=== PATIENT | male | born 1955 | race Caucasian/White ===

== ENCOUNTER 2016-11-25 17:10 | Emergency (ER) | payer SELFPAY ==
[2016-11-25 17:16] VITALS: RESP 16; TEMP 98.1
--- NOTE | 2016-11-25 19:09 | EDPHY ---
H & P Stated Complaint: constipation/thinks was initially caused by taking immodium - Personal History Current Tetanus/Diphtheria Vaccine: No - Medical/Surgical History Hx Asthma: No Hx Chronic Respiratory Disease: No Hx Diabetes: No Hx Cardiac Disease: No Hx Renal Disease: No Hx Cirrhosis: No Hx Alcoholism: No Hx HIV/AIDS: No Hx Splenectomy or Spleen Trauma: No Other PMH: denies - Social History Smoking Status: Former smoker HPI/ROS: Chief complaint: Constipation History of present illness: This is a 61-year-old male who presents to the emergency department for evaluation and treatment of constipation. Patient reports he has been constipated for the last few weeks. He states it started after he developed diarrhea and took more than the prescribed amount of Imodium. He states since then he has had hard stools. He passes small amounts on occasion. He denies other associated signs or symptoms including no fevers or chills, no nausea or vomiting, no diarrhea, he is still passing gas, no abdominal pain. He is urinating well. (Dhruv Krishnamurthy) - Physical Exam Exam: General Appearance: Alert, nontoxic. Eyes: Pupils equal and round no injection. Respiratory: Chest is nontender, lungs are clear to auscultation. Cardiac: regular rate and rhythm. Gastrointestinal: Bowel sounds are normal. Abdomen is soft, nondistended, nontender. No peritoneal signs. Digital rectal exam does not reveal impaction. Musculoskeletal: Extremities have full range of motion and are nontender. Skin: No rashes or lesions. Neurologic: Alert and oriented x4. Ambulating without difficulty. (Dhruv Krishnamurthy) Constitutional: Initial Vital Signs Temperature (C) 36.7 C 11/25/16 17:13 Heart Rate 90 11/25/16 17:13 Respiratory Rate 16 11/25/16 17:13 Blood Pressure 128/90 H 11/25/16 17:13 O2 Sat (%) 92 11/25/16 17:13 O2 Delivery Mode Room Air Allergies/Adverse Reactions: No Known Allergies Allergy (Unverified 11/25/16 17:13) Home Medications: Medication Instructions Recorded Milk of Magnesia 11/25/16 Peg 3350/Na Sulf,Bicarb,Cl/KCl 4,000 ml PO ONCE #1 btl 11/25/16 [Golytely (RX)] Medical Decision Making ED Course/Re-evaluation: Patient seen under the supervision of my secondary supervising physician Dr. Breanna Deleon. Patient presents to the emergency department for evaluation of constipation. Patient has a benign abdominal exam. No evidence of impaction. X-ray confirms constipation. No evidence of bowel obstruction. Patient will be discharged home. I have discussed the use of GoLYTELY with him and then starting stool softeners. He is asked to follow up with his primary care doctor for recheck. Return precautions are given. Patient voiced understanding and agreement with plan. (Dhruv Krishnamurthy) The patient was evaluated and managed by the physician corporate law assistant. I have reviewed this chart and I agree with the findings and plan of care as documented , as indicated by my signature. I am the secondary supervising physician. ( Breanna Deleon) Differential Diagnosis: Included but not limited to constipation, fecal impaction, bowel obstruction ( Dhruv Krishnamurthy) Departure - Departure Disposition: Home, Routine, Self-Care Clinical Impression: Constipation Condition: Good Instructions: Constipation (ED) Additional Instructions: Follow-up with the primary care doctor for recheck If symptoms worsen or new symptoms develop return to the emergency room for recheck Referrals: NONE *PRIMARY CARE P,. [Primary Care Provider] - As per Instructions Prescriptions: Peg 3350/Na Sulf,Bicarb,Cl/KCl [Golytely (RX)] 4,000 ml PO ONCE #1 btl
[2016-11-25 19:33] VITALS: BP 154/98; PULSE 96; O2SAT 95
== END 2016-11-25 19:33 | disposition home or self-care (01) ==
DX: K59.00 Constipation, unspecified (principal); Z87.891 Personal history of nicotine dependence

== ENCOUNTER 2017-01-13 08:53 | Inpatient (IN) | payer MEDICAID ==
--- NOTE | 2017-01-13 09:15 | EDPHY ---
H & P Stated Complaint: not eating or drinking much due to fear of constipation Time Seen by Provider: 01/13/17 09:00 HPI/ROS: CHIEF COMPLAINT: "I feel weak and I am constipated" HISTORY OF PRESENT ILLNESS: 61-year-old male who lives at [facility] arrives via ambulance. It is not completely clear why he is in the emergency department sent to the emergency department. He states that he has a history of constipation was evaluated in the emergency department in November for constipation, given prescription for GoLYTELY which he states he did not consume. He states that he typically drinks a cup of sugar water per day and has otherwise not been eating because he is afraid that he might exacerbate his constipation. He denies nausea or vomiting. He is passing gas as normal. There was initial nursing notation EMS notation or diarrhea however in speaking the patient he states that he has not experienced diarrhea, states that his only incident he will yesterday was when he was passing gas he had a small amount of stool that came out also in the process. He is not incontinent however. he states that he has been feeling weakness over the past several months but denies complaints of pain. States that he will sometimes feel lightheaded when he stands up too quickly. He denies: Abdominal pain, chest pain, dyspnea, slurred speech, headache, gait instability, fever, chills, flu- like symptoms PRIMARY CARE PROVIDER: no primary care provider REVIEW OF SYSTEMS: A ten point review of systems was performed and is negative with the exception of the items mentioned in the HPI PAST MEDICAL & SURGICAL HISTORY: No prior history of known atrial fibrillation SOCIAL HISTORY: Patient states he lives at [facility] so that he may take care of his mother who also lives at [facility] PHYSICAL EXAM (Prior to examination, patient consented to physical exam, hands were washed and my usual and customary physical exam procedures followed) 1) GENERAL: Well-developed, well-nourished, alert and oriented. Appears to be in no acute distress. 2) HEAD: Normocephalic, atraumatic 3) HEENT: Pupils equal, round, reactive to light bilaterally. Sclera anicteric. Nasopharynx, oropharynx, clear, no lesions. moist mucous membranes 4) NECK: Full range of motion, no meningeal signs. 5) LUNGS: Clear auscultation bilaterally, no wheezes, no rhonchi, no retractions. 6) HEART: no murmur, no heave, no gallop. 7) ABDOMEN: No guarding, no rebound, no focal tenderness, negative McBurney's, negative Mariscal's, negative Rovsing's, negative peritoneal sign, 8) MUSCULOSKELETAL: Moving all extremities, no focal areas of tenderness, no obvious trauma. No peripheral edema or discoloration. 9) BACK: No CVA tenderness, no midline vertebral tenderness, no fluctuance, no step-off, no obvious trauma, no visual or palpable abnormality. 10) SKIN: No rash, no petechiae. 11) Psychiatric: Patient is oriented X 3, there is no agitation. DIFFERENTIAL DIAGNOSIS: in no particular include but limited to constipation, diarrhea, atrial fibrillation - Medical/Surgical History Hx Asthma: No Hx Chronic Respiratory Disease: No Hx Diabetes: No Hx Cardiac Disease: No Hx Renal Disease: No Hx Cirrhosis: No Hx Alcoholism: No Hx HIV/AIDS: No Hx Splenectomy or Spleen Trauma: No Other PMH: denies - Social History Smoking Status: Former smoker Constitutional: Initial Vital Signs Temperature (C) 36.7 C 01/13/17 09:04 Heart Rate 89 01/13/17 09:04 Respiratory Rate 15 01/13/17 09:04 Blood Pressure 142/97 H 01/13/17 09:04 O2 Sat (%) 95 01/13/17 09:04 O2 Delivery Mode Room Air Allergies/Adverse Reactions: No Known Allergies Allergy (Verified 01/13/17 09:04) Home Medications: Medication Instructions Recorded NK [No Known Home Meds] 01/13/17 Medical Decision Making - Diagnostics Imaging Results: Imaging Impressions Chest X-Ray 01/13/17 09:09 Impression: Masslike opacity overlying the cardiac silhouette on the lateral radiograph.. Recommend either CT with contrast or comparison with prior outside studies, if available.. Results called to Mike Santos PA-C. Abdomen X-Ray 01/13/17 09:10 Impression: Negative KUB. ED Course/Re-evaluation: 9:47 a.m.: I discussed the case with secondary to superimposition Dr. Juan Goldman in the ER. The patient complains of subjective weakness for the past several months. He has no primary care provider although he states that he has been [facility] ago but does not go there anymore. He was noted to have rate controlled atrial fibrillation of unknown duration. Dr. Goldman and I recommended admission for further evaluation of his atrial fibrillation and to possibly start patient on anticoagulant therapy. Phone consultation with hospitalist Ursula at this time, admit to Dr. Feng PCU 10:05 a.m.: Received a phone call from radiologist Dr. Johan Sanchez regarding patient's chest x-ray. There is a concerning mass seen on his chest x-ray for which CT was recommended. CT chest is ordered and will be followed up by the hospitalist service. - Data Points Laboratory Results: Laboratory Results 01/13/17 09:00 01/13/17 09:00 01/13/17 01/13/17 01/13/17 09:00 09:00 09:00 WBC RBC Hgb Hct MCV MCH MCHC RDW Plt Count MPV Neut % (Auto) Lymph % (Auto) [place] % (Auto) Eos % (Auto) Baso % (Auto) Nucleat RBC Rel Count Absolute Neuts (auto) Absolute Lymphs (auto) Absolute Monos (auto) Absolute Eos (auto) Absolute Basos (auto) Absolute Nucleated RBC Immature Gran % Immature Gran # PT 14.4 SEC SEC (12.0-15.0) INR 1.13 (0.83-1.16) APTT 35.4 SEC SEC (23.0-38.0) Sodium 141 mEq/L mEq/L (134-144) Potassium 3.2 mEq/L L mEq/L (3.5-5.2) Chloride 104 mEq/L mEq/L (97-110) Carbon Dioxide 26 mEq/l mEq/l (22-31) Anion Gap 11 mEq/L mEq/L (8-16) BUN 13 mg/dL mg/dL (7-23) Creatinine 0.7 mg/dL mg/dL (0.7-1.3) Estimated GFR > 60 Glucose 88 mg/dL mg/dL (70-100) Calcium 8.9 mg/dL mg/dL (8.5-10.4) Total Bilirubin 1.4 mg/dL mg/dL (0.1-1.4) Conjugated Bilirubin 0.4 mg/dL mg/dL (0.0-0.5) Unconjugated Bilirubin 1.0 mg/dL mg/dL (0.0-1.1) AST 19 IU/L IU/L (17-59) ALT 20 IU/L L IU/L (21-72) Alkaline Phosphatase 42 IU/L IU/L (38-126) Troponin I < 0.012 ng/mL ng/mL (0-0.034) Total Protein 6.4 g/dL g/dL (6.3-8.2) Albumin 3.9 g/dL g/dL (3.5-5.0) Lipase 72.0 IU/L IU/L (23-300) 01/13/17 09:00 WBC 3.77 10^3/uL L 10^3/uL (3.80-9.50) RBC 4.74 10^6/uL 10^6/uL (4.40-6.38) Hgb 14.4 g/dL g/dL (13.7-17.5) Hct 41.7 % % (40.0-51.0) MCV 88.0 fL fL (81.5-99.8) MCH 30.4 pg pg (27.9-34.1) MCHC 34.5 g/dL g/dL (32.4-36.7) RDW 13.9 % % (11.5-15.2) Plt Count 237 10^3/uL 10^3/uL (150-400) MPV 11.5 fL fL (8.7-11.7) Neut % (Auto) 47.7 % % (39.3-74.2) Lymph % (Auto) 39.8 % % (15.0-45.0) [place] % (Auto) 9.3 % % (4.5-13.0) Eos % (Auto) 2.1 % % (0.6-7.6) Baso % (Auto) 1.1 % % (0.3-1.7) Nucleat RBC Rel Count 0.0 % % (0.0-0.2) Absolute Neuts (auto) 1.80 10^3/uL 10^3/uL (1.70-6.50) Absolute Lymphs (auto) 1.50 10^3/uL 10^3/uL (1.00-3.00) Absolute Monos (auto) 0.35 10^3/uL 10^3/uL (0.30-0.80) Absolute Eos (auto) 0.08 10^3/uL 10^3/uL (0.03-0.40) Absolute Basos (auto) 0.04 10^3/uL 10^3/uL (0.02-0.10) Absolute Nucleated RBC 0.00 10^3/uL 10^3/uL (0-0.01) Immature Gran % 0.0 % % (0.0-1.1) Immature Gran # 0.00 10^3/uL 10^3/uL (0.00-0.10) PT INR APTT Sodium Potassium Chloride Carbon Dioxide Anion Gap BUN Creatinine Estimated GFR Glucose Calcium Total Bilirubin Conjugated Bilirubin Unconjugated Bilirubin AST ALT Alkaline Phosphatase Troponin I Total Protein Albumin Lipase Departure - Departure Disposition: [facility] Acute Clinical Impression: Weakness Atrial fibrillation Qualifiers: Atrial fibrillation type: chronic Qualified Code(s): I48.2 - Chronic atrial fibrillation Condition: Fair
[2017-01-13 09:16] LABS: ADD DIFF? NO; ADD MORPH? NO; ADD SCAN? NO; ATYPICAL LYMPHOCYTE FLAG 20 (0-99); FRAGMENT RBC FLAG 0 (0-99); HEMATOCRIT 41.7 % (40.0-51.0); HEMOGLOBIN 14.4 g/dL (13.7-17.5); LEFT SHIFT FLG 0 (0-99); LIPEMIA HEMOLYSIS FLAG 90 (0-99); MEAN CELL HEMOGLOBIN 30.4 pg (27.9-34.1); MEAN CELL HEMOGLOBIN CONCENTR. 34.5 g/dL (32.4-36.7); MEAN PLATELET VOLUME 11.5 fL (8.7-11.7); PLATELET CLUMPS FLAG 0 (0-99); PLATELET COUNT 237 10^3/uL (150-400); RED BLOOD CELL COUNT 4.74 10^6/uL (4.40-6.38); RED CELL DISTRIBUTION WIDTH 13.9 % (11.5-15.2)
--- NOTE | 2017-01-13 09:19 | CPEKG ---
Heart Rate: 89 RR Interval: 674 QRSD Interval: 90 QT Interval: 408 QTC Interval: 497 QRS Lamont: 68 T Wave Lamont: 21 EKG Severity - ABNORMAL ECG - EKG Impression: ATRIAL FIBRILLATION EKG Impression: LOW VOLTAGE IN FRONTAL LEADS EKG Impression: BORDERLINE PROLONGED QT INTERVAL Electronically Signed By: Brian Sands 15-Jan-2017 08:53:18
[2017-01-13 09:25] LABS: ANION GAP 11 mEq/L (8-16); CALCIUM 8.9 mg/dL (8.5-10.4); CARBON DIOXIDE 26 mEq/l (22-31); CHLORIDE 104 mEq/L (97-110); CREATININE 0.7 mg/dL (0.7-1.3); GLOMERULAR FILTRATION RATE > 60; GLUCOSE 88 mg/dL (70-100); POTASSIUM 3.2 mEq/L (3.5-5.2); SODIUM 141 mEq/L (134-144)
[2017-01-13 09:36] LABS: INR 1.13 (0.83-1.16); PROTIME(PATIENT) 14.4 SEC (12.0-15.0)
[2017-01-13 09:37] LABS: APTT 35.4 SEC (23.0-38.0); TROPONIN I < 0.012 ng/mL (0-0.034)
[2017-01-13 09:45] LABS: ALBUMIN 3.9 g/dL (3.5-5.0); BILIRUBIN,TOTAL 1.4 mg/dL (0.1-1.4); BILIRUBIN-CONJUGATED 0.4 mg/dL (0.0-0.5); TOTAL PROTEIN 6.4 g/dL (6.3-8.2)
[2017-01-13] MEDS ORDERED: IOPAMIDOL (ISOVUE 370) 100 ML BTL IV ONE (10:13)
[2017-01-13] MEDS ORDERED: ONDANSETRON 4 MG/2 ML VIAL IVP PRN (11:57)
[2017-01-13] MEDS ORDERED: ACETAMINOPHEN 325 MG TAB PO PRN (11:57)
[2017-01-13] MEDS ORDERED: ONDANSETRON DISINTEGRATING 4 MG TAB PO PRN (11:57)
[2017-01-13] MEDS ORDERED: NS 1,000 ML IV SCH (12:00)
[2017-01-13] MEDS ORDERED: POTASSIUM CL 20 MEQ TAB PO ONE (12:01)
[2017-01-13] MEDS ORDERED: APIXABAN 5 MG TAB PO SCH (12:03)
[2017-01-13] MEDS ORDERED: POLYETHYLENE GLYCOL 3350 17 GM PKT PO PRN (12:17)
[2017-01-13] MEDS ORDERED: LACTULOSE 20 GM/30 ML UDCUP PO PRN (12:17)
[2017-01-13] MEDS ORDERED: MAGNESIUM HYDROXIDE 30 ML UDCUP PO PRN (12:17)
[2017-01-13] MEDS ORDERED: BISACODYL 10 MG SUPP PR PRN (12:17)
--- NOTE | 2017-01-13 13:03 | GHP ---
[f rep st] HISTORY AND PHYSICAL DATE OF ADMISSION: 01/13/2017 CHIEF COMPLAINT: Weakness and poor oral intake due to fear of constipation. HISTORY OF PRESENT ILLNESS: The patient is a 61-year-old male with no significant medical history, who presents to the emergency department complaining of constipation and dehydration. He was seen i n the emergency department 2 months ago, at which time a KUB revealed moderate constipation pattern. He was given a prescription for GoLYTELY. However, he had difficulty tolerating this as he felt i t was making him more dehydrated. When I asked when his last bowel movement was, he says he does no t have bowel movements and finally agreed that he had a bowel movement 3 months ago. He later state s that he has had some loose stool as recent as yesterday. He is overall afraid to eat or drink bec ause he fears this will exacerbate his constipation. He denies any nausea or vomiting. He does end orse changes in his bowel patterns as he used to have normal formed stool, but these have changed to looser versus constipation patterns over the past few months. He also reports occasional blood-tin ged stool. He has had no fevers or chills. He denies abdominal pain. He does endorse weight loss, but is unable to quantify this. In the emergency department, he was found to be in rate controlled atrial fibrillation, which is a n ew diagnosis for him. He has no chest pain, shortness of breath, palpitations, or dizziness. Chest x-ray revealed a masslike opacity over the cardiac silhouette. CT angiogram was performed, which r evealed this mass is likely a pericardial cyst. The patient is unaware of this. Given his new-onse t atrial fibrillation and weakness, the patient is admitted to the hospital for further evaluation. PAST MEDICAL HISTORY: Intermittent constipation. MEDICATIONS: Patient takes no medications. ALLERGIES: No known drug allergies. FAMILY HISTORY: Positive for coronary artery disease on his father's side. 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 He denies tobacco use. He reports intermittent alcohol use. He denies drug use. REVIEW OF SYSTEMS: A 10-point review of systems was performed and is negative except as per HPI. OBJECTIVE: VITAL SIGNS: Temperature is 36.7, blood pressure 114/81, heart rate 78, respiratory rat e 17. He is 96% on room air. GENERAL: The patient is awake, alert, oriented, in no acute distress . HEENT: Head is atraumatic, normocephalic. Pupils equal, round, and reactive to light. Extraocu lar muscles intact. Oropharynx clear. Mucous members are moist. NECK: Supple. There is no JVD. HEART: Regular rate and rhythm without murmur. LUNGS: Clear to auscultation bilaterally. ABDOME N: Soft, nondistended, nontender, with normoactive bowel sounds. EXTREMITIES: Without cyanosis, c lubbing, or edema. NEUROLOGIC: Grossly nonfocal. PSYCH: The patient has a strange affect. LABORATORY DATA: CBC remarkable for white blood cell count of 3.77, is otherwise normal with normal hemoglobin and hematocrit. INR is 1.13. Complete metabolic panel is remarkable for potassium of 3 .2. LFTs are normal. Troponin is negative. Lipase is normal. Chest x-ray was personally reviewed and interpreted, reveals a masslike opacity overlying the cardia c silhouette. The lung turpin are otherwise clear. CT pulmonary angiogram is negative for pulmonary embolism. A benign 4 cm pericardial cyst along the right heart border corresponds to the chest x-ray findings. There is mild airways disease and mini mal posterior atelectasis. Abdominal x-ray shows a normal bowel gas pattern. No significant constipation is noted. EKG shows atrial fibrillation with a rate of 89. No ST-segment or T-wave changes to suggest acute i schemia. ASSESSMENT AND PLAN: The patient is a 61-year-old male with no significant past medical history, wh o presents to the emergency department from his assisted living facility complaining of weakness and constipation. 1. Atrial fibrillation. This is new onset. He is rate controlled, not on any AV lauren blockers. I did discuss possible anticoagulation with the patient though he has a CHADS-VASc score of zero, th us will initiate aspirin therapy. Will also check an echocardiogram and a TSH. 2. Pericardial cyst. This was confirmed on CT angiography. It is unclear if this may be precipita ting atrial fibrillation. As above, will proceed with echocardiogram. I have also paged the cardio thoracic surgeon for their input. This likely can be followed as an outpatient. 3. Changes in bowel patterns. The patient seems to be struggling with the fear of constipation, th ough there is no radiologic evidence of this. Given his changes in bowel patterns, will check Hemoc cult stool. I recommended he have an outpatient colonoscopy. There is no evidence of active GI ble eding at this time. 4. Hypokalemia. Will replace and recheck in the morning. 5. Weakness. He is hemodynamically stable. He does not appear significantly volume depleted. How ever, given his strong feeling that he is dehydrated and reports of poor oral intake, will gently hy drate him with normal saline overnight. PT, OT evaluations are requested. 6. Deep vein thrombosis prophylaxis. Will place SCDs for now. If the patient has a prolonged hosp italization, will order Lovenox. 7. Code status. Patient is full code. 8. Disposition. Patient is admitted to observation status. [facility] may be a candidate for discharge home in the morning with plans for outpatient referral for colonoscopy and primary care followup. /[id number]/MODL
[2017-01-13 13:29] LABS: HEMOGLOBIN A1C 5.4 % (4.0-6.0)
[2017-01-13] MEDS: ASPIRIN 325 MG TAB PO SCH (14:06)
[2017-01-13] MEDS ORDERED: TEARS/DEXTRAN 70/HYPROMELLOSE 15 ML OPHT.BTL EACHEYE PRN (19:44)
[2017-01-13] MEDS: SENNOSIDES/DOCUSATE SODIUM TAB PO SCH (22:07)
[2017-01-14 06:23] LABS: ANION GAP 10 mEq/L (8-16); CALCIUM 8.6 mg/dL (8.5-10.4); CARBON DIOXIDE 23 mEq/l (22-31); CHLORIDE 107 mEq/L (97-110); CREATININE 0.6 mg/dL (0.7-1.3); GLOMERULAR FILTRATION RATE > 60; GLUCOSE 69 mg/dL (70-100); POTASSIUM 3.3 mEq/L (3.5-5.2); SODIUM 140 mEq/L (134-144)
[2017-01-14] MEDS: ASPIRIN 325 MG TAB PO SCH (08:15)
[2017-01-14] MEDS ORDERED: PROTOCOL POTASSIUM 1 DOSE MISC PRN (08:46)
[2017-01-14] MEDS ORDERED: POTASSIUM CL 10 MEQ TAB PO ONE ×2 (08:54→20:20)
--- NOTE | 2017-01-14 09:20 | ECHO ---
[id number] + + [address] : : [place] [address] : : [phone] + Adult Echocardiographic Report + ---+ :Name: POOL SEVILLA JStudy Date: 01/13/2017 02:33 PM : : Hospital Admission Number: [id number] : :: 1955 Gender: Male Height: 72 in : :Age: 61 yrs Race: WH Weight: 150 l b : :Reason For Study: Eval LV Fx : : BSA: 1.9 mete rs2: :History: New onset of A-fib : + ---+ MMode/2D Measurements \T\ Calculations IVSd: 0.79 cm LVIDd: 5.2 cm FS: 34.2 % Ao root diam: 3.4 cm LVPWd: 0.85 cm LVIDs: 3.4 cm EDV(Teich): 131.3 ml ACS: 2.4 cm ESV(Teich): 48.9 ml EF(Teich): 62.7 % Normal Measurement Values: + + :LVIDd (3.5-5.7cm) IVSd (0.6-1.1cm) LVPWd (0.6-1.1cm) Aortic Root (2.0-3.7cm)Left Atrium (1.5-4.0cm): :LV Vol(d) (76-115ml) LV Vol(s) (29-48ml) Ejec Fraction (50-65%)PV Roc (0.6- 1.2m/s) TV Roc (0.4-1.0m/s) : :MV E Roc (0.8-1.0m/s)MV A Roc (0.3-1.0m/s)LVOT Roc (0.7-1.2m/s) Asc Ao Roc ( 0.9-1.8m/s) : + + Doppler Measurements \T\ Calculations MV E max roc: Ao V2 max: LV V1 max: PA V2 max: 73.5 cm/sec 70.6 cm/sec 53.7 cm/sec 69.2 cm/sec MV A max roc: Ao max PG: LV V1 max PG: PA max P.0 cm/sec 2.0 mmHg 1.2 mmHg 1.9 mmHg MV E/A: 1.3 Left Ventricle The left ventricle is normal in size. There is normal left ventricular wall thickness. The left ventricular ejection fraction is normal. Ejection Fraction = 63%. The left ventricular ejection fraction is calculated at 62.7 %. The rhythm is atrial fibrillation. Right Ventricle The right ventricle is normal in size and function. Atria The left atrial size is normal. Right atrial size is normal. Mitral Valve The mitral valve is normal in structure and function. There is no mitral regurgitation noted. Tricuspid Valve Normal tricuspid valve. There is trace tricuspid regurgitation. Right ventricular systolic pressure is normal. Aortic Valve The aortic valve opens well. The aortic valve is trileaflet. There is no aortic stenosis. Mild aortic regurgitation. Pulmonic Valve The pulmonic valve is not well visualized. There is no pulmonic valvular regurgitation. Great Vessels The aortic root is normal size. Pericardium/Pleural Trivial to small anterior pericardial effusion. There are no echocardiographic indications of cardiac tamponade. Conclusion A complete two-dimensional transthoracic echocardiogram was performed (2D, M-mode, Doppler and color flow Doppler). (1) Left ventricular systolic ejection fraction was normal (60-65%) - normal wall motion (2) No left ventricular hypertrophy (3) Diastolic dysfunction was present - patient was in atrial fibrillation over course of this study (4) Normal right ventricular size and function (5) Normal atrial dimensinos (6) Grossly normal mitral valve (7) Trileaflet aortic valve without sclerosis or stenosis. Mild insufficiency wasn oted (8) Physiologic tricuspid regurgitation - RVSP was grossly normal (9) Poor visualization of the pulmonic valve (10) Trivial pericardial effusion - no tamponade physiology (11) No comparison echocardiograms Final Reading Physician: Shalom Bejarano signed on 01/14/2017 09:20 AM Ordering Physician: Oralia Feng Performed By: Jet Soto, JAMALCS
--- NOTE | 2017-01-14 09:32 | HOSPPROG ---
Hospitalist Progress Note Assessment/Plan: ?Anorexia - BMI 19, hypokalemic. Seems to have fear of eating, little insight. Replace K. Behavioral health resource RN consult appreciated. Will start low dose zyprexa to see if this helps reduce his fear of eating. Depression - pt resistant to anti-depressants. A fib - rate controlled, Chads-vasc 0, on ASA. Outpt f/u with [facility] Pericardial cyst - Discussed with Dr. Troy, plan for outpt f/u with dr. Feliz Full code Dispo - change to inpt for ongoing assessment and management of suspected eating disorder and treatment of associated electrolyte disorders. Pt likely to dispo to [facility] for above issues. Case discussed with care team. Subjective: Pt feels okay. Per RN, he is afraid to eat and he thinks it will cause constipation. He is depressed. Lives at [facility], but per care team hx , though he is supposed to be the caregiver of his elderly mother, she is actually caring for him. Objective: Vital Signs Temp Pulse Resp BP Pulse Ox 36.7 C 80 12 119/89 H 97 01/14/17 07:44 01/14/17 07:44 01/14/17 07:44 01/14/17 07:44 01/14/17 07:44 Laboratory Results 01/14/17 05:15 01/13/17 01/14/17 01/15/17 05:59 05:59 05:59 Intake Total 500 Balance 500 PT 14.4 SEC (12.0-15.0) 01/13/17 09:00 INR 1.13 (0.83-1.16) 01/13/17 09:00 - Physical Exam Constitutional: no apparent distress Eyes: PERRL Ears, Nose, Mouth, Throat: moist mucous membranes Cardiovascular: irregularly irregular Respiratory: no respiratory distress Gastrointestinal: normoactive bowel sounds, soft, non-tender abdomen Skin: warm Musculoskeletal: full muscle strength Neurologic: AAOx3 Psychiatric: depressed, poor insight ICD10 Worksheet Patient Problems: Problems Problem Status Onset Atrial fibrillation Acute Weakness Acute
[2017-01-14] MEDS: SENNOSIDES/DOCUSATE SODIUM TAB PO SCH ×2 (10:50→20:31)
[2017-01-14] MEDS ORDERED: POTASSIUM CL 10 MEQ TAB ONE (11:09)
[2017-01-14 19:29] LABS: POTASSIUM 3.7 mEq/L (3.5-5.2)
[2017-01-14] MEDS: OLANZapine 2.5 MG TAB PO SCH (20:31)
[2017-01-14 21:44] LABS: PHENCYCLIDINE URINE BCH < 6 ng/ml (NEGATIVE); PHENCYCLIDINE URINE BCH NEGATIVE (NEGATIVE); TETRAHYDROCANNABINOL URINE < 5 ng/mL (NEGATIVE); TETRAHYDROCANNABINOL URINE NEGATIVE (NEGATIVE)
[2017-01-15 05:01] LABS: ANION GAP 12 mEq/L (8-16); CALCIUM 9.1 mg/dL (8.5-10.4); CARBON DIOXIDE 21 mEq/l (22-31); CHLORIDE 106 mEq/L (97-110); CREATININE 0.7 mg/dL (0.7-1.3); GLOMERULAR FILTRATION RATE > 60; GLUCOSE 71 mg/dL (70-100); POTASSIUM 3.8 mEq/L (3.5-5.2); SODIUM 139 mEq/L (134-144)
[2017-01-15] MEDS: ASPIRIN 325 MG TAB PO SCH (09:58)
[2017-01-15] MEDS: SENNOSIDES/DOCUSATE SODIUM TAB PO SCH ×2 (09:58→20:14)
[2017-01-15] MEDS ORDERED: POTASSIUM CL 10 MEQ TAB PO ONE (11:33)
--- NOTE | 2017-01-15 13:32 | HOSPPROG ---
Hospitalist Progress Note Assessment/Plan: ?Anorexia - BMI 19, hypokalemic. Seems to have fear of eating, little insight. Behavioral health resource RN consult appreciated. Started low dose zyprexa to see if this helps reduce his fear of eating. Depression - pt resistant to anti-depressants, but wants help. [facility] today and placed him on a M1 hold due to being gravely disabled as he is not eating and is a harm to himself. Planning for dispo to [facility]. A fib - has had some RVR overnight, start oral dilt. Chads-vasc 0, on ASA. Outpt f/u with [facility]. Pericardial cyst - Discussed with Dr. Troy, plan for outpt f/u with dr. Feliz Full code Dispo - cont inpt. Pt likely to dispo to [facility] for above issues, CM involved. Case discussed with care team. Subjective: Pt is doing okay, agreeable to [facility] transfer during our talk. Still worried about his bowel. Afraid of constipation, afraid of diarrhea, not eating. He is very depressed, anxious. Objective: Vital Signs Temp Pulse Resp BP Pulse Ox 37.1 C 98 15 120/94 H 95 01/15/17 12:13 01/15/17 12:13 01/15/17 12:13 01/15/17 12:13 01/15/17 12:13 Laboratory Results 01/15/17 03:30 01/14/17 01/15/17 01/16/17 05:59 05:59 05:59 Intake Total 800 Output Total 180 Balance 620 PT 14.4 SEC (12.0-15.0) 01/13/17 09:00 INR 1.13 (0.83-1.16) 01/13/17 09:00 - Physical Exam Constitutional: no apparent distress Eyes: PERRL Ears, Nose, Mouth, Throat: moist mucous membranes Cardiovascular: regular rate and rhythym Respiratory: no respiratory distress Gastrointestinal: normoactive bowel sounds, soft, non-tender abdomen Skin: warm Musculoskeletal: full muscle strength Neurologic: AAOx3 Psychiatric: depressed ICD10 Worksheet Patient Problems: Problems Problem Status Onset Atrial fibrillation Acute Weakness Acute
[2017-01-15] MEDS: DILTIAZEM 30 MG TAB PO SCH ×2 (14:07→18:37)
[2017-01-15] MEDS ORDERED: DILTIAZEM 30 MG TAB PO ONE (19:06)
[2017-01-15] MEDS: OLANZapine 2.5 MG TAB PO SCH (20:09)
[2017-01-16] MEDS: DILTIAZEM 30 MG TAB PO SCH ×2 (00:12→05:40)
[2017-01-16 06:16] LABS: MAGNESIUM 1.9 mg/dL (1.6-2.3); POTASSIUM 3.5 mEq/L (3.5-5.2)
[2017-01-16] MEDS ORDERED: POTASSIUM CL 10 MEQ TAB PO ONE (07:28)
--- NOTE | 2017-01-16 08:51 | PDIAF ---
- Diagnosis Diagnosis: Depression with psychotic features, ?Anorexia, A fib Code Status: Full Code - Medication Management Discharge Medications: Medications to Continue on Transfer Aspirin EC [Aspirin EC 81 mg (*)] 81 mg PO DAILY #30 tab 01/15/17 [Last Taken Unknown] OLANZapine [ZyPREXA 2.5 mg (*)] 2.5 mg PO HS tab 01/15/17 [Last Taken Unknown] Tears/Dextran 70/Hypromellose [Natural Balance Tears (*)] 1 drop EACHEYE Q2HRS PRN #0 opht.btl 01/15/17 [Last Taken Unknown] Diltiazem Cd [Cardizem ER Q24hr] 180 mg PO DAILY #30 cap 01/16/17 [Last Taken Unknown] Discharge Medications: Refer to the Discharge Home Medication list for PRN reason. - Orders Diet Texture: Regular Texture Diet, Thin Liquids - Follow Up Care Current Providers and Referrals: Rakan Escalona MD [Medical Doctor] - (Please make an appointment with a associate director of sales to make a plan and possibly schedule a colonoscopy given the change in your bowel habits.) Vin Feliz DO [Doctor of Osteopathy] - follow up in 1 week (Please make an appointment with Dr. Feliz to discuss surgical options re: benign pericardial cyst.) Jacob Kat MD [Medical Doctor] - follow up in 10 days (Please make an appointment to follow up on your atrial fibrillation with a provider at [facility].)
[2017-01-16] MEDS: ASPIRIN 325 MG TAB PO SCH (09:17)
[2017-01-16] MEDS: SENNOSIDES/DOCUSATE SODIUM TAB PO SCH (09:18)
[2017-01-16 09:28] VITALS: RESP 18
[2017-01-16 11:41] VITALS: BP 112/90; PULSE 86; TEMP 98.1; O2SAT 96
[2017-01-16] MEDS ORDERED: DILTIAZEM CD 180 MG CAP PO SCH (12:00)
--- NOTE | 2017-01-16 20:14 | GDS ---
[f rep st] DISCHARGE SUMMARY DISCHARGE DIAGNOSES: 1. 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 2. Suspected anorexia, possibly secondary to above. 3. New onset atrial fibrillation. 4. Pericardial cyst. CONSULTANTS: None. IMAGING STUDIES/PROCEDURES: 1. Abdomen x-ray January 13 showed normal bowel gas pattern, an overall negative study. 2. Chest x-ray showed a masslike opacity over the cardiac silhouette. 3. CT angiogram of the chest was negative for pulmonary embolism, showed a benign 4 cm pericardial cyst along the right heart border, corresponding with the chest radiograph findings. 4. Echocardiogram showed a normal left ventricular ejection fraction of 60% to 65% with normal wall motion. Diastolic dysfunction was present. No significant valve disease was seen. There was a tr ivial pericardial effusion without tamponade physiology. HISTORY OF DETAILS: Please see the history and physical dated January 13, 2017. In brief, the patient is a 61-year-old male with no significant past medical history, who presents to the emergency depart ment with weakness and poor oral intake due to a fear of constipation. He was having new onset atri al fibrillation, as well as mild hypokalemia, and was admitted to the hospital for further managemen t. HOSPITAL COURSE: The patient was admitted to the telemetry unit. He was initially rate controlled and had a CHADS-VASc score of zero and thus was treated with daily aspirin for stroke prevention. Lucho sánchez did develop some rapid ventricular rates and was started on oral diltiazem. This was up titrated. He was discharged on long-acting diltiazem. There was no evidence of valve disease on his echo. His TSH was normal. I discussed the pericardial cyst with the on-call neurosurgeon, claudio Ca recommended outpatient followup. He was referred to Dr. Feliz for ongoing surveillance. His more pressing issue was his depression with paranoid and psychotic features causing him to have a fear of eating. He states he has not been eating for several months and has lost over 20 pounds. His BMI is 18.5. He presented with mild hypokalemia, and this was replaced and remained normal at discharge. Behavioral Health tuber machine operator consult was obtained, and further history was revealed that the patient has not been taking care of himself. He apparently lives at [facility] with his m other and is supposed to be her caregiver, though as it turns out, she is doing most of the caregivi ng for him. He seems to have some fearful and psychotic-type thoughts about Kleenex being stuck in the back of his throat, making it difficult to swallow. This, in addition to his fear of both diarr hea and constipation, contributed to his unwillingness to eat. He had a normal swallow evaluation b y Speech Therapy. There is no obvious foreign body in his posterior oropharynx on exam. He was sta rted on low-dose Zyprexa to help alleviate these fears. [facility] evaluated the patien t and felt he was of grave harm to himself, placing him on an M1 hold. He is ultimately accepted to [facility] facility for ongoing management of these issues. DISPOSITION: Patient is discharged to [facility]. FOLLOWUP: 1. Dr. Jacob Kat, cardiology, for ongoing followup of his atrial fibrillation. 2. Dr. Vin Feliz, cardiothoracic surgery, for followup of his pericardial cyst. 3. Dr. Rakan Escaloan, gastroenterology, for colonoscopy given his changes in bowel habits. 4. The patient was also encouraged to obtain a primary care physician and establish care. DISCHARGE MEDICATIONS: Aspirin 81 mg p.o. daily #30, no refills, diltiazem CD 180 mg p.o. daily #30 , no refills, Zyprexa 2.5 mg p.o. at bedtime. /[id number]/MODL
== END 2017-01-16 11:50 | DRG 309 ==
LOC: EDUNIT# → F2W 12:07 → OBSVTOIN 01-14 09:34 → EEVIPCON 01-14 09:34 → F2N 01-15 21:15
PROVIDERS: ADMIT Hospitalist; ATTEND Hospitalist
DX: I48.91 Unspecified atrial fibrillation (principal); E87.6 Hypokalemia; F41.8 Other specified anxiety disorders; F22 Delusional disorders; R63.0 Anorexia; I31.8 Other specified diseases of pericardium; Z68.1 Body mass index [BMI] 19.9 or less, adult; Z87.891 Personal history of nicotine dependence
CPT/HCPCS: 80307; 92610-GN; 97161-GP; 97165-GO; G0378; G0480; Q9967

== ENCOUNTER 2017-08-17 15:58 | Emergency (ER) | payer MEDICAID ==
--- NOTE | 2017-08-17 19:02 | EDPHY ---
H & P Time Seen by Provider: 08/17/17 19:02 HPI/ROS: Chief complaint. Dehydration HPI. 62-year-old male presents emergency department with complaint of eye the time dehydrated. He has had swallowing for 1 year. He has had decreased oral intake. Decreased urination. No vomiting but some diarrhea. He has never had an skull for evaluation home was 1 year ago difficulty swallowing. No chest pain or abdominal pain. He feels that the food tends to get stuck. However he is handling his secretions ROS Constitutional. no fever/chills, no weakness Eyes. no problems with vision ENT. Difficulty swallowing Cardiovascular. no chest pain Respiratory. no shortness of breath, no cough Abdominal. no abdominal pain, no nausea/vomiting, no diarrhea . no problems urinating MS. no calf pain/swelling, no neck/back pain, no joint pain Skin. no rash Lymph. no swollen glands Neuro. no headache, no dizziness, no difficulty walking or with speech Past Medical/Surgical History: Atrial fibrillation in the past Social History: Single, homeless, nonsmoker Smoking Status: Former smoker Physical Exam: General Appearance: Alert well-developed male mild distress vital signs are stable Eyes: Pupils equal and round no pallor or injection. ENT, Mouth: Mucous membranes are moist. Respiratory: There are no retractions, lungs are clear to auscultation. Cardiovascular: Regular rate and rhythm. Gastrointestinal: Abdomen is soft and nontender, no masses, bowel sounds normal. Neurological: Awake and alert, sensory and motor exams grossly normal. Skin: Warm and dry, no rashes. Musculoskeletal: Neck is supple nontender. Extremities symmetrical, full range of motion. Psychiatric: Patient is oriented X 3, there is no agitation. Constitutional: Initial Vital Signs Temperature (C) 36.4 C 08/17/17 16:07 Heart Rate 92 08/17/17 16:07 Respiratory Rate 18 08/17/17 16:07 Blood Pressure 114/67 08/17/17 16:07 O2 Sat (%) 97 08/17/17 16:07 O2 Delivery Mode Room Air Allergies/Adverse Reactions: No Known Allergies Allergy (Verified 08/17/17 16:07) Home Medications: Medication Instructions Recorded NK [No Known Home Meds] 08/17/17 Medical Decision Making Procedures: IV normal saline with initial target of 2L ED Course/Re-evaluation: Evaluation 8:00 p.m.. Patient is stable. Finishing his 2nd L of fluid and still no urge to urinate. 3rd L will be given Differential Diagnosis: Patient has had 1 year history of dysphagia and difficulty swallowing. No evidence for acute problems such as epiglottitis today. Recommended follow-up with Gastroenterology for the endoscopy. Possible esophageal cancer - Data Points Laboratory Results: Laboratory Results 08/17/17 19:07 08/17/17 19:07 08/17/17 08/17/17 19:07 19:07 WBC 10.28 10^3/uL H 10^3/uL (3.80-9.50) RBC 5.15 10^6/uL 10^6/uL (4.40-6.38) Hgb 15.3 g/dL g/dL (13.7-17.5) Hct 44.2 % % (40.0-51.0) MCV 85.8 fL fL (81.5-99.8) MCH 29.7 pg pg (27.9-34.1) MCHC 34.6 g/dL g/dL (32.4-36.7) RDW 12.8 % % (11.5-15.2) Plt Count 313 10^3/uL 10^3/uL (150-400) MPV 10.0 fL fL (8.7-11.7) Neut % (Auto) 75.2 % H % (39.3-74.2) Lymph % (Auto) 17.5 % % (15.0-45.0) [place] % (Auto) 6.6 % % (4.5-13.0) Eos % (Auto) 0.1 % L % (0.6-7.6) Baso % (Auto) 0.3 % % (0.3-1.7) Nucleat RBC Rel Count 0.0 % % (0.0-0.2) Absolute Neuts (auto) 7.73 10^3/uL H 10^3/uL (1.70-6.50) Absolute Lymphs (auto) 1.80 10^3/uL 10^3/uL (1.00-3.00) Absolute Monos (auto) 0.68 10^3/uL 10^3/uL (0.30-0.80) Absolute Eos (auto) 0.01 10^3/uL L 10^3/uL (0.03-0.40) Absolute Basos (auto) 0.03 10^3/uL 10^3/uL (0.02-0.10) Absolute Nucleated RBC 0.00 10^3/uL 10^3/uL (0-0.01) Immature Gran % 0.3 % % (0.0-1.1) Immature Gran # 0.03 10^3/uL 10^3/uL (0.00-0.10) Sodium 134 mEq/L mEq/L (134-144) Potassium 3.9 mEq/L mEq/L (3.5-5.2) Chloride 94 mEq/L L mEq/L (97-110) Carbon Dioxide 24 mEq/l mEq/l (22-31) Anion Gap 16 mEq/L mEq/L (8-16) BUN 11 mg/dL mg/dL (7-23) Creatinine 0.8 mg/dL mg/dL (0.7-1.3) Estimated GFR > 60 Glucose 93 mg/dL mg/dL (70-100) Calcium 9.6 mg/dL mg/dL (8.5-10.4) Lipase 68 IU/L IU/L (23-300) Medications Given: Discontinued Medications Sodium Chloride (Ns) 1,000 mls @ 0 mls/hr IV EDNOW ONE; Wide Open PRN Reason: Protocol Stop: 08/17/17 19:12 Last Admin: 08/17/17 19:20 Dose: 1,000 mls Sodium Chloride (Ns) 1,000 mls @ 0 mls/hr IV EDNOW ONE; Wide Open PRN Reason: Protocol Stop: 08/17/17 19:12 Last Admin: 08/17/17 19:23 Dose: 1,000 mls Sodium Chloride (Ns) 1,000 mls @ 0 mls/hr IV ONCE ONE; Wide Open PRN Reason: Protocol Stop: 08/17/17 20:26 Last Admin: 08/17/17 20:45 Dose: 1,000 mls Departure - Departure Disposition: Home, Routine, Self-Care Clinical Impression: Dysphagia Qualifiers: Dysphagia type: unspecified Qualified Code(s): R13.10 - Dysphagia, unspecified Condition: Good Instructions: Dysphagia (ED) Additional Instructions: Stay hydrated by drinking fluids. Diet as tolerated. Call Gastroenterology to have follow-up and further evaluation of your difficulty swallowing. Referrals: NONE *PRIMARY CARE P,. [Primary Care Provider] - As per Instructions Kavon Mendes MD [Medical Doctor] - As per Instructions [facility] [Outside] - As per Instructions
[2017-08-17 19:08] VITALS: RESP 16
[2017-08-17] MEDS ORDERED: NS 1,000 ML IV ONE ×3 (19:11→20:25)
[2017-08-17 19:26] LABS: PLATELET COUNT 313 10^3/uL (150-400)
[2017-08-17 22:24] VITALS: BP 130/79; PULSE 90; TEMP 97.9; O2SAT 95
== END 2017-08-17 22:58 | disposition home or self-care (01) ==
DX: R13.10 Dysphagia, unspecified (principal); E86.9 Volume depletion, unspecified; Z87.891 Personal history of nicotine dependence

== ENCOUNTER 2017-08-18 08:24 | Emergency (ER) | payer MEDICAID ==
[2017-08-18 08:31] VITALS: BP 104/89; PULSE 92; RESP 16; TEMP 97.5; O2SAT 97
--- NOTE | 2017-08-18 08:36 | EDPHY ---
H & P Stated Complaint: pt feels dehydrated /seen yesterday for the same Time Seen by Provider: 08/18/17 08:35 HPI/ROS: CHIEF COMPLAINT: "I am dehydrated" HISTORY OF PRESENT ILLNESS: The patient is a homeless male who presents to the ED with a 10 month history of dysphagia and subjective dehydration. The patient had been hospitalized earlier in January with atrial fibrillation and constipation. He was not started on medication at that point time. The patient has yet to establish primary care. The patient was seen in the emergency department yesterday with similar complaints. Laboratory studies demonstrated no acute abnormalities and his vital signs were stable. The patient tells me he is able to drink liquids still however developed a sensation of a dry mouth. The patient has been urinating normally today. The patient was referred to Gastroenterology and had a recommendation to [facility] to [facility] primary care. The patient denies any acute additional complaints today. REVIEW OF SYSTEMS: A comprehensive 10 point review of systems is otherwise negative aside from elements mentioned in the history of present illness. Source: Patient Exam Limitations: No limitations - Personal History Current Tetanus/Diphtheria Vaccine: No - Medical/Surgical History Hx Asthma: No Hx Chronic Respiratory Disease: No Hx Diabetes: No Hx Cardiac Disease: No Hx Renal Disease: No Hx Cirrhosis: No Hx Alcoholism: No Hx HIV/AIDS: No Hx Splenectomy or Spleen Trauma: No Other PMH: afib by past med record - Social History Smoking Status: Former smoker - Physical Exam Exam: General Appearance: Alert, no distress Eyes: Pupils equal and round no pallor or injection ENT, Mouth: Mucous membranes moist Respiratory: There are no retractions, lungs are clear to auscultation Cardiovascular: Regular rate and rhythm Gastrointestinal: Abdomen is soft and nontender, no masses, bowel sounds normal Neurological: A&O, normal motor function, normal sensory exam, normal cranial nerves Skin: Warm and dry, no rashes Musculoskeletal: Neck is supple nontender Extremities: symmetrical, full range of motion Constitutional: Initial Vital Signs Temperature (C) 36.4 C 08/18/17 08:27 Heart Rate 92 08/18/17 08:27 Respiratory Rate 16 08/18/17 08:27 Blood Pressure 104/89 H 08/18/17 08:27 O2 Sat (%) 97 08/18/17 08:27 O2 Delivery Mode Room Air Allergies/Adverse Reactions: No Known Allergies Allergy (Verified 08/18/17 08:27) Home Medications: Medication Instructions Recorded NK [No Known Home Meds] 08/17/17 Medical Decision Making ED Course/Re-evaluation: The patient's vital signs are stable. He is well-appearing and well-hydrated. The patient is able to drink water without any difficulty. I reviewed his laboratory testing from yesterday. The patient does need to establish primary care with [facility] and will ultimately need to be seen by Gastroenterology. Case management has evaluated the patient and has made arrangements for the patient to undergo intake at [facility] today. He can be evaluated for placement into the homeless snf. I did ashia Mendes who is on- call for Gastroenterology. He would be happy to see the patient in follow-up for consideration of endoscopy provided the patient can establish primary care. The patient will be discharged from the emergency department to [facility] for further evaluation and initiation of outpatient services. Departure - Departure Disposition: Home, Routine, Self-Care Clinical Impression: Dysphagia Condition: Good Instructions: Dysphagia (ED) Additional Instructions: 1. Please go directly to [facility] to establish primary care, review homeless snf services and discuss a referral to Gastroenterology. Referrals: [facility],. [Clinic] - As per Instructions
== END 2017-08-18 10:25 | disposition home or self-care (01) ==
DX: R13.10 Dysphagia, unspecified (principal); Z87.891 Personal history of nicotine dependence

== ENCOUNTER 2017-08-24 19:44 | Emergency (ER) | payer MEDICAID ==
[2017-08-24 19:56] VITALS: BP 132/93; PULSE 124; RESP 17; TEMP 98.2; O2SAT 96
--- NOTE | 2017-08-24 21:59 | EDPHY ---
H & P Stated Complaint: Bilat Foot Pain - Dehydration Time Seen by Provider: 08/24/17 21:22 HPI/ROS: CHIEF COMPLAINT: Dehydration, feet hurt HISTORY OF PRESENT ILLNESS: Patient is a 62-year-old homeless man who was brought by EMS from the long-term because he was complaining that his feet hurt. He also complains that he is dehydrated. He denies fevers or injury. He thinks that his feet hurt because there dehydrated. REVIEW OF SYSTEMS: Constitutional: denies: chills, fever, recent illness, recent injury EENTM: denies: blurred vision, double vision, nose congestion Respiratory: denies: cough, shortness of breath Cardiac: denies: chest pain, irregular heart rate, lightheadedness, palpitations Gastrointestinal/Abdominal: denies: abdominal pain, diarrhea, nausea, vomiting, blood streaked stools Genitourinary: denies: dysuria, frequency, hematuria, pain Musculoskeletal: denies: joint pain, muscle pain Skin: See HPI Neurological: denies: headache, numbness, paresthesia, tingling, dizziness, weakness Hematologic/Lymphatic: denies: blood clots, easy bleeding, easy bruising Immunologic/allergic: denies: HIV/AIDS, transplant EXAM: GENERAL: Well-appearing, well-nourished and in no acute distress. HEAD: Atraumatic, normocephalic. EYES: Pupils equal round and reactive to light, extraocular movements intact, sclera anicteric, conjunctiva are normal. ENT: TMs normal, nares patent, oropharynx clear without exudates. Moist mucous membranes. NECK: Normal range of motion, supple without lymphadenopathy or JVD. LUNGS: Breath sounds clear to auscultation bilaterally and equal. No wheezes rales or rhonchi. HEART: Regular rate and rhythm without murmurs, rubs or gallops. ABDOMEN: Soft, nontender, normoactive bowel sounds. No guarding, no rebound. No masses appreciated. BACK: No CVA tenderness, no spinal tenderness, step-offs or deformities EXTREMITIES: See below NEUROLOGICAL: Cranial nerves II through XII grossly intact. Normal speech, normal gait. 5/5 strength, normal movement in all extremities, normal sensation PSYCH: Normal mood, normal affect. SKIN: Very slight trench foot with scaly dry feet and minimal edema. Source: Patient Exam Limitations: No limitations - Personal History Current Tetanus/Diphtheria Vaccine: Unsure Current Tetanus Diphtheria and Acellular Pertussis (TDAP): Unsure - Medical/Surgical History Hx Asthma: No Hx Chronic Respiratory Disease: No Hx Diabetes: No Hx Cardiac Disease: No Hx Renal Disease: No Hx Cirrhosis: No Hx Alcoholism: No Hx HIV/AIDS: No Hx Splenectomy or Spleen Trauma: No Other PMH: afib by past med record - Family History Significant Family History: No pertinent family hx - Social History Smoking Status: Former smoker Alcohol Use: Heavy Constitutional: Initial Vital Signs Temperature (C) 36.8 C 08/24/17 19:53 Heart Rate 124 H 08/24/17 19:53 Respiratory Rate 17 08/24/17 19:53 Blood Pressure 132/93 H 08/24/17 19:53 O2 Sat (%) 96 08/24/17 19:53 O2 Delivery Mode Room Air Allergies/Adverse Reactions: No Known Allergies Allergy (Verified 08/25/17 08:14) Home Medications: Medication Instructions Recorded NK [No Known Home Meds] 08/17/17 Medical Decision Making ED Course/Re-evaluation: The patient is not dehydrated clinically. I observed him drinking a bottle of water without difficulty. He has very slight trench foot. We discussed foot hygiene and will give him extra pairs of socks. The we will attempt to get a taxi for him to go back to the [facility]. Differential Diagnosis: Partial list of the Differential diagnosis considered include but were not limited to; trench foot, dehydration and although unlikely based on the history and physical exam, I also considered cellulitis, liver disease, renal disease, CHF. I discussed these differential diagnoses and the plan with the patient as well as the usual and expected course. The patient understands that the diagnosis is provisional and that in medicine we are not always correct and that further workup is often warranted. Usual and customary warnings were given. All of the patient's questions were answered. The patient was instructed to return to the emergency department should the symptoms at all worsen or return, otherwise to followup with the physician as we discussed. Departure - Departure Disposition: Home, Routine, Self-Care Clinical Impression: Trench feet Qualifiers: Encounter type: initial encounter Laterality: right Qualified Code(s): T69.021A - Immersion foot, right foot, initial encounter Condition: Fair Instructions: Swollen Joint (ED) Additional Instructions: Changes socks frequently and try to keep if he dry. Referrals: NONE *PRIMARY CARE P,. [Primary Care Provider] - As per Instructions [facility],. [Clinic] - As per Instructions
== END 2017-08-24 22:27 | disposition home or self-care (01) ==
LOC: EDUNIT#
DX: T69.021A Immersion foot, right foot, initial encounter (principal); Z87.891 Personal history of nicotine dependence; X31.XXXA Exposure to excessive natural cold, initial encounter

== ENCOUNTER 2017-08-25 07:58 | Inpatient (IN) | payer MEDICAID ==
--- NOTE | 2017-08-25 08:11 | EDPHY ---
H & P HPI/ROS: CHIEF COMPLAINT: Possible hypothermia HISTORY OF PRESENT ILLNESS: This patient is a 62 year old male arriving via EMS for evaluation of possible hypothermia. He has been without a place to stay for the last 1-2 weeks after leaving [facility] for unstated reasons. He was unable to get to the nursing home last night and spent the night outside in 4 degree weather. [facility] staff called EMS this morning. Currently, the patient feels dehydrated and thirsty, and states he generally feels unwell. He has not been eating and states this is due to dysphagia. He can sometimes swallow small quantities of liquid. He denies chest pain, shortness of breath, vomiting, or other associated symptoms. REVIEW OF SYSTEMS: A ten point review of systems was performed and is negative with the exception of the items mentioned in the HPI. Past medical history: 1. Atrial fibrillation 2. Pericardial cyst 3. Depression and anxiety with psychotic features, paranoia Past surgical history: Noncontributory Family history: Noncontributory. Social history: Nonsmoker. No alcohol use. Recently homeless. General Appearance: Alert. Vital signs reviewed. BP 131/98, RR 24 at triage. Head: Scabbed healing abrasion to left forehead. Eyes: Pupils equal and round, no conjunctival injection, no discharge. Anicteric. ENT, Mouth: Mucous membranes are moist, no oropharyngeal erythema or edema. Neck: No lymphadenopathy, supple. Respiratory: Lungs are clear to auscultation; no wheezes, rales, or rhonchi. Cardiovascular: Regular rate and rhythm; no murmur, rub, or gallop. Gastrointestinal: Abdomen is thin, soft and nontender, no masses or organomegaly, bowel sounds normal. Skin: Slightly cool and dry, no rashes on exposed skin, normal color. Back: Nontender to palpation over the thoracolumbar spine. No CVAT. Extremities: No lower extremity edema, no calf tenderness or swelling. No frostbite. Neurological: Alert and oriented. Moving all four extremities easily and equally. Psychiatric: Flat affect. No agitation. - Medical/Surgical History Hx Asthma: No Hx Chronic Respiratory Disease: No Hx Diabetes: No Hx Cardiac Disease: No Hx Renal Disease: No Hx Cirrhosis: No Hx Alcoholism: No Hx HIV/AIDS: No Hx Splenectomy or Spleen Trauma: No Other PMH: afib by past med record - Social History Smoking Status: Former smoker Constitutional: Initial Vital Signs Heart Rate 96 08/25/17 07:58 Respiratory Rate 24 H 08/25/17 07:58 Blood Pressure 131/98 H 08/25/17 07:58 O2 Sat (%) 96 08/25/17 07:58 O2 Delivery Mode Room Air Allergies/Adverse Reactions: No Known Allergies Allergy (Verified 08/25/17 08:14) Home Medications: Medication Instructions Recorded NK [No Known Home Meds] 08/17/17 Medical Decision Making ED Course/Re-evaluation: 62 year old male presents with dysphagia and failure to thrive. Temperature 36.5. Plan to give warm blankets, external warming. He has requested a Pepsi, which we will provide. 09:18 Reassessed patient. He is feeling warmer. BP 100/71. Temperature 36.9. Plan for food, fluids. No frostbite seen. Patient states he is unable to tolerate food due to his difficulty swallowing. 10:25 Consulted with case management. This patient has been evaluated several times in the past week for similar complaints including dehydration. In January, he was admitted for similar complaints including dehydration and dysphagia and eventually discharged to an inpatient psychiatric facility, [facility], for further evaluation. He was apparently discharged from [facility] after fojr days. After this, he was living with his mother at [facility], but was kicked out of that facility after a disagreement with her. Since that time, he has been homeless. I am concerned that he is not able to care for himself, as evidenced by the fact that he is not eating and stayed outside in frigid temperatures (he had information about all the nursing home possibilities but did not utilize the available resources). I suspect underlying psychiatric illness as the primary issue. I do not know if he has a physical problem that keeps him from swallowing (GERD, tumor, achalasia?). 12:[address] Tobar, hospitalist. 12:35 Dr. Tobar accepts admission for failure to thrive. 14:29 Patient is in atrial fibrillation, rate around 130. Plan to administer 10mg IV Diltiazem. He was prescribed diltiazem in the past, but seems to know nothing about this. He is not experiencing chest pain or shortness of breath. - Data Points Laboratory Results: Laboratory Results 08/25/17 09:42 08/25/17 09:42 Medications Given: Enoxaparin Sodium (Lovenox) 40 mg SC DAILY NONA Stop: 02/22/18 08:59 Last Admin: 08/26/17 13:33 Dose: 40 mg Metoprolol Tartrate (Lopressor) 12.5 mg PO BID NONA Stop: 02/22/18 20:59 Last Admin: 08/26/17 21:00 Dose: Not Given Discontinued Medications Diltiazem HCl (Cardizem 25 Mg/5 Ml Vial) 10 mg IVP ONCE ONE Stop: 08/25/17 14:31 Last Admin: 08/25/17 14:37 Dose: 10 mg Sodium Chloride (Ns) 1,000 mls @ 0 mls/hr IV EDNOW ONE; Wide Open PRN Reason: Protocol Stop: 08/25/17 09:20 Last Admin: 08/25/17 09:43 Dose: 1,000 mls Sodium Chloride (Ns) 1,000 mls @ 0 mls/hr IV ONCE ONE PRN Reason: Wide Open Stop: 08/25/17 12:15 Last Admin: 08/25/17 12:27 Dose: 1,000 mls Departure - Departure Disposition: [facility] Inpatient Acute Clinical Impression: Failure to thrive in adult Condition: Good Report Scribed for: Breanna Deleon Report Scribed by: Mer Andrea Date of Report: 08/25/17 Time of Report: 08:21 Physician Review and Approval Statement: 08/25/17 08:11 Portions of this note were transcribed by the medical secretary receptionist. I, Dr. Breanna Deleon, personally performed the history, physical exam, and medical decision- making; and confirmed the accuracy of the information in the transcribed note.
[2017-08-25] MEDS ORDERED: NS 1,000 ML IV ONE ×2 (09:19→12:14)
[2017-08-25 10:08] LABS: PLATELET COUNT 316 10^3/uL (150-400)
[2017-08-25] MEDS ORDERED: ONDANSETRON 4 MG/2 ML VIAL IVP PRN (13:45)
[2017-08-25] MEDS ORDERED: PROMETHAZINE HCL 25 MG/ML INJ IVP PRN (13:45)
[2017-08-25] MEDS ORDERED: IBUPROFEN 600 MG TAB PO PRN (13:45)
[2017-08-25] MEDS ORDERED: NS 1,000 ML IV SCH (13:45)
[2017-08-25] MEDS ORDERED: ACETAMINOPHEN 325 MG TAB PO PRN (13:45)
--- NOTE | 2017-08-25 13:56 | CPEKG ---
Heart Rate: 133 RR Interval: 451 QRSD Interval: 72 QT Interval: 328 QTC Interval: 488 QRS Jane [place]: 42 T Wave Jane Lew: 198 EKG Severity - ABNORMAL ECG - EKG Impression: ATRIAL FIBRILLATION, V-RATE 104-161 EKG Impression: LOW VOLTAGE IN FRONTAL LEADS EKG Impression: BORDERLINE R WAVE PROGRESSION, ANTERIOR LEADS EKG Impression: NONSPECIFIC REPOL ABNORMALITY, DIFFUSE LEADS EKG Impression: BORDERLINE PROLONGED QT INTERVAL Electronically Signed By: Breanna Deleon 25-Aug-2017 16:25:58
[2017-08-25] MEDS ORDERED: IOPAMIDOL (ISOVUE-300) 100 ML BTL ONE (14:22)
[2017-08-25] MEDS ORDERED: DILTIAZEM 25 MG/5 ML VIAL IVP ONE ×2 (14:30)
--- NOTE | 2017-08-25 14:41 | GHP ---
[f rep st] HISTORY AND PHYSICAL DATE OF ADMISSION: 08/25/2017 CHIEF COMPLAINT: Unable to swallow. HISTORY: The patient is a 62-year-old male, who presents complaining of difficulty eating because fo od gets stuck in his throat. This has been going on for weeks, if not years. He has had 4 ER visits in the last month with similar complaints, and is now being admitted to the hospital. He complains of a 60-pound unintentional weight loss. His voice is getting more hoarse. He also has had 8 months of diarrhea with some epigastric abdominal pain. He has been falling. He denies any fever. He has had cough and shortness of breath. He has been homeless only for about 1-2 weeks as he was previous ly living with his mother at [facility], but there was a conflict between the 2 of them, and he was kicked out of her home. He has failed to establish primary care since his last hospitalization last January, when he was complaining of these same issues. At that point, there was concern that his [place] wing complaints were psychiatric, and he was discharged to an inpatient psych facility on an M1 hold. PAST MEDICAL HISTORY: 1. Atrial fibrillation. 2. Pericardial cyst. 3. Depression and anxiety with paranoia and psychotic features. MEDICATIONS: Please see computer record for a full detailed list. ALLERGIES: No known drug allergies. SOCIAL HISTORY: No smoking. No alcohol. Recently homeless after having a conflict with his mom and being kicked out of her home at [facility]. REVIEW OF SYSTEMS: Complete review of systems obtained. Review of systems negative regarding consti tutional, HEENT, GI, pulmonary, cardiovascular, , hematology, skin, muscular, endocrine, psych, exc ept for positives and negatives as under HPI. FAMILY HISTORY: Reviewed and noncontributory to presenting complaint. PHYSICAL EXAMINATION: GENERAL: Well-developed, well-nourished male, in no acute distress. VITAL SI GNS: Temperature 36.9, pulse 105, blood pressure 123/94, saturating 96% on room air. EYES: Normal conjunctivae. Pupils equal and reactive to light. ENT: Normal ears and nose. Hearing intact. Nor mal lips and teeth. Oropharynx moist. NECK: Trachea midline. No thyromegaly. CHEST: Normal resp iratory effort. LUNGS: Clear to auscultation bilaterally. CARDIOVASCULAR: Regular rhythm. No mur mur. No lower extremity edema. ABDOMEN: Soft, nontender. No hepatosplenomegaly. SKIN: Warm, dry , intact, without rash. MUSCULOSKELETAL: No cyanosis or clubbing. Strength 5/5, upper and lower ex tremities. NEURO: Cranial nerves intact. Normal sensation to light touch. PSYCHIATRIC: Alert and oriented x3. Normal affect. Normal judgment. Normal insight. Normal memory. LABORATORY DATA: White count 11.49, hematocrit 36.8, platelets 316. Sodium 137, potassium 3.6, chlo ride 100, bicarb 25, BUN 14, creatinine 0.7, glucose 86. Medical records have been reviewed. He was hospitalized here in January with similar complaints and dis charged to a psych facility on an M1 hold. They did a CT angiogram of the chest that was negative fo r PE, and he had a speech therapy bedside swallow, but no further imaging. ASSESSMENT/PLAN: 1. 60-pound unintentional weight loss, and patient describes an inability to eat due to food getting stuck in his throat, causing regurgitation. I will check a CT scan, soft tissue, of his neck to rul e out any type of obstructive mass. Given his unintentional weight loss with abdominal pain and diar [place] for many months, we will also check a CT scan of the abdomen and pelvis. This may be ongoing is sues with untreated psychiatric disease, given his previous hospitalization with similar complaints. We will check a TSH and some iron studies. 2. Atrial fibrillation. He has not gotten any followup care since this was diagnosed during his [facility] hospitalization. He is not on any anticoagulation or rate control drugs. We will watch him on tel emetry and check an EKG. 3. Pericardial cyst. He was supposed to follow up with Dr. Feliz, but has not done so. 4. Depression and anxiety with paranoia and psychotic features. His psychiatric diagnosis is unclea r as inpatient psychiatric stay was not within our system. We will continue to keep this in the back ground of possibilities and reconsider this as the underlying etiology once above medical evaluation is complete. CODE STATUS: Full. ADMISSION STATUS: We will admit to observation. Reevaluate tomorrow regarding ongoing need for hosp italization. DEEP VENOUS THROMBOSIS PROPHYLAXIS: High-risk. We will place him on subcu Lovenox. /[id number]/MODL
--- NOTE | 2017-08-25 16:06 | ASMTCMCOM ---
CM Note CM Note Notes: 08/25/2017 Case Management Note Pt presented to the ED via EMS after being found sleeping outside the long term. Patient was here in the ED several times this last week for dehydration. ED CM had set up an appt with [facility] on 08/18/16 for pt to meet with CM, Homeless Outreach RN. Patient had been provided information on Coordinated Entry, [facility] and warming long term. Patient was unsuccessful with following up with these resources. Pt admitted for FTT, possibly being gravely disabled. Patient is not eating or drinking due to difficulty swallowing, however pt appears to also have mental health history (see CM notes from January 2017 admission) and he may not be eating or drinking due to a recent fall-out with his elderly mother, Qi (who he has lived with in [facility]. living at [facility] for the last couple years; however pt is not allowed back ). Spoke with Grant Sheehan, learning coordinator at ([phone]) and she said pt lived with his mother up until a couple of weeks ago and is not allowed to contact her. Contact Grant for further info. Grant stated pt also has an open case with [facility] Attorney Lj Resendiz; left voicemail with his family assistant Princess Locke ([phone]) to notify them of pt's admission. Per Grant patient does not have any other family or friends in the local area but he does have a cousin back [facility] and two nephews, Harry and Olrin Sorensen but no contact information for them; Grant can ask Qi if needed. 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 CM to follow. Date Signed: 08/25/2017 04:05 PM Electronically Signed By:Tonya Hope RN
--- NOTE | 2017-08-25 16:31 | ASMTCMCOM ---
CM Note CM Note Notes: Patient may still have a therapist, Jeri, through [facility] ( ); called and left a voicemail with 2W CM contact information. A Release of Information may be needed to obtain information. Date Signed: 08/25/2017 04:30 PM Electronically Signed By:Tonya Hope RN
--- NOTE | 2017-08-25 18:38 | ASMTCMCOM ---
CM Note CM Note Notes: 08/25/2017 Case Management Note Case Management contacted by Security and [employer] to escort pt back to room. Pt in agreement. Pt has been placed on a medical detainer. Pt reported drinking only water for dinner and refused food. Pt agreeable to soda. Pt agreeable to telemetry and IV start but refusing any unneccesary tests for the night. "I just want to rest". Case Management to assess for ULTC 100 placement for prison care vs. placement in [facility]. Case Management to follow. Date Signed: 08/25/2017 06:37 PM Electronically Signed By:Xochitl Oakley RN
[2017-08-25] MEDS ORDERED: DILTIAZEM 125 MG in D5W 125 ML IV SCH (19:45)
--- NOTE | 2017-08-25 23:35 | HOSPPROG ---
Hospitalist Progress Note Assessment/Plan: Received a call from [facility] that pt had left AMA and was later found wandering the halls by security and was escorted back to his room. Chart reviewed. Per Case Management, the plan was for him to be placed on a medical detainer as he is unable to make safe decisions for himself. Indeed, even after his plan to leave AMA, he was found wandering the halls of the hospital. Pt has a h/o psychosis. He is considered gravely disabled and is placed on a medical detainer as planned. He is cooperative about returning to his room, but has refused medical interventions. Objective: Vital Signs Temp Pulse Resp BP Pulse Ox 36.7 C 117 H 16 141/84 H 96 08/25/17 19:40 08/25/17 19:40 08/25/17 19:40 08/25/17 19:40 08/25/17 19:40 08/24/17 08/25/17 08/26/17 05:59 05:59 05:59 Intake Total 1999 Balance 2000 ICD10 Worksheet Patient Problems: Problems Problem Status Onset Failure to thrive in adult Acute Atrial fibrillation Acute Weakness Acute
[2017-08-26] MEDS: ENOXAPARIN 40 MG/0.4 ML SYR SC SCH ×2 (12:01→13:33)
--- NOTE | 2017-08-26 15:30 | ASMTCMCOM ---
CM Note CM Note Notes: CM discussed pt case in morning rounds w/ Dr. Cota and Nella RN. Dr. Cota will keep the medical detainer. CM met w/ pt for dispo planning. Pt reports that he is not interested in staying for 30 days at a SNF at this time. Pts casework manager, Dhruv (P#: [phone]) from [facility] came by to meet w/ pt. Dhruv reports that he will be able to pick pt up once he is medically ready to d/c to help w/ coordinated entry to the correction. Dhruv reports that he will work directly w/ pt to help obtain housing. CM spoke with director of Case Management regarding case. CM to follow. Date Signed: 08/26/2017 03:29 PM Electronically Signed By:PRAKASH Madrigal
--- NOTE | 2017-08-26 16:26 | HOSPPROG ---
Hospitalist Progress Note Assessment/Plan: #Dysphagia -to solids. fluids ok -?Achalasia vs GERD vs other -GI to consult -consider trial of PPI pending endoscopy #Afib -Will start Metoprolol, 12.5mg BID as BP was low earlier. Can increase if needed soon -Would not AC given multiple falls #Unintentional weight loss -Abd Ct and Neck CT w/o any visible mass reported -will have endoscopy tomorrow -Check nutritional status #Depression with hx of psychosis -Previously on Lexapro #Generalized Weakness -PT/OT #Decision capacity: -Attempted to leave AMA yesterday, medical detainer placed. He appears to be decisional today. He does have some difficulty with providing history, but no obvious cognitive issues on my exam. He agrees to continue care. He agrees with endoscopy. His nurse was present. #Lovenox for DVT proph Subjective: no cp or sob. unintentional weight loss. very cooperative. afebrile. Objective: Vital Signs Temp Pulse Resp BP Pulse Ox 36.8 C 93 16 123/58 H 92 08/26/17 12:00 08/26/17 12:00 08/26/17 12:00 08/26/17 12:00 08/26/17 12:00 08/25/17 08/26/17 08/27/17 05:59 05:59 05:59 Intake Total 2540 Output Total 400 Balance 2140 - Physical Exam Constitutional: no apparent distress Eyes: PERRL, EOMI Ears, Nose, Mouth, Throat: moist mucous membranes, hearing normal Cardiovascular: regular rate and rhythym, no murmur, rub, or gallop, No edema Respiratory: no respiratory distress, no rales or rhonchi Gastrointestinal: normoactive bowel sounds, soft, non-tender abdomen, no palpable masses Genitourinary: no bladder fullness Skin: warm Neurologic: AAOx3 Psychiatric: interacting appropriately, not anxious, not encephalopathic ICD10 Worksheet Patient Problems: Problems Problem Status Onset Failure to thrive in adult Acute Atrial fibrillation Acute Weakness Acute
--- NOTE | 2017-08-26 17:01 | PDMN ---
Medical Necessity Medical necessity: Change to IP, as of 08/26/17, per MD; pt on medical detainer & meets IP criteria; hx depression, anxiety, psychotic features & homelessness; per progress note & order 08/26/17
[2017-08-26] MEDS: METOPROLOL TARTRATE 25 MG TAB PO SCH (21:00)
[2017-08-27] MEDS ORDERED: PROTOCOL CALCIUM 1 DOSE IV PRN (08:09)
[2017-08-27] MEDS ORDERED: PROTOCOL K PHOSPHATE 1 DOSE IV PRN (08:09)
[2017-08-27] MEDS ORDERED: PROTOCOL MAGNESIUM 1 DOSE IV PRN (08:09)
[2017-08-27] MEDS ORDERED: PROTOCOL POTASSIUM 1 DOSE MISC PRN (08:09)
[2017-08-27] MEDS ORDERED: POTASSIUM Cl (KCl) 100 ML IV SCH (08:30)
[2017-08-27] MEDS: POTASSIUM Cl (KCl) 10 MEQ in NS 100 ML IV SCH ×4 (08:55→14:39)
[2017-08-27] MEDS: METOPROLOL TARTRATE 25 MG TAB PO SCH (09:00)
[2017-08-27] MEDS: ENOXAPARIN 40 MG/0.4 ML SYR SC SCH (09:00)
[2017-08-27] MEDS ORDERED: MAGNESIUM SULF 2 GM/WATER 50 ML IV ONE (09:20)
[2017-08-27] MEDS: METOPROLOL TARTRATE 5 MG/5 ML INJ IVP SCH ×2 (12:31→18:04)
--- NOTE | 2017-08-27 13:21 | GCON ---
[f rep st] CONSULTATION CONSULTATION NOTE DATE OF CONSULTATION: 08/27/2017 CHIEF COMPLAINT: Dysphagia. HPI: I am asked to see this patient in consultation by Dr. Cota for a chief complaint of dysphag ia. The patient is a somewhat poor historian, recently homeless. He states that the past 8 months h gonzalo has had progressive dysphagia to both solids and liquids. Feels that sticks in his throat. Brady price does have to regurgitate of swallowed food. States in this period of time he has lost 60 pounds. He denies odynophagia, but does state having some heartburn symptoms intermittently again over the past 8 months. He has never had an upper endoscopy. He denies NSAID use. There has been no diarrhe a or constipation. No blood in his stools or melena. States he had a colonoscopy 10 years ago that was normal. ALLERGIES: No reported drug allergies. MEDICATIONS PRIOR TO ADMISSION: None. PAST MEDICAL HISTORY: The patient with atrial fibrillation, pericardial cyst, depression and anxiety with paranoia and psychologic features. SOCIAL HISTORY: The patient denies smoking or alcohol use. Recently homeless. FAMILY HISTORY: He denies family history of colon cancer or polyps. REVIEW OF 10 SYSTEMS: I have performed a complete review of systems which is negative except for the pertinent positives and negatives noted above in HPI. PHYSICAL EXAM: VITAL SIGNS: Afebrile at 36.9, BP 107/43, pulse 90. CONSTITUTIONAL: He is alert and oriented. HEENT: Eyes without scleral icterus. Oropharynx: No oral lesions. CARDIOVASCULAR: Re gular rhythm. CHEST: Clear to auscultation. ABDOMEN: Positive bowel sounds. Some tenderness, but no rebound. NEUROLOGIC: Nonfocal. SKIN: Normal. LABORATORY DATA: Remarkable for a potassium of 2.6. White count is 11. Hematocrit is 36.8 with nor mal platelets. IMAGING: Patient had a CT scan of the neck done 08/25/2017. Shows no evidence of mass or lymphadeno clayton involving the neck, but there is significant degenerative disk disease with cervical spinal lolly nosis and osteophytes. CT scan of the abdomen done 08/25/2017, shows mild thickening in the distal e sophagus. There was also some thickening to loops of small bowel with mild dilation, possible enteri tis, mild constipation. ASSESSMENT: Patient with dysphagia, clinically significant. He claims to have 60 pounds weight loss . He is having dysphagia to both solids and liquids with abnormal finding on CT scan suggesting thic kening. Differential diagnosis would include esophagitis, esophageal mass, potentially motility diso rder. The patient also has osteophytes in his cervical spine. This could be contributing to a sensa tion of dysphagia. I would recommend upper endoscopy. The patient may be overall higher risk becaus e of his atrial fibrillation and potential cervical spine disease, but given the severity of his symp toms, I think the benefit would outweigh the risks. I think that this could be done safely with care ful sedation and careful intubation. Of note, patient does not have rheumatoid arthritis and does no t look to have any changes to suggest instability of his neck. Unfortunately, patient has very low p otassium today. He would not be safe to do endoscopy today; however, may consider tomorrow as we are able to correct his electrolytes. Will keep him n.p.o. tonight for possible upper endoscopy in the morning. /[id number]/MODL
--- NOTE | 2017-08-27 13:59 | HOSPPROG ---
Hospitalist Progress Note Assessment/Plan: #Dysphagia -to solids. fluids ok -?Achalasia vs GERD vs other -GI to do endoscopy. This was postponed today due to hypokalemia. Now rescheduled for tomorrow -will start trial of Protonix #Afib -changing PO to IV Metoprolol -Would not start AC given multiple falls and compliance -After procedures can start low dose aspirin #Hypokalemia, hypomagnesemia, replacing #Unintentional weight loss -Abd Ct and Neck CT w/o any visible mass reported -will have endoscopy tomorrow -Check nutritional status -Nutrition consult #Vitamin D deficiency, start replacement #Depression with hx of psychosis -Previously on Lexapro #Generalized Weakness -PT/OT #Decision capacity: -Attempted to leave AMA 08/25, medical detainer placed. He appears to be decisional today. He does have some difficulty with providing history, but no obvious cognitive issues on my exam. He agrees to continue care. He agrees with endoscopy. His nurse was present. -for now keeping the medical detainer #Lovenox for DVT proph Subjective: no endoscopy today due to hypokalemia. no cp or SOB. still in afib Objective: Vital Signs Temp Pulse Resp BP Pulse Ox 36.9 C 90 12 107/43 L 93 08/27/17 12:00 08/27/17 12:31 08/27/17 12:00 08/27/17 12:31 08/27/17 12:00 Laboratory Results 08/27/17 07:23 08/26/17 08/27/17 08/28/17 05:59 05:59 05:59 Intake Total 650 Balance 650 - Physical Exam Constitutional: no apparent distress, appears nourished Eyes: PERRL, EOMI Ears, Nose, Mouth, Throat: moist mucous membranes Cardiovascular: irregularly irregular, No edema Respiratory: no respiratory distress Gastrointestinal: normoactive bowel sounds Genitourinary: no bladder fullness Skin: warm Musculoskeletal: generalized weakness Neurologic: AAOx3 Psychiatric: interacting appropriately, not anxious, not encephalopathic Lymph, Heme, Immunologic: No petechiae ICD10 Worksheet Patient Problems: Problems Problem Status Onset Failure to thrive in adult Acute Atrial fibrillation Acute Trench feet Acute Weakness Acute
[2017-08-27] MEDS: PANTOPRAZOLE SODIUM 40 MG VIAL IVP SCH ×2 (14:57→21:48)
[2017-08-27] MEDS: CHOLECALCIFEROL VIT D3 2,000 UNITS TAB/CAP PO SCH (14:57)
--- NOTE | 2017-08-27 16:40 | ASMTCMCOM ---
CM Note CM Note Notes: Pts case discussed in morning rounds w/ Dr. Cota and ROJELIO Spann. CM met w/ pt for dispo planning. Pt is unable to name a person as MDPOA. Pt will have an endoscopy at some point. CM to follow. Plan: TBD Date Signed: 08/27/2017 04:26 PM Electronically Signed By:PRAKASH Madrigal
[2017-08-27] MEDS ORDERED: POTASSIUM Cl (KCl) 10 MEQ in NS 100 ML IV SCH (22:00)
[2017-08-27] MEDS ORDERED: POTASSIUM CL 20 MEQ TAB PO ONE (23:30)
[2017-08-28] MEDS: METOPROLOL TARTRATE 5 MG/5 ML INJ IVP SCH ×4 (06:29→17:33)
[2017-08-28 08:49] LABS: PLATELET COUNT 226 10^3/uL (150-400)
[2017-08-28] MEDS: ENOXAPARIN 40 MG/0.4 ML SYR SC SCH (08:50)
[2017-08-28] MEDS: PANTOPRAZOLE SODIUM 40 MG VIAL IVP SCH ×2 (08:51→21:29)
[2017-08-28] MEDS: CHOLECALCIFEROL VIT D3 2,000 UNITS TAB/CAP PO SCH (08:51)
[2017-08-28] MEDS ORDERED: POTASSIUM CL 10 MEQ TAB PO ONE ×2 (10:43→22:12)
[2017-08-28] MEDS ORDERED: MAGNESIUM SULF 1 GM/DEXTROSE 100 ML IV ONE ×2 (10:45→14:45)
[2017-08-28] MEDS ORDERED: CALCIUM GLUCONATE 50 ML IV ONE (10:46)
--- NOTE | 2017-08-28 12:12 | HOSPPROG ---
Hospitalist Progress Note Assessment/Plan: #Dysphagia -etiology unclear -GI to do endoscopy today -on a trial of Protonix, although he has been refusing it #Afib -changing PO to IV Metoprolol but he has refused this as well -Would not start AC given multiple falls and compliance -After procedures can start low dose aspirin if he is ok with it #Hypokalemia, hypomagnesemia, replacing #Unintentional weight loss -Abd Ct and Neck CT w/o any visible mass reported -will have endoscopy today -Check nutritional status -Nutrition consult #Vitamin D deficiency, started replacement #Depression with hx of psychosis -Previously on Lexapro -behavioral health consult #Generalized Weakness -PT/OT #Decision capacity: -Attempted to leave AMA 08/25, medical detainer placed. He appears to be decisional on 07/26 and 07/27. He is more confused today and refusing multiple medications and blood draws. Will keep medical detainer. Behavioral health to see. #Lovenox for DVT proph Disp: keep inpatient. can transition to PO meds upon completion of endoscopy Subjective: K is better today. Mg is better. will proceed with endoscopy. Objective: Vital Signs Temp Pulse Resp BP Pulse Ox 36.9 C 89 14 107/78 91 L 08/28/17 11:10 08/28/17 11:10 08/28/17 11:10 08/28/17 11:10 08/28/17 11:10 Laboratory Results 08/28/17 08:40 08/28/17 08:40 08/27/17 08/28/17 08/29/17 05:59 05:59 05:59 Intake Total 650 1816 Output Total 400 Balance 650 1416 - Physical Exam Constitutional: no apparent distress, appears nourished Eyes: PERRL, EOMI Ears, Nose, Mouth, Throat: moist mucous membranes Cardiovascular: regular rate and rhythym Respiratory: no respiratory distress Gastrointestinal: normoactive bowel sounds Genitourinary: no bladder fullness Skin: warm Musculoskeletal: generalized weakness Psychiatric: not anxious, encephalopathic, No interacting appropriately Lymph, Heme, Immunologic: No petechiae ICD10 Worksheet Patient Problems: Problems Problem Status Onset Failure to thrive in adult Acute Atrial fibrillation Acute Trench feet Acute Weakness Acute
[2017-08-28] MEDS ORDERED: LR 1,000 ML IV ONE (12:27)
[2017-08-28] MEDS ORDERED: PROPOFOL/EMULSION 500 MG/50 ML BOTTLE IV ONE (12:27)
--- NOTE | 2017-08-28 12:35 | PDANEPAE ---
ANE History of Present Illness 62 yo M w dysphagia here for EGD ANE Past Medical History - Cardiovascular History Hx Hypertension: No Hx Arrhythmias: Yes Hx Chest Pain: No Cardiovascular History Comment: A-Fib - Pulmonary History Hx COPD: No Hx Asthma/Reactive Airway Disease: No Hx Oxygen in Use at Home: No Hx Sleep Apnea: No Sleep Apnea Screening Result - Last Documented: Positive - Endocrine History Hx Diabetes: No - Chronic Pain History Chronic Pain: No ANE Review of Systems Review of Systems: - Exercise capacity Exercise capacity: >=4 METS ANE Patient History - Allergies Allergies/Adverse Reactions: No Known Allergies Allergy (Verified 08/25/17 08:14) - Home Medications Home Medications: NK [No Known Home Meds] 08/17/17 [Last Taken Unknown] - NPO status NPO Since - Liquids (Date): 08/27/17 NPO Since - Liquids (Time): 00:01 NPO Since - Solids (Date): 08/28/17 NPO Since - Solids (Time): 00:01 - Anes Hx Anes Hx: no prior problems - Smoking Hx Smoking Status: Former smoker - Alcohol Use Alcohol Use: None - Family Anes Hx Family Anes Hx: none ANE Labs/Vital Signs - Labs Result Diagrams: 08/28/17 08:40 08/28/17 08:40 - Vital Signs Blood Pressure: 107/78 Heart Rate: 89 Respiratory Rate: 14 O2 Sat (%): 91 Height: 182.88 cm Weight: 61.8 kg ANE Physical Exam - Airway Neck exam: FROM Mallampati Score: Class 2 Mouth exam: normal dental/mouth exam, small mouth opening - Pulmonary Pulmonary: no respiratory distress, clear to auscultation - Cardiovascular Cardiovascular: regular rate and rhythym, no murmur, rub, or gallop - ASA Status ASA Status: II ANE Anesthesia Plan Anesthesia Plan: GA with mask Total IV Anesthesia: Yes
[2017-08-28] MEDS ORDERED: NALOXONE HCL 0.4 MG/ML INJ IVP PRN (12:36)
--- NOTE | 2017-08-28 12:52 | GIREPORT ---
[facility] Surgical Services - Endoscopy Department Patient Name: Dhruv Dela Cruz Procedure Date: 08/28/2017 12:18 PM Patient Type: Inpatient Attending MD/ ER Physician: Kristy Rasheed MD Procedure: Upper GI endoscopy Indications: Dysphagia Providers: Kristy Rasheed MD Medicines: Monitored Anesthesia Care Complications: No immediate complications. Description of Procedure: After obtaining informed consent, the endoscope was passed under direct vision. Throughout the procedure, the patient's blood pressure, pulse, and oxygen saturations were monitored continuously. The Endoscope was intro duced through the mouth, and advanced to the second part of duodenum. The [facility] er GI endoscopy was accomplished without difficulty. The patient tolerated th e procedure well. Findings: Mucosal changes including ringed esophagus were found in the entire esophagus. Biopsies were taken with a cold forceps for histology. Estim ated blood loss was minimal. A medium-sized hiatal hernia was present. One mild benign-appearing, intrinsic stenosis was found at the gastroesophageal junction. And was traversed. This was not dilated toda y due to food in stomach. Food (residue) was found in the gastric body. The examined duodenum was normal. Estimated Blood Loss: Estimated blood loss was minimal. Post Op Diagnosis: - Esophageal mucosal changes consistent with eosinophilic esophagitis. Biopsied. - Medium-sized hiatal hernia. - Benign-appearing esophageal stenosis. - Food (residue) in the stomach. - If biopsies are positive for E0E recommend swallowed Flovent BID for 8 weeks and allergy consult. Consider repeat EGD with dilatio of dominant stricture if not better. - Normal examined duodenum. Recommendation: - Await pathology results. - Advance diet as tolerated. - Return patient to [facility] for [facility] care. - Thank you for allowing me to participate in the care of your patient. Attending Participation: I personally performed the entire procedure. Kristy Rasheed MD Kristy Rasheed MD 08/28/2017 12:52:28 PM This report has been signed electronicallyKristy Rasheed MD Number of Addenda: 0 Note Initiated On: 08/28/2017 12:18 PM [email or web address]
--- NOTE | 2017-08-28 14:56 | ASMTCMCOM ---
CM Note CM Note Notes: Case reviewed in morning rounds w/ Dr. Cota and Alicia RN. CM discussed case w/ Chelsie, print production manager. Sarah Cortes has been consulted to meet w/ pt. Pt will have endoscopy at some point. CM to follow. Plan: TBD Date Signed: 08/28/2017 02:55 PM Electronically Signed By:PRAKASH Madrigal
[2017-08-28] MEDS: POTASSIUM CL 10 MEQ TAB PO ONE ×2 (15:37→15:40)
--- NOTE | 2017-08-28 16:33 | POSTANESTH ---
Post Anesthetic Evaluation Cardiovascular Status: Normal, Stable, Similar to Pre-Op Cond Respiratory Status: Normal, Stable, Similar to Pre-op Cond. Level of Consciousness/Mental Status: Can Participate in Eval, Alert and Oriented Pain Control: Adequate, Prn Tx Ordered Nausea/Vomiting Control: Adequate, Prn Tx Ordered Complications Possibly Related to Anesthesia: None Noted
[2017-08-29] MEDS: METOPROLOL TARTRATE 5 MG/5 ML INJ IVP SCH ×2 (00:10→06:27)
[2017-08-29] MEDS: CHOLECALCIFEROL VIT D3 2,000 UNITS TAB/CAP PO SCH (10:13)
[2017-08-29] MEDS: ENOXAPARIN 40 MG/0.4 ML SYR SC SCH (10:14)
[2017-08-29] MEDS: PANTOPRAZOLE SODIUM 40 MG VIAL IVP SCH (10:15)
[2017-08-29] MEDS: ASPIRIN 81 MG CHEWABLE TAB PO SCH (11:59)
[2017-08-29] MEDS: METOPROLOL TARTRATE 25 MG TAB PO SCH ×2 (11:59→20:52)
[2017-08-29] MEDS ORDERED: PANTOPRAZOLE SODIUM 40 MG TAB PO ONE ×2 (12:24→15:15)
--- NOTE | 2017-08-29 12:26 | SOAPPROG ---
SOAP Progress Note Assessment/Plan: Assessment:Plan: 1) dysphagia - likely has Eosinophilic Esophagitis (EoE) and had a mod stenosis in distal esoph that couldn't be dilated secondary to food in stomach. I will start both PPI and fluticasone swallowed not inhaled. Follow-up bx 2) weight lsos - prob from decreased PO intake, CT scan w/o any obvious mass/ cancer 3) psych - as per hospitalists 4) cardiac - as per hospitalists 5) Vit D -- needs 50,000 IU TIW for one to few months to replete his extremely low vit D 08/29/17 12:30 Subjective: cc- dysphagia pt eating ice cream, concerned about swallowing pills no n/v no abdo pain Objective: Vital Signs Temp Pulse Resp BP Pulse Ox 37.2 C 107 H 18 143/93 H 90 L 08/29/17 12:00 08/29/17 11:59 08/29/17 12:00 08/29/17 11:59 08/29/17 12:00 Laboratory Results 08/28/17 08:40 08/28/17 18:18 08/28/17 08/29/17 08/30/17 05:59 05:59 05:59 Intake Total 1816 1200 Output Total 400 300 Balance 1416 900 Alert S1S2 CTA +BS, soft nt Laboratory Tests 08/25/17 08/27/17 08/28/17 09:42 07:23 08:40 Hgb 12.5 L 11.1 L Hct 36.8 L 33.1 L 25-OH Vitamin D Total < 12.8 L ICD10 Worksheet Patient Problems: Problems Problem Status Onset Failure to thrive in adult Acute Atrial fibrillation Acute Trench feet Acute Weakness Acute
[2017-08-29] MEDS ORDERED: CHOLECALCIFEROL VIT D3 2,000 UNITS TAB/CAP PO SCH (12:45)
--- NOTE | 2017-08-29 13:13 | HOSPPROG ---
Hospitalist Progress Note Assessment/Plan: #Dysphagia -s/p endoscopy with atul eosinophil Esophagitis, Esophageal stricture, not dilated #Likely Eosinophil Esophagitis -GI following -Flovent -PPI #Afib -PO metoprolol -Would not start AC given multiple falls and compliance -start Aspirin #Hypokalemia, hypomagnesemia -He is refusing blood draws #Unintentional weight loss -Abd Ct and Neck CT w/o any visible mass reported -endoscopy per above #Vitamin D deficiency -replacing. #Depression with hx of psychosis -Previously on Lexapro -behavioral health consult #PCMN: nutrition following #Generalized Weakness -PT/OT #Decision capacity: -Attempted to leave AMA 08/25, medical detainer placed. He appears to be decisional on 07/26 and 07/27. He is more confused today and refusing multiple medications and blood draws. Will keep medical detainer. Behavioral health to see. #Lovenox for DVT proph Disp: keep inpatient. Plan: Keep inpatient Psych to see cognitive eval Consider Ethics on Thursday He is not safe for discharge. Cannot take care of himself Subjective: refusing IV meds. Refusing blood draws. Eating some. No CP or SOB. Objective: Vital Signs Temp Pulse Resp BP Pulse Ox 37.2 C 107 H 18 143/93 H 90 L 08/29/17 12:00 08/29/17 11:59 08/29/17 12:00 08/29/17 11:59 08/29/17 12:00 Laboratory Results 08/28/17 08:40 08/28/17 18:18 08/28/17 08/29/17 08/30/17 05:59 05:59 05:59 Intake Total 1816 1200 Output Total 400 300 Balance 1416 900 - Physical Exam Constitutional: no apparent distress Eyes: PERRL, EOMI Ears, Nose, Mouth, Throat: moist mucous membranes Cardiovascular: regular rate and rhythym, No edema Respiratory: no respiratory distress, no rales or rhonchi Gastrointestinal: normoactive bowel sounds, soft, non-tender abdomen Skin: warm Musculoskeletal: No generalized weakness Neurologic: AAOx3 Psychiatric: interacting appropriately, not anxious, not encephalopathic Lymph, Heme, Immunologic: no cervical LAD ICD10 Worksheet Patient Problems: Problems Problem Status Onset Failure to thrive in adult Acute Atrial fibrillation Acute Trench feet Acute Weakness Acute
[2017-08-29] MEDS: FLUTICASONE HFA 110 MCG MDI IH SCH ×2 (14:02→20:52)
[2017-08-30] MEDS ORDERED: CHOLECALCIFEROL VIT D3 50,000 UNIT CAP PO SCH (09:00)
[2017-08-30] MEDS: METOPROLOL TARTRATE 25 MG TAB PO SCH ×2 (09:15→20:18)
[2017-08-30] MEDS: ASPIRIN 81 MG CHEWABLE TAB PO SCH (09:16)
[2017-08-30] MEDS: FLUTICASONE HFA 110 MCG MDI IH SCH ×2 (09:18→19:57)
[2017-08-30] MEDS: ENOXAPARIN 40 MG/0.4 ML SYR SC SCH (09:21)
[2017-08-30] MEDS: PANTOPRAZOLE SODIUM 40 MG TAB PO SCH (11:28)
--- NOTE | 2017-08-30 13:03 | HOSPPROG ---
Hospitalist Progress Note Assessment/Plan: #Dysphagia -s/p endoscopy with likely eosinophil Esophagitis, Esophageal stricture, not dilated #Likely Eosinophil Esophagitis -GI following -Flovent -PPI (refusing) #Afib -PO metoprolol -Would not start AC given multiple falls and compliance -started Aspirin #Hypokalemia, hypomagnesemia -He is refusing blood draws -will hopefully have blood draw today #Unintentional weight loss -Abd Ct and Neck CT w/o any visible mass reported -endoscopy per above -likely due to poor nutritional intake #Vitamin D deficiency -refusing replacement #Depression with hx of psychosis -Previously on Lexapro -behavioral health consult pending, will be done on Thursday. He would likely benefit from inpatient psych evaluation. #PCMN: nutrition following #Generalized Weakness -PT/OT #Decision capacity: -It is unclear if he has decision making ability. -would consult Ethics on Thursday #Ivonnox for DVT proph Disp: keep inpatient. Plan: Keep inpatient Behavioral health to see cognitive eval Consider Ethics on Thursday. Consider inpatient psych eval. He is not safe for discharge. Cannot take care of himself Subjective: refusing most meds, although he took some this morning. no cp or sob. no palpitatons. no leg swelling Objective: Vital Signs Temp Pulse Resp BP Pulse Ox 36.9 C 81 16 107/71 91 L 08/30/17 12:00 08/30/17 12:00 08/30/17 12:00 08/30/17 12:00 08/30/17 12:00 Laboratory Results 08/28/17 08:40 08/30/17 11:28 08/29/17 08/30/17 08/31/17 05:59 05:59 05:59 Intake Total 1200 900 Output Total 300 450 Balance 900 450 - Physical Exam Constitutional: no apparent distress Eyes: PERRL Ears, Nose, Mouth, Throat: moist mucous membranes, hearing normal Cardiovascular: irregularly irregular, No edema Respiratory: no respiratory distress, no rales or rhonchi, clear to auscultation Gastrointestinal: normoactive bowel sounds, soft, non-tender abdomen Skin: warm Musculoskeletal: generalized weakness Psychiatric: poor insight, poor judgement, poor memory, No interacting appropriately Lymph, Heme, Immunologic: No petechiae ICD10 Worksheet Patient Problems: Problems Problem Status Onset Failure to thrive in adult Acute Atrial fibrillation Acute Trench feet Acute Weakness Acute
[2017-08-30] MEDS ORDERED: POTASSIUM CL 10 MEQ TAB PO ONE (13:12)
--- NOTE | 2017-08-30 14:45 | SOAPPROG ---
LAY Progress Note Assessment/Plan: Assessment:Plan: 1) dysphagia - likely has Eosinophilic Esophagitis (EoE) and had a mod stenosis in distal esoph that couldn't be dilated secondary to food in stomach. I will start both PPI and fluticasone swallowed not inhaled. Follow-up bx 2) weight lsos - prob from decreased PO intake, CT scan w/o any obvious mass/ cancer 3) psych - as per hospitalists 4) cardiac - as per hospitalists 5) Vit D -- needs 50,000 IU TIW for one to few months to replete his extremely low vit D 08/29/17 12:30 08/30/17 14:41 as above psych issues will make treatment more difficult 1) dysphagia - prob EOE and stenosis - fluticasone swallowed not inhaled and PPI would also be helpful 2) weight loss - I suspect from decreased PO intake 3) psych - see ing behavioral health tomorrow 4) Vit D - extremely low, will encourage to take appropriate supplementation 50, 000 IU TIW for few months Dr. Penn to see inpts starting Thursday Dell Dias M.D. [phone] Subjective: CC- dysphagia pt still with dysphagia, says he took fluticasone and will take PPI Objective: Vital Signs Temp Pulse Resp BP Pulse Ox 36.9 C 81 16 107/71 91 L 08/30/17 12:00 08/30/17 12:00 08/30/17 12:00 08/30/17 12:00 08/30/17 12:00 Laboratory Results 08/28/17 08:40 08/30/17 11:28 08/29/17 08/30/17 08/31/17 05:59 05:59 05:59 Intake Total 1200 900 Output Total 300 450 Balance 900 450 A+O CTA S1s2, RRR +BS, soft epi tenderness no r/g ICD10 Worksheet Patient Problems: Problems Problem Status Onset Failure to thrive in adult Acute Atrial fibrillation Acute Trench feet Acute Weakness Acute
--- NOTE | 2017-08-30 16:06 | ASMTCMCOM ---
CM Note CM Note Notes: 08/30/2017 Case Management Note Discussed pt plan of care in rounds. Case Management expressed concerns re: pt ability to care for himself. and other team members in agreement, pt remains on medical detainer. Per RN pt is refusing meds and lab draws. Plan for Cog Eval by TECHNICAL SERVICES MANAGER, Behavioral Health eval by Sarah Cortes and possible Ethics eval on Thursday to if pt is capable of independent ADL's specifically ability to obtain food and assisted. Pt may require guardian or POA. Left VM for Sarah Cortes. Case Management d/c poc: Possibly inpatient psych pending outcomes of evals. Case Management to follow. Date Signed: 08/30/2017 04:05 PM Electronically Signed By:Xochitl Oalkey RN
[2017-08-30] MEDS: CHOLECALCIFEROL VIT D3 50,000 UNIT CAP PO SCH (17:19)
[2017-08-31] MEDS: FLUTICASONE HFA 110 MCG MDI IH SCH ×2 (08:20→20:20)
[2017-08-31] MEDS: METOPROLOL TARTRATE 25 MG TAB PO SCH ×2 (10:06→19:51)
[2017-08-31] MEDS: PANTOPRAZOLE SODIUM 40 MG TAB PO SCH (10:06)
[2017-08-31] MEDS: ASPIRIN 81 MG CHEWABLE TAB PO SCH (10:06)
[2017-08-31] MEDS: ENOXAPARIN 40 MG/0.4 ML SYR SC SCH (10:09)
--- NOTE | 2017-08-31 12:15 | SOAPPROG ---
LAY Progress Note Assessment/Plan: Assessment: 1. Dysphagia - esophageal stricture - on empiric therapy for EoE (flovent 2 puffs swallowed BID + PPI) - no improvement yet (can take several weeks to improve, assuming diagnosis is correct) - esophageal bx results pending - tolerated liquids better than solids Plan: 1. Dysphagia - continue Flovent 2 puffs BID/swallowed x 12 weeks - continue PPI QD - advance diet, favor soft/liquid foods - await esophageal bx - if bx reveals EoE will continue above plan with GI f/u (dilation of EoE strictures is higher perforation risk, in some reports) - if bx reveals no EoE, would consider repeat EGD with dilation of stenosis now - will follow 08/31/17 12:12 Subjective: CC: f/u dysphagia S: still with solid>liquid food dysphagia no fever no cough no aspiration no abdominal pain Objective: Vital Signs Temp Pulse Resp BP Pulse Ox 37.0 C 87 14 122/77 H 89 L 08/31/17 08:34 08/31/17 08:34 08/31/17 08:34 08/31/17 08:34 08/31/17 08:34 Laboratory Results 08/28/17 08:40 08/31/17 08:03 08/30/17 08/31/17 09/01/17 05:59 05:59 05:59 Intake Total 900 275 Output Total 450 1500 Balance 450 -1225 Physical Exam - Physical Exam General Appearance: WD/WN, alert, no apparent distress EENT: PERRL/EOMI Neck: full range of motion Respiratory: lungs clear, normal breath sounds Cardiac/Chest: normal peripheral pulses Abdomen: normal bowel sounds, non-tender, soft, No organomegaly Skin: normal color Extremities: normal range of motion Neuro/Psych: normal mood/affect, abnormal internal consultant II-XII ICD10 Worksheet Patient Problems: Problems Problem Status Onset Failure to thrive in adult Acute Atrial fibrillation Acute Trench feet Acute Weakness Acute
--- NOTE | 2017-08-31 16:41 | ASMTCMCOM ---
CM Note CM Note Notes: Chart reviewed. Discussed patient in rounds. Sarah Sebastian to see. Patient is FTT eating only ice cream. Per hospitalist he speaks appropriately but has no insight to solving his own problems. Per Sarah she feels he is appropriate for evaluation to admit to behavioral health. She shares with me that psychiatry is requesting CT, speech eval and ethics consult. Spoke with Dr. Davies who will proceed to order these to r/o physiological basis for patients behaviors. If patient is to discharge outside facility will neeed warm clothing and pair of shoes. CM to follow. Date Signed: 08/31/2017 04:41 PM Electronically Signed By:Mel Singleton RN
--- NOTE | 2017-08-31 18:29 | HOSPPROG ---
Hospitalist Progress Note Assessment/Plan: Assessment: 62 yo M p/w chronic dysphagia and acute worsening 2/2 eosinophilic esophagitis Plan: # Dysphagia. 2/2 eosinophilic esophagitis and esophageal stricture - no dilation 2/2 food in stomach, risk of perf - cont rec PPI and flovent - appreciate ongoing GI consult - PO intake remains sub-optimal, but patient is choosing to restrict diet to ice cream only b/c prior to admission, all other foods were unable to pass or were assoc w/ diarrheal symptoms # Afib. Paroxysmal, possibly provoked by electrolyte abnl - cont PO metoprolol - not start AC given multiple falls and compliance - started Aspirin # Hypokalemia, hypomagnesemia. Acute, 2/2 poor PO intake - repleted, cont monitor # Unintentional weight loss. Likely 2/2 poor PO intake -Abd Ct and Neck CT w/o any visible mass reported # Vitamin D deficiency. Cont 50k weekly - repeat level in 8 weeks # Depression. Chronic, hx of psychosis, patient has apathy, illogical thought process regarding nuanced decision making, cooperation w/ dietary/med recommendations, and gives the impression that he is not psychiatrically stable enough to manage his own care at the present time - d/w Sarah Cortes, she has d/w psych and recommended HCT (r/o mass), DISHWASHING MACHINE OPERATOR cog eval , Ethics consult (determine capacity, proxy), check TSH - I strongly believe he will benefit from inpatient [facility] and will continue to advocate daily - counseled the patient that he likely requires inpt [facility], and patient concurs # Severe protein calorie malnutrition. Evidenced by Pre-Alb 9.8, prox muscle wasting, weight loss, poor PO intake, likely 2/2 above - cont dietary consult - counseled patient that Ensure/Smoothie/Mighty Shake advisable, patient wants to avoid b/c he believes they give him diarrhea Diet. As much as tolerates PPx. High risk, lovenox 40 rec, SCDs Code. Full Dispo. ADD 09/01 to inpt [facility] if above accomplished. Subjective: patient reports he has diarrhea if he eats anything other than ice cream, likes ice cream, no abd / throat pain Objective: Vital Signs Temp Pulse Resp BP Pulse Ox 37.4 C 96 20 112/77 89 L 08/31/17 13:10 08/31/17 13:10 08/31/17 13:10 08/31/17 13:10 08/31/17 13:10 Laboratory Results 08/28/17 08:40 08/31/17 08:03 08/30/17 08/31/17 09/01/17 05:59 05:59 05:59 Intake Total 900 275 Output Total 450 1500 300 Balance 450 -1223 -300 - Time Spent With Patient Time Spent with Patient: greater than 35 minutes Time Spent with Patient: Greater than 35 minutes spent on this patients care, greater than 50% of time spent counseling, educating, and coordinating care regarding the above mentioned plan. - Physical Exam Constitutional: no apparent distress, not in pain, chronically ill appearing, unkempt (stool on gown, sheets), cachectic, No uncomfortable Cardiovascular: regular rate and rhythym, no murmur, rub, or gallop Respiratory: no respiratory distress, no rales or rhonchi, clear to auscultation Gastrointestinal: normoactive bowel sounds, soft, non-tender abdomen, no palpable masses Neurologic: AAOx3 Psychiatric: not anxious, flat affect, other (apathetic, helpless), No agitated ICD10 Worksheet Patient Problems: Problems Problem Status Onset Failure to thrive in adult Acute Atrial fibrillation Acute Trench feet Acute Weakness Acute
--- NOTE | 2017-09-01 08:16 | SOAPPROG ---
SOAP Progress Note Assessment/Plan: Assessment: 1. Dysphagia - esophageal stricture - on empiric therapy for EoE (flovent 2 puffs swallowed BID + PPI) - difficult to measure swallowing symptoms precisely, given underlying psych factors - pt continues to avoid solid foods Plan: 1. Dysphagia - continue Flovent 2 puffs BID/swallowed x 12 weeks - continue PPI QD - advance diet, ok to attempt solid foods - if no clear improvements today, would plan repeat EGD with dilation of esophageal stricture - in setting of pysch illness, may be difficult to let the medical therapy run its course (can take several weeks for medical therapy of EoE to work, and medical therapy is not 100% effective. May need to take on risk of esophageal dilation in order to hasten return to normal swallowing) - esophageal path still pending - will follow 09/01/17 08:16 Subjective: CC: f/u dysphagia S: still complains of difficulty swallowing no cough or throat clearing with meals no fever no nausea no vomiting no SOB no abdominal pain Objective: Vital Signs Temp Pulse Resp BP Pulse Ox 37.3 C 98 20 121/87 H 90 L 09/01/17 07:36 09/01/17 07:36 09/01/17 07:36 09/01/17 07:36 09/01/17 07:36 Laboratory Results 08/28/17 08:40 08/31/17 08:03 08/31/17 09/01/17 09/02/17 05:59 05:59 05:59 Intake Total 275 680 Output Total 1500 300 Balance -1225 380 Physical Exam - Physical Exam General Appearance: WD/WN, alert, no apparent distress EENT: PERRL/EOMI Neck: full range of motion Respiratory: lungs clear, normal breath sounds, No respiratory distress Cardiac/Chest: normal peripheral pulses, regular rate, rhythm, No edema Abdomen: normal bowel sounds, non-tender, soft, No organomegaly Skin: normal color, warm/dry, No cyanosis Extremities: normal range of motion, non-tender, normal inspection Neuro/Psych: no motor/sensory deficits, alert, normal mood/affect, oriented x 3 ICD10 Worksheet Patient Problems: Problems Problem Status Onset Failure to thrive in adult Acute Atrial fibrillation Acute Trench feet Acute Weakness Acute
[2017-09-01] MEDS: FLUTICASONE HFA 110 MCG MDI IH SCH ×2 (09:18→20:57)
[2017-09-01] MEDS: METOPROLOL TARTRATE 25 MG TAB PO SCH ×2 (12:37→21:02)
[2017-09-01] MEDS: ASPIRIN 81 MG CHEWABLE TAB PO SCH (12:37)
[2017-09-01] MEDS: ENOXAPARIN 40 MG/0.4 ML SYR SC SCH (12:37)
[2017-09-01] MEDS: PANTOPRAZOLE SODIUM 40 MG TAB PO SCH (12:38)
[2017-09-01] MEDS ORDERED: LOPERAMIDE HCL 2 MG CAP PO PRN (15:57)
[2017-09-01] MEDS: CHOLECALCIFEROL VIT D3 50,000 UNIT CAP PO SCH (17:20)
--- NOTE | 2017-09-01 19:09 | HOSPPROG ---
Hospitalist Progress Note Assessment/Plan: Assessment: 62 yo M p/w chronic dysphagia and acute worsening 2/2 eosinophilic esophagitis Plan: # Dysphagia. 2/2 eosinophilic esophagitis and esophageal stricture - d/w Dr. Penn, we both agree that it will be difficult to ascertain whether the patient is adequately responding to medical mgmt as the patient frequently declines meds and also misrepresents his symptoms/dietary tolerance due to his underlying mental health pathology - therefore, plan to EGD/dilate tomorrow AM after adequate time on clears->NPO - cont rec PPI and flovent # Afib. Paroxysmal, possibly provoked by electrolyte abnl - cont PO metoprolol - not start AC given multiple falls and compliance - started Aspirin # Hypokalemia, hypomagnesemia. Acute, 2/2 poor PO intake - repleted, cont monitor # Unintentional weight loss. Likely 2/2 poor PO intake -Abd Ct and Neck CT w/o any visible mass reported # Vitamin D deficiency. Cont 50k weekly - repeat level in 8 weeks # Diarrhea. Unclear whether this is diarrhea or patient just stooling on himself in his bed - patient choosing to stool in his bed, and, on extensive questioning, he provides illogical reasons for doing so - counseled patient w/ RN present that staff can help by cleaning him after stooling in bed in a very effective manner, but patient remains hesitant to allow them to provide care - patient does agree to imodium PRN, which may lessen the stool in bed burden - this fixation by the patient on remaining in his stool despite hygiene and skin-breakdown concerns shared by patient is an example of his uncontrolled mental health pathology # Depression. Chronic, hx of psychosis, patient has apathy, illogical thought process regarding nuanced decision making, uncooperative w/ dietary/med recommendations, and gives the impression that he is not psychiatrically stable enough to manage his own care at the present time - HCT normal for age - TSH wnl - d/w Dr. Rodriguez, appreciate consult, we agree to trial of zyprexa 2.5 HS and consider for inpt psych transfer tomorrow s/p EGD/dilation # Severe protein calorie malnutrition. Evidenced by Pre-Alb 9.8, prox muscle wasting, weight loss, poor PO intake, likely 2/2 above - cont dietary consult - counseled patient that Ensure/Smoothie/Mighty Shake advisable, patient wants to avoid b/c he believes they give him diarrhea Diet. Clears, then NPO PPx. High risk, lovenox 40 rec, SCDs Code. Full Dispo. ADD 09/02 to inpt [facility] if above accomplished. Subjective: patient sitting in stool, refuses cleaning Objective: Vital Signs Temp Pulse Resp BP Pulse Ox 37.3 C 92 16 124/83 H 91 L 09/01/17 16:16 09/01/17 16:16 09/01/17 16:16 09/01/17 16:16 09/01/17 16:16 Laboratory Results 08/28/17 08:40 08/31/17 08:03 08/31/17 09/01/17 09/02/17 05:59 05:59 05:59 Intake Total 275 680 690 Output Total 1500 300 Balance -1225 380 690 - Time Spent With Patient Time Spent with Patient: greater than 35 minutes Time Spent with Patient: Greater than 35 minutes spent on this patients care, greater than 50% of time spent counseling, educating, and coordinating care regarding the above mentioned plan. - Physical Exam Constitutional: no apparent distress, not in pain, No uncomfortable Cardiovascular: irregularly irregular, No tachycardia, No edema Respiratory: no respiratory distress, no rales or rhonchi, clear to auscultation Gastrointestinal: No normoactive bowel sounds (hyperactive bowel sounds), No tenderness, No guarding, No distension Neurologic: AAOx3 Psychiatric: not anxious, flat affect, poor judgement, No agitated ICD10 Worksheet Patient Problems: Problems Problem Status Onset Atrial fibrillation Acute Weakness Acute Trench feet Acute Failure to thrive in adult Acute
[2017-09-01] MEDS ORDERED: OLANZapine DISINTEGR 5 MG TAB PO SCH (21:00)
[2017-09-02] MEDS ORDERED: LR 1,000 ML IV ONE (06:12)
[2017-09-02] MEDS ORDERED: PROPOFOL 200 MG/20 ML VIAL ONE ×2 (07:29)
--- NOTE | 2017-09-02 07:35 | PDANEPAE ---
ANE History of Present Illness here for egd ANE Past Medical History - Cardiovascular History Hx Hypertension: No Hx Arrhythmias: Yes Hx Chest Pain: No Cardiovascular History Comment: A-Fib - Pulmonary History Hx COPD: No Hx Asthma/Reactive Airway Disease: No Hx Oxygen in Use at Home: No Hx Sleep Apnea: No Sleep Apnea Screening Result - Last Documented: Positive - Endocrine History Hx Diabetes: No - Chronic Pain History Chronic Pain: No ANE Review of Systems Review of Systems: - Exercise capacity Exercise capacity: <4 METS ANE Patient History - Allergies Allergies/Adverse Reactions: No Known Allergies Allergy (Verified 08/25/17 08:14) - Home Medications Home medications: home medication list seen and reviewed Home Medications: NK [No Known Home Meds] 08/17/17 [Last Taken Unknown] - NPO status NPO Status: no food or drink >8 hours NPO Since - Liquids (Date): 09/02/17 NPO Since - Liquids (Time): 00:01 NPO Since - Solids (Date): 09/02/17 NPO Since - Solids (Time): 00:01 - Anes Hx Anes Hx: no prior problems - Smoking Hx Smoking Status: Former smoker - Alcohol Use Alcohol Use: None ANE Labs/Vital Signs - Labs Result Diagrams: 08/28/17 08:40 08/31/17 08:03 - Vital Signs Vital Signs: reviewed preoperatively; see RN documention for details Blood Pressure: 113/80 Heart Rate: 84 Respiratory Rate: 1,216 O2 Sat (%): 88 Height: 182.88 cm Weight: 61.8 kg ANE Physical Exam - Airway Neck exam: FROM Mallampati Score: Class 3 - Cardiovascular Cardiovascular: irregularly irregular - ASA Status ASA Status: III
[2017-09-02] MEDS ORDERED: ALBUTEROL 3 ML DEYVIAL IH PRN (07:48)
[2017-09-02] MEDS ORDERED: fentaNYL 100 MCG/2 ML INJ IVP PRN (07:48)
[2017-09-02] MEDS ORDERED: NALOXONE HCL 0.4 MG/ML INJ IVP PRN (07:48)
--- NOTE | 2017-09-02 07:54 | GIREPORT ---
[facility] Surgical Services - Endoscopy Department Patient Name: Dhruv Dela Cruz Procedure Date: 09/02/2017 7:34 AM Patient Type: Inpatient Attending MD/ ER Physician: Park Penn MD Procedure: Upper GI endoscopy Indications: Dysphagia Providers: Park Penn MD Medicines: Sedation Administered by an Anesthesia Professional Complications: No immediate complications. Description of Procedure: After obtaining informed consent, the endoscope was passed under direct vision. Throughout the procedure, the patient's blood pressure, pulse, and oxygen saturations were monitored continuously. The Endoscope was intro duced through the mouth, and advanced to the third part of duodenum. The uppe r GI endoscopy was accomplished without difficulty. The patient tolerated th e procedure well. Findings: One mild benign-appearing, intrinsic stenosis was found in the lower th ird of the esophagus. And was traversed. A guidewire was placed and the sco pe was withdrawn. Dilation was performed with a Savary dilator with no resistance at 54 Fr. The entire examined stomach was normal. The examined duodenum was normal. Estimated Blood Loss: Estimated blood loss: none. Post Op Diagnosis: - Benign-appearing esophageal stenosis. Dilated. - Normal stomach. - Normal examined duodenum. - No specimens collected. Recommendation: - Return patient to hospital [facility] for ongoing care. - Advance diet as tolerated. - Continue present medications. - If continues to have dysphagia despite dilation, empiric EoE therapy, and PPI can consider additional work-up with barium swallow and esophageal manometry. Although overlapping pysch illness makes assessment of swall owing function difficult. Attending Participation: I personally performed the entire procedure. Park Penn MD Park Penn MD 09/02/2017 7:53:33 AM This report has been signed electronicallyDaus Fili MD Number of Addenda: 0 Note Initiated On: 09/02/2017 7:34 AM [email or web address]
--- NOTE | 2017-09-02 08:03 | POSTANESTH ---
Post Anesthetic Evaluation Cardiovascular Status: Normal, Stable Respiratory Status: Normal, Stable Level of Consciousness/Mental Status: Can Participate in Eval, Mildly Sleepy, Arousable Pain Control: Adequate, Prn Tx Ordered Nausea/Vomiting Control: Adequate, Prn Tx Ordered Complications Possibly Related to Anesthesia: None Noted
[2017-09-02] MEDS: FLUTICASONE HFA 110 MCG MDI IH SCH (08:51)
[2017-09-02] MEDS: ENOXAPARIN 40 MG/0.4 ML SYR SC SCH (09:07)
[2017-09-02] MEDS: ASPIRIN 81 MG CHEWABLE TAB PO SCH (09:07)
[2017-09-02] MEDS: PANTOPRAZOLE SODIUM 40 MG TAB PO SCH ×2 (09:08→09:40)
[2017-09-02] MEDS: METOPROLOL TARTRATE 25 MG TAB PO SCH ×2 (09:08→22:24)
[2017-09-02] MEDS ORDERED: LOPERAMIDE HCL 2 MG CAP PO ONE (11:20)
[2017-09-02] MEDS ORDERED: OLANZapine DISINTEGR 5 MG TAB PO ONE (11:21)
[2017-09-02] MEDS ORDERED: OLANZapine 2.5 MG TAB PO ONE (11:45)
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
--- NOTE | 2017-09-02 13:39 | SOAPPROG ---
SOAP Progress Note Assessment/Plan: Assessment: psychiatry f/u note: Pt seen and evaluated this am and discussed case with Dr. Davies hospitalist, also RN and outsole caser. Pt had esophageal dilation this AM and was informed he should have no problems physically with swallowing. He has eosinophilic esophagitis and apparently this was the cause for needing dilation. Had refused zyprexa last night per RN although on interview he reported taking it. Was eating only ice creams this AM, and chewed an oral medication instead of swallowing, and per primary team pt still with defecating in bed b/c didn't want to make a mess, and didn't want help being cleaned b/c didn't want more of a mess. Unclear logic around this. On interview, was minimally conversant. Still with flat affect, restricted. Gestured at one point to his throat and said "I can't talk" for visitor services associate to lip read b/c no sound, despite having made some appropriate brief responses earlier. Seems to become more anxious with increasing somatic concerns stephen about throat/voice when asked questions around mood/feelings. Did not appear responding to internal stimuli although had periods of delayed response to questions and a couple of times remained mute, pointing to throat. i/j seem impaired. Dx: MDD recurr, severe, with psychotic f r/o personality d/o with avoidant and dependent f. Rec: -Continue zyprexa, since didn't take last pm, offer 2.5mg po today. pt agreed to trial. incr to 5mg qhs. -Will t/w TLC that pt is recommended for inpt psych once med cleared, anticipated today. -Clinically, based on history, legal issues and homelessness, r/o malingering is on the diagnostic differential, but pt has odd enough presentation with history of depression and illogical thoughts, with inability to care for self and progressive decline in functioning, and presently he meets criteria for being gravely disabled due to his major depressive d/o with psychotic features, and would warrant an inpatient psychiatric admission for further evaluation and stabilization. Was informed about meeting criteria for M-1. Pt seemed apathetic/ indifferent regarding psych hospitalization. Objective: Vital Signs Temp Pulse Resp BP Pulse Ox 36.7 C 98 15 105/75 91 L 09/02/17 11:24 09/02/17 11:24 09/02/17 11:24 09/02/17 11:24 09/02/17 11:24 Laboratory Results 08/28/17 08:40 08/31/17 08:03 09/01/17 09/02/17 09/03/17 05:59 05:59 05:59 Intake Total 680 690 Output Total 300 1000 Balance 380 690 -1000 - Time Spent With Patient Time Spent With Patient: 35min - Pending Discharge Pending Discharge Within 24 Hours: Yes Pending Discharge Within 48 Hours: No Pending Discharge Date: 09/03/17 Pending Discharge Time: 11:00 ICD10 Worksheet Patient Problems: Problems Problem Status Onset Failure to thrive in adult Acute Atrial fibrillation Acute Trench feet Acute Weakness Acute
--- NOTE | 2017-09-02 14:23 | PDIAF ---
- Diagnosis Diagnosis: Eosinophilic Esophagitis, Depression w/ psychotic features, Afib Code Status: Full Code - Medication Management Discharge Medications: Medications to Continue on Transfer Aspirin [Aspirin 81mg (*)] 81 mg PO DAILY tab.chew 09/02/17 [Last Taken Unknown ] Cholecalciferol Vit D3 [Vitamin D3 (*)] 50,000 unit PO SU19 capsule 09/02/17 [ Last Taken Unknown] Fluticasone Hfa 110 Mcg [Flovent 110 MCG Hfa MDI (*)] 2 puffs PO BID mdi [Last Taken Unknown] Loperamide HCl [Imodium 2 mg (*)] 2 mg PO Q4H PRN cap 09/02/17 [Last Taken Unknown] Metoprolol Tartrate [Lopressor 25 mg (*)] 25 mg PO BID tab 09/02/17 [Last Taken Unknown] OLANZapine [ZyPREXA 2.5 mg (*)] 2.5 mg PO HS tab 09/02/17 [Last Taken Unknown] Pantoprazole Sodium [Protonix 40mg (*)] 40 mg PO DAILY tab 09/02/17 [Last Taken Unknown] Diploma Pharmacy Technician Antibiotics: NA Discharge Medications: Refer to the Discharge Home Medication list for PRN reason. PICC Care - Routine: N/A - Orders Services needed: Registered Nurse, Certified Statement Request Clerk Isolation Type: None Oxygen: NA Diet Texture: Regular Texture Diet, Thin Liquids, Meds Whole w/Liquids Weigh Patient: weekly - Follow Up Care Current Providers and Referrals: NONE *PRIMARY CARE P,. [Primary Care Provider] - As per Instructions Park Penn MD [Medical Doctor] - 3 days of d/c SNF/Rehab
--- NOTE | 2017-09-02 16:01 | PDIAF ---
- Diagnosis Diagnosis: Reflux esophagitis w/ stricture, Depression w/ psychotic features, Afib Code Status: Full Code - Medication Management Discharge Medications: Medications to Continue on Transfer Aspirin [Aspirin 81mg (*)] 81 mg PO DAILY tab.chew 09/02/17 [Last Taken Unknown ] Cholecalciferol Vit D3 [Vitamin D3 (*)] 50,000 unit PO SU19 capsule 09/02/17 [ Last Taken Unknown] Loperamide HCl [Imodium 2 mg (*)] 2 mg PO Q4H PRN cap 09/02/17 [Last Taken Unknown] Metoprolol Tartrate [Lopressor 25 mg (*)] 25 mg PO BID tab 09/02/17 [Last Taken Unknown] OLANZapine [ZyPREXA 2.5 mg (*)] 2.5 mg PO HS tab 09/02/17 [Last Taken Unknown] Pantoprazole Sodium [Protonix 40mg (*)] 40 mg PO DAILY tab 09/02/17 [Last Taken Unknown] Facilities Operations Technician Antibiotics: NA Discharge Medications: Refer to the Discharge Home Medication list for PRN reason. PICC Care - Routine: N/A - Orders Services needed: Registered Nurse, Certified Braker Passenger Train Isolation Type: None Oxygen: NA Diet Texture: Regular Texture Diet, Thin Liquids, Meds Whole w/Liquids Weigh Patient: weekly - Follow Up Care Current Providers and Referrals: Park Penn MD [Medical Doctor] - 3 days of d/c SNF/Rehab NONE *PRIMARY CARE P,. [Primary Care Provider] - As per Instructions
--- NOTE | 2017-09-02 16:12 | PDDCSUM ---
Discharge Summary Discharge Summary: DISCHARGE SUMMARY FOLLOW-UP ITEMS: Schedule follow-up with GI of the [facility] Repeat vitamin-D level in approximately 8-10 weeks DATE OF ADMISSION: 08/25/2017 DATE OF DISCHARGE: 09/02/2017 DISCHARGE DIAGNOSES: 1. Dysphagia with esophageal stricture, secondary to gastroesophageal reflux disease 2. Paroxysmal atrial fibrillation 3. Acute hypokalemia, hypomagnesemia, hypocalcemia 4. Unintentional weight loss 5. Vitamin-D deficiency 6. Acute diarrhea 7. Severe protein calorie malnutrition 8. Depression with acute psychotic features CONSULTATIONS: Psychiatry, Gastroenterology PROCEDURES / IMAGING: Upper endoscopy x2, dilation on 09/02/2017 CHIEF COMPLAINT: Dysphagia, diarrhea SUBJECTIVE: Patient is feeling well at time discharge, he reports ongoing loose stool PHYSICAL EXAM ON DISCHARGE: Systolic blood pressure 110-130, heart rate 80, afebrile overnight, satting on room air, bowel sounds are hyperactive, abdomen is soft nontender nondistended, alert awake oriented x3, patient with illogical thinking, cooperative and follows commands LABS ON DISCHARGE: White blood count 4500, hemoglobin 11.1, potassium 3.8, phosphorus 3.1, magnesium 1.9, ionized calcium 1.03, TSH 2.67, creatinine 0.6, serum sodium 141 HOSPITAL COURSE BY PROBLEM: 1. Dysphagia with esophageal stricture. Patient presented with dysphagia secondary to esophageal stricture in the setting of suspected gastroesophageal reflux disease, resulting in unintentional weight loss and limited oral intake. He was initially hypoxia size that the patient was suffering from eosinophilic esophagitis, but the biopsy from his 1st upper endoscopy demonstrated no eosinophiles, and the patient's Flovent was discontinued. He was initiated on proton pump inhibitor therapy, but the patient's psychotic features limited his oral medication adherence. Consequently, a dilation was pursued, this was performed on 09/02/2017. The patient should now be able to tolerate solid intake, but the patient limits his oral intake voluntarily to ice cream only. This is secondary to his depression with psychotic features. We highly encouraged the patient to advance his diet and is safe to do so. We also recommend that he adhere to his proton pump inhibitor therapy and that he follow up with GI of the [facility] after his mental health hospitalization. 2. Paroxysmal atrial fibrillation. This was possibly provoked by the patient' s electrolyte abnormalities, he has been rate controlled on metoprolol, and has been started on aspirin for CVA prevention. At the current time, we are not recommending systemic anticoagulation given the patient's unpredictable adherence to medications. 3. Acute hypokalemia, hypomagnesemia, hypocalcemia. Secondary to poor oral intake, patient was placed on electrolyte protocols, replete as necessary. Depending on the patient's oral intake of solids and liquids during his inpatient Behavioral Health stay, it may be reasonable to recheck his serum chemistry and electrolytes. That being said, if the patient is eating ice cream regularly, it is unlikely that he will have significant electrolyte depletion. 4. Vitamin-D deficiency. Patient is a candidate for high-dose vitamin-D therapy, 22647 U per week, should be utilized for 6-8 weeks, with repeat vitamin -D level thereafter. 5. Acute diarrhea. The patient was experiencing some loose stools, but full evaluation of his diarrhea was limited by the patient's participation in his own care. The patient chose to sit in his own stool during the vast majority of this hospitalization, and it was unclear whether this was true diarrhea stool , or simply soft stool mixed with urine in his bed. The patient's bowel sounds were consistently hyperactive, but this is not uncommon in the setting of consuming a diet entirely consisting of lactose. It should be noted that the patient's psychotic features contributing to his unusual behavior regarding his bowel movements is a consistent theme for the patient and has been present during previous depression episodes. It is our hope that as the patient's underlying mental health issues stabilized, his unusual self-care surrounding his bowel movements will stabilized as well. 6. Severe protein calorie malnutrition. Evidenced by proximal muscle wasting, weight loss, poor oral intake, pre-albumin level 9.8, secondary to the issues outlined above. We highly recommended high caloric containing liquids and solids, but the patient was resistant. We recommend continuing to offer Ensure while the patient is a inpatient psych, and as his psychiatric condition stabilizes, perhaps he will adhere. 7. Depression with psychotic features. Evidenced by illogical thought process regarding new onset decision making, uncooperative behavior with dietary and medication recommendations, rendering this providers impression that the patient is not psychiatrically stable enough to manage his own self-care at the present time and he is gravely disabled. Dr. Estephania Rodriguez and I discussed patient's care and we both agree that the patient is appropriate for inpatient Behavioral Health stabilization. The patient is being placed on M1 hold and being transferred to inpatient Behavioral psych. DISCHARGE MEDICATIONS: Please see official discharge medication reconciliation sheet in chart , pantoprazole 40 mg daily, aspirin 81 mg daily, metoprolol tartrate 25 mg twice daily, Zyprexa 2.5 mg at bedtime, as needed Imodium, vitamin-D 07219 U weekly. DISCHARGE INSTRUCTIONS: Please follow up with GI of the [facility] after discharge from inpatient Behavioral Health. TIME SPENT: Greater than 35 minutes were spent on direct patient care, as well as discharge planning and preparation, > 50% time spent counseling the patient regarding the above and coordinating his care.
--- NOTE | 2017-09-02 21:35 | HOSPPROG ---
Hospitalist Progress Note Assessment/Plan: Recieved a call from Psych. They are worried that the pt has been slightly hypoxic. They have requested further evaluation including labs will also order cxr hold discharge Objective: Vital Signs Temp Pulse Resp BP Pulse Ox 36.6 C 98 20 99/68 L 90 L 09/02/17 20:58 09/02/17 20:58 09/02/17 20:58 09/02/17 20:58 09/02/17 20:58 Laboratory Results 08/28/17 08:40 08/31/17 08:03 09/01/17 09/02/17 09/03/17 05:59 05:59 05:59 Intake Total 008 716 4657 Output Total 300 1000 Balance 380 690 0 ICD10 Worksheet Patient Problems: Problems Problem Status Onset Failure to thrive in adult Acute Atrial fibrillation Acute Trench feet Acute Weakness Acute
[2017-09-02] MEDS: OLANZapine 2.5 MG TAB PO SCH (22:25)
[2017-09-03 06:17] LABS: PLATELET COUNT 242 10^3/uL (150-400)
[2017-09-03] MEDS: ENOXAPARIN 40 MG/0.4 ML SYR SC SCH (09:24)
[2017-09-03] MEDS: ASPIRIN 81 MG CHEWABLE TAB PO SCH (09:25)
[2017-09-03] MEDS: METOPROLOL TARTRATE 25 MG TAB PO SCH ×2 (09:25→21:01)
[2017-09-03] MEDS: PANTOPRAZOLE SODIUM 40 MG TAB PO SCH (09:25)
[2017-09-03] MEDS ORDERED: IOPAMIDOL (ISOVUE 370) 100 ML BTL IV ONE (10:44)
[2017-09-03] MEDS: RIVAROXABAN 15 MG TAB PO SCH ×2 (12:46→21:01)
--- NOTE | 2017-09-03 14:10 | HOSPPROG ---
Hospitalist Progress Note Assessment/Plan: Assessment: 62 yo M p/w chronic dysphagia and acute worsening 2/2 esophagitis, c /b acute pulmonary emboli and pleural effusions Plan: # Pulmonary embolism. Acute, new problem, further w/u indicated. CTA w/ small volume bilat emboli, most likely 2/2 immobility over at least the past 8 days, patient declining VTE ppx consistently - initiate on Xarelto 15mg bid now, DOAC will be best option for patient given his challenges w/ Rx adherence - get DVT to evaluate whether there is substantial LE clot burden - d/w Dr. Morales, appreciate Pulm consultation - monitor VS and, if hypoxic, place on supplemental o2 # Pleural effusions. Acute, likely 2/2 combination of immobility, IVF received earlier in hospitalization - will check Echo to eval EF - start low dose IV lasix bid and uptitrate as needed - monitor I/O # Atelectasis. Acute, present on CXR (personally interperted) 2/2 immobility and mostly bed-bound state, started on IS, educated patient # Dysphagia. Initially felt to be 2/2 eosinophilic esophagitis, but biopsy demonstrated no eos, so likely stricture related to GERD esophagitis - s/p successful dilation 09/02 - OK to eat solids, but patient psychologically prefers ice cream - he is now agreeable to swallow most pills - cont rec PPI w/ outpt GI f/u Dr. Penn # Afib. Paroxysmal, possibly provoked by electrolyte abnl - cont PO metoprolol - now on AC for PEs - stop ASA # Pericardial cyst. POA CXR, present on CT - will check TTE # Hypokalemia, hypomagnesemia. Acute, 2/2 poor PO intake - repleted, cont monitor # Unintentional weight loss. Likely 2/2 poor PO intake -Abd Ct and Neck CT w/o any visible mass reported # Vitamin D deficiency. Cont 50k weekly - repeat level in 8 weeks # Diarrhea. Unclear whether this is diarrhea or patient just stooling on himself in his bed - possibly 2/2 extreme amount of lactose being consumed daily (> dozen ice cream cups/day) - this fixation by the patient on remaining in his stool despite hygiene and skin-breakdown concerns shared by patient is an example of his uncontrolled mental health pathology - continue to encourage patient to allow staff to provide proper hygiene # Depression w/ psychotic features. Acute worsening of chronic condition w/ hx of psychosis, patient has apathy, illogical thought process regarding nuanced decision making, uncooperative w/ dietary/med recommendations, and gives the impression that he is not psychiatrically stable enough to manage his own care at the present time - HCT normal for age - TSH wnl - d/w Dr. Rodriguez, we have agreed to keep patient on M1 in ICU while receiving PE tx, then reconsider him for inpt psych unit in next 24-48hrs once deemed medically stable # Severe protein calorie malnutrition. Evidenced by Pre-Alb 9.8, prox muscle wasting, weight loss, poor PO intake, likely 2/2 above - cont dietary consult - counseled patient that Ensure/Smoothie/Mighty Shake advisable, patient wants to avoid b/c he believes they give him diarrhea Diet. Regular PPx. High risk, xarelto Code. Full Dispo. ADD 09/04 vs. 09/05 to inpt [facility] if above accomplished. Subjective: patient reports no SOB this AM; endorses that he was feeling SOB last night; denies chest pain; reports ongoing diarrhea; mega abd pain Objective: Vital Signs Temp Pulse Resp BP Pulse Ox 36.9 C 91 14 114/74 96 09/03/17 07:58 09/03/17 07:58 09/03/17 07:58 09/03/17 07:58 09/03/17 07:58 Laboratory Results 09/03/17 05:45 09/03/17 05:45 09/02/17 09/03/17 09/04/17 05:59 05:59 05:59 Intake Total 690 1250 Output Total 1400 Balance 690 -150 - Physical Exam Constitutional: no apparent distress, not in pain, chronically ill appearing, No uncomfortable Cardiovascular: irregularly irregular, No systolic murmur, No tachycardia, No edema Respiratory: reduced air movement (R base), inspiratory crackles (left base), No expiratory wheeze, No bronchial breath sounds Gastrointestinal: No normoactive bowel sounds (hyperactive bowel sounds), No tenderness, No guarding, No distension Neurologic: AAOx3 Psychiatric: not anxious, flat affect, other (illogical thought process), No agitated ICD10 Worksheet Patient Problems: Problems Problem Status Onset Atrial fibrillation Acute Weakness Acute Trench feet Acute Failure to thrive in adult Acute
[2017-09-03] MEDS: FUROSEMIDE 20 MG/2 ML VIAL IVP SCH (15:17)
--- NOTE | 2017-09-03 16:41 | ECHO ---
[email or web address] [address] [address] Main: [phone] Fax: Transthoracic Echocardiogram Name: POOL SEVILLA MR#: [id number] Study Date: 09/03/2017 Study Time: 02:54 PM Date of : 1955 Age: 62 year(s) Height: 182.9 cm (72 in.) Weight: 61.69 kg (136 lb.) BSA: 1.81 m2 Gender: Male Examination: Echo Indication: Eval EF, Atrial Fibrillation Image Quality: Contrast: Requested by: Jacob Davies BP: / Heart Rate: Rhythm: Atrial fibrillation Indication: Eval EF, Atrial Fibrillation Procedure Staff Attendant Coin Operated Laundry: Jet Soto Reading Physician: Carmen Venegas Requesting Provider: Conclusions: Normal size left ventricle. No LV hypertrophy. Normal global systolic LV function. EF is 60 %. No regional wall motion abnormality. The rhythm is atrial fibrillation.. Mildly dilated right ventricle. Normal RV function. Mild aortic valve regurgitation is present. Mild tricuspid regurgitation is present. compared with 01/13/2017 overall similar findings. Measurements: Chambers Valvular Assessment AV/MV Valvular Assessment TV/PV Normal Normal Normal Name Value Range Name Value Range Name Value Range Ao Melanie (MM): 4.0 cm (2.2 cm-3.7 AV Vmax: 0.81 m/s (1 m/s-1.7 TR Vmax: 2.39 mm/s ( - ) cm) m/s) TR PGmax: 23 mmHg ( - ) IVSd (2D): 0.9 cm (0.6 cm-1.1 AV maxP mmHg ( - ) syst. PAP: 28 mmHg ( - ) cm) LVOT Vmax: 0.72 m/s (0.7 m/s-1.1 PV Vmax: 0.69 m/s (0.6 m/s-0.9 LVDd (2D): 4.1 cm (4.2 cm-5.9 m/s) m/s) cm) MV E Vmax: 0.73 m/s ( - ) PV PGmax: 2 mmHg ( - ) LVDs (2D): 2.8 cm (2.1 cm-4 MV A Vmax: 0.38 m/s ( - ) cm) MV E/A: 1.92 ( - ) LVPWd (2D): 1.0 cm (0.6 cm-1 cm) LVEF (2D): 60 (>=54 %) RVDd(2D): 4.8 cm (1.9 cm-3.8 cmmm) Patient: POOL SEVILLA Study Date: 09/03/2017 Page 1 of 2 02:54 PM Continued Measurements: Chambers Valvular Assessment AV/MV Valvular Assessment TV/PV Name Value Name Value Name Value LADs Lon.8 cm MV E' Septal: 0.12 m/s CVP (est.): 5 mmHg LA Area: 18.2 cm2 MV E/E' Septal: 6.20 MV E/E' Lateral: 7.30 Findings: Left Ventricle: Normal size left ventricle. No LV hypertrophy. Normal global systolic LV function. EF is 60 %. No regional wall motion abnormality. The rhythm is atrial fibrillation.. Right Ventricle: Mildly dilated right ventricle. Normal RV function. Left Atrium: The left atrium is normal in size. Right Atrium: The right atrium is normal in size. Mitral Valve: The mitral valve is normal in appearance and function. There is no mitral valve regurgitation. Aortic Valve: The aortic valve is tri-leaflet. The aortic valve is normal in appearance and function. Mild aortic valve regurgitation is present. Tricuspid Valve: The tricuspid valve is normal in appearance and function. The tricuspid valve appears normal. The pulmonary artery pressure is normal. Mild tricuspid regurgitation is present. Pulmonic Valve: The pulmonic valve is normal in appearance and function. Aorta: The aorta is normal. Pericardium: Small pericardial effusion. No echocardiographic evidence of hemodynamic compromise. (No Signature Object) Patient: POOL SEVILLA Study Date: 09/03/2017 Page 2 of 2 02:54 PM [id number]
[2017-09-03] MEDS: CHOLECALCIFEROL VIT D3 50,000 UNIT CAP PO SCH (17:43)
[2017-09-03] MEDS: OLANZapine 2.5 MG TAB PO SCH (21:00)
--- NOTE | 2017-09-03 21:06 | GCON ---
[f rep st] CONSULTATION DATE OF CONSULTATION: 09/03/2017 HISTORY OF PRESENT ILLNESS: This patient is a 62-year-old male who was initially admitted to the [facility] on 08/25/2017 with complaints of failure to thrive and dehydration, as well as atrial fibrillat ion with a rapid response of about 130. He has had multiple difficulties in the past with psychiatri c concerns, thought to be initially major depressive disorder with psychotic episodes and possibly no w with personality problems. He has been evaluated by multiple psychiatric providers previously and, in January of this past year, was placed on an M1 hold and treated at [facility]. The patient himself denies these encounters in the past and has had a difficult time recalling details. He is homeless, previously lived with his mother who apparently kicked him out of the apartment that they were angélica valerio. In any case, he also has been into the emergency department several times in the last several week s, complaining of dehydration and dysphagia, and eventually during his hospitalization had an EGD dequan t showed a distal stricture. This was dilated. There were some concerns about eosinophilic esophagi tis, but biopsies were negative for eosinophils. He was again seen by Psychiatry and given Zyprexa w ith recommendation for inpatient treatment; that was apparently held on 09/02 when an M1 hold was thad jemal and there were reportedly concerns about hypoxemia. Of note, his oxygen saturation has been 88% to 92% on room air throughout his hospital stay, and it is uncertain to me where the diagnosis of hyp oxemia came from since, using Medicare criteria, this is normal range oxygen saturation. In any case , part of his workup included a chest x-ray today that showed a possible enlarging pericardial cyst. Of note, this cyst was seen in January [address] angiogram at that time and thought to b e benign, and no further workup was required. He was supposed to follow up with Dr. Feliz concerning this, but that did not occur. An additional part of his workup included a D-dimer, which apparently was positive. He subsequently went for a CT angiogram, whose report suggested 2 small tiny subsegme ntal emboli in the left lower lobe. The cyst was not seen by the radiologist, but appears to be pres ent when compared to the film from January 2017. In addition, on the , the inpatient psychiatric pl an apparently was denied, and he was told to be discharged to a fpc and follow up as an outpatien t. According to the patient, outside of recent immobilization, he has very few risk factors. His immobi lization has been primarily since he has been in the hospital over the last 9 days, in which he has r efused pharmacologic VTE prophylaxis more often than not and was not using SCDs. He has no family hi story of venous thromboembolic disease. No recent travel. No surgeries. No previous VTE. He is cl early not obese. He is not a current smoker and has no known active malignancy. His pretest probabi lity for pulmonary embolism, even in this setting, is quite low. Using 3 different predictive models for pulmonary embolism in the setting of medical hospitalization, his risk is low in all 3 counts. REVIEW OF SYSTEMS: Otherwise negative. PAST MEDICAL HISTORY: 1. Atrial fibrillation. This was first noted in January and again on this admission. He was treated w ith diltiazem initially and changed over to metoprolol. 2. Pericardial cyst. This was seen, as I said, on a CT scan in January 2017. I believe I see it on e current film, though Radiology says it is not present. 3. Depression with psychotic features and paranoia. 4. Dysphagia. He has had multiple ER admissions for dehydration and constipation, and he reported a fear of eating and drinking on multiple occasions, including 3 times in the last month prior to this admission. PAST SURGICAL HISTORY: None. SOCIAL HISTORY: He is a remote smoker, but nothing current. Drinks occasional alcohol, but no IV dr ug use. FAMILY HISTORY: Lacks venous thromboembolic disease or malignancy and is otherwise noncontributory. CURRENT MEDICATIONS: Calciferol, Lasix, Imodium, Lopressor, Zyprexa, Zofran, Protonix, Phenergan. PHYSICAL EXAMINATION: VITAL SIGNS: He has been afebrile throughout his hospital admission. At the time of my evaluation, his blood pressure is 114/74, heart rate 91 in sinus rhythm, respirations 14, oxygen saturation 96% on room air. GENERAL: He was awake and alert, in no apparent distress, orient ed x3, able to speak in full sentences without using accessory muscles for breathing. HEENT: Pupils are equally round and reactive to light, nonicteric and noninjected. Mucous membranes are moist wit hout erythema or exudate. NECK: Supple without adenopathy or jugular vein distention. Breath sound s were clear to auscultation bilaterally without wheezes, rubs, or rales. HEART: Regular rate and r hythm without obvious murmurs, rubs, or gallops. ABDOMEN: Soft, nontender, nondistended without hep atosplenomegaly. EXTREMITIES: No clubbing, cyanosis, or edema. There was no calf tenderness on eit her side. NEUROLOGIC: Nonfocal, including cranial nerves and motor activity. SKIN: Warm and dry w ithout evidence of rash. OBJECTIVE DATA: CT scan as reported above. White count today was 3.34, hematocrit 37, platelets of 242. D-dimer was 1.5. Basic metabolic panel was unremarkable. C diff was tested recently, which wa s negative; this was presumably based on multiple complaints of diarrhea, though this is poorly subst antiated. ASSESSMENT AND PLAN: 1. Tiny pulmonary emboli based on the radiologist's report. These are difficult to find on the film in the absence of marking. It is possible that these are real. He has had atrial fibrillation off and on, which could be a contributing factor, as well as his immobilization. Because of the presence of these reported by Radiology, I do not think there is much choice but to treat him with anticoagul ation. Given his social situation and psychiatric problems, I think Xarelto is a fine choice. I wou ld treat him for 3 months, assuming that the immobilization is a factor contributing most to the pres ence of these tiny pulmonary emboli, and then remove that from there. There is lower extremity ultra sound pending at this time that might be helpful in determining the duration of therapy. 2. Pleural effusion with atelectasis. I think this is benign, and this is related to his immobiliza tion during his hospitalization. Lasix has apparently been ordered. I would emphasize incentive spi rometry, as well as out of bed and walking around as much as possible, and my expectation is that thi s will mobilize. 3. Pericardial cyst. I think this is still present, despite the lack of it on the radiology report. These are generally benign and do not usually require intervention. It is unclear to me if this love s, in fact, increased in size. Occasionally because of mechanical factors, they are resected, and he should follow up with Dr. Feliz, as originally recommended back in January of this year. /[id number]/MODL
[2017-09-04 04:55] LABS: PLATELET COUNT 253 10^3/uL (150-400)
[2017-09-04] MEDS: FUROSEMIDE 20 MG/2 ML VIAL IVP SCH ×2 (09:31→16:09)
[2017-09-04] MEDS: METOPROLOL TARTRATE 25 MG TAB PO SCH (09:31)
[2017-09-04] MEDS: RIVAROXABAN 15 MG TAB PO SCH (09:31)
[2017-09-04] MEDS: PANTOPRAZOLE SODIUM 40 MG TAB PO SCH (09:31)
--- NOTE | 2017-09-04 13:27 | PDINTPN ---
Manager Of Revenue Progress Note Assessment/Plan: Assessment/plan: 62 M with unclear psych history admitted 08/26/17 with complaints of dysphagia. He eventually underwent EGD which revealed distal stricture and was dilated. During his stay, he has reportedly repeatedly declined care for stool incontinence with unclear reasoning and was felt to exercise poor judgment. A psych consult recommended inpatient behavioral health, but was concerned about low, BUT NORMAL, oxygen saturations at the time of transfer. A work up included a CXR, D-dimer, and CTA. The CT showed two questionable tiny PEs and pleural effusion, but thought a previously noted pericardial cyst had resolved. * Hypoxemia- this patients saturations were always >88% which doers not meet criteria for oxygen supplementation. I suspect the vast majorith of his issues are related to atelectasis and his small pleural effusion. The possible PEs noted on his CT have no impact on his oxygen level. * PE- Reluctantly agree with anticoagulation for no more than 3 months. Echo and US negative * Pleural effusion related to atelectasis- no workup required * Pericardial cyst- I see it on the CT and feel it is not significantly changed. No intervention required * Medically stable for behavioral health 09/04/17 13:27 Subjective: Feels well. Denies chest pain, SOB, fevers, chills, palpitations Objective: Vital Signs Temp Pulse Resp BP Pulse Ox 36.7 C 80 14 99/69 L 96 09/04/17 04:00 09/04/17 04:00 09/04/17 04:00 09/04/17 04:00 09/04/17 04:00 Laboratory Results 09/04/17 04:40 09/04/17 04:40 09/03/17 09/04/17 09/05/17 05:59 05:59 05:59 Intake Total 1250 950 Output Total 1400 500 Balance -150 450 Physical Exam - Physical Exam General Appearance: WD/WN, alert, no apparent distress EENT: PERRL/EOMI Neck: supple Respiratory: lungs clear, normal breath sounds, No respiratory distress, No accessory muscle use Cardiac/Chest: regular rate, rhythm, No edema Abdomen: non-tender, soft, No distended Skin: normal color, warm/dry, No cyanosis Lymphatic: no adenopathy Extremities: No pedal edema Neuro/Psych: alert, normal mood/affect, oriented x 3 ICD10 Worksheet Patient Problems: Problems Problem Status Onset Failure to thrive in adult Acute Atrial fibrillation Acute Trench feet Acute Weakness Acute
--- NOTE | 2017-09-04 15:58 | ASMTCMCOM ---
CM Note CM Note Notes: Patient is medically clear, however, Dr. Rodriguez has recommended inpatient psych care while Dr. Nogueira is saying patient is not appropriate for their unit and should be d/c'ed to the [facility]. Discussed with Dr. Ferrari who is trying to get in touch with Dr. Nogueira. D/C to the [facility] is not a safe d/c for patient at this time. CM will follow. Date Signed: 09/04/2017 03:58 PM Electronically Signed By:Neena Ordaz LCSW
[2017-09-04 16:14] VITALS: BP 131/56; PULSE 82; RESP 15; TEMP 98.8; O2SAT 96
--- NOTE | 2017-09-04 17:31 | GDS ---
[f rep st] DISCHARGE SUMMARY ALL DIAGNOSES: 1. Pulmonary embolism. 2. Bilateral pleural effusions. 3. Atelectasis. 4. Dysphagia, as well as esophageal stricture. 5. Atrial fibrillation. 6. Pericardial cyst. 7. Hypokalemia and hypomagnesemia. 8. Unintentional weight loss. 9. Vitamin D deficiency. 10. Diarrhea. 11. Depression with psychotic features. 12. Severe protein calorie malnutrition. ALL PROCEDURES: 1. Upper endoscopy by Dr. Penn on 09/02/2017 showing stricture which was dilated. 2. Upper endoscopy on 08/28/[address] Rasheed showing stricture which was biopsied, shown to be negative for eosinophils. HOSPITAL COURSE BY PROBLEM: 1. Dysphagia: Underwent above EGD. He tells me that he is still having mild problems eating, thoug h he has been tolerating p.o. well while he is here. If this continues to be an issue, could conside r empiric treatment for eosinophilic esophagitis, although eosinophils were negative on his biopsy. He should follow up with Dr. Penn of GI as an outpatient. 2. Pulmonary embolus: Seen on CT angiogram which was ordered for borderline hypoxia. These are rel atively small. He started on Xarelto 15 mg p.o. b.i.d. This should be changed to 20 mg p.o. daily a fter 21 days of treatment. On the day of discharge, his oxygen saturations have all been above 94% o n room air. He is hemodynamically stable. 3. Bilateral pleural effusions: Received some gentle diuresis with IV Lasix. He has normal ejectio n fraction. I think he is stable for discharge. 4. Atrial fibrillation: This is paroxysmal. He continues on metoprolol. He is currently on antico agulation for a PE. 5. Pericardial cyst: I do not think that this is clinically significant at this point. 6. Depression with psychotic features: Seen by Psychiatry. He will be discharged to inpatient [facility] hiatry for further management. BILLING: I spent more than 30 minutes on the day of discharge coordinating care. /[id number]/MODL
== END 2017-09-04 18:13 | DRG 391 ==
LOC: EDUNIT# → INTOOBSV 12:34 → F2W 15:16 → UNDODISIN 17:13 → OBSVTOIN 08-26 16:31 → F2N 09-02 22:38
PROVIDERS: ADMIT Internal Medicine; ATTEND Student in an Organized Health Care Education/Training Program
PROC: 0DB28ZX Excision of Middle Esophagus, Via Natural or Artificial Opening Endoscopic, Diagnostic (ICD-10-PCS; 2017-08-28)
PROC: 0D738ZZ Dilation of Lower Esophagus, Via Natural or Artificial Opening Endoscopic (ICD-10-PCS; principal; 2017-09-02 08:00)
DX: K21.0 Gastro-esophageal reflux disease with esophagitis (principal); K22.2 Esophageal obstruction; R13.10 Dysphagia, unspecified; E43 Unspecified severe protein-calorie malnutrition; R62.7 Adult failure to thrive; I26.99 Other pulmonary embolism without acute cor pulmonale; F32.3 Major depressive disorder, single episode, severe with psychotic features; R63.4 Abnormal weight loss; I31.8 Other specified diseases of pericardium; J90 Pleural effusion, not elsewhere classified; J98.11 Atelectasis; I48.0 Paroxysmal atrial fibrillation; E87.6 Hypokalemia; E83.42 Hypomagnesemia; E55.9 Vitamin D deficiency, unspecified; E83.51 Hypocalcemia; R19.7 Diarrhea, unspecified; Z59.0 Homelessness
CPT/HCPCS: 82607-90; 84134-90; 92523-GN; 92610-GN; 97116-GP; 97161-GP; 97165-GO; G0378; J0610; J1650; J1940; J2704; J3475; Q9967

== ENCOUNTER 2017-09-04 18:35 | Inpatient (IN) | payer MEDICAID ==
[2017-09-04 19:23] VITALS: RESP 14
[2017-09-04] MEDS ORDERED: MAG HYDROX/AL HYDROX/SIMETH 30 ML UDCUP PO PRN (22:11)
[2017-09-04] MEDS ORDERED: MAGNESIUM HYDROXIDE 30 ML UDCUP PO PRN (22:11)
[2017-09-04] MEDS ORDERED: ACETAMINOPHEN 325 MG TAB PO PRN (22:12)
[2017-09-04] MEDS ORDERED: LORazepam 0.5 MG TAB PO PRN (22:13)
[2017-09-05] MEDS ORDERED: LOPERAMIDE HCL 2 MG CAP PO PRN (08:15)
[2017-09-05] MEDS ORDERED: METOPROLOL TARTRATE 25 MG TAB PO SCH (09:00)
[2017-09-05] MEDS: METOPROLOL TARTRATE 25 MG TAB PO SCH ×2 (09:03→20:32)
[2017-09-05] MEDS: RIVAROXABAN 15 MG TAB PO SCH ×2 (09:03→17:13)
[2017-09-05] MEDS: PANTOPRAZOLE SODIUM 40 MG TAB PO SCH (09:03)
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
[2017-09-05] MEDS: OLANZapine 2.5 MG TAB PO SCH (20:27)
[2017-09-05] MEDS: MIRTAZAPINE 15 MG TAB PO SCH (20:27)
[2017-09-06] MEDS: PANTOPRAZOLE SODIUM 40 MG TAB PO SCH ×3 (08:42→08:44)
[2017-09-06] MEDS: RIVAROXABAN 15 MG TAB PO SCH ×2 (08:44→17:35)
[2017-09-06] MEDS: METOPROLOL TARTRATE 25 MG TAB PO SCH ×2 (09:49→19:53)
--- NOTE | 2017-09-06 12:58 | SOAPPROG ---
SOAP Progress Note Assessment/Plan: Assessment: 62 yo man recently admitted to [facility] floor for failure to thrive. He presented with protein calorie malnutrition, severe electrolyte imbalances, paroxysmal atrial fibrillation d/t lytes, esophageal stricture (s/p dilation on 09/02/17), GERD, chronic diarrhea (likely d/t high lactose diet). Patient has h/ o MDD w/ psychotic fx. D/c'd from [facility] in 01/24. Plan: 09/06/17 12:48 1. Patient continues to engage in uncooperative, bizarre behavior at times. This AM he told Symone BLACK, and RN, "I can't talk" as a result of tightness in his esophagus. He becomes selectively mute at times when he doesn't want to answer questions. He also insists that he can't eat solid food b/c of his throat issues. However, when MD met with him, he was speaking fluently without any coughing or c/o tightness. Staff also report he ate yogurt and drank milk and water this AM. Based on this MD's observation for past 2 days, do not believe the patient is having somatic delusions. His choice about when to talk is entirely volitional. 2. Patient is logical and coherent at least during brief conversation with MD today. MD asked where patient was living after he had to leave [facility] d/ [facility]. He says he lived "on street" and "in the hospital." MD asked if he was interested in living in fdc. He said, "yeah, it would be better than being on the street." When MD asked if he'd tried to get into fdc, patient said, "I don't qualify", but when MD pressed on this point, patient admitted "there was just too much paperwork to fill out, I didn't want to do it." Patient understands the risks associated with living on street. He is also able to identify the benefits of staying in fdc, "it will be warm and I'll get food." This appears logical and rational to MD. It does not appear that patient is gravely disabled or unable to take appropriate steps to find food, fdc. 3. Patient took Remeron and Zydis last night. He denies any SE's from meds. Recommend staying on this regimen since it was helpful to him at [facility]. 4. Recommend referral to [facility] upon d/c to assist with homeless fdc and referral to [facility]. Patient was previously a client at [facility] until 03/26, recommend referral to [facility] if eligible. 5. Patient is supposed to f/u with [facility]. 6. Recommend patient stay on Metoprolol. Dr. Tobar from medicine did not think patient should stay on long-term anticoagulation therapy despite recent PE, do to risk of noncompliance. Subjective: Met with patient, reviewed chart and d/w staff. Patient was lying in bed. See plan for more detailed description of MD's interaction with patient. Patient presented cooperative, compliant, pleasant and polite. He did not refuse to talk to MD or complain of tightness in throat or inability to speak. He ate 10% of breakfast per staff, mostly yogurt, milk and water. Objective: Vital Signs Temp Pulse Resp BP Pulse Ox 36.6 C 91 14 99/69 L 99 09/06/17 06:00 09/06/17 06:00 09/06/17 06:00 09/06/17 09:49 09/06/17 06:00 MSE: Affect: Euthymic Mood: "Good" TP: Linear, goal-directed TC: Denies any SI/HI, no paranoia or psychotic sxs Insight/Judgment: Poor - Time Spent With Patient Time Spent With Patient: 25" - Pending Discharge Pending Discharge Within 24 Hours: No Pending Discharge Within 48 Hours: No ICD10 Worksheet Patient Problems: Problems Problem Status Onset Major depressive disorder, recurrent, severe with psychotic features Acute Atrial fibrillation Acute Failure to thrive in adult Acute Trenc feet Acute Weakness Acute - ICD10 Problem Qualifiers (1) Major depressive disorder, recurrent, severe with psychotic features
[2017-09-06] MEDS: OLANZapine 2.5 MG TAB PO SCH (19:52)
[2017-09-06] MEDS: MIRTAZAPINE 15 MG TAB PO SCH (19:52)
[2017-09-07] MEDS: METOPROLOL TARTRATE 25 MG TAB PO SCH ×2 (08:20→21:40)
[2017-09-07] MEDS: RIVAROXABAN 15 MG TAB PO SCH ×2 (08:20→17:45)
[2017-09-07] MEDS: PANTOPRAZOLE SODIUM 40 MG TAB PO SCH (08:23)
--- NOTE | 2017-09-07 11:43 | SOAPPROG ---
SOAP Progress Note Assessment/Plan: Assessment: Plan: 09/07/17 11:46 Mood: Appears depressed. Remains in prostrate stance, but willing to work with us on d/c plan. No acute behavioral issues. Will [facility], continue d/c planning. Subjective: Pt seen, discussed with staff and Dr. Sexton, chart reviewed including notes from ICU and previous consults. He is a 62 y/o CM with hx of mood problems, likely character issues and severe psychosocial stressors. He was admitted/readmitted to due to general physical deterioration. While there he demonstrated disorganized behaviors and bizarre behaviors. Dr. Rodriguez consulted and believed him to manic and psychotic and recommended transfer to . Here, he has appeared calm with no evidence of psychosis. He has been isolating in his room, reusing to participate in therapeutic programming. He tells me today that he feels "depressed and tired." He has been compliant with Zyprexa and Remeron. He was refusing to consider d/c to local senior care, but told Dr. Sexton and now me that "it's better than the street." Agrees to work with CC on d/c plan. I discussed this with the CC this morning in team meeting. Pt's behaviors are stable. Toileting appropriately. Eating poorly. Objective: Vital Signs Temp Pulse Resp BP Pulse Ox 36.9 C 84 14 113/73 97 09/07/17 06:00 09/07/17 08:20 09/07/17 06:00 09/07/17 08:20 09/07/17 06:00 - Time Spent With Patient Time Spent With Patient: 25" ICD10 Worksheet Patient Problems: Problems Problem Status Onset Major depressive disorder, recurrent, severe with psychotic features Acute Atrial fibrillation Acute Failure to thrive in adult Acute Trench feet Acute Weakness Acute
[2017-09-07] MEDS: OLANZapine 2.5 MG TAB PO SCH (21:40)
[2017-09-07] MEDS: MIRTAZAPINE 15 MG TAB PO SCH (21:40)
[2017-09-08 06:33] VITALS: PULSE 83; O2SAT 94
[2017-09-08] MEDS: RIVAROXABAN 15 MG TAB PO SCH ×2 (09:13→20:13)
[2017-09-08] MEDS: PANTOPRAZOLE SODIUM 40 MG TAB PO SCH (09:13)
[2017-09-08] MEDS: METOPROLOL TARTRATE 25 MG TAB PO SCH ×2 (09:13→20:12)
--- NOTE | 2017-09-08 13:07 | SOAPPROG ---
SOAP Progress Note Assessment/Plan: Assessment: Plan: 09/07/17 11:46 Mood: Appears depressed. Remains in prostrate stance, but willing to work with us on d/c plan. No acute behavioral issues. Will CCM, continue d/c planning. 09/08/17 13:06 Mood: Continues to appear depressed. Will titrate Remeron to 30mg, monitor. Continue d/c planning. Subjective: Pt seen, discussed with staff. Reports feeling "bad." C/o inability to swallow , though is able to drink shakes/Ensure. Spending all of his time in bed, isolating. Refuses to participate in groups. Continues to describe his mood as "depressed." Compliant with meds. No behavioral issues or aggression. Objective: Vital Signs Temp Pulse Resp BP Pulse Ox 36.4 C 83 14 114/74 94 09/08/17 06:00 09/08/17 06:00 09/08/17 06:00 09/08/17 06:00 09/08/17 06:00 MSE: Calm, coop. Affect is blunted, stable, approp. Mood is "bad." TP linear. TC reveals no psychosis. Denies SI. - Time Spent With Patient Time Spent With Patient: 25" ICD10 Worksheet Patient Problems: Problems Problem Status Onset Major depressive disorder, recurrent, severe with psychotic features Acute Atrial fibrillation Acute Failure to thrive in adult Acute Trench feet Acute Weakness Acute
[2017-09-08] MEDS ORDERED: MIRTAZAPINE 15 MG TAB PO SCH (14:04)
[2017-09-08] MEDS: OLANZapine 2.5 MG TAB PO SCH (20:12)
[2017-09-09 06:29] VITALS: BP 108/74; TEMP 98.2
[2017-09-09] MEDS: METOPROLOL TARTRATE 25 MG TAB PO SCH (08:42)
[2017-09-09] MEDS: PANTOPRAZOLE SODIUM 40 MG TAB PO SCH (08:42)
[2017-09-09] MEDS: RIVAROXABAN 15 MG TAB PO SCH (08:43)
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
== END 2017-09-09 14:15 | disposition home or self-care (01) | DRG 885 ==
LOC: BBEH 18:35
PROVIDERS: ADMIT Psychiatry & Neurology Psychiatry; ATTEND Psychiatry & Neurology Psychiatry
DX: F31.64 Bipolar disorder, current episode mixed, severe, with psychotic features (principal); E46 Unspecified protein-calorie malnutrition; R64 Cachexia; J90 Pleural effusion, not elsewhere classified; E55.9 Vitamin D deficiency, unspecified; K21.9 Gastro-esophageal reflux disease without esophagitis; K52.9 Noninfective gastroenteritis and colitis, unspecified; R13.10 Dysphagia, unspecified; I48.0 Paroxysmal atrial fibrillation; Z59.0 Homelessness; Z91.19 Patient's noncompliance with other medical treatment and regimen

== ENCOUNTER 2017-09-20 10:15 | Emergency (ER) | payer MEDICAID ==
[~2017-09-20 10:15] MED LIST: PANTOPRAZOLE SODIUM 40 MG TAB PO SCH
[2017-09-20] MEDS ORDERED: METOCLOPRAMIDE 10 MG/2 ML VIAL IVP ONE (12:14)
[2017-09-20] MEDS ORDERED: NS 1,000 ML IV ONE (12:14)
[2017-09-20] MEDS ORDERED: PANTOPRAZOLE SODIUM 40 MG VIAL IVP ONE (12:15)
--- NOTE | 2017-09-20 12:17 | EDPHY ---
H & P Stated Complaint: reports trouble eating and drinking, EMS reports no where to go Source: Patient Exam Limitations: No limitations - Personal History Current Tetanus/Diphtheria Vaccine: No Current Tetanus Diphtheria and Acellular Pertussis (TDAP): No - Medical/Surgical History Hx Asthma: No Hx Chronic Respiratory Disease: No Hx Diabetes: No Hx Cardiac Disease: Yes Hx Renal Disease: No Hx Cirrhosis: No Hx Alcoholism: No Hx HIV/AIDS: No Hx Splenectomy or Spleen Trauma: No Other PMH: afib by past med record. HTN - Social History Smoking Status: Former smoker Time Seen by Provider: 09/20/17 12:16 HPI/ROS: HPI: This is a 62-year-old male who presents Chief Complaint: reports trouble eating and drinking, EMS reports no where to go Location: GI Quality: Difficulty eating and drinking Duration: Month Signs and Symptoms: no fever, no nausea, no vomiting, no hematemesis, no blood in stool, no abdominal bloating, no diarrhea, no back pain, no urinary symptoms , no testicular/groin pain, no indigestion, no chest pain, no shortness of breath, no aphasia Timing: Chronic Severity: Mild Context: Patient presents with complaints of difficulty swallowing food and liquids. While in triage, he notifies the nurse that he is just here to get a warm place to stay and to get some juice. He reports that he has all the medications that he needs. Chart review shows patient has a history dysphagia and esophageal stricture status post upper endoscopy on 08/28/[address] Rasheed who took a biopsy and was negative for eosinophils. Upper endoscopy with Dr. Penn on 09/02/2017 showed stricture which was dilated. He was discharged on a proton pump inhibitor with follow-up with Dr. Penn but patient never followed through. Shows that patient is resistant to dietary modifications. 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 Patient prefers to stay on the street and not in a intermediate. Denies fever/nausea/vomiting/abdominal pain/ diarrhea. Modifying Factors: None Comment: ROS: see HPI Constitutional: No fever, no chills, no weight loss Eyes: No blurred vision Respiratory: No shortness of breath, no cough Cardiovascular: No chest pain, no palpitations Gastrointestinal: No nausea, no vomiting, no diarrhea, no hematemesis, no blood in stool Genitourinary: No dysuria, no blood in urine Extremities: No myalgias, no edema Neurologic: No weakness, no numbness Skin: No rashes, no petechiae Hematologic: No bruising, no bleeding MEDICAL/SURGICAL/SOCIAL HISTORY: Medical history: Pulmonary embolism on Xarelto, history bilateral pleural effusions, dysphagia, esophageal stricture, atrial fibrillation, pericardial cyst, hypokalemia, hypo magnesium, vitamin-D deficiency, severe protein calorie malnutrition, GERD, dependent personality disorder Surgical history: Endoscopy 09/02/2017 esophageal stricture dilation, endoscopy 08/28/[address] Rasheed showing stricture which was biopsy negative for eosinophils Social history: Homeless CONSTITUTIONAL: Chronically ill-appearing, calm and cooperative, adult white male, awake and alert, no obvious distress HEENT: Atraumatic and normocephalic, PERRL, EOMI. Tympanic membranes clear. Oropharynx clear, no exudate and moist pink mucosa. Airway patent. No lymphadenopathy. No meningismus. Cardiovascular: Normal S1/S2, regular rate, regular rhythm, without murmur rub or gallop. PULMONARY/CHEST: Symmetrical and nontender. Clear to auscultation bilaterally. Good air movement. No accessory muscle usage. ABDOMEN: Soft, nondistended, nontender, no rebound, no guarding, no peritoneal signs, no masses or organomegaly. No CVAT. EXTREMITIES: 2/2 pulses, strength 5/5, no deformities, no clubbing, no cyanosis or edema. NEUROLOGICAL: no focal neuro deficits. GCS 15. SKIN: Warm and dry, no erythema. no rash. Good capillary refill. ([place]) Constitutional: Initial Vital Signs Temperature (C) 36.8 C 09/20/17 10:18 Heart Rate 88 09/20/17 10:18 Respiratory Rate 20 09/20/17 10:18 O2 Sat (%) 98 09/20/17 10:18 O2 Delivery Mode Room Air Allergies/Adverse Reactions: No Known Allergies Allergy (Verified 09/20/17 10:16) Home Medications: Medication Instructions Recorded Pantoprazole Sodium [Protonix 40mg 40 mg PO DAILY #20 tab 09/20/17 (*)] Medical Decision Making - Diagnostics Imaging Results: Imaging Impressions Abdomen X-Ray 09/20/17 12:15 Impression: 1. No free air 2. Constipation 3. Gastric distention. ED Course/Re-evaluation: I did not see this patient while he was in the emergency department. However his care was discussed with PA while the patient was in the department. I agree with treatment plan management (Ari Godinez) Labs, IV fluids, IV and oral medications ordered Patient is drinking juice upon me entering the examining room. No difficulty swallowing liquids. Abdominal x-ray shows constipation; no signs of obstruction Labs reviewed and shows no gross abnormality Case management consult. Spent considerable amount of time with patient who has declined bus pass to [facility] in order to obtain a bed tomorrow for respite. Patient has his medications with him but he refuses to take them consistently. Patient given Nexium from hospital pharmacy. He has not followed up with Dr. Penn per recommendation. Patient is alert and oriented x4 but has poor insight and judgment. Does not meet admission criteria at this time. Does not meet M1 Hold or Detainer criteria. Drinking juice at bedside and eating Thony crackers without any difficulty entire time while in the emergency room. In fact patient is asking for seconds. Patient relates to the nurse that he would rather stay in the emergency room then go anywhere else. Patient wants to be discharged. This patient was seen under the supervision of my secondary supervising physician. I evaluated care for this patient independently. (Paris Finnegan) Differential Diagnosis: Abdominal pain including but not limited to appendicitis, cholecystitis, gastritis and urinary tract infection. (Paris Finnegan) - Data Points Laboratory Results: Laboratory Results 09/20/17 13:00 09/20/17 13:00 09/20/17 09/20/17 13:00 13:00 WBC 11.58 10^3/uL H 10^3/uL (3.80-9.50) RBC 4.33 10^6/uL L 10^6/uL (4.40-6.38) Hgb 13.0 g/dL L g/dL (13.7-17.5) Hct 38.8 % L % (40.0-51.0) MCV 89.6 fL fL (81.5-99.8) MCH 30.0 pg pg (27.9-34.1) MCHC 33.5 g/dL g/dL (32.4-36.7) RDW 15.0 % % (11.5-15.2) Plt Count 444 10^3/uL H 10^3/uL (150-400) MPV 8.9 fL fL (8.7-11.7) Neut % (Auto) 78.9 % H % (39.3-74.2) Lymph % (Auto) 12.9 % L % (15.0-45.0) Dawes % (Auto) 7.3 % % (4.5-13.0) Eos % (Auto) 0.0 % L % (0.6-7.6) Baso % (Auto) 0.3 % % (0.3-1.7) Nucleat RBC Rel Count 0.0 % % (0.0-0.2) Absolute Neuts (auto) 9.14 10^3/uL H 10^3/uL (1.70-6.50) Absolute Lymphs (auto) 1.49 10^3/uL 10^3/uL (1.00-3.00) Absolute Monos (auto) 0.85 10^3/uL H 10^3/uL (0.30-0.80) Absolute Eos (auto) 0.00 10^3/uL L 10^3/uL (0.03-0.40) Absolute Basos (auto) 0.03 10^3/uL 10^3/uL (0.02-0.10) Absolute Nucleated RBC 0.00 10^3/uL 10^3/uL (0-0.01) Immature Gran % 0.6 % % (0.0-1.1) Immature Gran # 0.07 10^3/uL 10^3/uL (0.00-0.10) Sodium 139 mEq/L mEq/L (135-145) Potassium 3.7 mEq/L mEq/L (3.5-5.2) Chloride 104 mEq/L mEq/L (97-110) Carbon Dioxide 22 mEq/l mEq/l (22-31) Anion Gap 13 mEq/L mEq/L (8-16) BUN 16 mg/dL mg/dL (7-23) Creatinine 0.7 mg/dL mg/dL (0.7-1.3) Estimated GFR > 60 Glucose 133 mg/dL H mg/dL (70-100) Calcium 9.1 mg/dL mg/dL (8.5-10.4) Total Bilirubin 0.6 mg/dL mg/dL (0.1-1.4) Conjugated Bilirubin 0.3 mg/dL mg/dL (0.0-0.5) Unconjugated Bilirubin 0.3 mg/dL mg/dL (0.0-1.1) AST 29 IU/L IU/L (17-59) ALT 22 IU/L IU/L (21-72) Alkaline Phosphatase 73 IU/L IU/L (38-126) Total Protein 6.3 g/dL g/dL (6.3-8.2) Albumin 3.5 g/dL g/dL (3.5-5.0) Lipase 90 IU/L IU/L (23-300) Medications Given: Discontinued Medications Diphenhydramine HCl (Benadryl Injection) 12.5 mg IVP EDNOW ONE Stop: 09/20/17 12:16 Last Admin: 09/20/17 13:01 Dose: 12.5 mg Sodium Chloride (Ns) 1,000 mls @ 0 mls/hr IV EDNOW ONE; Wide Open PRN Reason: Protocol Stop: 09/20/17 12:15 Last Admin: 09/20/17 13:01 Dose: 1,000 mls Metoclopramide HCl (Reglan Injection) 10 mg IVP EDNOW ONE Stop: 09/20/17 12:15 Last Admin: 09/20/17 13:01 Dose: 10 mg Pantoprazole Sodium (Protonix) 40 mg IVP EDNOW ONE Stop: 09/20/17 12:16 Last Admin: 09/20/17 13:02 Dose: 40 mg Departure - Departure Disposition: Home, Routine, Self-Care Clinical Impression: Noncompliance, Homeless, GERD (gastroesophageal reflux disease) Dysphagia Qualifiers: Dysphagia type: unspecified Qualified Code(s): R13.10 - Dysphagia, unspecified Constipation Qualifiers: Constipation type: unspecified constipation type Qualified Code(s): K59.00 - Constipation, unspecified Condition: Good Instructions: Dysphagia (ED) Additional Instructions: Consume a minimum of 8-10 glasses of water or electrolyte fluid replacement drinks that include Gatorade, Powerade, Pedialyte. Eat 6-8 small frequent meals daily that consist of a soft/bland diet. If unable to eat a meal, drink Ensure, Boost or meal replacement drinks. Take Protonix daily. Take MiraLax daily as needed for constipation. Follow-up with Gastroenterology, Dr. Penn as directed. Return to the Emergency Room if symptoms do not resolve in the next 48-72 hours , you spike a fever > 102 F, or experience intractable abdominal pain/nausea/ vomiting. Referrals: Park Penn MD [Medical Doctor] - 2-3 days, call for appt. [facility],. [Clinic] - As per Instructions [facility],. [Clinic] - 2-3 days, call for appt. Prescriptions: Pantoprazole Sodium [Protonix 40mg (*)] 40 mg PO DAILY #20 tab
[2017-09-20 13:35] LABS: PLATELET COUNT 444 10^3/uL (150-400)
[2017-09-20 14:07] VITALS: RESP 18; TEMP 98.1
[2017-09-20 15:18] VITALS: BP 111/69; PULSE 103; O2SAT 96
--- NOTE | 2017-09-20 19:46 | ASMTCMCOM ---
CM Note CM Note Notes: Pt presented to the ED for the 6th time in the past month for symptoms surrounding his "difficulty swallowing, eating, drinking," and states "I have nowhere to go, I need somewhere to relax." Please review past CM Progress Notes, Provider Reports, including from patient's 09/04-09/09/17 3 Behavioral Health Unit admission (note that visit is CONFIDENTIAL). Also please review Behavioral Health RN Sarah Cortes's note 08/31/17. 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 Patient was admitted to [facility] 08/26/17 - 09/04/17 for FTT and was eventually placed on an M1 for being gravely disabled, and then admitted to Behavioral Health Unit and was ultimately discharged to the [facility]. Patient states he has been sleeping on the streets by the "clinic near [employer] shop" (near [place] and [place]). Patient states he hasn't followed up with [facility], [facility] or [facility] services as he was strongly encouraged to when discharged from [facility] behavioral health unit 09/09/17. When asked why patient hasn't followed up or at least been staying at the [employer] locations (he has been provided information a couple of times in the past), patient states "I have no way of getting there or anywhere, I have no resources." We discussed that yes, indeed he has been provided resources, direct transportation to and from appts, additional transportation assistance, etc. and that he has not been able to follow through with following up. When asked why this might be, patient states "nothing is going to work so I just go back to whats familiar." When asked what he meant by familiar patient said "here" referring to the hospital. We discussed that he doesn't meet criteria for admission and that he can't live at the hospital. This CM spoke with Mamie at [facility] / [facility] ([phone]) and she said no respite beds were available for tonight but that one would open tomorrow. She said pt could come to the crisis center and at least start the process of utilizing their services and then return tomorrow. Patient was offered a cab to [facility] walk-in crisis center, a reserved bed at the [facility], a bus pass in order to get from [facility] to the [facility] tonight, and another bus pass for the morning so he could follow-up with [facility] and/or [facility]. Pt declined this option and was not able to provide a reason why. This CM also offered an alternative of providing a cab to [facility] to [facility] for Coordinated Entry (they were open until 3:30/4pm today) and explained that they would be able to provide transportation to the [facility]. Pt declined this option and was not able to provide a reason why. Patient specifically asked to be discharged from the ED and "figure it out from there." I strongly encouraged him to seek [facility] tonight at [facility] and offered him a bus pass. Patient declined, stating "no, save it for someone who really needs it." This CM tried to reassure patient that I think he is someone who needs and deserves it and that I'm very concerned about him sleeping out in the cold tonight. Patient continued to declined, asked for more juice and asked to be discharged. This CM to follow up tomorrow morning with [facility] [employer] Dhruv ([phone]), [place] ([facility]), [facility] Homeless Outreach RN, and [employer] Homeless Outreach Team officers. Date Signed: 09/20/2017 07:46 PM Electronically Signed By:Tonya Hope RN
--- NOTE | 2017-09-20 19:48 | ASDISCHSUM ---
Discharge Information Plan Status:Homeless/Long-Term Medically Cleared to Leave: Discharge Date:09/20/2017 03:47 PM CM D/C Disposition:Streets (Homeless) ADT D/C Disposition:Home, Routine, Self-Care Projected Discharge Date:09/20/2017 03:47 PM Transportation at D/C:None or Unknown Discharge Delay Reason: Follow-Up Date:09/20/2017 03:47 PM Discharge Slot: Final Diagnosis: Placement Information Patient Contact Information Contact Name:RAULFalguni Relationship: Address: Home Phone: Work Phone: City: Alternate Phone: State/Zip Code: Email: Financial Information Financial Class:Medicaid Primary Plan Desc:MEDICAID HEALTH FIRST BURNER TECHNICIAN Primary Plan Number:[id number] Secondary Plan Desc: Secondary Plan Number: Assessment Information [facility] CM Progress Note CM Note CM Note Notes: Pt presented to the ED for the 6th time in the past month for symptoms surrounding his "difficulty swallowing, eating, drinking," and states "I have nowhere to go, I need somewhere to relax." Please review past CM Progress Notes, Provider Reports, including from patient's 09/04-09/09/17 Behavioral Health Unit admission (note that visit is CONFIDENTIAL). Also please review Behavioral Health RN Sarah Cortes's note 08/31/17. 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 Patient was admitted to [facility] 08/26/17 - 09/04/17 for FTT and was eventually placed on an M1 for being gravely disabled, and then admitted to Behavioral Health Unit and was ultimately discharged to the [facility]. Patient states he has been sleeping on the streets by the "clinic near [place]" (near [place] and [place]). Patient states he hasn't followed up with [facility], [facility] or [facility] Path to Home services as he was strongly encouraged to when discharged from [facility] behavioral health unit 09/09/17. When asked why patient hasn't followed up or at least been staying at the [facility] locations (he has been provided information a couple of times in the past), patient states "I have no way of getting there or anywhere, I have no resources." We discussed that yes, indeed he has been provided resources, direct transportation to and from app, additional transportation assistance, etc. and that he has not been able to follow through with following up. When asked why this might be, patient states "nothing is going to work so I just go back to whats familiar." When asked what he meant by familiar patient said "here" referring to the hospital. We discussed that he doesn't meet criteria for admission and that he can't live at the hospital. This CM spoke with Mamie at [facility] Walk-In Crisis Center / [facility] ([phone]) and she said no respite beds were available for tonight but that one would open tomorrow. She said pt could come to the crisis center and at least start the process of utilizing their services and then return tomorrow. Patient was offered a cab to [facility] walk-in crisis [place], a reserved bed at the [facility], a bus pass in order to get from [facility] to the [facility], and another bus pass for the morning so he could follow-up with P and/or CE. Pt declined this option and was not able to provide a reason why. This CM also offered an alternative of providing a cab to [facility] for Coordinated Entry (they were open until 3:30/4pm today) and explained that they would be able to provide transportation to the [facility]. Pt declined this option and was not able to provide a reason why. Patient specifically asked to be discharged from the ED and "figure it out from there." I strongly encouraged him to seek [facility] tonight at [facility] and offered him a bus pass. Patient declined, stating "no, save it for someone who really needs it." This CM tried to reassure patient that I think he is someone who needs and deserves it and that I'm very concerned about him sleeping out in the cold tonight. Patient continued to declined, asked for more juice and asked to be discharged. This CM to follow up tomorrow morning with [facility] Warehouse Foreman Dhruv ([phone]), P ([facility]), [facility] Homeless Outreach RN, and [employer] Homeless Outreach Team officers. Date Signed: 09/20/2017 07:46 PM Electronically Signed By:Tonya Hope RN LACE LACE Acuity / Level of Answers: No Care: Did the patient have an inpatient admission? Comorbidities - select Answers: Other Notes: Failure to Thrive all that apply # of Emergency department Answers: 5-8 visits in the last 6 months Social determinants Answers: Homelessness (street, mcc) Mental health diagnosis (anxiety, depression, pers onality disorders, etc.) Lack of community resources and/or lack of social support (no pcp, lives alone, transportation, jordon d) Score: 15 Date Signed: 09/20/2017 07:47 PM Electronically Signed By:Tonya Hope RN Intervention Information
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
== END 2017-09-20 15:47 | disposition home or self-care (01) ==
LOC: EDUNIT#
DX: R13.10 Dysphagia, unspecified (principal); K21.9 Gastro-esophageal reflux disease without esophagitis; K59.00 Constipation, unspecified; I10 Essential (primary) hypertension; E86.9 Volume depletion, unspecified; Z59.0 Homelessness; Z87.891 Personal history of nicotine dependence; Z91.14 Patient's other noncompliance with medication regimen
CPT/HCPCS: 96374; J1200; J2765

== ENCOUNTER 2017-09-28 19:54 | Inpatient (IN) | payer MEDICAID ==
[2017-09-28] MEDS ORDERED: DILTIAZEM 125 MG in D5W 125 ML IV ONE (20:03)
[2017-09-28] MEDS ORDERED: DILTIAZEM 25 MG/5 ML VIAL IVP ONE (20:03)
--- NOTE | 2017-09-28 20:03 | EDPHY ---
H & P - Medical/Surgical History Hx Asthma: No Hx Chronic Respiratory Disease: No Hx Diabetes: No Hx Cardiac Disease: Yes Hx Renal Disease: No Hx Cirrhosis: No Hx Alcoholism: No Hx HIV/AIDS: No Hx Splenectomy or Spleen Trauma: No Other PMH: afib by past med record. HTN - Social History Smoking Status: Former smoker Constitutional: Initial Vital Signs Temperature (C) 37 C 09/28/17 20:07 Heart Rate 128 H 09/28/17 20:07 Respiratory Rate 20 09/28/17 20:07 Blood Pressure 151/101 H 09/28/17 20:07 O2 Sat (%) 94 09/28/17 20:07 O2 Delivery Mode Room Air Allergies/Adverse Reactions: No Known Allergies Allergy (Verified 09/28/17 20:07) Home Medications: Medication Instructions Recorded Pantoprazole Sodium [Protonix 40mg 40 mg PO DAILY #20 tab 09/20/17 (*)] Medical Decision Making ED Course/Re-evaluation: CHIEF COMPLAINT: Med clear for group home HISTORY OF PRESENT ILLNESS: The patient is a 62 y/o male with a history of Atrial fibrillation, PE ( prescribed Xarelto), bilateral pleural effusions, dysphagia, esophageal stricture arriving in [facility] custody for medical clearance. He was found under the snow in thing clothing this evening. When they ran his records the found he had an outstanding warrant and was placed in [facility] custody with plans to be transferred to group home after being medically cleared. He states he was found in the snow as he "had no place to go". He is noncompliant with all of his medications and denies suicidal ideations. He is currently asking for ice cream, which is common for him to do. No shortness of breath, abdominal pain, urinary or bowel complaints, fever. In prior visits he has declined admission and refuses to have follow up care with [facility]. However, today he is asking to be admitted. Prior medical records reviewed including ED visit with GILDARDO Silverman on . REVIEW OF SYSTEMS: A 10 point review of systems was performed and is negative with the exception of the elements mentioned in the history of present illness. PHYSICAL EXAM: HR, BP, O2 Sat, RR. Temp noted General Appearance: Alert, well hydrated, appropriate, and non-toxic appearing. Head: Atraumatic without scalp tenderness or obvious injury Eyes: Pupils equal, round, reactive to light and accommodation, EOMI, no trauma , no injection. Ears: Clear bilaterally, no perforation, normal landmarks Nose: Atraumatic, no rhinorrhea, clear. Throat: There is no erythema or exudates, no lesions, normal tonsils, mucus membranes moist. Neck: Supple, nontender, no lymphadenopathy. Respiratory: No retractions, no distress, no wheezes, and no accessory muscle use. Lungs are clear to auscultation bilaterally. Cardiovascular: Rapid atrial fibrillation, no murmurs, rubs, or gallops. Good capillary refill all extremities. Gastrointestinal: Abdomen is soft, nontender, non-distended, no masses, no rebound, no guarding, no peritoneal signs. Musculoskeletal: Normal active ROM of all extremities, atraumatic. Neurological: Alert, appropriate, and interactive. Non-focal neuro. Skin: No rashes, good turgor, no nodules on palpation. Past medical history: Atrial fibrillation, PE (prescribed Xarelto), bilateral pleural effusions, dysphagia, esophageal stricture, pericardial cyst, hypokalemia, hypo magnesium, vitamin-D deficiency, GERD, dependent personality disorder Past surgical history: Endoscopy (09/02/17) with esophageal stricture dilation Family history: Denies Social history: Homeless DIAGNOSTICS/PROCEDURES/CRITICAL CARE TIME: The 12 lead EKG was interpreted by myself as atrial fibrillation with a v-rate of 102-150. See hard copy and/or "tracemaster" electronic copy for interpretation. DIFFERENTIAL DIAGNOSIS: The differential diagnosis for the patient's chest pain included but was not limited to atrial fibrillation, myocardial ischemia, pulmonary embolus, chest wall pain, pleural inflammation, and pulmonary infectious causes. MEDICAL DECISION MAKING: The patient is a 62 y/o male with a history of Atrial fibrillation, PE ( prescribed Xarelto), bilateral pleural effusions, dysphagia, esophageal stricture arriving in [facility] custody for medical clearance. On exam he has rapid atrial fibrillation. He will need to be admitted for his atrial fibrillation and noncompliance with his medications. He is comfortable with this plan for admission. EKG and labs ordered. 20mg IV Diltiazem bolus, Diltiazem drip, and 80mg Lovenox ordered. 2026: Patient's EKG reveals atrial fibrillation with a v-rate of 102-150. 2100: Patient has converted without being administered Diltiazem. 80mg Lovenox will still be administered. 2109: Consulted with Dr. Solis, repertoire manager, regarding this patient. He agrees to consult on this patient. 2109: Consulted with hospitalist service, Dr. Feng accepts admission of this patient to the PCU. - Data Points Laboratory Results: Laboratory Results 09/28/17 20:27 09/28/17 20:27 09/28/17 09/28/17 20:27 20:27 WBC 7.32 10^3/uL 10^3/uL (3.80-9.50) RBC 4.13 10^6/uL L 10^6/uL (4.40-6.38) Hgb 12.4 g/dL L g/dL (13.7-17.5) Hct 38.2 % L % (40.0-51.0) MCV 92.5 fL fL (81.5-99.8) MCH 30.0 pg pg (27.9-34.1) MCHC 32.5 g/dL g/dL (32.4-36.7) RDW 15.9 % H % (11.5-15.2) Plt Count 343 10^3/uL 10^3/uL (150-400) MPV 8.6 fL L fL (8.7-11.7) Neut % (Auto) 64.7 % % (39.3-74.2) Lymph % (Auto) 24.2 % % (15.0-45.0) Maries % (Auto) 9.3 % % (4.5-13.0) Eos % (Auto) 1.1 % % (0.6-7.6) Baso % (Auto) 0.4 % % (0.3-1.7) Nucleat RBC Rel Count 0.0 % % (0.0-0.2) Absolute Neuts (auto) 4.74 10^3/uL 10^3/uL (1.70-6.50) Absolute Lymphs (auto) 1.77 10^3/uL 10^3/uL (1.00-3.00) Absolute Monos (auto) 0.68 10^3/uL 10^3/uL (0.30-0.80) Absolute Eos (auto) 0.08 10^3/uL 10^3/uL (0.03-0.40) Absolute Basos (auto) 0.03 10^3/uL 10^3/uL (0.02-0.10) Absolute Nucleated RBC 0.00 10^3/uL 10^3/uL (0-0.01) Immature Gran % 0.3 % % (0.0-1.1) Immature Gran # 0.02 10^3/uL 10^3/uL (0.00-0.10) Sodium 141 mEq/L mEq/L (135-145) Potassium 3.8 mEq/L mEq/L (3.5-5.2) Chloride 97 mEq/L mEq/L (97-110) Carbon Dioxide 35 mEq/l H mEq/l (22-31) Anion Gap 9 mEq/L mEq/L (8-16) BUN 17 mg/dL mg/dL (7-23) Creatinine 0.8 mg/dL mg/dL (0.7-1.3) Estimated GFR > 60 Glucose 83 mg/dL mg/dL (70-100) Calcium 9.0 mg/dL mg/dL (8.5-10.4) Magnesium 2.1 mg/dL mg/dL (1.6-2.3) Troponin I < 0.012 ng/mL ng/mL (0.000-0.034) NT-Pro-B Natriuret Pep 2860 pg/mL H pg/mL (0-125) Medications Given: Discontinued Medications Diltiazem HCl (Cardizem) 20 mg IV EDNOW ONE Stop: 09/28/17 21:01 Last Admin: 09/28/17 21:04 Dose: Not Given Enoxaparin Sodium (Lovenox) 80 mg SC EDNOW ONE Stop: 09/28/17 20:05 Last Admin: 09/28/17 21:02 Dose: 80 mg Diltiazem HCl 125 mg/ Dextrose 125 mls @ 0 mls/hr IV EDNOW ONE; As Directed PRN Reason: Protocol Stop: 09/28/17 20:04 Last Admin: 09/28/17 21:04 Dose: Not Given Diltiazem/Dextrose (Diltiazem 125mg/125ml (Premix)) 125 mls @ 0 mls/hr IV EDNOW ONE; As Directed PRN Reason: Protocol Stop: 09/28/17 21:01 Last Admin: 09/28/17 21:05 Dose: Not Given Departure - Departure Disposition: [facility] Acute Clinical Impression: Noncompliance with medications Atrial fibrillation Qualifiers: Atrial fibrillation type: chronic Qualified Code(s): I48.2 - Chronic atrial fibrillation Condition: Fair Report Scribed for: Breezy Haynes Report Scribed by: Marge Coles Date of Report: 09/28/17 Time of Report: 20:20
[2017-09-28] MEDS ORDERED: ENOXAPARIN 80 MG/0.8 ML SYR SC ONE (20:04)
--- NOTE | 2017-09-28 20:29 | CPEKG ---
Heart Rate: 127 RR Interval: 472 QRSD Interval: 70 QT Interval: 319 QTC Interval: 464 QRS [place]: 55 T Wave [place]: 135 EKG Severity - ABNORMAL ECG - EKG Impression: ATRIAL FIBRILLATION, V-RATE 102-150 EKG Impression: NONSPECIFIC T ABNORMALITIES, LATERAL LEADS Electronically Signed By: Shoaib Oropeza 30-Sep-2017 07:04:46
[2017-09-28 20:40] LABS: PLATELET COUNT 343 10^3/uL (150-400)
[2017-09-28] MEDS ORDERED: DILTIAZEM 50 MG/10 ML VIAL IV ONE (21:00)
[2017-09-28] MEDS ORDERED: DILTIAZEM HCL/D5W 125 ML IV ONE (21:00)
[2017-09-28] MEDS ORDERED: ONDANSETRON 4 MG/2 ML VIAL IVP PRN (22:33)
[2017-09-28] MEDS ORDERED: ONDANSETRON DISINTEGRATING 4 MG TAB PO PRN (22:33)
[2017-09-28] MEDS ORDERED: ACETAMINOPHEN 325 MG TAB PO PRN (22:33)
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
[2017-09-28] MEDS: METOPROLOL TARTRATE 25 MG TAB PO SCH (23:29)
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
[2017-09-29] MEDS ORDERED: ASPIRIN 325 MG TAB PO SCH (09:00)
[2017-09-29] MEDS ORDERED: ASPIRIN 81 MG CHEWABLE TAB PO SCH (09:00)
[2017-09-29] MEDS: METOPROLOL TARTRATE 25 MG TAB PO SCH ×2 (09:14→21:32)
[2017-09-29] MEDS: PANTOPRAZOLE SODIUM 40 MG TAB PO SCH (09:14)
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
[2017-09-29] MEDS ORDERED: ENOXAPARIN 80 MG/0.8 ML SYR SC ONE (16:52)
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
[2017-09-29] MEDS: MIRTAZAPINE 30 MG ODTAB PO SCH (21:32)
[2017-09-29] MEDS: OLANZapine 2.5 MG TAB PO SCH (21:33)
[2017-09-30] MEDS: PANTOPRAZOLE SODIUM 40 MG TAB PO SCH (08:36)
[2017-09-30] MEDS: RIVAROXABAN 20 MG TAB PO SCH (08:37)
[2017-09-30] MEDS: METOPROLOL TARTRATE 25 MG TAB PO SCH ×2 (08:37→21:22)
--- NOTE | 2017-09-30 09:28 | PDMN ---
Medical Necessity Medical necessity: Change to IP, as of 09/29/17, per MD; los >2 mn for ongoing management of pt's inability to care for self; admit for Behavioral Health consult, possible Psych consult, med management, therapies & dc planning; hx recent PE on AC, AFIB, esophageal stricture & dysphagia s/p dilation, depression w/psychotic features, bipolar disorder & protein calorie malnutrition ; per progress note & order 09/29/17
--- NOTE | 2017-09-30 13:56 | HOSPPROG ---
Hospitalist Progress Note Assessment/Plan: # a-fib with RVR - no longer tachy - cont metop, AC for PE # recent PE (08/2017) - restarted xarelto # psychiatric disease: bipolar per Dr Nogueira's dc summary; very complicated overall - seems unable to care for self and has odd beliefs - denies SI - Sarah Cortes consult today - cont zyprexa 2.5 HS; started remeron 30mg HS per Dr Nogueira's recommendations in his dc summary # dysphagia - s/p recent esophageal dilation - follow while here Subjective: no acute events; tells me his is still having trouble swallowing Objective: Vital Signs Temp Pulse Resp BP Pulse Ox 37.0 C 83 12 123/71 H 95 09/30/17 11:26 09/30/17 11:26 09/30/17 11:26 09/30/17 11:26 09/30/17 11:26 09/29/17 09/30/17 10/01/17 05:59 05:59 05:59 Intake Total 1230 Output Total 750 Balance 480 - Physical Exam Constitutional: no apparent distress, appears nourished Eyes: anicteric sclera Ears, Nose, Mouth, Throat: hearing normal Cardiovascular: No edema Respiratory: no respiratory distress Gastrointestinal: No distension Genitourinary: No guerrero in urethra Skin: warm Musculoskeletal: full muscle strength Neurologic: AAOx3 Psychiatric: flat affect ICD10 Worksheet Patient Problems: Problems Problem Status Onset Atrial fibrillation Acute Weakness Acute Trench feet Acute Failure to thrive in adult Acute Major depressive disorder, recurrent, severe with psychotic features Acute Noncompliance with medications Acute
--- NOTE | 2017-09-30 16:44 | ASMTCMCOM ---
CM Note CM Note Notes: CM spoke w/ [facility] Dhruv (P# [phone]). Dhruv informed CM that [facility] is ready to pick pt up once he is medically stable for his outstanding warrant. CM spoke w/ Dr. Ferrari about this. CM called Dhruv back and arrangged a DC for 1PM tomorrow. Sarah Cortes came to consult on pt today. CM called Mandeep at [facility] to cancel the ULTC-100. CM to follow. Plan: [facility] Date Signed: 09/30/2017 04:44 PM Electronically Signed By:PRAKASH Madrigal
[2017-09-30] MEDS: MIRTAZAPINE 30 MG ODTAB PO SCH (21:22)
[2017-09-30] MEDS: OLANZapine 2.5 MG TAB PO SCH (21:22)
[2017-10-01] MEDS ORDERED: OLANZapine 2.5 MG TAB PO SCH (07:13)
[2017-10-01] MEDS: PANTOPRAZOLE SODIUM 40 MG TAB PO SCH (08:56)
[2017-10-01] MEDS: METOPROLOL TARTRATE 25 MG TAB PO SCH (08:57)
[2017-10-01] MEDS: RIVAROXABAN 20 MG TAB PO SCH (08:57)
[2017-10-01] MEDS ORDERED: ESCITALOPRAM OXALATE 10 MG TAB PO SCH (09:00)
[2017-10-01 11:35] VITALS: BP 117/82; PULSE 80; RESP 12; TEMP 98; O2SAT 94
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
[2017-10-01] MEDS ORDERED: OLANZapine 5 MG TAB PO SCH (21:00)
== END 2017-10-01 13:45 | disposition home or self-care (01) | DRG 310 ==
LOC: EDUNIT# → INTOOBSV 21:12 → F2W 23:22 → OBSVTOIN 09-29 16:44
PROVIDERS: ADMIT Hospitalist; ATTEND Hospitalist
DX: I48.0 Paroxysmal atrial fibrillation (principal); T44.7X6A Underdosing of beta-adrenoreceptor antagonists, initial encounter; R13.10 Dysphagia, unspecified; K21.9 Gastro-esophageal reflux disease without esophagitis; F32.9 Major depressive disorder, single episode, unspecified; Z79.82 Long term (current) use of aspirin; Z87.891 Personal history of nicotine dependence; Z86.711 Personal history of pulmonary embolism; Z59.0 Homelessness
CPT/HCPCS: 97161-GP; 97165-GO; 97530-GO; G0378; J1650

== ENCOUNTER 2018-02-27 15:45 | Inpatient (IN) | payer MEDICAID ==
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
[2018-02-27] MEDS ORDERED: RIVAROXABAN 15 MG TAB PO ONE (16:03)
[2018-02-27] MEDS ORDERED: DILTIAZEM 125 MG in D5W 125 ML IV ONE (16:04)
[2018-02-27] MEDS ORDERED: DILTIAZEM 25 MG/5 ML VIAL IVP ONE (16:04)
[2018-02-27 16:14] LABS: PLATELET COUNT 338 10^3/uL (150-400)
--- NOTE | 2018-02-27 16:21 | CPEKG ---
Heart Rate: 113 RR Interval: 531 QRSD Interval: 86 QT Interval: 312 QTC Interval: 428 QRS Averill: 50 T Wave Averill: 234 EKG Severity - ABNORMAL ECG - EKG Impression: ATRIAL FIBRILLATION, V-RATE 85-138 EKG Impression: LOW VOLTAGE IN FRONTAL LEADS EKG Impression: REPOL ABNRM SUGGESTS ISCHEMIA, DIFFUSE LEADS Electronically Signed By: Breezy Haynes 27-Feb-2018 21:26:53
[2018-02-27] MEDS ORDERED: DILTIAZEM HCL/D5W 125 ML IV ONE (16:30)
[2018-02-27] MEDS ORDERED: ACETAMINOPHEN 325 MG TAB PO PRN (17:06)
[2018-02-27] MEDS ORDERED: ONDANSETRON DISINTEGRATING 4 MG TAB PO PRN (17:06)
[2018-02-27] MEDS ORDERED: PROMETHAZINE HCL 25 MG/ML INJ IVP PRN (17:06)
[2018-02-27] MEDS ORDERED: ONDANSETRON 4 MG/2 ML VIAL IVP PRN (17:06)
[2018-02-27] MEDS ORDERED: OLANZapine DISINTEGR 5 MG TAB PO ONE (17:10)
[2018-02-27] MEDS ORDERED: NS 1,000 ML IV SCH (17:15)
[2018-02-27] MEDS ORDERED: DILTIAZEM 125 MG in D5W 125 ML IV SCH (17:15)
--- NOTE | 2018-02-27 17:53 | PDGENHP ---
History and Physical - Chief Complaint running naked in streets - History of Present Illness 62 yo M with hx of a fib as well as depression with psychotic features brought in by police after being found running naked in the streets of [place]. . He was placed on M1 hold by police and brought to the ER for further evaluation. At the time of my evaluation patient is refusing to interact with me, he states 'No thanks" when any question is asked, and also states no when asked if I can examine him. He was noted in the ER to be in a fib with rates in the 130s, he has a history of a fib. He states that he has not been taking his meds including metoprolol which he is on for his a fib. History Information - Allergies/Home Medication List Allergies/Adverse Reactions: No Known Allergies Allergy (Verified 09/28/17 20:07) Home Medications: Unobtainable - "No Thank You" 02/27/18 [Last Taken Unknown] I have personally reviewed and updated: family history, medical history, social history, surgical history Past Medical History: obtained only by chart review--patient states "no thanks" to every question - Past Medical History atrial fibrillation, GERD, pulmonary embolism, psychiatric history (depression and anxiety with psychotic features) Additional medical history: esophageal stricutre. low vitamin d. pericardial cyst - Surgical History Additional surgical history: esophageal stricture dilation - Family History Positive for: non-pertinent - Social History Smoking Status: Former smoker Additional social history: unknown due to patients unwillingness/inability to talk Review of Systems Review of Systems: unobtainable due to patients mental status Physical Exam Physical Exam: unable to perform--patient refusing Temp Pulse Resp BP Pulse Ox 36.9 C 96 16 162/88 H 97 02/27/18 17:17 02/27/18 17:33 02/27/18 17:33 02/27/18 17:33 02/27/18 17:33 Constitutional: no apparent distress, unkempt Eyes: anicteric sclera Skin: erythema (face and neck deeply red) Lab Data & Imaging Review 02/27/18 15:50 02/27/18 15:50 WBC 6.63 10^3/uL (3.80-9.50) 02/27/18 15:50 RBC 4.75 10^6/uL (4.40-6.38) 02/27/18 15:50 Hgb 13.9 g/dL (13.7-17.5) 02/27/18 15:50 Hct 41.5 % (40.0-51.0) 02/27/18 15:50 MCV 87.4 fL (81.5-99.8) 02/27/18 15:50 MCH 29.3 pg (27.9-34.1) 02/27/18 15:50 MCHC 33.5 g/dL (32.4-36.7) 02/27/18 15:50 RDW 13.9 % (11.5-15.2) 02/27/18 15:50 Plt Count 338 10^3/uL (150-400) 02/27/18 15:50 MPV 9.4 fL (8.7-11.7) 02/27/18 15:50 Neut % (Auto) 51.0 % (39.3-74.2) 02/27/18 15:50 Lymph % (Auto) 38.6 % (15.0-45.0) 02/27/18 15:50 [place] % (Auto) 7.7 % (4.5-13.0) 02/27/18 15:50 Eos % (Auto) 1.8 % (0.6-7.6) 02/27/18 15:50 Baso % (Auto) 0.6 % (0.3-1.7) 02/27/18 15:50 Nucleat RBC Rel Count 0.0 % (0.0-0.2) 02/27/18 15:50 Absolute Neuts (auto) 3.38 10^3/uL (1.70-6.50) 02/27/18 15:50 Absolute Lymphs (auto) 2.56 10^3/uL (1.00-3.00) 02/27/18 15:50 Absolute Monos (auto) 0.51 10^3/uL (0.30-0.80) 02/27/18 15:50 Absolute Eos (auto) 0.12 10^3/uL (0.03-0.40) 02/27/18 15:50 Absolute Basos (auto) 0.04 10^3/uL (0.02-0.10) 02/27/18 15:50 Absolute Nucleated RBC 0.00 10^3/uL (0-0.01) 02/27/18 15:50 Immature Gran % 0.3 % (0.0-1.1) 02/27/18 15:50 Immature Gran # 0.02 10^3/uL (0.00-0.10) 02/27/18 15:50 Sodium 139 mEq/L (135-145) 02/27/18 15:50 Potassium 3.7 mEq/L (3.3-5.0) 02/27/18 15:50 Chloride 105 mEq/L (97-110) 02/27/18 15:50 Carbon Dioxide 19 mEq/l (22-31) L 02/27/18 15:50 Anion Gap 15 mEq/L (8-16) 02/27/18 15:50 BUN 9 mg/dL (7-23) 02/27/18 15:50 Creatinine 0.9 mg/dL (0.7-1.3) 02/27/18 15:50 Estimated GFR > 60 02/27/18 15:50 Glucose 129 mg/dL (70-100) H 02/27/18 15:50 Calcium 9.3 mg/dL (8.5-10.4) 02/27/18 15:50 Magnesium 1.9 mg/dL (1.6-2.3) 02/27/18 15:50 Troponin I < 0.012 ng/mL (0.000-0.034) 02/27/18 15:50 Visualized and Interpreted EKG results: Yes EKG additional interpertation: a fib with rate of 113 Assessment & Plan Assessment: 62 yo M with hx of a fib as well as depression with psychotic features admitted on M1 hold from running naked on highway in a fib w/rvr # a fib w/rvr: with rate in the low 110s, patient unable to give any history so unclear if symptomatic or not, presumably not taking his medications. Started on dilt gtt, will admit to ICU and monitor on tele. serial trops. Resume home meds in am. Chads Vasc appears to be 0, he was previously on xarelto for PE, will likely dc off of AC # acute encephalopathy: appears to be 2/2 acute psychosis, on chart review patient with hx of depression with psychotic features and previously has had issues where he volitionally cannot interact or provide a history. On M1 hold currently, will start zyprexa and monitor in ICU. # psychiatric issues: with report of depression with psychotic features on prior psychiatric evals, also possible personality disorder. On M1 hold, likely to have TLC eval in am if stable on usual dose of metoprolol # hx of PE: diagnosed in 08/2017 and treated with several months of xarelto, these were tiny PE # GERD/esophageal stricture: has required esophageal dilation in the past, will need to discuss if any dysphagia when patient cooperative # homeless # IP status Patient new to my care. Old records reviewed including dc summary by Dr. Ferrari from 09/2017. Care plan reviewed with ER doctor
[2018-02-27] MEDS ORDERED: DILTIAZEM HCL/D5W 125 ML IV SCH (18:00)
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
--- NOTE | 2018-02-27 18:25 | ASMTLACE ---
AMIE Acuity / Level of Answers: Yes Care: Did the patient have an inpatient admission? Comorbidities - select Answers: Other Notes: A-fib, PE, esophageal all that apply stricture and dysphagia # of Emergency department Answers: 3-4 visits in the last 6 months Social determinants Answers: Homelessness (street, intermediate) Mental health diagnosis (anxiety, depression, pers onality disorders, etc.) Lack of community resources and/or lack of social support (no pcp, lives alone, transportation, jordon d) Score: 17 Date Signed: 02/27/2018 06:24 PM Electronically Signed By:Tonya Hope RN
[2018-02-27] MEDS: OLANZapine DISINTEGR 5 MG TAB PO SCH ×3 (20:58→23:38)
[2018-02-27] MEDS: HALOPERIDOL LACT 5 MG/ML INJ IVP PRN (21:59)
[2018-02-27] MEDS: METOPROLOL TARTRATE 25 MG TAB PO SCH (22:59)
[2018-02-28] MEDS: HALOPERIDOL LACT 5 MG/ML INJ IVP PRN (04:15)
[2018-02-28] MEDS: LORazepam 2 MG/ML INJ IVP PRN ×2 (04:53→21:02)
[2018-02-28] MEDS: METOPROLOL TARTRATE 25 MG TAB PO SCH ×2 (08:07→21:02)
[2018-02-28] MEDS ORDERED: ENOXAPARIN 80 MG/0.8 ML SYR SC SCH (09:00)
--- NOTE | 2018-02-28 12:11 | HOSPPROG ---
Hospitalist Progress Note Assessment/Plan: #Afib with RVR -due to medication non compliance -now in SR on Metoprolol -no need for AC. Will discontinue -Start Aspirin #Acute on Chronic Psychosis -Medically cleared -Await Psych reccs -cont Zyprexa #Homelessness Dispo: per psych. On an M1 hold Subjective: now in SR. denies cp, sob, palpitations. Objective: Vital Signs Temp Pulse Resp BP Pulse Ox 36.9 C 85 16 142/86 H 94 02/28/18 08:00 02/28/18 08:00 02/28/18 08:00 02/28/18 08:00 02/28/18 08:00 02/27/18 02/28/18 03/01/18 05:59 05:59 05:59 Intake Total 1161 Output Total 450 Balance 711 - Physical Exam Constitutional: no apparent distress Eyes: PERRL Ears, Nose, Mouth, Throat: moist mucous membranes, hearing normal, ears appear normal Cardiovascular: regular rate and rhythym, No edema Respiratory: no respiratory distress, no rales or rhonchi, clear to auscultation Gastrointestinal: normoactive bowel sounds, soft, non-tender abdomen Genitourinary: no bladder fullness Skin: warm Neurologic: No AAOx3 Psychiatric: interacting appropriately Lymph, Heme, Immunologic: No petechiae ICD10 Worksheet Patient Problems: Problems Problem Status Onset Altered mental status Acute Rapid atrial fibrillation Acute Schizophrenia Acute Atrial fibrillation Acute Failure to thrive in adult Acute Major depressive disorder, recurrent, severe with psychotic features Acute Noncompliance with medications Acute Trench feet Acute Weakness Acute
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
--- NOTE | 2018-02-28 16:13 | ASMTLCPROG ---
Notes Note: Notes: Medicaid has been called by [facility] and has pre-approved an in-pt psych hospitalization for Pt. Following this [facility] spoke with Dr. Sexton. Dr Sexton stated he would like to rule out delerium prior to considering Pt for 3N. During Pt's last hospitalization, in Aug 2017, Pt presented with similar symptoms, but after spending several days in ICU receiving medication, liquids and nutrition was observed to have a clearing of symptoms upon placement on 3N. Dr Sexton was given the hospitalist's pager #. ICU and Pt's nurse were notified of Dr Sexton's decision to speak with the hospitalist prior to considering admission. Date Signed: 02/28/2018 04:13 PM Electronically Signed By:Lisette Armas
--- NOTE | 2018-02-28 16:22 | ASMTCMCOM ---
CM Note CM Note Notes: TLC spoke with Dr Sexton. Dr Sexton has paged Dr Palacios, but has not heard back from him yet. If by tomorrow morning he has not spoken with a hospitalist he would like Dr. Nogueira to evaluate Pt's delirium and reconsider for 3N. Dr Sexton has given permission for his cell phone # to be given to a hospitalist. Date Signed: 02/28/2018 04:21 PM Electronically Signed By:Lisette Armas
[2018-02-28] MEDS: ASPIRIN 81 MG CHEWABLE TAB PO SCH (16:52)
[2018-02-28] MEDS ORDERED: RIVAROXABAN 20 MG TAB PO SCH (18:00)
[2018-02-28] MEDS: OLANZapine DISINTEGR 5 MG TAB PO SCH (21:02)
[2018-03-01] MEDS: ASPIRIN 81 MG CHEWABLE TAB PO SCH (09:32)
[2018-03-01] MEDS: METOPROLOL TARTRATE 25 MG TAB PO SCH (09:33)
[2018-03-01 12:12] VITALS: BP 94/75
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
== END 2018-03-01 12:42 | DRG 201 ==
LOC: EDUNIT# → EEVIPCON 16:18 → F2N 17:32
PROVIDERS: ADMIT Internal Medicine; ATTEND Internal Medicine
DX: I48.91 Unspecified atrial fibrillation (principal); G93.40 Encephalopathy, unspecified; F20.9 Schizophrenia, unspecified; I10 Essential (primary) hypertension; K21.9 Gastro-esophageal reflux disease without esophagitis; Z86.711 Personal history of pulmonary embolism; Z87.891 Personal history of nicotine dependence; Z59.0 Homelessness
CPT/HCPCS: 96374; 97161-GP; 97165-GO; J1630; J1650; J2060

== ENCOUNTER 2018-03-01 12:55 | Inpatient (IN) | payer MEDICAID ==
[2018-03-01] MEDS ORDERED: MAG HYDROX/AL HYDROX/SIMETH 30 ML UDCUP PO PRN (13:50)
[2018-03-01] MEDS ORDERED: OLANZapine DISINTEGR 10 MG TAB PO PRN (13:50)
[2018-03-01] MEDS ORDERED: LORazepam 0.5 MG TAB PO PRN (13:50)
[2018-03-01] MEDS ORDERED: NICOTINE POLACRILEX 2 MG GUM B PRN (13:50)
[2018-03-01] MEDS ORDERED: ACETAMINOPHEN 325 MG TAB PO PRN (13:50)
[2018-03-01] MEDS ORDERED: MAGNESIUM HYDROXIDE 30 ML UDCUP PO PRN (13:50)
--- NOTE | 2018-03-02 11:41 | ASMTBHMTP ---
Master Treatment Plan Master Treatment Plan Answers: Impaired Reality for: Date: 03/02/2018 Diagnosis on Admission: BiPolar I Disorder1, current or most recent episode manic, with Psychosis (296.43) F31.1 Expected length of stay: 3-5 days Reason for admission: Notes: Client is a 62 yoa male with a history of Bi-Polar Disorder. Pt was waling on [address] with no clothes on and was approached by [facility] and placed on an M-1 due to being gravely disabled. Patient's stated presenting problems: Notes: Because I am dehydrated Patient's goals for treatment: Notes: To get hydrated Patient's strengths: Notes: none Identify supports outside of hospital: Notes: none Discharge criteria: Notes: Psychotic symptoms will be reduced or eliminated with return to baseline functioning in affect, thinking and behavior prior to discharge.* Initial disposition plan/considerations: Notes: go to [facility] Master Treatment Plan Required Signatures Psychiatrist signature: Answers: Psychiatrist: RN on-shift signature: Answers: RN: Patient signature: Answers: Patient: Date Signed: 03/02/2018 11:40 AM Electronically Signed By:Jomar Mcgill
--- NOTE | 2018-03-02 18:21 | BAPA ---
[f rep st] ADMISSION PSYCHIATRIC ASSESSMENT DATE OF SERVICE: 03/02/2018 CHIEF COMPLAINT: "I'm just fine." HISTORY OF PRESENT ILLNESS: Patient is a 62-year-old male with a history of bipolar disord er. He is known to us from previous admission in August of this year. He was brought into the hosp ital by police after being found running naked in the streets of [place]. He was brought in for psyc hiatric evaluation but was noted to be in atrial fibrillation. He was admitted to the medical servic e and stabilized on metoprolol and aspirin. The case was reviewed with the hospitalist, who stated t hat he believes that the patient was medically stable for transfer, and he was brought over yesterday evening. Since arriving on the unit, the patient has been largely lying in bed, is isolating, not i nteracting with others. I interviewed him today in his room on several occasions, but he was not kaur y forthcoming of information. He states that he has no physical complaints, he feels better, and dequan t he is willing to participate in voluntary treatment. He states that he is homeless and has nowhere to be and that he is willing to consider ongoing treatment for his bipolar illness. He does not off er any information spontaneously and often does not answer questions that are asked directly. He cur rently represents no behavioral problems. It was noted, however, in the medical unit that he was dis playing some agitated and bizarre behaviors. There was no evidence of this at this time. PAST PSYCHIATRIC HISTORY: Significant for a long history of bipolar illness. He previously had the decompensation last August, at which time he was running around without shoes on and got severe fros tbite. He was hospitalized at that time as well. He was hospitalized at [facility] in 2017, due to aydee with psychosis. He has been referred to [facility] on several occasions,, including on discharge from this facility on 09/09/2017, but it is unclear whether he has followed up with them at any time. He does not answer the question about being on medications at this time, and when he was here last, he was discharged on mirtazapine and olanzapine. ALLERGIES: No known medical allergies. CURRENT MEDICATIONS: Metoprolol 25 mg b.i.d. and enteric-coated aspirin 81 mg daily. PAST MEDICAL HISTORY: Significant for atrial fibrillation, gastroesophageal reflux disease, pulmonar y embolism in the past, esophageal stricture with dilatation. SOCIAL HISTORY: Patient is apparently homeless. His only local support is his mother, who reportedl y has an order of protection against him. Where he has been living or what he has been doing recentl y is unknown. Patient is unwilling to discuss this but does indicate that he is homeless. His curre nt level of substance use is unknown. ADMISSION LABORATORIES: Most recent labs drawn on 02/27/2018, revealed normal CBC, normal serum chem istries, normal liver function, though his total protein is low at 5.2. He had undetectable troponin levels. Hemoglobin A1c of 5.7. MENTAL STATUS EXAMINATION: Reveals a very thin male. He is minimally interactive, maintai rebekah poor eye contact, and demonstrating no spontaneous speech. He will nod or shake his head in res ponse to questions and may give 1 or 2-word answers. His affect is constricted, stable. His mood is described as "fine." His thought process appears to be abbreviated, possibly disorganized, though i t is difficult to assess with his minimal responsiveness. He does not participate in questions in re loretta to orientation or memory. He does not answer questions in regard to hallucinatory experiences o r delusions. He does not answer questions in regard to suicide, homicide, or violence. He is calm a nd cooperative and does not display any evidence of aggression or agitation. IMPRESSION: Bipolar I disorder, most recent episode manic, severe with psychosis; recent atrial fibr illation, rate controlled with metoprolol; gastroesophageal reflux disease; history of pulmonary embo lism; esophageal stricture; homelessness; lack of support; chronic illness/recurrent illness. The patient is a 62-year-old male with a history of severe bipolar illness. He, apparently , has not been managed in any way in the community and presented via police due to psychosis and stephon a. He was admitted to stabilize his atrial fibrillation and has been transferred for further psychia tric evaluation and stabilization. PLAN: 1. Admit to the [facility] inpatient unit on an M1 hold. 2. I have discussed this with the patient. He is willing to convert to a voluntary status. 3. We will review his chart and start with p.melony Cristina at this time for any overt evidence of man ia or psychosis. I know that he is likely vulnerable to worsening of his arrhythmia, so he may need to be conservative with this intervention. His last hospitalization, he was discharged on only 2.5 m g and appeared to be stable on that dose. 4. We will attempt to work with the patient and establish a reasonable outpatient plan, as he has love d no consistent followup since his last hospitalization. ESTIMATED LENGTH OF STAY: 5-7 days. /[id number]/MODL
--- NOTE | 2018-03-02 18:30 | PDMN ---
Medical Necessity Medical necessity: Pt meets INPT criteria per MD and [facility] B-[id number] (Bipolar I disorder, manic, severe with psychosis; admitted to stabilize his afib and transferred for further psychiatric evaluation and stabilization).
--- NOTE | 2018-03-03 12:01 | ASMTCMCOM ---
CM Note CM Note Notes: Pt. was in bed when CC entered his room. Pt. did not engage much in conversation. He denied having SI/HI and agreed to sign a TASHIA for [facility]. He was encouraged to participate in groups. However, he appears to be isolating and is leaving his room mainly for meals. Date Signed: 03/03/2018 12:00 PM Electronically Signed By:Samanta Reid
[2018-03-03] MEDS ORDERED: OLANZapine DISINTEGR 10 MG TAB PO PRN (15:26)
--- NOTE | 2018-03-03 17:25 | SOAPPROG ---
SOAP Progress Note Assessment/Plan: Assessment: Plan: 03/03/18 17:26 Psychosis: Much improved. No real evidence of aydee or psychosis at this time. Acute presentation likely due to delirium, possibly due to dehydration. Will continue PRN meds only and finalize d/c plan. Subjective: Pt seen, discussed with staff. Reports feeling "back to normal." I asked him why he was running down the street naked and he stated, "I was dehydrated." He declines to take any medications. Review of the chart reveals pt was d/c'd in August on only 2.5mg of Zyprexa. He has no belongings also as he lost them when he was delirious. I asked him to make a list of things he needs. Objective: Vital Signs Temp Pulse Resp BP Pulse Ox 36.4 C 88 12 121/87 H 96 03/01/18 14:08 03/01/18 14:08 03/01/18 14:08 03/01/18 14:08 03/01/18 14:08 - Time Spent With Patient Time Spent With Patient: 25" ICD10 Worksheet Patient Problems: Problems Problem Status Onset Altered mental status Acute Atrial fibrillation Acute Failure to thrive in adult Acute Major depressive disorder, recurrent, severe with psychotic features Acute Noncompliance with medications Acute Rapid atrial fibrillation Acute Schizophrenia Acute Trench feet Acute Weakness Acute
--- NOTE | 2018-03-04 08:49 | ASMTBHDC ---
Notes Note: Notes: CC confirms all of client's follow up intake appt (see below). CC seems to be doing better than previous days. Per provider, client will be discharing today. Follow up with: [facility] [address] [place] [address] Intake Appt: ThursdayMarch 08 (03/08/18) at 9am with Mohit Brown [address] Date Signed: 03/04/2018 08:48 AM Electronically Signed By:Jomar Mcgill
--- NOTE | 2018-03-04 13:07 | ASMTBHDC ---
Notes Note: Notes: Treatment team meeting notes: Client, CC's, doctor, therapist, charge nurse and equal employment opportunity officer present. Meeting lasted 15 minutes in which treatment team gauged client's readiness to discharge as well as his over-all presentation. Spoke of barriers to care and other resources. CC wrote list of items that client could benefit from including: backpack, shoes, water bottle, socks, pants and bus tickets, etc. CC will donate some items as well as other team members. Client does have a follow up appt. on Thursday and Thursday of next week with [facility].* Over-all client expressed that there is nothing more "you [treatment team] could do to help him, etc. Date Signed: 03/04/2018 01:06 PM Electronically Signed By:Jomar Mcgill
--- NOTE | 2018-03-04 15:03 | ASMTBHDC ---
Notes Note: Notes: Pt. reports feeling "pretty good". Staff report pt. sleeping 12 hours. Pt. stated this is his normal sleep pattern. Pt. stated he would like more food with his meals. Pt. reports no issues with his current medications. Pt. stated he isn't attending groups because "I just didn't feel I could contribute". CC encouraged pt. to attend groups. Pt. stated he feels "better" than when he arrived on the unit. Pt. declined CC's offer to reserve him a bed at the [facility]. Pt. denied SI, HI, AVH and paranoia. Pt. presents in his bed, alert, calm, with good eye contact, and with a mostly pleasant demeanor. Date Signed: 03/04/2018 03:02 PM Electronically Signed By:Symone Bustamante
--- NOTE | 2018-03-04 18:53 | SOAPPROG ---
SOAP Progress Note Assessment/Plan: Assessment: Plan: 03/03/18 17:26 Psychosis: Much improved. No real evidence of aydee or psychosis at this time. Acute presentation likely due to delirium, possibly due to dehydration. Will continue PRN meds only and finalize d/c plan. 03/04/18 18:53 Psychosis: Stabilizing well. Will CCM. D/c tomorrow when safe plan in place. Subjective: Pt seen, discussed with staff, interviewed in treatment team meeting. He continues to state he feels "just fine" from a mental health perspective. He is compliant with staff requests, though continues to isolate in his room, sleeping most of the time. He refuses all psychotropic medications. He composed a list of material needs for d/c and team was able to help him trouble shoot this. Team agreed that he would be ready for d/c when he had adequate clothing and a safe d/c plan. Objective: Vital Signs Temp Pulse Resp BP Pulse Ox 36.4 C 88 12 121/87 H 96 03/01/18 14:08 03/01/18 14:08 03/01/18 14:08 03/01/18 14:08 03/01/18 14:08 MSE: Calm, coop. Affect is constricted, stable. Mood is "fine." TP is abbreviated, ? blocked. TC reveals some problems with reality testing. Some likely paranoid thoughts. - Time Spent With Patient Time Spent With Patient: 25' ICD10 Worksheet Patient Problems: Problems Problem Status Onset Altered mental status Acute Atrial fibrillation Acute Failure to thrive in adult Acute Major depressive disorder, recurrent, severe with psychotic features Acute Noncompliance with medications Acute Rapid atrial fibrillation Acute Schizophrenia Acute Trench feet Acute Weakness Acute
[2018-03-05 07:11] VITALS: BP 126/85
--- NOTE | 2018-03-05 13:39 | BDS ---
[f rep st] BEHAVIORAL HEALTH DISCHARGE SUMMARY REASON FOR ADMISSION: Patient is a 62-year-old man with a history of bipolar disorder. He is known to us from previous admissions in August of this year. He was brought to the hospital by police after being found running naked in the street. He was brought in for a psych eval, but was no carlos to be in atrial fib. He was admitted to the medical service and stabilized on metoprolol and asp irin. The case was reviewed with the hospitalist, who said he believed that the patient was medicall y stable for transfer. Once he arrived on the unit, the patient is mostly staying in his room, isola [facility], not interacting with others, lying in bed all day. The patient was not very forthcoming with i nformation. He denied having any physical complaints. Said that he is willing to participate in vol untary treatment. He says that he is willing to consider getting outpatient services, even though he has a long history of noncompliance, and in fact, the patient has been sent by cab multiple times fr om the [facility] ED to the [facility] in order to establish outpatient care, and he has refused to get out of the cab on multiple occasions. He was not displaying any signs of agitation or bizarre behaviors on the unit. There were no signs or evidence of aydee or psychosis, despite both of these being prominent features when he was evaluated in the ED and when he was admitted to the ICU for atr ial fibrillation. DIAGNOSES: 1. Bipolar disorder, most recent episode manic, severe with psychosis. 2. Recent atrial fibrillation, rate controlled with metoprolol. 3. Gastroesophageal reflux disease. 4. History of pulmonary embolism. 5. Esophageal stricture. 6. Homeless, lack of social support, chronic illness, recurrent illness. PHYSICAL EXAMINATION: The admitting physical examination was done by Pelon Cota on 03/01/2018, wh o saw the patient prior to his coming over to [address] [place] [address]. He was found to be in atrial fibrillation and was started on Cardizem. He was eventually put on metoprolol, which he had been prescribed in the p ast, but had been noncompliant with, 25 b.i.d. and converted to normal sinus rhythm. He continued to be rate controlled on metoprolol. He did go back into atrial fibrillation, but was rate controlled in the 80s. He was started on aspirin 81 mg p.o. daily. The patient had no other acute physical fin dings when he was seen in the ED and later transferred to the ICU, but he does have multiple medical problems, none of which he has been compliant with getting care for when he is not in the hospital or the ED. LABORATORY DATA: Admission labs done prior to being sent to the ICU when he was in the ED. He had a white cell count of 6.63. Hemoglobin was 13.9. Hematocrit was 41.5. Platelet count was 338. His sodium was 139. Potassium was 3.7. Chloride was 105. BUN was 9. Creatinine was 0.9. Glucose was 1 29. Hemoglobin A1c was 5.7. Calcium was 9.3, but it dropped to 8.2 on 03/01. His magnesium was 1.9, total bilirubin 0.7, conjugated bilirubin 0.3, AST 13, ALT 10, alkaline phosphatase 46. Ammonia lev el was 13. Serial troponins were all undetected, less than 0.012. Protein was 5.2. Albumin was 2.7. Both of those were low. Triglycerides were 84, cholesterol 160, LDL cholesterol 79, which is low. VLDL was 17. Non-HDL was 96. HOSPITAL COURSE: The patient was admitted to [address] [place] [address] after he was stabilized and rate controlled for his atrial fibrillation. He was basically much improved. Dr. Nogueira, who saw the patient on 03/03, noted that he had "no real evidence of aydee or psychosis at this time, acute presentation lik reymundo due to delirium, possibly due to dehydration. Will continue p.r.n. medications only and finalize the discharge plan." The patient told Dr. Nogueira that he felt that he was "back to normal." When Dr. Nogueira asked the patient why he was running down the street naked, the patient said, "I was dehy drated." The patient refused to take any medications during this hospitalization. During his previo us hospitalizations in August and September of this year, he was on Zyprexa 2.5 mg p.o. q.h.s., but t he patient states that he does not want to take that medication now. The patient said he had lost al l of his belongings and wanted some help getting some clothing and possibly some shoes. The staff we re able to provide him with those. When Dr. Nogueira saw the patient on 03/04/2018, the patient stated that he had no complaints. He was feeling "much better." He said "I feel just fine." He denied having any mental health issues. He denied feeling sad, depressed, worthless, hopeless, helpless, anxious. He denied panic attacks. The re was no evidence of psychosis. There were also no signs or evidence of aydee. He refused all psyc hotropic medications. He stated that the only thing that he wanted were some clothes and shoes, and he wanted to get some help with getting a bus ticket. On 03/05/2018, the patient said that he no longer wanted to be in the hospital. He agreed that he wa s doing much better. He had significantly improved from when he was in the ED and the ICU. There wa s no recurrence of atrial fibrillation. He did not complain of any chest pain or any other coronary symptoms. He said that he was safe. He did not want staff to call ahead and reserve him a bed in [facility]. He has refused to go to the homeless senior care multiple times in the past, includi [place] when he was discharged from here in August and September, and also when he has been seen in the ED , he has refused to go to the [facility]. CONDITION ON DISCHARGE: Patient was stable. His affect was euthymic. He was stable and appropriate . He was voicing no complaints. He had no physical complaints. There was no evidence of delirium o r delusions. There was no evidence of psychosis. There were no signs or evidence of aydee. He ronnie ed any thoughts, plans or intents to hurt himself or anyone else. He refused to take any medications . He said, "I'm fine." This thoroughly reviewed the patient's medical history as documented from multiple ED visits, as well as from his previous hospitalizations in August. Reviewed the fact dequan t he had presented to the ED delusional and dehydrated, and that he had gone into atrial fibrillation , most likely as a result of noncompliance with care and also just poor self-care. This reviewed Dr. Cota's notes and recommendations that the patient seek appropriate outpatient primary care se rvices. The patient verbalized his understanding of the risk of not getting his medical problems att ended to, not staying on metoprolol and taking a baby aspirin every day. He also verbalizes understa nding of not taking psychotropic medications, but he said that he did not want any of those things at this time, and the patient was discharged with instructions of where to access care at the walk-in [facility] from [facility], and also, he was actually given a followup appointment with [facility], and also, he was given information about the [facility] to get established [facility] primary care. DISCHARGE MEDICATIONS: Patient was not discharged on any medications. He refused to take medication s during his hospitalization and stated that he would not take those medications when he was not in [facility]. DISCHARGE DIAGNOSES: 1. Bipolar disorder, most recent episode manic with psychotic features. 2. Delirium, possibly secondary to dehydration. The patient's agitated behavior and his altered men sharonda status in the emergency department, which precipitated this hospitalization, were most likely due to delirium and not due to an underlying or ongoing psychiatric illness. 3. The patient was recently treated for atrial fibrillation in the ICU. He was rate stabilized on m etoprolol and was recommended he take a baby aspirin, but the patient refused to take either of those medications once he was transferred to [address] [place] [address] and said that he would not take those medications whe n he was no longer in the hospital. 4. Patient has a history of chronic medical conditions, including gastroesophageal reflux disease, h istory of pulmonary embolus, and esophageal strictures. 5. Homelessness, lack of social support, chronic illness, recurrent illness, noncompliance with priscilla tment, refusal to seek outpatient services for primary care and medical concerns. DISPOSITION: The patient was discharged from the hospital. He was provided with some clothes and so me shoes since he said that he lost all of his belongings. He was asked if he wanted the care jacoby conn to call ahead to reserve a bed for him at the [facility]. He said no. He did ta ke a bus pass. The patient does have a followup appointment with [facility] on , at 9 a.m. LEGAL COURSE: The patient was on voluntary status throughout this admission. He was discharged as a voluntary patient. /[id number]/MODL
== END 2018-03-05 12:12 | disposition home or self-care (01) | DRG 885 ==
LOC: BBEH 12:55
PROVIDERS: ADMIT Psychiatry & Neurology Psychiatry; ATTEND Psychiatry & Neurology Psychiatry
DX: F29 Unspecified psychosis not due to a substance or known physiological condition (principal); F31.9 Bipolar disorder, unspecified; I48.91 Unspecified atrial fibrillation; K21.9 Gastro-esophageal reflux disease without esophagitis; K22.2 Esophageal obstruction; Z59.0 Homelessness

== ENCOUNTER 2018-07-22 07:55 | Inpatient (IN) | payer MEDICAID ==
[~2018-07-22 07:55] MED LIST changes: +NS 1,000 ML IV ONE; -PANTOPRAZOLE SODIUM 40 MG TAB PO SCH
--- NOTE | 2018-07-22 08:23 | EDPHY ---
H & P Time Seen by Provider: 07/22/18 09:00 HPI/ROS: Chief complaint. Cold HPI. Patient is 63-year-old male here by EMS. Found in a park with complaint of being cold. Patient is homeless. He was sleeping in a park with a blanket but no sleeping bag. He complains of being cold and especially cold to his legs and feet. He denies trauma. No chest pain or shortness of breath. No recent illness or fever. He has been ambulatory. ROS 10 systems were reviewed and negative with the exception of the elements mentioned in the history of present illness Past Medical/Surgical History: Atrial fibrillation, hypertension Social History: Homeless, nonsmoker, no alcohol Smoking Status: Former smoker Physical Exam: General Appearance: Alert well-developed male moderate distress vital signs show rectal temperature 29.3. Other vital signs are stable Eyes: Pupils equal and round no pallor or injection. ENT, Mouth: Mucous membranes are moist. Respiratory: There are no retractions, lungs are clear to auscultation. Cardiovascular: Regular rate and rhythm. Gastrointestinal: Abdomen is soft and nontender, no masses, bowel sounds normal. Neurological: Awake and alert, sensory and motor exams grossly normal. Skin: Warm and dry, no rashes. Musculoskeletal: Neck is supple nontender. Extremities hands appear fine without evidence of cold injury. They are pink and warm. Patient has multiple toes that are whitish purple. No blistering. Dorsalis pedis pulses are full and equal bilaterally. Psychiatric: Patient is oriented X 3, there is no agitation. Constitutional: Initial Vital Signs Temperature (C) 29.3 C L 07/22/18 07:55 Heart Rate 80 07/22/18 07:55 Respiratory Rate 16 07/22/18 07:55 Blood Pressure 108/80 07/22/18 07:55 O2 Sat (%) 97 07/22/18 07:55 O2 Delivery Mode Nasal Cannula O2 (L/minute) 2 Allergies/Adverse Reactions: No Known Allergies Allergy (Verified 07/22/18 08:18) Home Medications: Medication Instructions Recorded NK [No Known Home Meds] 06/28/18 Medical Decision Making - Diagnostics Imaging Results: Imaging Impressions Chest X-Ray 07/22/18 14:21 Impression: 1. Left subclavian central venous catheter tip in good position. 2. Peribronchial thickening with equivocal effusions, suggesting mild fluid overload. 3. Grossly stable right pericardial cyst. Chest x-ray interpreted by me shows left subclavian catheter in good position. No evidence for pneumonia Procedures: Bear Hugger blanket ED Course/Re-evaluation: Blood pressure was initially 108/80 on admission. Most recent blood pressure 9: 45 a.m. Is now no 71/57. On re-evaluation by me however the patient is awake and alert and talking. He still feels cold. We have the bear hugger blanket continuing. IV is placed and patient will be given 2 L of normal saline. Re-evaluation again at 11:10 a.m.. Patient remains alert and communicative. He has had 2 L of saline. His temperature is up to 32 degrees. Heart rate 80. Current blood pressure 66/50. He will be given third L of saline. After 3 L of saline patient's blood pressure continued to remain low. Patient remained alert and talkative. He had no complaints. Gradually his temperature increases to about 37 degrees Patient however continues to be hypertensive. As the emergency department is very busy I asked Dr. Kraft for surgery to consult. He agrees to see the patient and place is a left subclavian catheter. Patient is started on norepinephrine. Dr. Kraft also consults from trauma as the patient is hypothermic Differential Diagnosis: Initially appeared the patient was strictly hypothermic. He had stable vital signs and no complaints. However as he was re-warm he begins to be hypotensive which has persisted. Hypotension was not resolved with IV fluids. He started on norepinephrine for pressor through central line. Sepsis workup shows no evidence of elevated lactate. Critical Care Time: Critical care time exclusive procedures 45 min - Data Points Laboratory Results: Laboratory Results 07/22/18 15:16 07/22/18 14:38 07/22/18 07/22/18 07/22/18 15:16 15:06 14:40 WBC 3.23 10^3/uL L 10^3/uL (3.80-9.50) RBC 3.43 10^6/uL L 10^6/uL (4.40-6.38) Hgb 10.2 g/dL L g/dL (13.7-17.5) Hct 31.0 % L % (40.0-51.0) MCV 90.4 fL fL (81.5-99.8) MCH 29.7 pg pg (27.9-34.1) MCHC 32.9 g/dL g/dL (32.4-36.7) RDW 15.8 % H % (11.5-15.2) Plt Count 252 10^3/uL 10^3/uL (150-400) MPV 9.1 fL fL (8.7-11.7) Neut % (Auto) 68.8 % % (39.3-74.2) Lymph % (Auto) 20.1 % % (15.0-45.0) Roseau % (Auto) 10.2 % % (4.5-13.0) Eos % (Auto) 0.3 % L % (0.6-7.6) Baso % (Auto) 0.3 % % (0.3-1.7) Nucleat RBC Rel Count 0.0 % % (0.0-0.2) Absolute Neuts (auto) 2.22 10^3/uL 10^3/uL (1.70-6.50) Absolute Lymphs (auto) 0.65 10^3/uL L 10^3/uL (1.00-3.00) Absolute Monos (auto) 0.33 10^3/uL 10^3/uL (0.30-0.80) Absolute Eos (auto) 0.01 10^3/uL L 10^3/uL (0.03-0.40) Absolute Basos (auto) 0.01 10^3/uL L 10^3/uL (0.02-0.10) Absolute Nucleated RBC 0.00 10^3/uL 10^3/uL (0-0.01) Immature Gran % 0.3 % % (0.0-1.1) Immature Gran # 0.01 10^3/uL 10^3/uL (0.00-0.10) PT INR APTT VBG Lactic Acid 0.8 mmol/L mmol/L (0.7-2.1) Sodium Potassium Chloride Carbon Dioxide Anion Gap BUN Creatinine Estimated GFR Glucose Calcium Total Bilirubin POC Troponin I 0.02 ng/mL ng/mL (0.00-0.08) 07/22/18 07/22/18 07/22/18 14:38 14:38 10:08 WBC RBC Hgb Hct MCV MCH MCHC RDW Plt Count MPV Neut % (Auto) Lymph % (Auto) Roseau % (Auto) Eos % (Auto) Baso % (Auto) Nucleat RBC Rel Count Absolute Neuts (auto) Absolute Lymphs (auto) Absolute Monos (auto) Absolute Eos (auto) Absolute Basos (auto) Absolute Nucleated RBC Immature Gran % Immature Gran # PT 13.5 SEC SEC (12.0-15.0) INR 1.01 (0.83-1.16) APTT 36.4 SEC SEC (23.0-38.0) VBG Lactic Acid Sodium 138 mEq/L mEq/L 140 mEq/L mEq/L (135-145) (135-145) Potassium 4.2 mEq/L mEq/L 4.3 mEq/L mEq/L (3.5-5.2) (3.5-5.2) Chloride 115 mEq/L H mEq/L 109 mEq/L mEq/L (97-110) (97-110) Carbon Dioxide 21 mEq/l L mEq/l 25 mEq/l mEq/l (22-31) (22-31) Anion Gap 2 mEq/L L mEq/L 6 mEq/L mEq/L (6-14) (6-14) BUN 18 mg/dL mg/dL 21 mg/dL mg/dL (7-23) (7-23) Creatinine 0.7 mg/dL mg/dL 0.6 mg/dL L mg/dL (0.7-1.3) (0.7-1.3) Estimated GFR > 60 > 60 Glucose 48 mg/dL L mg/dL 111 mg/dL H mg/dL (70-100) (70-100) Calcium 7.3 mg/dL L mg/dL 8.8 mg/dL mg/dL (8.5-10.4) (8.5-10.4) Total Bilirubin 0.2 mg/dL mg/dL (0.1-1.4) POC Troponin I 07/22/18 10:08 WBC 3.02 10^3/uL L 10^3/uL (3.80-9.50) RBC 4.13 10^6/uL L 10^6/uL (4.40-6.38) Hgb 12.4 g/dL L g/dL (13.7-17.5) Hct 37.5 % L % (40.0-51.0) MCV 90.8 fL fL (81.5-99.8) MCH 30.0 pg pg (27.9-34.1) MCHC 33.1 g/dL g/dL (32.4-36.7) RDW 15.9 % H % (11.5-15.2) Plt Count 272 10^3/uL 10^3/uL (150-400) MPV 9.0 fL fL (8.7-11.7) Neut % (Auto) 70.6 % % (39.3-74.2) Lymph % (Auto) 23.5 % % (15.0-45.0) Roseau % (Auto) 5.0 % % (4.5-13.0) Eos % (Auto) 0.3 % L % (0.6-7.6) Baso % (Auto) 0.3 % % (0.3-1.7) Nucleat RBC Rel Count 0.0 % % (0.0-0.2) Absolute Neuts (auto) 2.13 10^3/uL 10^3/uL (1.70-6.50) Absolute Lymphs (auto) 0.71 10^3/uL L 10^3/uL (1.00-3.00) Absolute Monos (auto) 0.15 10^3/uL L 10^3/uL (0.30-0.80) Absolute Eos (auto) 0.01 10^3/uL L 10^3/uL (0.03-0.40) Absolute Basos (auto) 0.01 10^3/uL L 10^3/uL (0.02-0.10) Absolute Nucleated RBC 0.00 10^3/uL 10^3/uL (0-0.01) Immature Gran % 0.3 % % (0.0-1.1) Immature Gran # 0.01 10^3/uL 10^3/uL (0.00-0.10) PT INR APTT VBG Lactic Acid Sodium Potassium Chloride Carbon Dioxide Anion Gap BUN Creatinine Estimated GFR Glucose Calcium Total Bilirubin POC Troponin I Medications Given: Discontinued Medications Diltiazem HCl (Cardizem 25 Mg/5 Ml Vial) 10 mg IVP EDNOW ONE Stop: 07/22/18 15:42 Last Admin: 12/13/18 15:46 Dose: 10 mg Sodium Chloride (Ns) 1,000 mls @ 0 mls/hr IV EDNOW ONE; Wide Open PRN Reason: Protocol Stop: 07/22/18 09:54 Last Admin: 07/22/18 10:05 Dose: 1,000 mls Sodium Chloride (Ns) 1,000 mls @ 0 mls/hr IV EDNOW ONE; Wide Open PRN Reason: Protocol Stop: 07/22/18 09:54 Last Admin: 07/22/18 10:06 Dose: 1,000 mls Sodium Chloride (Ns) 1,000 mls @ 0 mls/hr IV ONCE ONE; Wide Open PRN Reason: Protocol Stop: 07/22/18 11:15 Last Admin: 07/22/18 11:15 Dose: 1,000 mls Norepinephrine 4 mg/ Sodium (Chloride) 504 mls @ 0 mls/hr IV EDNOW ONE; Titrate PRN Reason: Protocol Stop: 07/22/18 14:25 Last Admin: 07/22/18 15:00 Dose: 504 mls Point of Care Test Results: Chemistry 07/22/18 15:06 POC Troponin I 0.02 ng/mL ng/mL (0.00-0.08) Departure - Departure Disposition: [facility] Inpatient Acute Clinical Impression: Hypothermia Qualifiers: Encounter type: initial encounter Qualified Code(s): T68.XXXA - Hypothermia, initial encounter Hypotension Qualifiers: Hypotension type: unspecified hypotension type Qualified Code(s): I95.9 - Hypotension, unspecified Condition: Fair
[2018-07-22] MEDS ORDERED: NS 1,000 ML IV ONE ×3 (09:53→11:14)
[2018-07-22 10:22] LABS: PLATELET COUNT 272 10^3/uL (150-400)
[2018-07-22] MEDS ORDERED: NOREPINEPHRINE BITARTRATE 4 MG in NS 500 ML IV ONE (14:24)
[2018-07-22 15:19] LABS: INR 1.01 (0.83-1.16); PROTIME(PATIENT) 13.5 SEC (12.0-15.0)
[2018-07-22] MEDS ORDERED: ACETAMINOPHEN 325 MG TAB PO PRN (15:24)
[2018-07-22] MEDS ORDERED: NS 1,000 ML IV SCH (15:30)
[2018-07-22 15:37] LABS: PLATELET COUNT 252 10^3/uL (150-400)
[2018-07-22] MEDS ORDERED: DILTIAZEM 25 MG/5 ML VIAL IVP ONE ×2 (15:41→15:42)
--- NOTE | 2018-07-22 15:47 | ASMTLACE ---
LACE Length of stay for Answers: 1 day current admission Acuity / Level of Answers: Yes Care: Did the patient have an inpatient admission? # of Emergency department Answers: 3-4 visits in the last 6 months Social determinants Answers: Homelessness (street, assisted) Lack of community resources and/or lack of social support (no pcp, lives alone, transportation, jordon d) Score: 14 Date Signed: 07/22/2018 03:46 PM Electronically Signed By:Sb Gill LCSW
--- NOTE | 2018-07-22 15:47 | PDGENHP ---
History and Physical - Chief Complaint feels cold - History of Present Illness Dhruv Dela Cruz is a 63 year old male with PMH of afib, not on any medications, and homelessness who was brought to the ER after sleeping outside overnight and feeling extremely cold. He says that he was fine yesterday, but then slept in a park outside in [place] with only scant blankets. This morning he was extremely cold. He does not have a cough, he denied any chest pain. He says that he was fine yesterday and has had no recent illnesses. He does not have any pain anywhere, any denies any diarrhea, dysuria, NV, sob, fevers, chills or essentially any other symptoms. He was rewarmed from a temperature of 29 degrees to 37 degrees celsius but still complains of feeling cold. History Information - Allergies/Home Medication List Allergies/Adverse Reactions: No Known Allergies Allergy (Verified 07/22/18 08:18) Home Medications: NK [No Known Home Meds] 06/28/18 [Last Taken Unknown] I have personally reviewed and updated: family history, medical history, social history, surgical history Past Medical History: obtained only by chart review--patient states "no thanks" to every question - Past Medical History atrial fibrillation, GERD, pulmonary embolism, psychiatric history (depression and anxiety with psychotic features) Additional medical history: esophageal stricutre. low vitamin d. pericardial cyst - Surgical History Reports: appendectomy Additional surgical history: esophageal stricture dilation - Family History Positive for: non-pertinent - Social History Smoking Status: Former smoker Alcohol Use: None Drug Use: None Additional social history: unknown due to patients unwillingness/inability to talk Review of Systems Review of Systems: ROS: 10pt was reviewed & negative except for what was stated in HPI & below Constitutional: Reports: chills (patient states he is cold. otherwise no pain or complaints. ) Physical Exam Physical Exam: Temp Pulse Resp BP Pulse Ox 37.4 C 150 H 23 H 94/70 L 99 07/22/18 15:30 07/22/18 15:30 07/22/18 15:30 07/22/18 15:30 07/22/18 15:30 O2 (L/minute) 2 Constitutional: no apparent distress, appears nourished, not in pain Eyes: PERRL, anicteric sclera, EOMI Ears, Nose, Mouth, Throat: moist mucous membranes, hearing normal, ears appear normal, no oral mucosal ulcers Cardiovascular: irregularly irregular, edema (1+ pretibial edema in ankles left worse than right. ) Peripheral Pulses: 2+: dorsalis-pedis (R), dorsalis-pedis (L) Respiratory: clear to auscultation Gastrointestinal: normoactive bowel sounds, soft, non-tender abdomen, no palpable masses Genitourinary: no bladder fullness, no bladder tenderness Skin: warm, no rashes or abrasions (mild echymoses to his left great toe, with some swelling. ) Neurologic: AAOx3 Psychiatric: interacting appropriately, not anxious, not encephalopathic, thought process linear Lymph, Heme, Immunologic: no cervical LAD, no supraclavicular LAD Lab Data & Imaging Review 07/22/18 15:16 07/22/18 14:38 WBC 3.23 10^3/uL (3.80-9.50) L 07/22/18 15:16 RBC 3.43 10^6/uL (4.40-6.38) L 07/22/18 15:16 Hgb 10.2 g/dL (13.7-17.5) L 07/22/18 15:16 Hct 31.0 % (40.0-51.0) L 07/22/18 15:16 MCV 90.4 fL (81.5-99.8) 07/22/18 15:16 MCH 29.7 pg (27.9-34.1) 07/22/18 15:16 MCHC 32.9 g/dL (32.4-36.7) 07/22/18 15:16 RDW 15.8 % (11.5-15.2) H 07/22/18 15:16 Plt Count 252 10^3/uL (150-400) 07/22/18 15:16 MPV 9.1 fL (8.7-11.7) 07/22/18 15:16 Neut % (Auto) 68.8 % (39.3-74.2) 07/22/18 15:16 Lymph % (Auto) 20.1 % (15.0-45.0) 07/22/18 15:16 Mcdonald % (Auto) 10.2 % (4.5-13.0) 07/22/18 15:16 Eos % (Auto) 0.3 % (0.6-7.6) L 07/22/18 15:16 Baso % (Auto) 0.3 % (0.3-1.7) 07/22/18 15:16 Nucleat RBC Rel Count 0.0 % (0.0-0.2) 07/22/18 15:16 Absolute Neuts (auto) 2.22 10^3/uL (1.70-6.50) 07/22/18 15:16 Absolute Lymphs (auto) 0.65 10^3/uL (1.00-3.00) L 07/22/18 15:16 Absolute Monos (auto) 0.33 10^3/uL (0.30-0.80) 07/22/18 15:16 Absolute Eos (auto) 0.01 10^3/uL (0.03-0.40) L 07/22/18 15:16 Absolute Basos (auto) 0.01 10^3/uL (0.02-0.10) L 07/22/18 15:16 Absolute Nucleated RBC 0.00 10^3/uL (0-0.01) 07/22/18 15:16 Immature Gran % 0.3 % (0.0-1.1) 07/22/18 15:16 Immature Gran # 0.01 10^3/uL (0.00-0.10) 07/22/18 15:16 PT 13.5 SEC (12.0-15.0) 07/22/18 14:38 INR 1.01 (0.83-1.16) 07/22/18 14:38 APTT 36.4 SEC (23.0-38.0) 07/22/18 14:38 VBG Lactic Acid 0.8 mmol/L (0.7-2.1) 07/22/18 14:40 Sodium 138 mEq/L (135-145) 07/22/18 14:38 Potassium 4.2 mEq/L (3.5-5.2) 07/22/18 14:38 Chloride 115 mEq/L (97-110) H 07/22/18 14:38 Carbon Dioxide 21 mEq/l (22-31) L 07/22/18 14:38 Anion Gap 2 mEq/L (6-14) L 07/22/18 14:38 BUN 18 mg/dL (7-23) 07/22/18 14:38 Creatinine 0.7 mg/dL (0.7-1.3) 07/22/18 14:38 Estimated GFR > 60 07/22/18 14:38 Glucose 48 mg/dL (70-100) L 07/22/18 14:38 Calcium 7.3 mg/dL (8.5-10.4) L 07/22/18 14:38 Total Bilirubin 0.2 mg/dL (0.1-1.4) 07/22/18 14:38 POC Troponin I 0.02 ng/mL (0.00-0.08) 07/22/18 15:06 Visualized and Interpreted Chest x-ray results: Yes Chest X-Ray results: no infiltrate Visualized and Interpreted imaging results: Yes EKG Interpretation: Positive for: other (atrial fibrillation) Assessment & Plan Assessment: Moderate or Hypothermia 2- patient initially with temperature of 29 degrees C. placed in bearhugger and now temperature of 37 degrees. labs unremarkable on presentation. repeat CMP, CBC, procalcitonin, BG all pending as these can change substantially as patient rewarms. He has become hypotensive as he warms as well, requiring aggressive fluid resuscitation and eventually pressor support. -continue external rewarming with bear hugger -repeat labs and monitor closely -aggressive fluids for hypotension -pressor support as needed Hypotension- likely secondary to hypothermia as it is known to cause severe hypotension as patients rewarm. Will rule out other causes as well. procalcitonin pending but CRP WNL. lactate low. labs not suggestive of infection. CBC with mild anemia, no evidence of bleeding or trauma. He has no obvious wounds or injuries and has no complaints aside from being cold. CXR without any infiltrate or cardiomegaly. ECG with afib. dd pending as well alhtough clinically doubt PE -check Procalcitonin -continue aggresssive fluid resuscitation -pressor support to maintain MAP over 65 -repeat lactate in 6 hours Afib with RVR- patient has history of afib but takes no medications. CHADSVASC of 0. rates up to 150s in ER. responded transiently to a push of diltiazem. He saw cardiology in August of 2017, had a TTE which was normal and started on lopressor 25mg bid. at that time it was recommended he take asa for anticoagulation given his low chads score, but appears he has been non compliant. -dilt gtt titrated -if no response may need amiodarone gtt and consultation to cardiology -once patien more stable restart asa Hx of PE- on nothing for this GERD- GI prophylaxis ordered hx of schizophrenia- on nothing for this. currently mood and affect are appropriate. PPX- SCDs, heparin Fluids- IVNS Lytes- WNL, monitor Nutrition- NPO while requiring pressors Cor- DNR Dispo- inpatient ICU for hypotension, hypothermia, afib with RVR. I spent 75 minutes of critical care time on the management of this patient with over half spent on direct patient care.
--- NOTE | 2018-07-22 16:08 | CPEKG ---
Test Reason : OPEN Blood Pressure : / mmHG Vent. Rate : 115 BPM Atrial Rate : 195 BPM P-R Int : 163 ms QRS Dur : 083 ms QT Int : 368 ms P-R-T Axes : 000 079 006 degrees QTc Int : 509 ms Atrial fibrillation Borderline T abnormalities, inferior leads Prolonged QT interval Confirmed by Ari Godinez ([id number]) on 07/22/2018 4:08:20 PM Referred By: Confirmed By:Ari Godinez
[2018-07-22] MEDS ORDERED: DILTIAZEM 125 MG in D5W 125 ML IV ONE (16:11)
[2018-07-22] MEDS ORDERED: DILTIAZEM HCL/D5W 125 ML IV ONE (16:30)
[2018-07-22] MEDS ORDERED: D50W 25 GM/50 ML SYR IVP ONE ×2 (16:32→16:33)
[2018-07-22] MEDS: FAMOTIDINE 20 MG/NACL 50 ML IV SCH (21:36)
[2018-07-22] MEDS: HEPARIN 5,000 UNIT/0.5 ML INJ SC SCH (21:36)
--- NOTE | 2018-07-22 21:41 | POSTOPPROG ---
Post Op Note Date of Operation: 07/22/18 Surgeon: Austin Kraft Anesthesia: Local (Specify) Pre-op Diagnosis: HYPOTHERMIA, HYPOTENSION Post-op Diagnosis: SAME Indication: NEED OF IV ACCESS FOR POSSIBLE PRESSOR USE Procedure: LEFT SUBCLAVIAN TRIPLE-LUMEN CATHETER PLACEMENT Findings: GOOD POSITION AND FLOW Inf/Abcess present in the surg proc area at time of surgery?: No Depth: Deep Incisional (Fascial) EBL: Minimal Complications: NONE
[2018-07-22] MEDS: NOREPINEPHRINE BITARTRATE 4 MG in NS 500 ML IV SCH (22:13)
[2018-07-23 04:47] LABS: PLATELET COUNT 263 10^3/uL (150-400)
[2018-07-23] MEDS ORDERED: DILTIAZEM HCL/D5W 125 ML IV SCH (06:00)
[2018-07-23] MEDS: HEPARIN 5,000 UNIT/0.5 ML INJ SC SCH ×3 (06:18→21:21)
[2018-07-23] MEDS: NOREPINEPHRINE BITARTRATE 4 MG in NS 500 ML IV SCH (07:09)
[2018-07-23] MEDS: FAMOTIDINE 20 MG/NACL 50 ML IV SCH ×2 (09:12→21:19)
--- NOTE | 2018-07-23 10:39 | ECHO ---
[email or web address] [address] [address] Main: [phone] Fax: Transthoracic Echocardiogram Name: POOL SEVILLA MR#: [id number] Study Date: 07/23/2018 Study Time: 08:34 AM Date of : 1955 Age: 63 year(s) Height: 182.9 cm (72 in.) Weight: 67.13 kg (148 lb.) BSA: 1.87 m2 Gender: Male Examination: Echo Indication: New onset of Atrial fibrillation Image Quality: Contrast: Requested by: Anival Desai BP: 108 mmHg/58 mmHg Heart Rate: Rhythm: Atrial fibrillation Indication: New onset of Atrial fibrillation Procedure Staff Microchip Specialist: Jte Soto RDCS Reading Physician: Javi Augustine MD Requesting Provider: Conclusions: No pericardial effusion. Ejection fraction 70%. Irregular rhythm precludes wall motion assessment. Biatrial enlargement. Mild aortic regurgitation. Mild tricuspid regurgitation with right ventricular pressure of 40 mm of mercury Measurements: Chambers Valvular Assessment AV/MV Valvular Assessment TV/PV Normal Normal Normal Name Value Range Name Value Range Name Value Range Ao Melanie (MM): 3.2 cm (2.2 cm-3.7 AV Vmax: 1.56 m/s (1 m/s-1.7 TR Vmax: 2.96 mm/s ( - ) cm) m/s) TR PGmax: 35 mmHg ( - ) IVSd (2D): 0.9 cm (0.6 cm-1.1 AV maxP mmHg ( - ) syst. PAP: 40 mmHg ( - ) cm) LVOT Vmax: 1.10 m/s (0.7 m/s-1.1 PV Vmax: 1.03 m/s (0.6 m/s-0.9 LVDd (2D): 4.9 cm (4.2 cm-5.9 m/s) m/s) cm) AR (PHT): 852 ms ( - ) PV PGmax: 4 mmHg ( - ) LVDs (2D): 2.9 cm (2.1 cm-4 MV E Vmax: 1.04 m/s ( - ) cm) LVPWd (2D): 1.0 cm (0.6 cm-1 cm) LVEF (2D): 70 (>=54 %) Continued Measurements: Chambers Valvular Assessment AV/MV Valvular Assessment TV/PV Name Value Name Value Name Value LADs Lon.0 cm MV E' Septal: 0.10 m/s CVP (est.): 5 mmHg LA Area: 22.5 cm2 MV E/E' Septal: 9.90 LA Volume: 81 ml MV E/E' Lateral: 8.40 LA Volume Index: 43.3 ml/m2 AR Vmax: 3.00 cm/s Patient: POOL SEVILLA Study Date: 07/23/2018 Page 1 of 2 08:34 AM Findings: Left Ventricle: Normal size left ventricle. No LV hypertrophy. Normal global systolic LV function. EF is 70 %. The rhythm is atrial fibrillation.. Right Ventricle: Mildly dilated right ventricle. Normal RV function. Left Atrium: The left atrium is mildly to moderately dilated. Right Atrium: The right atrium is moderately to severely dilated. Mitral Valve: The mitral valve is normal in appearance. Trivial to mild mitral regurgitation. Aortic Valve: Mild aortic cusp calcification is noted. Mild aortic valve regurgitation is present. Tricuspid Valve: The tricuspid valve appears normal. Mild tricuspid regurgitation is present. The pulmonary artery pressure is mildly increased. Pulmonic Valve: The pulmonic valve is normal in appearance and function. Aorta: The aorta is normal. Pericardium: Small pericardial effusion. No echocardiographic evidence of hemodynamic compromise. (No Signature Object) Patient: POOL SEVILLA Study Date: 07/23/2018 Page 2 of 2 08:34 AM [id number]
--- NOTE | 2018-07-23 10:56 | PDMN ---
Medical Necessity Medical necessity: Pt meets IP criteria as of 07/22/2018 per and [facility] ( systemic condition); est los > 2 mn for ongoing tx and management of hypothermia , hypotension and afib RVR; requiring re-warming, vasopressors, diltiazem gtt, and ICU care; Comorbid homelessness.
[2018-07-23] MEDS: METOPROLOL TARTRATE 25 MG TAB PO SCH ×2 (15:10→21:20)
--- NOTE | 2018-07-23 16:28 | GCON ---
CRITICAL CARE CONSULTATION DATE OF CONSULTATION: 07/23/2018 HISTORY OF PRESENT ILLNESS: This patient is a 63-year-old homeless male with a history of atrial fib rillation, who came to the emergency department yesterday complaining of feeling cold. He was found to be hypothermic with a T-max of only 29. He was placed on a [employer] Hugger, which improved his body t emperature, but his blood pressure dropped dramatically. He required a central line and pressors whi ch he did stay on overnight. His labs showed no evidence of infection or acute coronary syndrome. H is white count has been normal. His procalcitonin and CRP were all normal, and the hypotension was t hought to be due to his hypothermia. In addition, he was found to be in atrial fibrillation with a r apid ventricular response up to 150. He was treated with a diltiazem drip, which certainly may not h ave helped his hypotension. In any case, by this morning, the drip had been discontinued. His heart rate was well controlled, and he had not yet started his baseline metoprolol at this point. He said he felt much better today. No lightheadedness, dizziness, or chest pain. Denied any infectious com plaints and was hungry. REVIEW OF SYSTEMS: Otherwise negative. PAST MEDICAL HISTORY: Includes: 1. Atrial fibrillation. 2. Remote pulmonary embolism. 3. Gastroesophageal reflux disease. 4. Depression, anxiety, with psychotic features. 5. Remote esophageal stricture. 6. Remote pericardial cyst. 7. Vitamin D deficiency. PAST SURGICAL HISTORY: Only includes appendectomy. SOCIAL HISTORY: He is a remote smoker. No current alcohol that I am aware of. FAMILY HISTORY: Noncontributory. MEDICATIONS: At this time include Pepcid, heparin, metoprolol, norepinephrine, normal saline. PHYSICAL EXAMINATION: VITAL SIGNS: His temperature currently was a max of 38.4, currently 37.8, blo od pressure 107/65, heart rate 95 in sinus rhythm, respirations 19. Oxygen saturation 96% on 2 L. G ENERAL APPEARANCE: He was awake and alert, looked somewhat disheveled, but alert and oriented x3. A ble to speak in full sentences without using accessory muscles for breathing. HEENT: Pupils equally round and reactive to light. Nonicteric and noninjected. Mucous membranes moist without erythema o r exudate. NECK: Supple without adenopathy or jugular vein distention. CHEST: Breath sounds were clear to auscultation bilaterally without wheezes, rubs, or rales. HEART: Regular rate and rhythm w ithout murmurs, rubs, gallops. ABDOMEN: Soft, nontender, nondistended without hepatosplenomegaly. EXTREMITIES: Show no clubbing, cyanosis, or edema. SKIN: Warm and dry without evidence of cellulit is. NEUROLOGICAL: Nonfocal including cranial nerves, deep tendon reflexes. OBJECTIVE DATA: Includes white count of 4.4, hematocrit 30.9, platelets of 263. Basic metabolic weaver el is essentially normal save for chloride 115, bicarb 21, which dropped since he came in, probably f rom normal saline. LFTs were normal. Procalcitonin was negative. Urinalysis was unremarkable. Javier g screen was negative. Blood cultures negative. ASSESSMENT AND PLAN: 1. Hypothermia, probably due to exposure. This appears to have resolved at this point and my expect ation is that this is the underlying etiology for most of his problems. He is homeless, and we will have to find longterm for him before he leaves the hospital. 2. Hypotension. Again, this is probably related to his hypothermia, which is quite common. This se ems to be getting better. His Levophed was 14 this morning. It is down to 7 at this time and is rap idly being tapered off. There is no evidence of acute coronary syndrome infection or adrenal insuffi ciency. 3. Atrial fibrillation with rapid ventricular response. This is also a common problem with hypother oskar as well as the rewarming phase. He is now off his diltiazem drip. We should restart his metopro lol which has already been done and my expectation is this will normalize. There is no evidence of c ardiomyopathy on an echocardiogram that was done recently as well as today. /[id number]/MODL
--- NOTE | 2018-07-23 16:41 | ASMTCASEMG ---
Living Arrangements What is your living Answers: Alone arrangement? Who do you live with? Type Of Residence What kind of residence do Answers: Homeless you live in? Discharge Plan Comments Coordination Status Comments Notes: Patient is a 63yo single homeless male who slept outside with only scant blankets. Patient has been admitted for hypothermia, hypotension, afib, and gerd. OT/PT evals have been ordered for the patient. D/C plan TBD. CM will follow. Date Signed: 07/23/2018 04:41 PM Electronically Signed By:Neena Ordaz LCSW
--- NOTE | 2018-07-23 17:43 | HOSPPROG ---
Hospitalist Progress Note Assessment/Plan: Hypothermia- resolved at this point. Still requiring low dose of levophed but will hopefully titrate off today. Case discussed with supervisor film processing who feels presentation constistent with hypothermia. -continue IVF -wean off Levophed as able. afib with RVR- titrate dilt off and restart po lopressor PE- on nothing. restart DVT prophylaxis GERD-GI prophylaxis Schizophrenia- not on anything. treat PRN if needed PPX- SCDs, lovenox Fluids-IVNS Lytes- WNL Nutirtion- regular diet Cor- DNR Dispo- transfer out of icu once off pressures and stable. Inpatinet. Subjective: patient hungry, would like ice cream. otherwise no complaints. Objective: Vital Signs Temp Pulse Resp BP Pulse Ox 37.7 C 101 H 18 102/60 98 07/23/18 15:00 07/23/18 15:10 07/23/18 15:00 07/23/18 15:10 07/23/18 15:00 Laboratory Results 07/23/18 04:35 07/23/18 04:35 07/22/18 07/23/18 07/24/18 05:59 05:59 05:59 Intake Total 6642 Output Total 850 400 Balance 5792 -400 PT 13.5 SEC (12.0-15.0) 07/22/18 14:38 INR 1.01 (0.83-1.16) 07/22/18 14:38 - Physical Exam Constitutional: no apparent distress, appears nourished, not in pain Eyes: PERRL, anicteric sclera, EOMI Ears, Nose, Mouth, Throat: moist mucous membranes, hearing normal, ears appear normal, no oral mucosal ulcers Cardiovascular: irregularly irregular Respiratory: no respiratory distress, no rales or rhonchi, clear to auscultation Gastrointestinal: normoactive bowel sounds, soft, non-tender abdomen, no palpable masses Genitourinary: no bladder fullness, no bladder tenderness, no renal bruits Skin: no rashes or abrasions, no fluctuance, no induration Musculoskeletal: full muscle strength, no muscle tenderness, normal joint ROM Neurologic: AAOx3, sensation intact bilaterally Psychiatric: interacting appropriately, not anxious, not encephalopathic, thought process linear Lymph, Heme, Immunologic: no cervical LAD, no supraclavicular LAD ICD10 Worksheet Patient Problems: Problems Problem Status Onset Hypotension Acute Hypothermia Acute Altered mental status Acute Atrial fibrillation Acute Failure to thrive in adult Acute Major depressive disorder, recurrent, severe with psychotic features Acute Noncompliance with medications Acute Rapid atrial fibrillation Acute Schizophrenia Acute Trench feet Acute Weakness Acute
[2018-07-24] MEDS: HEPARIN 5,000 UNIT/0.5 ML INJ SC SCH ×3 (05:56→22:00)
[2018-07-24] MEDS: METOPROLOL TARTRATE 25 MG TAB PO SCH ×3 (07:45→22:00)
[2018-07-24] MEDS: FAMOTIDINE 20 MG/NACL 50 ML IV SCH (09:08)
--- NOTE | 2018-07-24 11:18 | GOP ---
DATE OF OPERATION: 07/22/2018 SURGEON: Austin Kraft MD PREOPERATIVE DIAGNOSIS: Hypothermia and hypotension. POSTOPERATIVE DIAGNOSIS: Hypothermia and hypotension. PROCEDURE PERFORMED: Left subclavian triple-lumen catheter placement. FINDINGS: GOOD FLOW AND POSITION INDICATIONS: The patient was in the emergency room where he had persistent hypotension. His hypothermia has been largely resolved. I was initially consulted for a Thermoguard catheter, but by that time his temperature was 37, and we elected to place a triple-lumen left subclavian catheter. DESCRIPTION OF PROCEDURE: Patient was prepped and draped in the usual sterile fashion, placed in Trendelenburg and anesthetized with 1% Xylocaine. A single stick was made in the left subclavian vein. Guidewire was introduced. Dilator was passed with the guidewire and a triple-lumen catheter was then passed over the guidewire, which was removed. Good backflow was achieved. The catheter flushed with heparin and saline and was secured to the exit site with 3-0 silk sutures and dressed appropriately. He tolerated the procedure quite well. No complications were found. Chest x- ray showed good position of the catheter with no evidence of pneumothorax or other complication. /[id number]/MODL MTDD
--- NOTE | 2018-07-24 13:56 | PDINTPN ---
Exercise Instructor Progress Note Assessment/Plan: Assessment: Plan: Subjective: 63 M denia hx etoh, homelessness admitted 07/22/18 with severe hypothermia (29 C ), hypotension and uncontrolled atrial fibrillation (chronic). He was rewarmed rapidly with a bear hugger but had difficulty with rapid afib requiring a dilt drip. His rate stabilized overnight, but he was still requiring pressor support in absence of sepsis, ACS, adrenal insufficiency. The pressors eventually were weaned off and he resumed his outpatient metoprolol. He has chronic issues of gait disturbance and homelessness with periods of confusion, possibly linked to Wernickes. * Hypothermia- environmental. Will work with case management on discharge strategies, eg custodial. * Hypotension related to hypothermia and now resolved and off pressors. Tolerating PO well. * Afib with RVR- this may also be related to hypothermia versus medical non- compliance. He was at first reluctant to resume his metoprolol until I discussed it with him in detail. He was very pleasant, albeit a difficult historian, but eventually agreed. ASA is likely the best bet for AC given his poor social situation. * * Objective: Vital Signs Temp Pulse Resp BP Pulse Ox 36.8 C 97 16 126/66 H 96 07/24/18 10:00 07/24/18 10:00 07/24/18 10:00 07/24/18 10:00 07/24/18 10:00 Laboratory Results 07/23/18 04:35 07/23/18 04:35 07/23/18 07/24/18 07/25/18 05:59 05:59 05:59 Intake Total 6642 2772.4 440 Output Total 850 3700 550 Balance 5792 -927.6 -110 PT 13.5 SEC (12.0-15.0) 07/22/18 14:38 INR 1.01 (0.83-1.16) 07/22/18 14:38 Physical Exam - Physical Exam General Appearance: alert, other (disheveled) EENT: PERRL/EOMI, No scleral icterus (R), No scleral icterus (L) Neck: supple Respiratory: lungs clear, normal breath sounds, No respiratory distress, No accessory muscle use Cardiac/Chest: regular rate, rhythm, No edema Abdomen: non-tender, soft, No distended Skin: normal color, warm/dry, No cyanosis Lymphatic: no adenopathy Extremities: No pedal edema Neuro/Psych: alert, normal mood/affect, motor weakness (ataxia), cognition abnormalities ICD10 Worksheet Patient Problems: Problems Problem Status Onset Hypotension Acute Hypothermia Acute Altered mental status Acute Atrial fibrillation Acute Failure to thrive in adult Acute Major depressive disorder, recurrent, severe with psychotic features Acute Noncompliance with medications Acute Rapid atrial fibrillation Acute Schizophrenia Acute Trench feet Acute Weakness Acute
--- NOTE | 2018-07-24 14:24 | HOSPPROG ---
Hospitalist Progress Note Assessment/Plan: Hypothermia- resolved at this point. Still requiring low dose of levophed but will hopefully titrate off today. Case discussed with consumer education specialist who feels presentation constistent with hypothermia. -continue IVF -wean off Levophed as able. afib with RVR- titrate dilt off and restart po lopressor and resume his asa as anticoag. which was started by cardiology previously. patient is non compliant. PE- on nothing. restart DVT prophylaxis GERD-GI prophylaxis Schizophrenia- not on anything. treat PRN if needed Debility- working with PT/OT who is recommending SNF if he is willing to go. Will discuss with CM. PPX- SCDs, lovenox Fluids-IVNS Lytes- WNL Nutirtion- regular diet Cor- DNR Dispo- transfer out of ICU, still weak, needs to likely go to SNF Subjective: patient still weak. no other complaints. Objective: Vital Signs Temp Pulse Resp BP Pulse Ox 36.8 C 97 16 126/66 H 96 07/24/18 10:00 07/24/18 10:00 07/24/18 10:00 07/24/18 10:00 07/24/18 10:00 Laboratory Results 07/23/18 04:35 07/23/18 04:35 07/23/18 07/24/18 07/25/18 05:59 05:59 05:59 Intake Total 6642 2772.4 440 Output Total 850 3700 550 Balance 5792 -927.6 -110 PT 13.5 SEC (12.0-15.0) 07/22/18 14:38 INR 1.01 (0.83-1.16) 07/22/18 14:38 - Physical Exam Constitutional: no apparent distress, appears nourished, not in pain Eyes: PERRL, anicteric sclera, EOMI Ears, Nose, Mouth, Throat: moist mucous membranes, hearing normal, ears appear normal, no oral mucosal ulcers Cardiovascular: regular rate and rhythym, no murmur, rub, or gallop Respiratory: no respiratory distress, no rales or rhonchi, clear to auscultation Gastrointestinal: normoactive bowel sounds, soft, non-tender abdomen, no palpable masses Genitourinary: no bladder fullness, no bladder tenderness, no renal bruits Skin: no rashes or abrasions, no fluctuance, no induration Musculoskeletal: full muscle strength, no muscle tenderness, normal joint ROM Neurologic: AAOx3, sensation intact bilaterally Psychiatric: interacting appropriately, not anxious, not encephalopathic, thought process linear Lymph, Heme, Immunologic: no cervical LAD, no supraclavicular LAD ICD10 Worksheet Patient Problems: Problems Problem Status Onset Hypotension Acute Hypothermia Acute Altered mental status Acute Atrial fibrillation Acute Failure to thrive in adult Acute Major depressive disorder, recurrent, severe with psychotic features Acute Noncompliance with medications Acute Rapid atrial fibrillation Acute Schizophrenia Acute Trench feet Acute Weakness Acute
--- NOTE | 2018-07-24 17:35 | ASMTCMCOM ---
CM Note CM Note Notes: Discussed pt in rounds. CM contacted [facility] who reports pt has been connected with [facility] through coordinated entry and will need to report there after discharge for half-way accommodations. Deuce RN notified via text and email. Pt refused placement in SNF rehab. Pt will likely needs medicaid transport to [facility] and an follow up appointment [facility] on discharge. CM to follow. D/C Plan: [facility] Date Signed: 07/24/2018 05:34 PM Electronically Signed By:Sruthi Diamond
--- NOTE | 2018-07-24 18:02 | CPEKG ---
Test Reason : OPEN Blood Pressure : / mmHG Vent. Rate : 163 BPM Atrial Rate : 204 BPM P-R Int : 112 ms QRS Dur : 079 ms QT Int : 270 ms P-R-T Axes : 000 067 261 degrees QTc Int : 445 ms Atrial fibrillation with rapid V-rate ST depression lateral leads. Confirmed by Kevin Russell ([id number]) on 07/24/2018 6:02:31 PM Referred By: Confirmed By:Kevin Russell
[2018-07-24] MEDS: FAMOTIDINE 20 MG TAB PO SCH (22:00)
[2018-07-25] MEDS: HEPARIN 5,000 UNIT/0.5 ML INJ SC SCH ×4 (06:10→22:57)
[2018-07-25] MEDS: METOPROLOL TARTRATE 25 MG TAB PO SCH ×3 (08:53→21:53)
[2018-07-25] MEDS: FAMOTIDINE 20 MG TAB PO SCH ×3 (08:53→22:57)
--- NOTE | 2018-07-25 15:08 | HOSPPROG ---
Hospitalist Progress Note Assessment/Plan: 63 year old male with pmh of afib, psychosis, gerd, PE, who was brought in with hypothermia, hypotension and afib with RVR, all resolved. Now with weakness and PT/OT recommending SNF but patient refusing. Concern that patient is not competent and unsafe to discharge back to the streets. Patient scoring only 15 on SLUMS eval and concern for patient safety. Competence- patient evaluated and scored 15 on slums which is down from about a year ago. When asked where he would go to sleep after discharge he says he will go back to the park which is where he was found with a body temperature of 84 degrees. I am concerned he is not safe or capable to care for himself. He cannot remember why he is here, or if he has any medical problems. To that end I will consult psychiatry to assist in determine his competence. Ultimately likely needs to go to an inpatient psych unit. -Psych eval in am Hypothermia- resolved at this point. Still requiring low dose of levophed but will hopefully titrate off today. Case discussed with district leader who feels presentation constistent with hypothermia. -continue IVF -wean off Levophed as able. afib with RVR- back on lopressor and asa. cont PE- was on xarelto previously, now on nothing. DVT prophy GERD-GI prophylaxis Hx of psychosis- not on anything. psych consult pending. Debility- patient is weak and PT/OT recommending snf. patient wants to go back to the park. PPX- SCDs, lovenox Fluids-IVNS Lytes- WNL Nutirtion- regular diet Cor- DNR Dispo-dispo pending psych eval. Needs rehab and likely group home placement. Subjective: patient resting comfortably, no complaints. Objective: Vital Signs Temp Pulse Resp BP Pulse Ox 36.9 C 91 14 111/72 92 07/24/18 15:50 07/24/18 15:50 07/24/18 15:50 07/24/18 15:50 07/24/18 15:50 Laboratory Results 07/23/18 04:35 07/23/18 04:35 07/24/18 07/25/18 07/26/18 05:59 05:59 05:59 Intake Total 2772.4 680 Output Total 3700 550 Balance -927.6 130 PT 13.5 SEC (12.0-15.0) 07/22/18 14:38 INR 1.01 (0.83-1.16) 07/22/18 14:38 - Physical Exam Constitutional: no apparent distress, appears nourished, not in pain Eyes: PERRL, anicteric sclera, EOMI Ears, Nose, Mouth, Throat: moist mucous membranes, hearing normal, ears appear normal, no oral mucosal ulcers Cardiovascular: regular rate and rhythym, no murmur, rub, or gallop Respiratory: no respiratory distress, no rales or rhonchi, clear to auscultation Gastrointestinal: normoactive bowel sounds, soft, non-tender abdomen, no palpable masses Genitourinary: no bladder fullness, no bladder tenderness, no renal bruits Skin: no rashes or abrasions, no fluctuance, no induration Musculoskeletal: full muscle strength, no muscle tenderness, normal joint ROM Neurologic: AAOx3, sensation intact bilaterally Psychiatric: not anxious, poor insight, poor judgement, poor memory, other ( patient with no recollection of why he is here. cannot remember any medical history) Lymph, Heme, Immunologic: no cervical LAD, no supraclavicular LAD ICD10 Worksheet Patient Problems: Problems Problem Status Onset Hypotension Acute Hypothermia Acute Altered mental status Acute Atrial fibrillation Acute Failure to thrive in adult Acute Major depressive disorder, recurrent, severe with psychotic features Acute Noncompliance with medications Acute Rapid atrial fibrillation Acute Schizophrenia Acute Trench feet Acute Weakness Acute
[2018-07-26] MEDS: HEPARIN 5,000 UNIT/0.5 ML INJ SC SCH ×3 (05:38→22:30)
[2018-07-26] MEDS: METOPROLOL TARTRATE 25 MG TAB PO SCH ×2 (09:16→22:30)
[2018-07-26] MEDS: FAMOTIDINE 20 MG TAB PO SCH ×2 (09:16→22:30)
--- NOTE | 2018-07-26 09:37 | PDGENHP ---
History & Physical Chief Complaint: COLD History of Present Illness: 61-YEAR-OLD MALE HOMELESS PERSON FOUND SLEEPING IN THE PARK WITH VERY COLD TEMPERATURES OUTSIDE. I WAS CONSULTED FOR PLACEMENT OF A THERMAGUARD CATHETER TO HELP WITH REWARMING. HOWEVER TO TIME A CONSULTATION IS ARTERY WARMER BACK UP TO 36 FROM 29 AND PROBABLY DOES NOT NEED A THERMAGUARD. DOES HAVE PERSISTENT HYPOTENSION WILL NEED A CENTRAL LINE FOR POSSIBLE VASOPRESSIN SUPPORT. HE RELATES NO EVIDENCE OF TRAUMA OR OTHER INJURIES Pertinent Past, Social, Family History: PAST MEDICAL HISTORY ATRIAL FIBRILLATION , HYPERTENSION, NO MAJOR SURGICAL HISTORY. NO KNOWN ALLERGIES. MEDICATIONS NONE. REVIEW OF SYSTEMS -10 POINT REVIEW SPECIFICALLY DOES NOT SMOKE. SOCIAL HISTORY HOMELESS, EX-SMOKER. PSYCH HISTORY NODE DEFINITE DIAGNOSIS BUT MAY BE NOT MENTALLY COMPETENT Relevant Physical Exam: GENERAL: ALERT COOPERATIVE BUT COLD. HEENT: NONICTERIC, PERRLA, NO ORAL LESIONS. NECK SUPPLE FULL RANGE OF MOTION NONTENDER NO SIGNS OF TRAUMA. CHEST CLEAR AND SYMMETRIC WITH NO SIGNS OF TRAUMA. COR REGULAR RHYTHM, MILDLY TACHYCARDIC. ABDOMEN: SOFT, NONTENDER, POSITIVE BOWEL SOUNDS, NO HERNIAS. GENITALIA NORMAL. EXTREMITIES FULL AN EXCELLENT PULSES BUT COLD, FULL RANGE OF MOTION. NEURO EXAM SYMMETRIC AND PHYSIOLOGIC. PSYCH APPEARS TO BE ORIENTED, ALERT AND COOPERATIVE BUT WITH THE BLANK AFFECT Cardiorespiratory Assessment: IMPRESSION: HYPOTHERMIA, HYPOTENSION. PLAN CENTRAL VENOUS ACCESS FOR BLOOD PRESSURE SUPPORT/RISKS AND OPTIONS FULLY DISCUSSED AND HE IS WILLING TO PROCEED
--- NOTE | 2018-07-26 14:22 | ASMTCMCOM ---
CM Note CM Note Notes: Not doing much medically for patient. Concern about his competence/decision making. Maybe gravely disabled due to psych issues, homelessness. Psych to consult. Date Signed: 07/25/2018 04:41 PM Electronically Signed By:Lucia Martinez LCSW
[2018-07-26] MEDS ORDERED: NS 1,000 ML IV SCH (15:15)
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
[2018-07-27] MEDS: HEPARIN 5,000 UNIT/0.5 ML INJ SC SCH ×3 (05:35→20:01)
[2018-07-27] MEDS: METOPROLOL TARTRATE 25 MG TAB PO SCH ×2 (08:34→20:01)
[2018-07-27] MEDS: FAMOTIDINE 20 MG TAB PO SCH ×2 (08:35→20:00)
--- NOTE | 2018-07-27 10:59 | ASMTCMCOM ---
CM Note CM Note Notes: Dr. Tobar is pursuing a psych eval for patient today with Dr. Rodriguez. Patient has also been referred to [facility] for follow up. Discharge plan remains [facility], [facility], assist with transport, and any follow up appointments needed with [facility]. CM will follow. Date Signed: 07/27/2018 10:58 AM Electronically Signed By:Neena Ordaz LCSW
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
--- NOTE | 2018-07-27 18:31 | ASMTTCLDSP ---
[facility] Discharge Disposition Disposition: Answers: Admit Discharge Concerns/Recommendations: Notes: In consultation with physician Geovanni Tobar MD and on-call psychiatrist, Estephania Rodriguez MD, both concurred that pt appears to meet 27-65 criteria requiring psychiatric hospitalization as pt appears to be at risk of harm to gravely disabled due to a mental illness condition. Pt was given the [facility] prohibited belongings list while in the ED. Was patient given the Answers: Yes Inpatient Behavioral Health Prohibited Belongings List while in the ED? For inpatient Estephania Rodriguez MD admission, the following psychiatrist agreed to accept patient for admission to [facility]): Date Signed: 07/27/2018 06:30 PM Electronically Signed By:Hellen Pereira
--- NOTE | 2018-07-27 18:34 | ASMTLCPROG ---
Notes Note: Notes: Per Dr. Rodriguez, due to multiple risk factors for dementia-consider formal cognitive assements Date Signed: 07/27/2018 06:33 PM Electronically Signed By:Hellen Pereira
[2018-07-28] MEDS: HEPARIN 5,000 UNIT/0.5 ML INJ SC SCH ×3 (05:44→20:24)
[2018-07-28] MEDS: METOPROLOL TARTRATE 25 MG TAB PO SCH ×2 (08:31→20:23)
[2018-07-28] MEDS: FAMOTIDINE 20 MG TAB PO SCH ×2 (08:32→20:23)
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
--- NOTE | 2018-07-28 15:04 | ASMTCMCOM ---
CM Note CM Note Notes: Pt was to be transferred to Behavioral Health unit today but [facility] fire charger operator notified us that they cannot accomodated pt's needs. He needs contact guard assist with walking and has been soiling in bed rather than being assisted to bathroom. The transfer is cancelled, aware. DC Plan: TBD Date Signed: 07/28/2018 03:04 PM Electronically Signed By:Sarah Sheppard RN
--- NOTE | 2018-07-28 15:49 | GDS ---
DISCHARGE DIAGNOSES: 1. Hypothermia. 2. Bipolar. 3. Atrial fibrillation. 4. Transient hypotension requiring pressors, felt secondary to hypotension. He presented hypothermic with a core temperature of 29 on the 13. He had slept out overnight with minimal blankets. He was seen by Trauma Surgery. He was rewarmed in the emergency department. He had relatively unrema rkable echocardiogram. He had central venous access placed at the time of admission. The patient di d well from a hypothermia standpoint, was discharged to the medical floor. There was some concern ab out his capacity to make decisions. He had a low SLUMS score which is decreased from prior. He was seen by Psychiatry and Behavioral Health. He was felt to be a good candidate for behavior health sta y where he is discharged now. /[id number]/MODL
[2018-07-29] MEDS: HEPARIN 5,000 UNIT/0.5 ML INJ SC SCH ×2 (05:40→13:46)
[2018-07-29] MEDS: METOPROLOL TARTRATE 25 MG TAB PO SCH (10:05)
[2018-07-29] MEDS: FAMOTIDINE 20 MG TAB PO SCH (10:06)
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
--- NOTE | 2018-07-29 14:03 | ASMTCMCOM ---
CM Note CM Note Notes: This case was discussed with harvest manager of our [facility] and Dr. Nogueira on Thursday afternoon- the [facility] team does not feel this patient meets inpatient criteria - Dr. Tobar updated. Met with patient to discuss discharge planning options. Per primary RN, patient has been able to ambulate to door independently. Given patient's hx, placement at SNF would be quite difficult. Patient and I discussed all the possibilities of discharge - I highly encouraged him to follow-up with [facility] (will also send email to them to f/u), [facility], [facility], the [facility]. Patient seems to be amendable today to the above plan and instructions. He has agreed to discharge to the [facility]pc and follow-up at [facility] on Thursday. This case has been discussed with Hospitalist who is in agreement. [facility] fpc bed reserved. Will use [place] transport from [facility] to fpc and provide cab voucher to get to [facility] on Thursday (See [facility] [employer] d/c instructions). CM available for any further needs. Plan: [facility] with [facility] follow-up. [facility] notified via e-mail. Date Signed: 07/29/2018 02:03 PM Electronically Signed By:Chelsie Bermudez RN
[2018-07-29 15:26] VITALS: BP 109/66
--- NOTE | 2018-07-29 19:13 | GDS ---
Please see yesterday's discharge summary for details of the hospitalization. The patient had planned to go to Behavioral Health for an inpatient stay where he has been before. This is reviewed by the behavior health physician who felt that he would not benefit from a stay. The patient is therefore d [facility]. He is amenable to this plan. He takes a beta jennifer for atrial fibrillation. I discussed continuance with him and he declined. He is discharged without medications. /[id number]/MODL
== END 2018-07-29 16:00 | disposition home or self-care (01) | DRG 815 ==
LOC: EDUNIT# → F2N 17:52 → F3N 07-24 15:44 → F3E 07-26 13:02
PROVIDERS: ADMIT Internal Medicine; ATTEND Internal Medicine
PROC: 05H633Z Insertion of Infusion Device into Left Subclavian Vein, Percutaneous Approach (ICD-10-PCS; principal; 2018-07-22)
DX: T68.XXXA Hypothermia, initial encounter (principal); I95.9 Hypotension, unspecified; I48.91 Unspecified atrial fibrillation; E86.9 Volume depletion, unspecified; F31.9 Bipolar disorder, unspecified; I10 Essential (primary) hypertension; X31.XXXA Exposure to excessive natural cold, initial encounter; Z59.0 Homelessness; K21.9 Gastro-esophageal reflux disease without esophagitis; Z87.891 Personal history of nicotine dependence; Z66 Do not resuscitate
CPT/HCPCS: 80305; 84484-ER; 92507-GN; 92523-GN; 97116-GP; 97161-GP; 97166-GO; 97535-GO; J1644

== ENCOUNTER 2018-07-30 08:47 | Emergency (ER) | payer MEDICAID ==
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
[2018-07-30 09:23] LABS: PLATELET COUNT 315 10^3/uL (150-400)
[2018-07-30 12:42] VITALS: BP 109/79
--- NOTE | 2018-07-30 13:19 | ASMTCMCOM ---
CM Note CM Note Notes: PT in ED after discharge on 07/29. Pt has significant HX of noncompliance for treatment and follow up. Due to Medicaid (pending) and recent legal history pt. will not be accepted to SNF. Pt. expressed that he "likes to stay here" and that he would end up coming back because he has no where to go. Pt stated that he completed [facility]. Options were discussed and pt stated he does not have a way to follow up with any of the resources that he was given because he is too weak. First available appointment made with [facility] on August 11 at 9:25 (with early arrival). Trina noted that they would also look for pt at [facility] breakfast and other community resource/events to encourage follow up and engage the pt. Date Signed: 07/30/2018 01:19 PM Electronically Signed By:Sb Gill LCSW
--- NOTE | 2018-07-30 13:22 | ASMTLACE ---
LACE Length of stay for Answers: Less than 1 day current admission Acuity / Level of Answers: No Care: Did the patient have an inpatient admission? # of Emergency department Answers: 5-8 visits in the last 6 months Social determinants Answers: Homelessness (street, senior care) Mental health diagnosis (anxiety, depression, pers onality disorders, etc.) Lack of community resources and/or lack of social support (no pcp, lives alone, transportation, jordon d) Score: 14 Date Signed: 07/30/2018 01:21 PM Electronically Signed By:Sb Gill LCSW
--- NOTE | 2018-07-30 16:59 | ASMTCMCOM ---
CM Note CM Note Notes: This CM spoke with Lj from [facility]. Lj confirmed that pt completed [facility] but did not want to be part of a program. He opted to be part of [facility] and other services only. Date Signed: 07/30/2018 04:58 PM Electronically Signed By:Sb Gill LCSW
== END 2018-07-30 12:46 | disposition home or self-care (01) ==
LOC: EDUNIT#
DX: R53.1 Weakness (principal); I48.91 Unspecified atrial fibrillation; K21.9 Gastro-esophageal reflux disease without esophagitis; I26.99 Other pulmonary embolism without acute cor pulmonale; Z59.0 Homelessness; Z87.891 Personal history of nicotine dependence; Z90.89 Acquired absence of other organs

== ENCOUNTER 2018-08-06 12:24 | Emergency (ER) | payer MEDICAID ==
--- NOTE | 2018-08-06 12:34 | EDPHY ---
H & P Time Seen by Provider: 08/06/18 12:30 HPI/ROS: CHIEF COMPLAINT: I am cold HISTORY OF PRESENT ILLNESS: Patient says he was walking away from the halfway day program and says he was having trouble walking. He says"my body mass is too low for me to walk or stay warm." Patient was brought in by EMS stating that he is cold. It is snowing outside. He does have warm clothes. He denies incontinence, paralysis, numbness or tingling extremities, headache, neck or back pain. REVIEW OF SYSTEMS: Eye: no change in vision ENT: no sore throat Cardiac: no chest pain or syncope Pulmonary: no cough or SOB Abdomen: no vomiting, diarrhea, abdominal pain Musculoskeletal: no back pain Skin: no rash Neuro: no headache Constitutional: no fever : no urinary symptoms A comprehensive 10 point review of systems is otherwise negative aside from elements mentioned in the history of present illness. PAST MEDICAL HISTORY: Discharge summary dated 07/29/2018 includes history of PE , not anticoagulated, atrial fibrillation, hypothermia Social history: Homeless General Appearance: Alert and conversant, cooperative. Eyes: No scleral icterus. ENT, Mouth: Normal mucous membranes. Respiratory: Normal respiratory effort, breath sounds equal, lungs are clear to auscultation. Cardiovascular: Regular rate and rhythm. Gastrointestinal: Abdomen is soft and non tender. Neurological: Alert, face symmetric, normal motor and sensory in extremities. Patient can easily move both legs and is able to transfer to the gurney. He can bear weight. His speech is fluent. Skin: Warm and dry, no rashes. He does not appear cold to the touch. Musculoskeletal: No peripheral edema. Psychiatric: Not agitated. Emergency Department course/MDM: Patient with multiple history including unspecified psychiatric diagnosis presents with complaints which do not appear to be in acute medical or surgical emergent condition. Case management is involved. Ambulatory, I think he is stable to be discharged. Smoking Status: Former smoker Constitutional: Initial Vital Signs Temperature (C) 36.6 C 08/06/18 12:36 Heart Rate 107 H 08/06/18 12:36 Respiratory Rate 16 08/06/18 12:36 Blood Pressure 130/86 H 08/06/18 12:36 O2 Sat (%) 93 08/06/18 12:36 O2 Delivery Mode Room Air Allergies/Adverse Reactions: No Known Allergies Allergy (Verified 07/30/18 08:52) Home Medications: Medication Instructions Recorded NK [No Known Home Meds] 07/30/18 Departure - Departure Disposition: Home, Routine, Self-Care Clinical Impression: Weakness, Feels cold Condition: Good Instructions: Additional Information Referrals: [facility],. [Clinic] - As per Instructions
[2018-08-06 12:38] VITALS: BP 130/86
--- NOTE | 2018-08-06 19:13 | ASMTCMCOM ---
CM Note CM Note Notes: Pt presented to the ED via EMS for being cold and reporting that he can't ambulate. Pt is very well-known to [facility] and its ED. Please see previous CM Reports for background info and efforts that have been made to assist pt with various homeless resources, outpatient followup, etc. Pt assessed and was road-tested by ED staff. Pt was able to ambulate very well without any assistance. Pt was discharged to the ED waiting area. This CM spoke w/pt and offered to set up a Medicaid (which is active) cab for him to go to [facility] for their free lunch which is offered from 12p-2p. Pt agreeable to this plan. Pt aware that if he does not make it to [facility] in time for their lunch, he is recommended to followup with [facility] which is near [facility]. Pt verbally understands and agrees to this plan. Pt strongly encouraged to followup with the various resources he has been provided multiple times in the past, such as: [facility], [facility], P, [facility] (pt provided a [facility] pamphlet w/Shazia Dominguez and Nasima Wing's cards). Pt was provided his Medicaid ID #. Later the Medicaid cab arrived but pt was no longer in the waiting area. This CM canceled the Medicaid. Then pt later returned to the ED waiting area and the CM had to set up the Medicaid cab to go to the [facility] location. Pt was successfully picked up. Of note, please know that pt completed [facility] a long time ago and was referred to [facility] (his [employer] was/is Dhruv) but chooses to not engage in their services and only stay at the [facility] when it is open. Received a call back from Trina joshua [facility]; she states the pt has not been seen there yet (pt no showed to the previously two scheduled appts in the past year) pt but he has an appt this 08/11/17 at 9:25am. CM available for further assistance if needed. Date Signed: 08/06/2018 07:12 PM Electronically Signed By:Tonya Hope RN
--- NOTE | 2018-08-13 10:22 | ASMTCMCOM ---
CM Note CM Note Notes: This CM received a call from Brit SERRATO (homeless outreach) as she was meeting with patient at [facility] (Patient stayed at [facility] last night). Brit is trying to get patient in to see a provider at the clinic. Patient reports that he has been seen at "[facility]" and has a provider. I have reviewed patient records and believe that patient is referring to his numerous visits to this ED and admissions to the hospital. Please see numerous CM notes/efforts to direct patient to resources Brit will continue to attempt to get patient plugged into services. CM will be available prn to communicate and coordinate these efforts Date Signed: 08/13/2018 10:22 AM Electronically Signed By:Paulette Tiwari RN
== END 2018-08-06 13:36 | disposition home or self-care (01) ==
LOC: EDUNIT#
DX: R68.83 Chills (without fever) (principal); R53.1 Weakness

== ENCOUNTER 2018-08-15 20:32 | Emergency (ER) | payer MEDICAID ==
--- NOTE | 2018-08-15 20:38 | EDPHY ---
H & P Time Seen by Provider: 08/15/18 20:34 HPI/ROS: HPI Concerned about frostbite. Can't walk. 63-year-old male by ambulance. This patient has been seen in our emergency department multiple times in the past for similar complaints. He was found in an apartment complex bathroom by police. He was charged with trespassing. He then told officers that he could walk and was concerned about frostbite. He had been in that bathroom for approximately 12 hr though. EMS described the bathroom is warm. When EMS arrived and told him that he would be taken to the hospital for evaluation he stood up right away and walk to the [facility]. They report a blood sugar of 78. They report normal vital signs. The patient tells me that he is concerned about frostbite on his feet. I witnessed him get off the gurney and walked to ideation room [facility] without any difficulty. ROS: Constitutional: No fever, no chills. As above. Eyes: No discharge. No changes in vision. ENT: No sore throat. No nasal congestion or rhinorrhea. Respiratory: No cough. No shortness of breath. Cardiac: No chest pain, no palpitations. Gastrointestinal: No abdominal pain, no vomiting, no diarrhea. Genitourinary: No hematuria. No dysuria or increased frequency with urination. Musculoskeletal: No back pain. No neck pain. No myalgias or arthralgias. Skin: No rashes. Neurological: No headache. No focal weakness or altered sensation. Past medical history: History of PE, not anticoagulated, hypothermia. Social history: Homeless, smoker, alcohol abuse. Physical Exam: General Appearance: Alert, no distress. Dirty. This patient is responding to questions appropriately and in full sentences. This patient appears well- hydrated and well-nourished. Eyes: Pupils equal and round no pallor or injection. No lid edema, erythema or injection. Respiratory: There are no retractions, lungs are clear to auscultation with good air movement bilaterally. Cardiovascular: Regular rate and rhythm. No murmur. Gastrointestinal: Abdomen is soft and nontender, no masses, bowel sounds normal. No focal tenderness at McBurney's point. No Mariscal sign. Neurological: Motor sensory function is grossly intact. Cranial nerves are normal. Gait is normal. Skin: Warm and dry, no rashes. Musculoskeletal: Neck is supple and nontender. Extremities are symmetrical. All joints range without pain or impingement. No evidence of cold injury/cold immersion injury to his feet. Psychiatric: No agitation. No depression. Database: EKG: Imaging: Procedures: Emergency department course: Triage vital signs reviewed and are normal. This patient has an unremarkable exam. He does not present with an emergent medical condition. We will try to find him a bed at 1 of the local shelters and provide transport to the longterm. He is in agreement with this plan. Follow-up and return to emergency department precautions reviewed with him. All of his questions were answered. He was discharged from the emergency department in good condition. Differential Diagnosis: The differential diagnosis on this patient includes but is not limited to homeless, generalized weakness. Acute frostbite or cold immersion injury unlikely. This represents a partial list of diagnoses considered. These considerations are based on history, physical exam, past history, reassessment and diagnostic testing. Smoking Status: Former smoker Allergies/Adverse Reactions: No Known Allergies Allergy (Verified 07/30/18 08:52) Home Medications: Medication Instructions Recorded NK [No Known Home Meds] 07/30/18 Departure - Departure Disposition: Home, Routine, Self-Care Clinical Impression: Feels cold, Weakness Condition: Good Instructions: Additional Information Additional Instructions: Read and follow provided instructions. Follow-up with your primary care physician in 1-2 days for re-evaluation. Return to the emergency department for worsening symptoms or other serious concerns. Referrals: [facility],. [Clinic] - As per Instructions
[2018-08-15 20:46] VITALS: BP 134/64
== END 2018-08-15 21:08 | disposition home or self-care (01) ==
LOC: EDUNIT#
DX: M62.81 Muscle weakness (generalized) (principal); Z59.0 Homelessness

== ENCOUNTER 2018-08-16 14:19 | Emergency (ER) | payer MEDICAID ==
--- NOTE | 2018-08-16 14:25 | EDPHY ---
H & P Time Seen by Provider: 08/16/18 14:24 HPI/ROS: CHIEF COMPLAINT: Frostbite HISTORY OF PRESENT ILLNESS: Patient is a 63-year-old homeless man who sustained frostbite on the of last month. He was seen here then and again yesterday for the same complaint. He complains of pain and "frostbite" to the tips of both great toes. He was outside of our parking lot today when he called an ambulance. No new injuries. No fevers. No other complaints. He has been assisted by case management. Severity: Moderate Modifying factors: None REVIEW OF SYSTEMS: Constitutional: denies: chills, fever, recent illness, recent injury EENTM: denies: blurred vision, double vision, nose congestion Respiratory: denies: cough, shortness of breath Cardiac: denies: chest pain, irregular heart rate, lightheadedness, palpitations Gastrointestinal/Abdominal: denies: abdominal pain, diarrhea, nausea, vomiting, blood streaked stools Genitourinary: denies: dysuria, frequency, hematuria, pain Musculoskeletal: denies: joint pain, muscle pain Skin: See HPI Neurological: denies: headache, numbness, paresthesia, tingling, dizziness, weakness Hematologic/Lymphatic: denies: blood clots, easy bleeding, easy bruising Immunologic/allergic: denies: HIV/AIDS, transplant 10 systems reviewed and negative except as noted EXAM: GENERAL: Well-appearing, well-nourished and in no acute distress. HEAD: Atraumatic, normocephalic. EYES: Pupils equal round and reactive to light, extraocular movements intact, sclera anicteric, conjunctiva are normal. ENT: TMs normal, nares patent, oropharynx clear without exudates. Moist mucous membranes. NECK: Normal range of motion, supple without lymphadenopathy or JVD. LUNGS: Breath sounds clear to auscultation bilaterally and equal. No wheezes rales or rhonchi. HEART: Regular rate and rhythm without murmurs, rubs or gallops. ABDOMEN: Soft, nontender, normoactive bowel sounds. No guarding, no rebound. No masses appreciated. BACK: No CVA tenderness, no spinal tenderness, step-offs or deformities EXTREMITIES: Very small dark areas that the tips of both great toes. Does not involve the nail or nail bed. Minimally tender. Normal capillary refill. NEUROLOGICAL: Cranial nerves II through XII grossly intact. Normal speech, normal gait. 5/5 strength, normal movement in all extremities, normal sensation , normal reflexes PSYCH: Normal mood, normal affect. SKIN: See above Source: Patient - Medical/Surgical History Hx Asthma: No Hx Chronic Respiratory Disease: No Hx Diabetes: No Hx Cardiac Disease: Yes Hx Renal Disease: No Hx Cirrhosis: No Hx Alcoholism: No Hx HIV/AIDS: No Hx Splenectomy or Spleen Trauma: No Other PMH: afib by past med record. HTN - Family History Significant Family History: No pertinent family hx - Social History Smoking Status: Former smoker Alcohol Use: None Constitutional: Initial Vital Signs Temperature (C) 36.7 C 08/16/18 14:25 Heart Rate 98 08/16/18 14:25 Respiratory Rate 16 08/16/18 14:25 Blood Pressure 150/101 H 08/16/18 14:25 O2 Sat (%) 93 08/16/18 14:25 O2 Delivery Mode Room Air Allergies/Adverse Reactions: No Known Allergies Allergy (Verified 08/15/18 20:46) Home Medications: Medication Instructions Recorded Ibuprofen 800 mg PO TID PRN #30 tablet 08/16/18 Medical Decision Making ED Course/Re-evaluation: We encouraged the patient to apple warm dry socks and gave him some additional pairs. We discussed the treatment for frostbite which is essentially auto amputation. I will have him follow up with General surgery. His area of frostbite seems very small. We discussed indications for returning to the emergency department . Differential Diagnosis: Partial list of the Differential diagnosis considered include but were not limited to; frostbite, malingering dependency and although unlikely based on the history and physical exam, I also considered ischemia, infection. Departure - Departure Disposition: Home, Routine, Self-Care Clinical Impression: Frostbite of great toes, bilateral Condition: Fair Instructions: Frostbite (ED) Referrals: NONE *PRIMARY CARE P,. [Primary Care Provider] - As per Instructions Austin Kraft MD [Medical Doctor] - As per Instructions Prescriptions: Ibuprofen 800 mg PO TID PRN #30 tablet PRN Reason: Pain, Moderate
[2018-08-16 14:36] VITALS: BP 150/101
--- NOTE | 2018-08-17 21:41 | ASMTCMCOM ---
CM Note CM Note Notes: Late Entry from 08/16/18: Pt presented to the ED for weakness, concerns re:the frostbite to his toes and stating he cannot walk. Pt has presented to the ED multiple times recently for the same reasons. (Pt was also seen 08/15 in the ED after he was found sleeping in a bathroom at an apartment complex. Per ED Report pt was charged with trespassing by [employer]. Pt was later discharged to the streets.) Please see previous CM Reports, etc. Pt is a complex care high utilizer of [facility] and its ED; pt is very well-known to the ED and Inpt Case Mgmt team. Spoke w/pt and reminded him that he can indeed walk, that there is nothing else the ED can do for him at this time and that he needs to followup outpatient. This CM had spoken to Brit Homeless Outreach RN at [facility], earlier in the day and discussed pt extensively. Brit states she met pt for the 1st time this past Thursday and tried to get pt to engage. Pt had been staying at the [facility]. Spoke w/Brit again while pt was in the ED; it was decided to provide pt w/a cab directly to [facility] where Brit could keep an eye out for the pt and hopefully convince him to enter [facility] and engage w/their services. This CM provided cab voucher. Pt was reluctant but agreeable. Pt ambulated well without any assistance to the waiting area. This CM spoke w/pt extensively in the waiting area until the cab arrived. Pt did get into the cab. Received a call from Brit later in the day and she said that the cab arrived at but pt was not in the vehicle. Brit states she will continue to try to reach pt out in the community. This CM also had an opportunity today to again discuss pt w/[facility] team members Nasima Loyola RN, and Janet Yoo LPC. CM available for further assistance if needed. Date Signed: 08/17/2018 09:40 PM Electronically Signed By:Tonya Hope RN
== END 2018-08-16 14:54 | disposition home or self-care (01) ==
LOC: EDUNIT#
DX: T33.832A Superficial frostbite of left toe(s), initial encounter (principal); T33.831A Superficial frostbite of right toe(s), initial encounter; X31.XXXA Exposure to excessive natural cold, initial encounter; Y92.9 Unspecified place or not applicable; Y99.9 Unspecified external cause status; Y93.9 Activity, unspecified; Z59.0 Homelessness

== ENCOUNTER 2018-08-18 21:35 | Emergency (ER) | payer MEDICAID ==
--- NOTE | 2018-08-18 21:38 | EDPHY ---
H & P Time Seen by Provider: 08/18/18 21:38 - Medical/Surgical History Hx Asthma: No Hx Chronic Respiratory Disease: No Hx Diabetes: No Hx Cardiac Disease: Yes Hx Renal Disease: No Hx Cirrhosis: No Hx Alcoholism: No Hx HIV/AIDS: No Hx Splenectomy or Spleen Trauma: No Other PMH: afib by past med record. HTN - Social History Smoking Status: Former smoker Constitutional: Initial Vital Signs Temperature (C) 36.6 C 08/18/18 21:44 Heart Rate 88 08/18/18 21:44 Respiratory Rate 18 08/18/18 21:44 Blood Pressure 123/74 H 08/18/18 21:44 O2 Sat (%) 92 08/18/18 21:44 O2 Delivery Mode Room Air Allergies/Adverse Reactions: No Known Allergies Allergy (Verified 08/18/18 21:44) Home Medications: Medication Instructions Recorded Ibuprofen 800 mg PO TID PRN #30 tablet 08/16/18 Medical Decision Making ED Course/Re-evaluation: CHIEF COMPLAINT: Cold feet HISTORY OF PRESENT ILLNESS: 63-year-old homeless male who is here with cold feet. He states the shelters are closed tonight because it is not cold enough. Consequently he came to the emergency department make sure his feet were okay. He states he has a history of frostbite but that was quite awhile ago. He denies any other complaints whatsoever except that he would like a place to stay. REVIEW OF SYSTEMS: A comprehensive 10 system review of systems is otherwise negative aside from elements mentioned in the history of present illness and medical decision making. PHYSICAL EXAM: HR, BP, O2 Sat, RR. Temp noted General Appearance: Alert, well hydrated, appropriate, and non-toxic appearing. Head: Atraumatic without scalp tenderness or obvious injury Eyes: Pupils equal, round, reactive to light and accommodation, EOMI, no trauma , no injection. Ears: Clear bilaterally, no perforation, normal landmarks Nose: Atraumatic, no rhinorrhea, clear. Throat: There is no erythema or exudates, no lesions, normal tonsils, mucus membranes moist. Neck: Supple, 2+ carotid upstroke, nontender, no lymphadenopathy. Respiratory: No retractions, no distress, no wheezes, and no accessory muscle use. Lungs are clear to auscultation bilaterally. Cardiovascular: Regular rate and rhythm, no murmurs, rubs, or gallops. Bilateral carotid, radial, dorsalis pedis, and posterior tibial pulses intact. Good capillary refill all extremities. Gastrointestinal: Abdomen is soft, nontender, non-distended, no masses, no rebound, no guarding, no peritoneal signs. Musculoskeletal: Normal active ROM of all extremities, atraumatic. Neurological: Alert, appropriate, and interactive. The patient has normal DTRs and non-focal cranial nerves, motor, sensory, and cerebellar exam. Skin: No evidence of erythema, infection, dry or wet gangrene on the feet or toes. No rashes, good turgor, no nodules on palpation. Past medical history: Noncontributory Past surgical history: Noncontributory Family history: Noncontributory Social history: Homeless, single, not employed, abuses tobacco drugs and alcohol DIFFERENTIAL DIAGNOSIS: Includes but is not limited to: Infection, cellulitis , dry gangrene, wet gangrene, trauma, frostbite, trench foot MEDICAL DECISION MAKING: This patient has no evidence of any ongoing foot process. His feet are slightly cold. There is no infection. There is no gangrene. We will provide warm socks for him and discharge the patient Departure - Departure Disposition: Home, Routine, Self-Care Clinical Impression: Cold feet Condition: Good Instructions: Warm Compress or Soak (ED) Additional Instructions: Keep her feet warm and dry Referrals: NONE *PRIMARY CARE P,. [Primary Care Provider] - As per Instructions
[2018-08-18 21:46] VITALS: BP 123/74
== END 2018-08-18 21:52 | disposition home or self-care (01) ==
LOC: EDUNIT#
DX: R20.9 Unspecified disturbances of skin sensation (principal)

== ENCOUNTER 2018-08-26 11:15 | Emergency (ER) | payer MEDICAID ==
[2018-08-26 14:00] LABS: PLATELET COUNT 388 10^3/uL (150-400)
--- NOTE | 2018-08-26 14:05 | EDPHY ---
General Time Seen by Provider: 08/26/18 11:27 Narrative: CLINICAL IMPRESSION: Chronic frostbite bilateral feet ASSESSMENT/PLAN: 63-year-old male brought to the emergency department by ambulance for evaluation of bilateral feet pain related to chronic frostbite. Patient is well established with our case management department. He does not abuse IV or oral illicit drugs, does not drink alcohol, but does have a mental health history. Unfortunately he is very noncompliant with both outpatient mental health follow-up as well as primary care follow-up. He reports his feet have been bothering him for many months and he has findings consistent with chronic frostbite, dry gangrene of tip of left great toe, but no e/o wet gangrene, necrotizing fasciitis, osteomyelitis, cellulitis, or overt infection. He was seen in the emergency department by Dr. Treviño who did not feel the patient had wet gangrene and did not feel he was amenable to emergent surgery or amputation. It was recommended that he pursue outpatient wound care, limit ambulation as much as possible and stay warm. Unfortunately multiple past attempts at getting the patient establish with primary care and wound care have failed as he very inconsistently follows up. He has no leukocytosis or significant lab abnormality and x-rays do not suggest underlying fracture or osteomyelitis. We had multiple discussions with the patient emphasizing the importance of outpatient wound care and primary care follow-up as well as staying warm, staying off his feet and limiting ambulation. Patient's friend is in the room and reports he will try to encourage the patient to follow up. He was discharged with several pairs of fresh socks and referrals for primary care and wound care. DIFFERENTIAL DX: Differential includes but not limited to severe frostbite, tissue necrosis, osteomyelitis, wet gangrene, necrotizing fasciitis, cellulitis ED PROCEDURES: See lab and/or imaging results below ED COURSE: 1015: Patient seen and evaluated by Dr. Garner in the ED. He did not feel there was any indication of wet gangrene, secondary infection or the need for emergent amputation. He feels the patient may lose the distal tip of the left great toe secondary to severe frostbite but the remainder of the toes may heal should patient remain compliant with recommendations. Unfortunately this patient has had inconsistent outpatient follow-up and is resistant to mental health follow-up as well as PCP establishment with [facility]. It is my recommendation to him that he see wound care as an outpatient, limit his ambulation as much as possible, and he is aware this may take as long as 6 months to heal with compliant treatment recommendations. I do not feel this patient requires admission for infection and there was no mention from general surgery that he requires any emergent intervention at this time. CHIEF COMPLAINT: Bilateral feet pain HPI: 63-year-old homeless male familiar to our emergency department presents to the emergency department today by ambulance with complaints of bilateral feet pain. Patient reports he has been suffering from frostbite for"many many months". He is here requesting a new pair of socks. He is very familiar to our case management staff who report that he is consistently noncompliant with outpatient follow-up. He does not drink alcohol and denies illicit drugs. He does have a history of mental health illness but is not currently treated for this. He reports no documented fevers, chills. He reports no sensation to all of his toes for quite some time but has had some more pain today. No reported fall or injury. No nausea, vomiting, palpitations, lower leg pain. He is sleeping outside and walking significant amounts during the day. PAST MEDICAL HISTORY: Homeless, mental health history See triage summary and nurse notes for addition applicable history Pertinent Past Surgical History: None reported Family History: Noncontributory Social History: Homeless REVIEW OF SYSTEMS: A full 10 point review of systems was negative except for those mentioned in HPI. PHYSICAL EXAM: General Appearance: Alert, oriented, appropriate, cooperative, NAD, flat affect , well hydrated, non-toxic appearing, VSS, no hypoxia. Respiratory: There are no retractions, lungs are clear to auscultation. Cardiac: Regular rate and rhythm, no murmurs or gallops. Skin: Warm, dry, no rashes, no nodules on palpation. Mottled skin to bilateral feet. Insensate to all toes on both feet. Intact sensation from the dorsum of the midfoot proximally. Dry gangrene possible on the tip of the left toe. No evidence of wet gangrene, cellulitis, open wound, necrotizing fasciitis, crepitus, or deep space infection. Musculoskeletal: Full range of motion of both feet. Dorsalis pedis and posterior tibialis pulses intact bilaterally. No pain to proximal foot, ankle or lower leg. MEDICAL DECISION MAKING: Patient was seen independently. Secondary supervising physician at time of evaluation was: Dr. Guzmán . Diagnosis: Severe chronic frostbite. New, requires workup Summary: See Assessment and Plan for summary of ED visit Review / Summarize previous medical records: Reviewed recent visits Discussed patient with another provider: Dr. Treviño, Dr. guzmán, case management Patient Progress: stable. - History Smoking Status: Former smoker - Objective Vital Signs: Initial Vital Signs Temperature (C) 36.6 C 08/26/18 11:22 Heart Rate 105 H 08/26/18 11:22 Respiratory Rate 18 08/26/18 11:22 Blood Pressure 123/73 H 08/26/18 11:22 O2 Sat (%) 97 08/26/18 11:22 O2 Delivery Mode Room Air Allergies/Adverse Reactions: No Known Allergies Allergy (Verified 08/18/18 21:44) Home Medications: Medication Instructions Recorded Ibuprofen 800 mg PO TID PRN #30 tablet 08/16/18 Laboratory Results: Laboratory Results 08/26/18 13:45 08/26/18 13:45 Departure - Departure Disposition: Home, Routine, Self-Care Clinical Impression: Frostbite Condition: Fair Instructions: Frostbite (ED) Additional Instructions: DISCHARGE INSTRUCTIONS FROM YOUR DOCTOR Thank you for visiting our emergency department today. Please keep in mind that discharge from the emergency department does not mean that there is nothing wrong - it simply means that we have not identified an emergency condition that requires further evaluation or treatment in the hospital. You should always plan to follow up with primary care for re-evaluation of your condition in the next 2-3 days. If you have been referred to a specialist, please call as soon as possible (today or tomorrow) to schedule your follow up appointment at the appropriate time. IT IS VERY IMPORTANT THAT YOU FOLLOW UP AN OUTPATIENT WITH PRIMARY CARE AND WOUND CARE. OUR GENERAL SURGEON, DR. YADY UNDERWOOD, EVALUATED YOUR FEET IN THE EMERGENCY DEPARTMENT. HE DID NOT FEEL THAT YOU REQUIRED AN EMERGENT SURGERY OR AMPUTATION. HOWEVER, IT IS IMPERATIVE THAT YOU SEE WOUND CARE AND AVOID WALKING MUCH POSSIBLE. THIS WILL BE THE ONLY WAY THAT YOUR FEET WILL BEGIN TO HEAL. [facility] CAN HELP ARRANGE WOUND CARE FOLLOW-UP FOR YOU. PLEASE CHANGE TO DRY SOCKS MUCH POSSIBLE AND PLEASE TRY TO STAY INDOORS AND STAY WARM. RETURN TO THE EMERGENCY DEPARTMENT FOR FEVER GREATER THAN 100.4, NAUSEA, VOMITING, SEVERE PAIN GOING UP THE LEGS, OR ANY OTHER CONCERN. People present with illnesses and injuries in different ways, and it is always possible that we have missed something. You may always return for re-evaluation if symptoms worsen or if they are not improving or if you develop new/different symptoms. Again, thank you for choosing our emergency department. We hope that you feel better. Referrals: Patient,NotPresent [Primary Care Provider] - As per Instructions [facility],. [Clinic] - As per Instructions
[2018-08-26 14:25] VITALS: BP 110/76
--- NOTE | 2018-08-26 14:51 | ASMTCMCOM ---
CM Note CM Note Notes: Please see ED report for details regarding initial presentation. Patient is well know to the ED and CM. Patient is initially accompanied by ROJELIO Chaudhary CM who was contacted by Rebeca at prior to ambulance transfer to ED. Please see prior ED, IP, behavioral health, and CM notes from most recent admission in July, This CM met with patient to discuss chronic issues related to bilateral frostbite and patient's ongoing issues with behavioral health and homelessness. Patient admits that he still has not engaged with case management services at [facility]. He does stay at the [facility] most nights. Patient has been referred to [facility] and [facility] ([facility]) several times but has not followed up with this. When asked, patient does not indicate why this is. He is polite, articulate, but only states "yes, I will do that". I have discussed patient situation with Neena SERRATO CM, and have LM for Trina at [facility]. Per chart review, patient did have an IP behavioral health stay (B3N) in February and this was considered again in July (last admission) but per Dr. Tobar's discharge summary on 07/29/18, physician felt patient would not benefit from another behavioral health IP visit. Patient's friend Parveen arrived to the ED while I was visiting with patient. Patient encouraged by this CM and Parveen indicates that he will help encourage patient, to follow through with engagement with and [facility] services. I have explained to patient that there are housing options available to him through /[facility] if he follows through with their services. I also stressed to patient (and Parveen) the importance of following up with [facility] for outpatient wound care and referrals. Parveen indicates that he will do what he can to help facilitate this. Parveen has met Neena and Sharri correctional case records supervisor at and he is aware of patient's lack of follow through. patient was discharged from the ED today with a bus pass to return to [facility]/ CM will continue to assist prn with community outreach for this complex care/high utilizing patient. Date Signed: 08/26/2018 02:50 PM Electronically Signed By:Paulette Tiwari RN
--- NOTE | 2018-08-26 15:16 | GCON ---
DATE OF CONSULTATION: 08/26/2018 CHIEF COMPLAINT: Bilateral lower extremity frostbite. HISTORY OF PRESENT ILLNESS: The patient is a 63-year-old male, well-known to the emergency departmen britt. Briefly, he has been admitted multiple times in the past for hypothermia, hypotension, and frostb ite to his bilateral lower extremities. Briefly, Dhruv was most recently seen last month, subsequentl y discharged, and was in a intermediate. He states that he was having significant pain at the intermediate and ended up calling an ambulance for transfer here. On arrival in the emergency department, he complai ns of bilateral lower extremity pain. He is essentially insensate in the toes, but does have intact sensation from the distal foot onward. He states that he does stay in a intermediate sometimes; sometimes , he does not. It is unclear as to why he is inconsistent. In the past, he has had followup establi shed at both a primary care clinic and at wound care, and for various reasons, he has never followed up, mainly using the emergency department as his point of contact. At any rate, he did say he had so me chills at the intermediate, but denies having any balwinder fevers. He still continues to walk on his feet , and states that when he has the available intermediate, he uses it, but for the most part, he sleeps out side. PAST MEDICAL HISTORY: Significant for atrial fibrillation and hypertension. PAST SURGICAL HISTORY: None. CURRENT MEDICATIONS: None. ALLERGIES: None. FAMILY HISTORY: Noncontributory. REVIEW OF SYSTEMS: A full 10-point review was performed. PHYSICAL EXAMINATION: VITAL SIGNS: Temperature is 36.6, blood pressure is 120/70, heart rate is 88, and he is 97% on room air. CONSTITUTIONAL: He is in no apparent distress. He is tired, but comfor table-appearing. EYES: His pupils are equal, round, and reactive to light and accommodation. He love s anicteric sclerae. His extraocular movements are intact. EARS, NOSE, MOUTH, THROAT: He has poor dentition. He has dry mucous membranes. His hearing is otherwise normal. CARDIOVASCULAR: He has a regular rate and rhythm without any murmurs. RESPIRATORY: He has no respiratory distress, rales or rhonchi. GI: His abdomen is soft, nondistended, nontender. He has normoactive bowel sounds. SKIN : Bilateral lower extremity toes are mottled. The left great toe tip has some signs of dry gangrene . No signs of any underlying abscess or wet gangrene. The remainder of the foot is warm. He has pa lpable distal DP and PT pulses. Intact sensation from the mid distal foot onward. MUSCULOSKELETAL: Full strength. No tenderness. No range of motion issues. NEUROLOGIC: He is alert and oriented x3. Again, the distal toes are insensate and mottled-appearing, consistent with frostbite. PSYCH: He is interacting appropriately. He is not anxious or encephalopathic. LYMPH/HEME/IMMUNOLOGIC: He has no cervical, groin, or supraclavicular lymphadenopathy appreciated. LABORATORY DATA: He does have an elevated leukocytosis to 11,000. His H and H are stable at 11 and 33. His platelets are 388. Chemistry is largely unremarkable. IMAGING: Includes bilateral foot x-rays which show no acute osseous findings. ASSESSMENT AND PLAN: 63-year-old homeless male with frostbite. My assessment in the emergency depar tment is that he does have some mottling appearance of most of his toes. The left great toe does alexus ear to have some dry gangrene, but I do not appreciate any underlying fluctuance or wet gangrene or a ny signs of overt infection. My assessment at this point in time it is that the patient does need to get plugged in with more long-term care. He could get admitted, but the long-term problem here is m ainly placement and the fact that once he leaves, he just goes back to the street, and the problem pe rsists. My recommendation would either be admission for facilitation of that or discharge back to [facility] with followup wound care, which I am happy to facilitate. I discussed this with the physic [employer] counter assistant taking care of the patient in the ED. /[id number]/MODL
== END 2018-08-26 14:36 | disposition home or self-care (01) ==
LOC: EDUNIT#
DX: T33.822A Superficial frostbite of left foot, initial encounter (principal); T33.821A Superficial frostbite of right foot, initial encounter; X31.XXXA Exposure to excessive natural cold, initial encounter; Y92.9 Unspecified place or not applicable; Y93.9 Activity, unspecified; Y99.9 Unspecified external cause status; Z59.0 Homelessness

== ENCOUNTER 2018-08-30 12:31 | Inpatient (IN) | payer MEDICAID ==
--- NOTE | 2018-08-30 13:13 | EDPHY ---
HPI/HX/ROS/PE/MDM Narrative: CHIEF COMPLAINT: Weakness HISTORY OF PRESENT ILLNESS: This patient is a homeless 63 year old male well known to this department with several prior visits within the past year. He resents today with complaints of general weakness over three years. He states other people called 911 because he was on the street, and police and EMS decided that he should come in. They were worried that he "could not move off the street". He endorses weakness, cough, and fever. He endorses some chest discomfort and some shortness of breath. He states today "I thought if I could stay here for a day, I could get better". He is concerned that he is "disintegrating". He states he is not on any daily medications now, including for his bipolar disorder or his atrial fibrillation. He denies chills, palpitations, vomiting, diarrhea, urinary complaints, headache, lightheadedness. REVIEW OF SYSTEMS: A comprehensive 10 system review of systems is otherwise negative aside from elements mentioned in the history of present illness and medical decision making. PAST MEDICAL HISTORY: Atrial fibrillation. Hypertension. Bipolar disorder. Recent evaluations for tadeo bite. SOCIAL HISTORY: Homeless. Denies tobacco, alcohol, or marijuana use. Currently staying at the severe weather intermediate. Multiple consultations documented with case management. Patient has not be consistent with follow up. VITAL SIGNS: Reviewed by me. Temp 37.8. HR 110-120. SpO2 dips and rises between 87-95 throughout my interview. GENERAL: Disheveled. No visible respiratory distress. HEENT: Atraumatic. Eyes: No icterus, no injection. Mouth: moist mucous membranes. No erythema or lesions. Neck: supple with no adenopathy. LUNGS: Diminished throughout. CARDIAC: Irregularly irregular tachycardia. ABDOMEN: Soft, nontender, nondistended, bowel sounds normal. BACK: No CVA tenderness. EXTREMITIES: No trauma. No edema. Range of motion is normal throughout. Patient declined to remove shoes or jeans so I could examine his frostbite. NEURO: Alert and oriented to person and place. Poor insight into what is preventing him from following up or from completing process to be housed. Simply states he can't do that because he is "disintergrating", grossly nonfocal. SKIN: Warm and dry, no rash. PSYCHIATRIC: Difficult historian, somewhat flat affect. Portions of this note were transcribed by a medical fee clerk. I personally performed a history, physical exam, medical decision making, and confirmed accuracy of information the transcribed note. ED Course: 63 year old male presents with complaints of weakness, chronic cough, and persistent illness. Th patient is a difficult historian and has a somewhat flat affect throughout my history and exam. Breath sounds are diminished throughout, no rhonchi. Heart rate is irregularly irregular and tachycardic. He is mildly febrile today at 37.8. Plan for chest x-ray, EKG, labs including CBC, chemistries, liver, lipase, troponin, d-dimer, coag panel, blood cultures, lactic acid, UA, flu swab. Plan to administer Albuterol nebulizer. 13:18 Case management at bedside. Patient hasn't followed up with [facility], wound clinic, or [facility] as has been suggested to him at the past. He remarks that he is unable to do this as "My condition keeps getting worse and worse, and the unique thing that I have just gets worse, it never gets better". He generally stays at the severe weather intermediate when it is open. Reviewed chest x-ray. No evidence of pneumonia at this time. See radiologist report for additional findings. 13:47 Nurse relates to me that the patient is refusing all testing and medications at this time. Patient has now agreed to proceed with testing and nebulizer. Flu swab is negative for Flu A and B. Troponin is negative. WBC is elevated. D- dimer elevated. Plan to proceed with CTA to r/o PE/ pneumonia. Labs otherwise largely unremarkable. 15:[address] mC, radiologist. CTA negative for PE. Suspect flow -limiting stenosis proximal right subclavian artery and possibly of the origin of the right common carotid artery. Patient is at risk for CVA. 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 Patient continues to be in atrial fibrillation with RVR. Treated with diltiazem IV. Review of old records indicate patient usually has afib with a normal heart rate. Given this, his lack of access to medications, his unmanaged stroke risk, his confusion, his questionable competancy and safety on the streets, this patient is a candidate for admission. Plan to consult with patient, hospitalist service , and case management. Brain MRI was ordered. Patient declined. Stating he does not want to take off his jeans. Please note, up to this point the patient has not allow me to evaluate his feet which have frostbite per the records. MDM: Diff dx considered included but not limited to pneumonia, pulmonary embolism, acute coronary syndrome, electrolyte abnormalities, stroke, dementia. - Data Points Imaging Results: CXR: Impression: No pneumonia. Please see above. Dictated By: Rakan Cm MD CT Chest: Impression: No evidence for pulmonary embolic disease. 2. Suspect flow-limiting stenosis proximal right subclavian artery and possibly of the origin of the right common carotid artery. 3. Cardiomegaly with asymmetrically enlarged right ventricle raises the possibility of chronic pulmonary arterial hypertension of uncertain etiology. 4. 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 Results discussed with Dr. Saniya Ghosh at 15:39 PM General information for patients regarding this examination can be found at [email or web address]. If you have questions or comments about this report, please contact me at [phone] (hospital) or [phone] (cell). Dictated By: Rakan Cm MD Imaging: Discussed imaging studies w/ ambulatory service representative Radiologist, I viewed and interpreted images myself Laboratory Results: Laboratory Results 08/30/18 14:05 08/30/18 14:05 08/30/18 14:05 Procalcitonin 0.09 ng/mL ng/mL (0.02-0.10) Medications Given: Acetaminophen (Tylenol) 650 mg PO Q4HRS PRN PRN Reason: Pain, Mild/Fever, Can Take PO Stop: 02/26/19 18:32 Last Admin: 08/30/18 20:00 Dose: 650 mg Sodium Chloride (Ns) 1,000 mls @ 125 mls/hr IV CONT NONA Stop: 02/26/19 18:44 Last Admin: 08/31/18 09:13 Dose: 1,000 mls Piperacillin/Tazobactam/Dextrose (Zosyn (Premix)) 100 mls @ 200 mls/hr IV Q6H NONA PRN Reason: Protocol Stop: 09/30/18 08:59 Last Admin: 08/31/18 09:13 Dose: 100 mls Vancomycin/Sodium Chloride (Vancomycin 1 Gm (Premix)) 250 mls @ 250 mls/hr IV Q12H [facility] Stop: 09/30/18 09:59 Last Admin: 08/31/18 10:59 Dose: 250 mls Discontinued Medications Albuterol (Proventil Neb) 3 ml IH EDNOW ONE Stop: 08/30/18 13:33 Last Admin: 08/30/18 13:50 Dose: 3 ml Diltiazem HCl (Cardizem 25 Mg/5 Ml Vial) 10 mg IVP EDNOW ONE Stop: 08/30/18 16:06 Last Admin: 08/30/18 16:28 Dose: 10 mg Enoxaparin Sodium (Lovenox) 60 mg SC BID NONA Stop: 02/26/19 20:59 Last Admin: 08/30/18 20:49 Dose: Not Given Sodium Chloride (Ns) 1,000 mls @ 0 mls/hr IV EDNOW ONE; Wide Open PRN Reason: Protocol Stop: 08/30/18 13:29 Last Admin: 08/30/18 14:08 Dose: Not Given Cefepime HCl 1 gm/ Sodium (Chloride) 50 mls @ 100 mls/hr IV Q8HRS NONA PRN Reason: Protocol Stop: 09/30/18 05:59 Last Admin: 08/31/18 05:04 Dose: Not Given Vancomycin/Sodium Chloride (Vancomycin 1 Gm (Premix)) 250 mls @ 250 mls/hr IV Q12H [facility] Stop: 09/30/18 00:29 Last Admin: 08/31/18 01:19 Dose: Not Given Point of Care Test Results: Chemistry 08/30/18 14:07 POC Troponin I 0.01 ng/mL ng/mL (0.00-0.08) General Time Seen by Provider: 08/30/18 12:58 Initial Vital Signs: Initial Vital Signs Temperature (C) 37.8 C 08/30/18 12:45 Heart Rate 112 H 08/30/18 12:45 Respiratory Rate 20 08/30/18 12:45 Blood Pressure 127/75 H 08/30/18 12:45 O2 Sat (%) 95 08/30/18 12:45 O2 Delivery Mode Room Air Allergies/Adverse Reactions: No Known Allergies Allergy (Verified 08/18/18 21:44) Home Medications: Medication Instructions Recorded NK [No Known Home Meds] 08/30/18 Departure - Departure Disposition: [facility] Acute Clinical Impression: Rapid atrial fibrillation, Failure to thrive in adult, Weakness Condition: Fair Report Scribed for: Saniya Ghosh Report Scribed by: Mer Andrea Date of Report: 08/30/18 Time of Report: 13:24
[2018-08-30] MEDS ORDERED: NS 1,000 ML IV ONE (13:28)
[2018-08-30] MEDS ORDERED: ALBUTEROL 3 ML DEYVIAL IH ONE (13:32)
[2018-08-30 14:20] LABS: PLATELET COUNT 588 10^3/uL (150-400)
[2018-08-30 14:25] LABS: INR 1.08 (0.83-1.16); PROTIME(PATIENT) 14.2 SEC (12.0-15.0)
[2018-08-30] MEDS ORDERED: IOPAMIDOL (ISOVUE 370) 100 ML BTL IV ONE (15:05)
[2018-08-30] MEDS ORDERED: DILTIAZEM 25 MG/5 ML VIAL IVP ONE (16:05)
[2018-08-30] MEDS ORDERED: ONDANSETRON 4 MG/2 ML VIAL IVP PRN (18:33)
[2018-08-30] MEDS ORDERED: HYDROCODONE/APAP 5/325 TAB PO PRN (18:33)
[2018-08-30] MEDS ORDERED: ONDANSETRON DISINTEGRATING 4 MG TAB PO PRN (18:33)
[2018-08-30] MEDS ORDERED: ALBUTEROL 3 ML DEYVIAL IH PRN (18:33)
[2018-08-30] MEDS ORDERED: HYDROmorphONE/DILAUDID 1 MG/ML INJ IVP PRN (18:33)
[2018-08-30] MEDS ORDERED: PROMETHAZINE HCL 25 MG/ML INJ IVP PRN (18:33)
[2018-08-30] MEDS ORDERED: NS 1,000 ML IV SCH (18:45)
[2018-08-30] MEDS: ACETAMINOPHEN 325 MG TAB PO PRN (20:00)
--- NOTE | 2018-08-30 20:32 | ASMTCMCOM ---
CM Note CM Note Notes: Pt presented to the ED via EMS for weakness x 3 years and a cough. Per EMS pt was lying on the sidewalk and bystanders called 911 because pt said he could not move/walk. Pt is well known to the ED and [facility] Inpatient setting. Please review various past CM Reports, Behavioral Health RN Notes (01/14/17, 08/31 & 09/30/17), Psychiatric consultations (August and February 2018), 3N Behavioral Health Checkering Machine Adjuster Notes, TLC evaluations, etc. Pt admitted for A-fib w/RVR, FTT, AMS and overall further care coordination / possible placement. Pt refused brain MRI at this time. Spoke w/pt and he states " I am disintegrating. I have their unique condition where I never get better, I only get worse." Pt states he hasn't followed up with the wound care clinic (for his frostbite to his toes), [facility], [facility], [facility] because "I can't even make it to the waiting area. I'm not able to walk, I'll fall on my face." Again, this CM discussed w/pt that he can indeed walk and he has been able to demonstrate this recently. Pt said "but not very far." This CM talked about setting pt up with walker that would have a seat so he could take frequent breaks and pt said "no that wouldn't work either," but was unable to explain why not. Pt is wearing his running shoes again; this CM asked what happened to the winter boots he used to have "they didn't fit. they were too big." When asked what size of shoe he wears, pt states "6 or 7;" this CM questioned this due to pt's height and that it appears his feet are larger than a Men's 6 or 7, and pt said "it is what it is." This CM asked pt if he would wear a pair of winter boots if they fit and pt said "no. its too late. it won't help. I'm disintegrating." This CM relayed that medical asst believe that it would still help for him to keep his feet warm and dry, and the pt still said he would not wear winter boots. This is definitely peculiar and this CM feels it is even more supportive of pt's delusions and inability to make appropriate decisions re:his well being. Pt's friend Torey Whitney (H: [phone], c:[phone]) arrived to the ED. 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 This CM spoke w/Torey extensively. Torey would like to help pt out however he can and would be willing to apply for Emergency Guardianship if necessary. This CM spoke w/pt privately about signing an TASHIA for Torey and his other friend/former co-worker, Johnie Yina (c:[phone]) and pt states he would like Torey and Johnie to be able to be updated, involved and have access to his records. This CM assisted pt w/completing the TASHIA. Copy provided to Torey. Original scanned into pt's e-chart. Pt also gave permission for Torey and Johnie to be listed as his Emergency Contacts. Spoke w/hospitalist and discussed a Behavioral Health RN Consult again? Psychiatric consult again? Decisional capacity eval again? Hopefully a meeting can be scheduled to involve the interdisciplinary team, CM, Ethics, and pt's friends. PT/OT evals ordered. Wound Care consult ordered. CM to follow. Date Signed: 08/30/2018 08:30 PM Electronically Signed By:Tonya Hope RN
--- NOTE | 2018-08-30 20:47 | CPEKG ---
Test Reason : OPEN Blood Pressure : / mmHG Vent. Rate : 122 BPM Atrial Rate : 252 BPM P-R Int : 123 ms QRS Dur : 083 ms QT Int : 297 ms P-R-T Axes : 000 027 072 degrees QTc Int : 423 ms Atrial fibrillation aflutter Borderline T wave abnormalities Confirmed by Saniya Ghosh ([id number]) on 08/30/2018 8:46:45 PM Referred By: Confirmed By:Saniya Ghosh
[2018-08-30] MEDS ORDERED: ENOXAPARIN 60 MG/0.6 ML SYR SC SCH (21:00)
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
[2018-08-30] MEDS ORDERED: D5W IV SCH (23:30)
[2018-08-30] MEDS ORDERED: DILTIAZEM IV SCH (23:30)
[2018-08-30] MEDS ORDERED: DILTIAZEM HCL IV SCH (23:30)
[2018-08-31] MEDS ORDERED: VANCOMYCIN HCL/NORMAL SALINE 250 ML IV SCH ×2 (00:30→09:00)
[2018-08-31 04:20] LABS: PLATELET COUNT 577 10^3/uL (150-400)
[2018-08-31] MEDS ORDERED: CEFEPIME HCL 1 GM in NS 50 ML IV SCH (06:00)
[2018-08-31] MEDS: PIPERACILLIN/TAZO 4.5 GM/DEX 100 ML IV SCH ×3 (09:13→23:51)
--- NOTE | 2018-08-31 09:14 | HOSPPROG ---
Hospitalist Progress Note Assessment/Plan: 63 yo homeless man with recent admission for frostbite as well as hx of untreated a fib and PE presenting with FTT and sepsis in the setting of untreated lower extremity wounds #Sepsis 2/2 gangrene - h/o frostbite, b/l toes are affected. Hemodynamics improved. -surgical consult, discussed with Dr. Jauregui -ID consult, discussed with Dr. Forbes -cont vanc, broaden Cefepime to Zosyn for anaerobic coverage # possible bipolar d/o with psychotic features: not currently on any psych meds , h/o non-compliance. He is withdrawn, depressed. -psych consult requested for assistance with mental illness -discussed case with Dr. 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 Shakes his head no when asked if I can remove his shoes and socks, but does not refuse or resist my efforts to do so. His shoes were stuck to the purulence from his socks and wounds, very malodorous and neglected extremities. No fevers overnight. Denies pain. Really not interacting with me. Objective: Vital Signs Temp Pulse Resp BP Pulse Ox 37.5 C 98 12 99/67 L 93 08/31/18 08:21 08/31/18 08:21 08/31/18 08:21 08/31/18 08:21 08/31/18 08:21 Laboratory Results 08/31/18 03:48 08/31/18 03:48 08/30/18 08/31/18 09/01/18 05:59 05:59 05:59 Intake Total 100 Balance 100 PT 14.2 SEC (12.0-15.0) 08/30/18 14:05 INR 1.08 (0.83-1.16) 08/30/18 14:05 - Physical Exam Constitutional: chronically ill appearing Eyes: PERRL Ears, Nose, Mouth, Throat: moist mucous membranes Cardiovascular: irregularly irregular Respiratory: no respiratory distress, clear to auscultation Gastrointestinal: normoactive bowel sounds, soft, non-tender abdomen Skin: warm Musculoskeletal: full muscle strength, other (b/l toes with gangrenous changes and marked purulence, quite malodorous, 2+ distal pulses) Psychiatric: encephalopathic, depressed, flat affect ICD10 Worksheet Patient Problems: Problems Problem Status Onset Failure to thrive in adult Acute Rapid atrial fibrillation Acute Weakness Acute Altered mental status Acute Atrial fibrillation Acute Hypotension Acute Hypothermia Acute Major depressive disorder, recurrent, severe with psychotic features Acute Noncompliance with medications Acute Schizophrenia Acute Trench feet Acute
--- NOTE | 2018-08-31 10:01 | GCON ---
REASON FOR CONSULTATION: I was asked to see the patient by Dr. Oralia Feng, from [facility], in regard to infections of the feet. HISTORY OF PRESENT ILLNESS: This unfortunate 63-year-old homeless male has been seen in the emergenc y room multiple times for frostbite injuries of his feet. He apparently has difficulty with resource s and followup for outpatient care and uses the ER for crisis. Currently, he is admitted with leukocytosis, which has largely resolved overnight. Met sepsis criter ia, was started on multiple antibiotics. OBJECTIVE: Examined the patient's feet. They are odiferous and draining pus, but much of this seems to be collected under the gloved skin. I manually debrided the skin without causing him any pain, l ikely because of neurologic issues, and I think most of the purulence and bad odor is from superficia l infection which has collected under his skin, which is from the epidermis and dermal laye rs. Squeezing various toes and forefoot, I do not see any deep space sinus tracts or purulence. All of his toes involve some degree of ischemic gangrene secondary to frostbite as well as some areas which are erythematous, and they are evolving frostbite injury. There is no swelling of the dorsum of the foot or gross forefoot abnormality which we would see with osteo or deep space infection of the forefoot. ASSESSMENT: Multiple toes with varying degree of frostbite injury and superficial infection clearly with purulence from under the skin. I have debrided most of the skin which is trapping this and recommend that the feet be washed with so ap and water and covered in Silvadene, and we will see, over the next day or two, whether this takes care of the foul-smelling purulence, etc., and coupled with the intravenous antibiotics, might contai n things. I will also order x-rays of his feet as an initial screen for any evidence of osteomyeliti s. I do not feel the patient needs to go to surgery today. /[id number]/MODL
--- NOTE | 2018-08-31 10:23 | PDMN ---
Medical Necessity Medical necessity: Pt meets IP criteria as of 08/30/18 per MD and MCG M-160 ( Sepsis); est los > 2 mn for ongoing tx and management of sepsis with fever, leukocytosis, encephalopathy and tachycardia as well as frostbite to BLE, pneumonia, and management of chronic conditions including afib, carotid artery stenosis, bipolar disorder, and homelessness.
[2018-08-31] MEDS: VANCOMYCIN HCL/NORMAL SALINE 250 ML IV SCH (10:59)
[2018-08-31] MEDS ORDERED: TDAP ADULT 0.5 ML INJ (BOOSTRIX) IM ONE (12:00)
--- NOTE | 2018-08-31 12:12 | GCON ---
INFECTIOUS DISEASE CONSULTATION DATE OF CONSULTATION: 08/31/2018 REFERRING PHYSICIAN: Oralia Feng MD REASON FOR CONSULTATION: Bilateral foot infection associated with frostbite. HISTORY OF PRESENT ILLNESS: The patient is a 63-year-old male with a past medical history of homeles sness as well as recent episodes of hypothermia and frostbite of the feet, who I am asked to see in c onsultation for fever, leukocytosis, and bilateral foot infection. The patient describes having inte rmittent fever without chills, bilateral foot pain with frostbite and gangrene, and drainage from his feet over the last 3 months. He also notes that he has also had a chronic cough without shortness o f breath or chest pain during this timeframe. Yesterday, the patient was found on the street and bro ught to the hospital for further evaluation. The patient was noted to have a white count of 14,000 w ith left shift. At the time of initial presentation, he would not allow for his feet to be evaluated . Earlier today, his shoes were removed, and he was noted to have bilateral gangrenous changes of mu ltiple toes with associated malodorous discharge and skin breakdown. Surgical consultation was obtai amirah, noting purulent drainage which I collected under the skin which was . This was manual ly debrided by Surgery and findings were felt to be associated with superficial infection rather than deeper infection or wet gangrenous change. Currently, the patient complains of pain in his feet and cannot tolerate examination other than visual examination. At the time of his previous hospitalizat ion, blood cultures were obtained on 07/22/2018, and were negative. Yesterday, he had a temperature maximum of 39.1. Blood cultures are currently pending. He was initially treated with vancomycin and cefepime, which has now been modified to vancomycin and Zosyn based on concern for anaerobic involve ment. The patient does not have nausea, vomiting or diarrhea. Given the above findings, I am now as ked to assist in his ongoing management. PAST MEDICAL HISTORY: Frostbite, as above; gastroesophageal reflux; atrial fibrillation; pulmonary e mbolism; depression and anxiety with psychotic features; esophageal stricture; pericardial cyst. PAST SURGICAL HISTORY: Appendectomy. CURRENT MEDICATIONS: Vancomycin 1 g IV q.12 hours, Zosyn 4.5 g IV q.6 hours, diltiazem drip as neede d, Lovenox 60 mg subcu b.i.d., Dilaudid as needed for pain, silver sulfadiazine applied twice daily t o the feet. ALLERGIES: No known drug allergies. SOCIAL HISTORY: The patient does not smoke, drink alcohol, or use drugs. He states he has been home less for 2 years. Unclear how often he stays in the longterm versus sleeping outside. FAMILY HISTORY: Currently cannot be obtained. REVIEW OF SYSTEMS: Outside that noted in the HPI, the remainder of a 10-system review is unremarkabl e or unobtainable from the patient today. PHYSICAL EXAMINATION: VITAL SIGNS: Temperature maximum 39.1, temperature current 37.7, heart rate 9 5, respiratory rate 16, blood pressure 106/62, oxygen saturation 94% on room air. GENERAL: Patient is a disheveled male in no acute distress. He appears nontoxic. HEENT: There is no scleral icterus , conjunctival injection, or conjunctival petechiae. Oropharynx shows slightly dry mucous membranes. No nasal discharge. No tenderness over the sinuses. NECK: Supple without palpable lymphadenopath y or thyromegaly. CHEST: Clear to auscultation anterolaterally without increase in respiratory effo rt. Patient is unable to sit up or roll over to assess respiratory exam posteriorly. He has frequen t dry cough. CARDIOVASCULAR: Regular rate and rhythm without murmurs, gallops, or rubs. ABDOMEN: Soft, nontender, nondistended. There is no palpable organomegaly. Bowel sounds are present. MUSCUL OSKELETAL: Both feet show evidence of frostbite and gangrenous change which appears to be primarily dry in etiology; there are collections of purulent material in the web spaces of the toes. There is some surrounding erythema at the base of the gangrenous change. There is no cellulitis over the fore foot or lower leg. The patient will not allow for palpation of his toes due to tenderness. Malodor is present. SKIN: See musculoskeletal exam. There are no stigmata of endocarditis. Significant di rt has built up under the nails of the hands. The skin is diffusely warm to palpation. NEUROLOGIC: Patient is alert and interacts appropriately with the examiner. Cranial nerves 2 through 12 are rach ssly intact. PSYCHIATRIC: Patient has a flat affect. LYMPHATICS: Unable to assess for inguinal ad enopathy. There is no lymphangitic streaking to the lower extremities bilaterally. LABORATORY DATA: White blood cell count 10.1, hematocrit 30.7, platelets 577, neutrophils 74%, lymph ocytes 15%. Serum creatinine is 0.7, AST 23, ALT 25, alkaline phosphatase 93, bilirubin 0.3, albumin 3.0, procalcitonin 0.09. Influenza PCR is negative. Blood cultures x2 are pending. CT scan of the chest shows no evidence of PE; no evidence of pneumonia present. Plain film of both f eet was obtained on 08/26/2018, and showed no osseous abnormalities bilaterally. IMPRESSION: 1. Fever and leukocytosis associated with bilateral lower extremity dry gangrene and superimposed sk in and soft tissue infection: With the patient's fever and leukocytosis, he is at risk for bacteremi a with most likely pathogens being either beta-hemolytic streptococci or Staphylococcus aureus with m ethicillin-resistant Staphylococcus aureus being a consideration based on homelessness. Gram-negativ e rods or anaerobes are also possible in the setting of dry gangrene. Recent x-rays of the foot did not show evidence of osteomyelitis. 2. Cough: Influenza PCR negative. Will obtain respiratory pathogen panel by PCR to ensure no other respiratory virus is present that would necessitate ongoing isolation. RECOMMENDATIONS: 1. Agree with empiric vancomycin 1 g IV q.12 hours and Zosyn 4.5 g IV q.6 hours pending additional c ulture data. 2. Respiratory pathogen panel PCR testing. 3. Continue to follow clinical exam over time and in response to ongoing antibiotic therapy. Thank you for this consultation. We will continue to follow the patient with you. /[id number]/MODL
[2018-08-31] MEDS ORDERED: LORazepam 1 MG TAB PO PRN (12:51)
[2018-08-31] MEDS: SILVER SULFADIAZINE 50 GM JAR TP SCH ×2 (13:58→23:53)
[2018-08-31] MEDS: ENOXAPARIN 60 MG/0.6 ML SYR SC SCH ×2 (14:01→23:51)
--- NOTE | 2018-08-31 14:55 | ASMTCMCOM ---
CM Note CM Note Notes: See detailed ED CM note from 08/30/18. Pt admitted for sepsis 2/2 gangrene. Pt receiving brain MRI today. Pt homeless and mentally ill with frequent admissions to hospital, ED and behavioral health inpatient. Pt non compliant with all follow up. Pt requesting placement at this time. Referral sent to various medicaid facilities with LTC units. PASSR faxed to [facility], [id number] faxed to [facility] for eval. Pt has been declined from SNF in the past, likely due to lack of medical qualification. Pt has two friends Torey and Johnie - numbers in the chart - who have been given HIPPA release by patient and are requesting a "family meeting" as they are concerned for pt's life and would like to participate in solution finding and are willing to be emergency proxies. CM is also coordinating interdisciplinary team meeting to identify pt's goals of care, that is, is patient decisional, is pt eligible for palliative, etc. CM staff services manager to arrange interdisciplinary team meeting. D/C Plan: TBD Date Signed: 08/31/2018 02:55 PM Electronically Signed By:Sruthi Diamond
[2018-09-01] MEDS: PIPERACILLIN/TAZO 4.5 GM/DEX 100 ML IV SCH ×3 (04:07→15:11)
[2018-09-01] MEDS: VANCOMYCIN HCL/NORMAL SALINE 250 ML IV SCH ×3 (04:19→13:23)
[2018-09-01 04:31] LABS: PLATELET COUNT 634 10^3/uL (150-400)
[2018-09-01] MEDS: ENOXAPARIN 60 MG/0.6 ML SYR SC SCH ×2 (09:52→10:31)
--- NOTE | 2018-09-01 10:32 | HOSPPROG ---
Hospitalist Progress Note Assessment/Plan: 63 yo homeless man with recent admission for frostbite as well as hx of untreated a fib and PE presenting with FTT and sepsis in the setting of untreated lower extremity wounds. 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 #Sepsis 2/2 gangrene - h/o recent hospitalization for frostbite, b/l toes are affected. Hemodynamics improved. -surgical consult appreciated, some superficial skin debridement performed at bedside yesterday, discussed with Dr. Jauregui -ID following, cont vanc and zosyn -BCx ngtd # possible bipolar d/o with psychotic features: not currently on any psych meds , h/o non-compliance. He is withdrawn, depressed. -psych consult requested for assistance with mental illness -discussed case with Dr. Rodriguez and Sarah Cortes -brain MRI planned, could not achieve this yesterday due to pt's refusal, will try again today (still refusing) # Abnormal CTA of the chest: loculated pleural effusion without clear e/o pna at this time, doubt this is cause of sepsis # a fib w/rvr: currently rate controlled, off dilt -Lovenox for now for cva prevention, transition to eliquis prior to dc though compliance is an issue # diaphragmatic cyst versus pericardial cyst versus loculated pleural effusion: doubt this is not predominant issue currently # right subclavian and likely right carotid artery stenosis: of uncertain significance -given his rapid decline brain MRI is planned, if e/o CVA, will pursue carotid imaging and neuro consult, no neurodeficits currently # metabolic encephalopathy: likely related to infection, mental illness # hx of PE: no PE on CTA -lovenox as above # full code # dvt pplx: lovenox # dispo: cont inpt, CM involved, will need some type of placement (SNF/LTC vs inpatient psych) Subjective: Pt is more awake and a bit more interactive. Basically refusing most of my recommendations, refuses MRI, refuses to let me remove his wound dressings to examine his feet. No fevers overnight. Objective: Vital Signs Temp Pulse Resp BP Pulse Ox 37.3 C 90 16 116/76 96 09/01/18 08:26 09/01/18 08:26 09/01/18 08:26 09/01/18 08:26 09/01/18 08:26 Microbiology 08/31/18 14:15 Respiratory Panel (PCR) - Final Nasal, Sinus - Anaerobic Tube/Swab No Organism Detected By Pcr Laboratory Results 09/01/18 04:20 08/31/18 03:48 08/31/18 09/01/18 09/02/18 05:59 05:59 05:59 Intake Total 100 1656 Output Total 900 150 Balance 100 756 -150 PT 14.2 SEC (12.0-15.0) 08/30/18 14:05 INR 1.08 (0.83-1.16) 08/30/18 14:05 - Physical Exam Constitutional: no apparent distress Eyes: PERRL Ears, Nose, Mouth, Throat: moist mucous membranes Cardiovascular: regular rate and rhythym Respiratory: no respiratory distress, reduced air movement Gastrointestinal: normoactive bowel sounds, soft, non-tender abdomen Skin: warm Musculoskeletal: full muscle strength, other (b/l feet with dressings which he will not allow me to remove) Psychiatric: depressed, flat affect ICD10 Worksheet Patient Problems: Problems Problem Status Onset Failure to thrive in adult Acute Rapid atrial fibrillation Acute Weakness Acute Altered mental status Acute Atrial fibrillation Acute Hypotension Acute Hypothermia Acute Major depressive disorder, recurrent, severe with psychotic features Acute Noncompliance with medications Acute Schizophrenia Acute Trench feet Acute
[2018-09-01] MEDS: SILVER SULFADIAZINE 50 GM JAR TP SCH ×2 (13:23→15:53)
--- NOTE | 2018-09-01 15:22 | ASMTCMCOM ---
CM Note CM Note Notes: CM met with pt, his friends Torey ([phone]) and Johnie ([phone]) , who are willing to be health care decision makers for Dhruv. Torey reports that he is in regular contact with pt's mother, who is 98 and lives at [facility]. During Rounds, MD/RN/CARLOS EDUARDO discussed getting cog eval to determine if pt is decisional. Pt refused eval today. Dr. Rodriguez with psychiatry is involved today, Sarah Cortes also is involved. CM and RN discussed plan with pt's friends Torey and Johnie. They want him to get into a facility and are willing to do whatever it takes to help get him somewhere. Once cognitive eval is done, they are willing to collaborate with CM to make the appropriate steps to become HCP, as pt's mother may not be able to serve as proxy. Torey and Johnie requested assistance in obtaining an Identfication card for pt. CM spoke with Torey and instructed him to go to [facility] and identify which forms they need and to speak with CM to see if we can help them. CARLOS EDUARDO spoke with Gómez Lafleur ([phone]) from [facility] and she said it is too early for her to make a determination on a level 2 and needs to be updated as pt progresses before she will be able to make a decision. CARLOS EDUARDO discussed plan with Chelsie. Plan: cognitive eval and then determine if healthcare proxy needs to be completed. [facility] plan: assisted living/ LTC. Date Signed: 09/01/2018 03:19 PM Electronically Signed By:PRAKASH Rai
--- NOTE | 2018-09-01 16:20 | PCMIDPN ---
Assessment/Plan: Assessment: 63-year-old man with bilateral frostbite of his toes with possible concomitant bacterial infection. He has removed his IV line and is refusing IV medications including antibiotics. He was offered oral antibiotics onset of IV antibiotics which he also refuses. Discussed in detail the risks of not treating a bacterial infection which include the possibility of deeper infection including the bone, mitral infection region the bloodstream, and the potential that an overwhelming bacterial infection could occur. After this discussion he still states that he will not take any antibiotics with her via IV or oral. 1. Bilateral foot gangrene status post superficial debridement at bedside 2. Possible bacterial infection of gangrenous toes 3. Thrombocytosis Plan: 1. Stop both vancomycin and Zosyn due to refusal to receive IV antibiotics 2. Detailed discussion with patient as above regarding risks of not treating infection. 3. Patient also refused oral antibiotics 09/01/18 16:20 09/01/18 16:23 Subjective: Patient does not want to talk to care providers today. He is willing to listen to a discussion about the likelihood for infection complicating his frostbite and debridement, he notes his understanding. He has refused both IV antibiotics and oral antibiotics. He denies fever or chills overnight. Objective: Vital Signs Temp Pulse Resp BP Pulse Ox 36.7 C 96 18 112/75 95 09/01/18 15:41 09/01/18 15:41 09/01/18 15:41 09/01/18 15:41 09/01/18 15:41 Microbiology 08/31/18 14:15 Respiratory Panel (PCR) - Final Nasal, Sinus - Anaerobic Tube/Swab No Organism Detected By Pcr Laboratory Results 09/01/18 04:20 08/31/18 03:48 08/31/18 09/01/18 09/02/18 05:59 05:59 05:59 Intake Total 100 1656 591 Output Total 900 450 Balance 100 756 141 Laboratory Tests 08/31/18 08/31/18 09/01/18 03:48 03:48 04:20 WBC 10.10 H 10.70 H Absolute Neuts (auto) 7.41 H 7.89 H Absolute Lymphs (auto) 1.50 1.84 Creatinine 0.7 - Physical Exam General Appearance: alert, no apparent distress, non-toxic EENT: No scleral icterus Respiratory: No respiratory distress Extremities: normal inspection (Distal feet wrapped in gauze dressing, not taken down today at patient's request) ICD10 Worksheet Patient Problems: Problems Problem Status Onset Failure to thrive in adult Acute Rapid atrial fibrillation Acute Weakness Acute Altered mental status Acute Atrial fibrillation Acute Hypotension Acute Hypothermia Acute Major depressive disorder, recurrent, severe with psychotic features Acute Noncompliance with medications Acute Schizophrenia Acute Trench feet Acute
--- NOTE | 2018-09-01 17:41 | PDCONSULT ---
Tattoo And Body Artist Note: I was asked by Dr. Lomax to round on Mr. Dela Cruz after he debrided areas of skin off of his toes yesterday. He is currently refusing all care and although I asked politely, he will not allow me to change his dressings at this time. I told him that if he changed his mind he could have the nurses page me and I would come back to check on him later.
[2018-09-01] MEDS: CHOLECALCIFEROL VIT D3 2,000 UNITS TAB/CAP PO SCH (17:59)
--- NOTE | 2018-09-01 22:07 | SOAPPROG ---
SOAP Progress Note Assessment/Plan: Assessment: 63yo CM, homeless, with hx of Afib, and bipolar disorder, over past 2 years with multiple presentations to ER and several admissions to medical unit for FTT , last month for hypothermia, and now with frostbite to toes. Consultation requested for behavioral health recommendations for management of his resistance to treatment (ie/refusing IV ABXs, staff certified nurse midwife care), and also for psychiatric medication recommendations if any could be helpful. Attempted to evaluate patient today. Pt noted to be lying in bed, resting, full white turner, amaya hair, feet wrapped in bandages, very malodorous. Speech was articulate and nml volume/rate, but little/no spontaneity. Mood was "fine", affect blunted. He did not appear responding to internal stimuli. no si/hi. Eye contact was initially good, as he opened eyes and initially engaged briefly and politely when interview initiated , but gave brief and vague responses (ie/reason for admission? "it's too complicated, it's in the records"), "yes" when asked if had met with behavioral health RN earlier today, "no" to whether he believed he had bipolar mood disorder, and ultimately refused further interview questions, closing eyes and seemed volitionally to no longer answer any questions, but this silence was interrupted with responding "yes" when asked about needing help with finding housing and whether this was of primary importance to him. Then, keeping eyes closed, he no longer responded to further questions, including any orientation questions. IMP: neurocognitive d/o unspecified r/o BMD depr REC: Pt refused interview today. Will reattempt to interview over next couple of days. Will d/w Sarah Cortes RN who may have already seen patient today as pt reported; pls refer to her note in Notes section dated 08/31/18 for summary of history and recommendations. In the meantime, continue to attempt cog eval by speech therapy. Brain MRI would be beneficial if pt allows. Concerns present for unspecified neurocognitive d/o. Records indicate hx of EtOH. Also Head CT in past notes diffuse cerebral atrophy and changes c/w chronic microvascular dz and has risk factors incl w/afib. Has been in inpt psych at [facility] in 2018. Also in [facility] inpt [facility] psych in 2017. Records from there would be helpful if not already obtained. Hx of living with mother at [facility] until couple of years ago after a protective order was placed on her behalf, and has been homeless since. Consider obtaining collateral from mother. May need a POA if determined to be nondecisional and if this resistance to cooperate is not related to any underlying personality d/o. Unable to assess at this time. Will add B12 and vit D to labs already drawn. Replete if low, or even if low normal. Would monitor I&O and weight and labs as indicated. Pt has hx of refusing Lovenox and not getting out of bed and had PE in past (08/2018). Will also be at risk for atelectasis. Behavioral Health will cont to follow. Please do not hesitate to call with any questions. Objective: Vital Signs Temp Pulse Resp BP Pulse Ox 37.1 C 101 H 16 108/65 95 09/01/18 20:00 09/01/18 20:00 09/01/18 20:00 09/01/18 20:00 09/01/18 20:00 Microbiology 08/31/18 14:15 Respiratory Panel (PCR) - Final Nasal, Sinus - Anaerobic Tube/Swab No Organism Detected By Pcr Laboratory Results 09/01/18 04:20 08/31/18 03:48 08/31/18 09/01/18 09/02/18 05:59 05:59 05:59 Intake Total 100 1656 791 Output Total 900 750 Balance 100 756 41 PT 14.2 SEC (12.0-15.0) 08/30/18 14:05 INR 1.08 (0.83-1.16) 08/30/18 14:05 - Time Spent With Patient Time Spent With Patient: 15min - Pending Discharge Pending Discharge Within 24 Hours: No Pending Discharge Within 48 Hours: No ICD10 Worksheet Patient Problems: Problems Problem Status Onset Failure to thrive in adult Acute Rapid atrial fibrillation Acute Weakness Acute Altered mental status Acute Atrial fibrillation Acute Hypotension Acute Hypothermia Acute Major depressive disorder, recurrent, severe with psychotic features Acute Noncompliance with medications Acute Schizophrenia Acute Trench feet Acute
[2018-09-02] MEDS: ENOXAPARIN 60 MG/0.6 ML SYR SC SCH ×2 (00:59→08:02)
[2018-09-02] MEDS: SILVER SULFADIAZINE 50 GM JAR TP SCH ×2 (01:00→18:12)
[2018-09-02 04:20] LABS: PLATELET COUNT 669 10^3/uL (150-400)
[2018-09-02] MEDS: CHOLECALCIFEROL VIT D3 2,000 UNITS TAB/CAP PO SCH (08:02)
--- NOTE | 2018-09-02 12:37 | HOSPPROG ---
Hospitalist Progress Note Assessment/Plan: 63 year old homeless male with pmh of afib, PE, and frostbite of feet, homelessness and possible bipolar, admitted with sepsis 2/2 to gangrene of feet. Refusing all care Sepsis 2/2 gangrene-of toes bl. debrided superficially earlier in course. Surgery saw and now patient refusing to allow them to examin and change bandages. Also refusing IV abx. I discussed with ID and plan to monior for ifnection. -Monitor vitals to the extent he will allow us -ethics consulted to discuss decisional capacity Possible bipolar d/o with psychotic features- psych consulted who will eval today. I discussed the case with psych. -psych eval -MRI ordered but patient refusing -plan for ethics consult to determine treatment and patient decisional capacity. friends in process of becoming MDPOA. Afib with RVR- was suppposed to be taking lopressor 50mg bid and asa but when he is discharged from hospital he stops all meds. -rate controlled currently. monitor -lovenox if he will allow it. Abnormal CTA of the chest: loculated pleural effusion without clear e/o pna at this time, doubt this is cause of sepsis diaphragmatic cyst versus pericardial cyst versus loculated pleural effusion: doubt this is not predominant issue currently right subclavian and likely right carotid artery stenosis: of uncertain significance -given his rapid decline brain MRI is planned, if e/o CVA, will pursue carotid imaging and neuro consult, no neurodeficits currently metabolic encephalopathy: likely related to infection, mental illness full code dvt pplx: lovenox dispo: inpatient. need to determine patients decisional capacity, Friend becoming MDPOA. Subjective: no complaints. happy to be here. Objective: Vital Signs Temp Pulse Resp BP Pulse Ox 37.1 C 96 18 111/82 H 94 09/02/18 07:31 09/02/18 07:31 09/02/18 07:31 09/02/18 07:31 09/02/18 07:31 Laboratory Results 09/02/18 03:35 08/31/18 03:48 09/01/18 09/02/18 09/03/18 05:59 05:59 05:59 Intake Total 1656 1016 Output Total 900 1625 400 Balance 756 -609 -400 PT 14.2 SEC (12.0-15.0) 08/30/18 14:05 INR 1.08 (0.83-1.16) 08/30/18 14:05 - Physical Exam Constitutional: no apparent distress, appears nourished, not in pain Eyes: PERRL, anicteric sclera, EOMI Ears, Nose, Mouth, Throat: moist mucous membranes, hearing normal, ears appear normal, no oral mucosal ulcers Cardiovascular: regular rate and rhythym, no murmur, rub, or gallop Respiratory: no respiratory distress, no rales or rhonchi, clear to auscultation Gastrointestinal: normoactive bowel sounds, soft, non-tender abdomen, no palpable masses Genitourinary: no bladder fullness, no bladder tenderness, no renal bruits Skin: no rashes or abrasions, no fluctuance, no induration Musculoskeletal: full muscle strength, no muscle tenderness, normal joint ROM Neurologic: AAOx3, sensation intact bilaterally Psychiatric: interacting appropriately, not anxious, not encephalopathic, thought process linear Lymph, Heme, Immunologic: no cervical LAD, no supraclavicular LAD ICD10 Worksheet Patient Problems: Problems Problem Status Onset Failure to thrive in adult Acute Rapid atrial fibrillation Acute Weakness Acute Altered mental status Acute Atrial fibrillation Acute Hypotension Acute Hypothermia Acute Major depressive disorder, recurrent, severe with psychotic features Acute Noncompliance with medications Acute Schizophrenia Acute Trench feet Acute
--- NOTE | 2018-09-02 14:16 | PCMIDPN ---
Assessment/Plan: Assessment: 63-year-old man with bilateral frostbite of his toes with possible concomitant bacterial infection. With no antibiotics administered patient remains afebrile, in without other evidence for systemic infection. He does not allow for the dressings on his feet to be taken down for 2nd time today. With skin debridement and visualization by other providers, defer antibiotic therapy and observe for local signs and systemic signs to suggest infection. 1. Bilateral foot gangrene status post superficial debridement at bedside 2. Possible bacterial infection of gangrenous toes 3. Thrombocytosis Plan: 1. Continue to observe off antibiotics Subjective: States he felt both fever and chills overnight. He has both a consistent pain in both of his feet punctuated by more severe pain periodically. States he has abdominal pain diffusely. Diarrhea persist which he states was present prior to admission and is unchanged since admission. Able to answer questions and agreeable to exam today except taking down the dressings. Objective: Vital Signs Temp Pulse Resp BP Pulse Ox 36.9 C 100 18 110/57 L 93 09/02/18 12:00 09/02/18 12:00 09/02/18 12:00 09/02/18 12:00 09/02/18 12:00 Laboratory Results 09/02/18 03:35 08/31/18 03:48 09/01/18 09/02/18 09/03/18 05:59 05:59 05:59 Intake Total 1656 1016 240 Output Total 900 1625 575 Balance 756 -609 -484 Microbiology 08/31/18 14:15 Nasal, Sinus - Anaerobic Tube/Swab Respiratory Panel (PCR) - Final No Organism Detected By Pcr Laboratory Tests 09/01/18 09/02/18 04:20 03:35 WBC 10.70 H 8.13 Absolute Neuts (auto) 7.89 H 5.58 Absolute Lymphs (auto) 1.84 1.76 - Physical Exam General Appearance: alert, no apparent distress, non-toxic EENT: No scleral icterus Respiratory: lungs clear, normal breath sounds, No respiratory distress, No crackles, No wheezing Neck: full range of motion, supple Cardiac/Chest: regular rate, rhythm, No bradycardia, No tachycardia, No diastolic murmur, No systolic murmur Extremities: No swelling (Patient declined to allow dressings on both feet to be taken down), No erythema Abdomen: normal bowel sounds, non-tender, soft, No distended, No guarding Skin: No rash, No erythema Neuro/Psych: alert, normal mood/affect - Time Spent With Patient Time Spent with Patient: greater than 25 minutes Time Spent with Patient: Greater than 25 minutes spent on this patients care, greater than 50% of time spent counseling, educating, and coordinating care regarding the above mentioned plan. ICD10 Worksheet Patient Problems: Problems Problem Status Onset Failure to thrive in adult Acute Rapid atrial fibrillation Acute Weakness Acute Altered mental status Acute Atrial fibrillation Acute Hypotension Acute Hypothermia Acute Major depressive disorder, recurrent, severe with psychotic features Acute Noncompliance with medications Acute Schizophrenia Acute Trench feet Acute
--- NOTE | 2018-09-02 17:38 | ASMTCMCOM ---
CM Note CM Note Notes: 09/02/2018 Case Management Note Met w/pt several times today. Friends Torey and Johnie met w/pt several times today. Dhruv completed MDPOA papwork naming Sriram and Torey as equal MDPOAs with decision making abilities starting upon signature. Phone call from [facility] indicating that pt was approved for 30 day stay. Triggered Level 2 PASRR. Brown from [facility] to meet w/pt tomorrow morning at 9:30 am. Speech therapy to meet w/pt tomorrow morning as well. Ethics eval to happen tomorrow per Dr. Rodriguez. Case Management d/c poc: 30 day SNF stay pending acceptance. Case Management to follow. Date Signed: 09/02/2018 05:37 PM Electronically Signed By:Xochitl Oakley RN
[2018-09-02] MEDS ORDERED: LORazepam 0.5 MG TAB PO PRN (18:55)
[2018-09-03] MEDS: ENOXAPARIN 60 MG/0.6 ML SYR SC SCH ×3 (06:30→20:08)
[2018-09-03] MEDS: SILVER SULFADIAZINE 50 GM JAR TP SCH ×3 (06:30→20:08)
[2018-09-03] MEDS: CHOLECALCIFEROL VIT D3 2,000 UNITS TAB/CAP PO SCH (11:00)
[2018-09-03] MEDS: CYANO/VITAMIN B12 1000 MCG TAB PO SCH (11:00)
[2018-09-03] MEDS: LORazepam 1 MG TAB PO PRN (11:00)
--- NOTE | 2018-09-03 12:03 | PDCONSULT ---
Shuttle Route Vehicle Operator Note: 09/03/18 14:57 PSYCHIATRY MD CONSULTATION Discussed case with hospitalist today and yesterday, attended AM rounds this AM , interviewed patient as he tolerated this AM, spoke with 2 friends by phone with Sarah Cortes behavioral health RN yesterday (see her note for details), spoke with nursing staff yesterday, last night and today as well as telehealth case manager Xochitl. Reportedly had signed papers for friends Torey and Johnie to be medical and financial POA yesterday. Has been using urinal, but not up out of bed otherwise recently. Briefly, pt was lying in bed, in hosp gowns, feet bandaged, +psychomotor retardation, pt endorsed feeling depressed, hopeless, helpless, worthless, with decr energy, decr concentration, denied suicidality. Denied thoughts to harm others or and denied any AH/VH. Did not verbalize any psychotic thoughts or delusions. Did not appear responding to internal stimuli. Affect remarkably flat , with initial eye contact during interview, but then stares ahead blankly. Little spontaneous speech, vague, and with brief responses to questions, but ultimately politely ended interview "I've answered enough questions." Did acknowledge awareness of being evaluated for placement, and that his friends have visited. Reported "yes" to whether he was feeling "stuck" physically and emotionally. Agreed to po Ativan when suggested this medication may be helpful for him, as well as vitamins. Has refused ABX, per RN he stated "yes" to if this was b/c these meds upset his stomach, when given choices for reasons to have refused ABXs. Had reportedly stated he thought the meds were "poison" but it seems perhaps this was used as a figure of speech, as he has been accepting of vitamins and this AM agreed to Ativan. "Yes" to having feet pain. But has refused offer of pain meds. Has been refusing to get up and walk or shower. Has been eating selectively ice cream, soda, chocolate smoothie. In past, had required esophageal dilation due to strictures. Unsure last BM (pt not asked this). Concerns present for this patient having catatonic features either due to medical or mental health etiology or combination. Using Sweeney-Edmar Catatonia Rating Scale: scored 10-12. Pt with several features (on a spectrum of severity), including negativism, withdrawal, rigidity , staring, immobility/stupor, mutism. Patient does NOT have a history of schizophrenia, which apparently was noted in record somewhere, although has been diagnosed with bipolar mood d/o. Reportedly, prior to becoming homeless over past 2 yrs, did NOT have a past history of psychiatric hospitalization, although may have had underlying Bipolar spectrum d/o illness over the years, but has been overall high functioning . 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 Have been in very regular contact with him over the years, until lost contact 2 yrs ago after pt became homeless. They have only recently finally been able to track him down. Both were on speaker phone together. 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 Pt did agree to start this medication to help him feel less "stuck". -Monitor po intake, I/O, weight. Also consider pt may have constipation and untreated feet pain. Recommend treating pain as indicated. Continue treatment of frostbite/gangrene of toes/feet, monitoring for any worsening of infection. -Ethics consult pending for decisional capacity. -Please refer to notes by Sarah Cortes, behav health RN, for behav management recommendations -Note also that catatonia sxs can be mistakenly be attributed to volitional problematic behavior (ie. motor negativism may be interpreted as denial and nonadherence to treatment, or attention-seeking) -Review Sweeney-Edmar Catatonia Rating Scale for symptoms and monitor for improvement -Behavioral Health/psychiatry will continue to follow
--- NOTE | 2018-09-03 12:51 | PCMIDPN ---
Assessment/Plan: Assessment: 63-year-old man with bilateral frostbite of his toes with possible concomitant bacterial infection. Wet green green of the toes on the left foot patient agreeable to oral antibiotics, refuses IV medications. 1. Left foot wet gangrene, dressing change debrided at skin today 2. Right toes with dry gangrene, no clear areas of infection 3. Thrombocytosis Plan: 1. Start doxycycline 100 mg p.o. Twice daily and Augmentin 875/125 twice daily 2. Continue daily dressing changes if patient allows 3. Discussed with patient the risk of not treating infection of his left foot, and potential side effects of doxycycline and Augmentin Isaiah Alcala MD Subjective: Denies fever or chills. States no pain in his feet, willing to allow the dressing on the left be taken down today, but does refuse any other physical exam. Denies diarrhea or abdominal pain today. Objective: Vital Signs Temp Pulse Resp BP Pulse Ox 36.9 C 92 16 113/76 94 09/03/18 08:00 09/03/18 08:00 09/03/18 08:00 09/03/18 08:00 09/03/18 08:00 Microbiology 08/31/18 08:18 Urine Culture - Final Urine,Clean Catch Three Baker Types Laboratory Results 09/02/18 03:35 08/31/18 03:48 09/02/18 09/03/18 09/04/18 05:59 05:59 05:59 Intake Total 1016 1460 Output Total 1625 950 Balance -609 510 Laboratory Tests 09/01/18 09/02/18 04:20 03:35 WBC 10.70 H 8.13 Absolute Neuts (auto) 7.89 H 5.58 Absolute Lymphs (auto) 1.84 1.76 - Physical Exam General Appearance: alert, no apparent distress, non-toxic EENT: No scleral icterus Respiratory: other (Patient refused) Neck: full range of motion, supple Cardiac/Chest: other (Patient refuse) Extremities: other (Right lower extremity showing multiple toes with dry gangrene no tenderness to palpation, no erythema extending proximally or around the area of demarcation. Left lower extremity dressing on the foot adherent to the wound, removed the dressing with saline some moist in the wound which resulted in debridement and a fair amount of skin, malodorous with dressing removal, healthy underlying tissue with minimal bleeding, area of purulence in the ball of the left foot in the midline, no complaints of pain while removing the dressing. Replace left lower extremity dressing with basic but dry) Abdomen: other (Patient refused) Back: other (Patient refused) Skin: other (See extremity exam) Neuro/Psych: alert, other (Please see psychiatry note for details of psychiatric exam), No depressed affect - Time Spent With Patient Time Spent with Patient: greater than 35 minutes (More than 35 min spent at the bedside with patient removing and replacing dressing, debriding skin, discussing potential side effects of doxycycline and Augmentin) Time Spent with Patient: Greater than 35 minutes spent on this patients care, greater than 50% of time spent counseling, educating, and coordinating care regarding the above mentioned plan. ICD10 Worksheet Patient Problems: Problems Problem Status Onset Failure to thrive in adult Acute Rapid atrial fibrillation Acute Weakness Acute Altered mental status Acute Atrial fibrillation Acute Hypotension Acute Hypothermia Acute Major depressive disorder, recurrent, severe with psychotic features Acute Noncompliance with medications Acute Schizophrenia Acute Trench feet Acute
[2018-09-03] MEDS: LORazepam 1 MG TAB PO SCH ×3 (14:31→20:08)
[2018-09-03] MEDS: AMOXICILLIN/CLAVULANATE POT 875/125 MG TAB PO SCH ×2 (14:34→20:08)
[2018-09-03] MEDS: DOXYCYCLINE HYCLATE 100 MG CAP/TAB PO SCH ×2 (14:34→20:08)
--- NOTE | 2018-09-03 16:15 | HOSPPROG ---
Hospitalist Progress Note Assessment/Plan: 63 year old homeless male with pmh of afib, PE, and frostbite of feet, homelessness and possible bipolar, admitted with sepsis 2/2 to gangrene of feet. Initially refusing care, but now slowly allowing some intervention. Sepsis 2/2 gangrene-of toes bl. debrided superficially earlier in course. Patient initially refusing antibiotics and any wound care. Infectious Disease saw today and patient now on amenable to antibiotics. I discussed the case with the ID who recommends doxycycline twice daily along with Augmentin -monitor cultures -wound care if able -doxycycline 100 mg twice daily with Augmentin Possible bipolar d/o with psychotic features- psych consulted who will eval today. I discussed the case with psych. -psych eval -MRI ordered but patient refusing -plan for ethics consult to determine treatment and patient decisional capacity. friends in process of becoming MDPOA. Afib with RVR- was suppposed to be taking lopressor 50mg bid and asa but when he is discharged from hospital he stops all meds. -rate controlled currently. monitor -lovenox if he will allow it. Abnormal CTA of the chest: loculated pleural effusion without clear e/o pna at this time, doubt this is cause of sepsis diaphragmatic cyst versus pericardial cyst versus loculated pleural effusion: doubt this is not predominant issue currently right subclavian and likely right carotid artery stenosis: of uncertain significance -given his rapid decline brain MRI is planned, if e/o CVA, will pursue carotid imaging and neuro consult, no neurodeficits currently metabolic encephalopathy: likely related to infection, mental illness full code dvt pplx: lovenox dispo: inpatient. need to determine patients decisional capacity, Friend becoming MDPOA. Subjective: Patient does acknowledge that he is having pain in his feet refuses to allow me to give him any medication for this. Otherwise not interactive Objective: Vital Signs Temp Pulse Resp BP Pulse Ox 36.8 C 101 H 12 116/81 H 93 09/03/18 16:00 09/03/18 16:00 09/03/18 16:00 09/03/18 16:00 09/03/18 16:00 Microbiology 08/31/18 08:18 Urine Culture - Final Urine,Clean Catch Three Carroll Types Laboratory Results 09/02/18 03:35 08/31/18 03:48 0109/03/18 09/04/18 05:59 05:59 05:59 Intake Total 1016 1460 Output Total 1625 950 Balance -609 510 PT 14.2 SEC (12.0-15.0) 08/30/18 14:05 INR 1.08 (0.83-1.16) 08/30/18 14:05 - Physical Exam Constitutional: no apparent distress, unkempt Eyes: PERRL, anicteric sclera, EOMI Ears, Nose, Mouth, Throat: moist mucous membranes, hearing normal, ears appear normal, no oral mucosal ulcers Cardiovascular: irregularly irregular Respiratory: no respiratory distress, no rales or rhonchi, clear to auscultation Gastrointestinal: normoactive bowel sounds, soft, non-tender abdomen, no palpable masses Genitourinary: no bladder fullness, no bladder tenderness, no renal bruits Skin: other (Lower extremities with black discoloration of the toes on both feet ) Musculoskeletal: full muscle strength, no muscle tenderness, normal joint ROM Neurologic: other (Patient not participatory in neurologic exam has no obvious focal neurological deficit) Psychiatric: poor insight, poor judgement, other (Patient refuses to speak with me) Lymph, Heme, Immunologic: no cervical LAD, no supraclavicular LAD ICD10 Worksheet Patient Problems: Problems Problem Status Onset Failure to thrive in adult Acute Rapid atrial fibrillation Acute Weakness Acute Altered mental status Acute Atrial fibrillation Acute Hypotension Acute Hypothermia Acute Major depressive disorder, recurrent, severe with psychotic features Acute Noncompliance with medications Acute Schizophrenia Acute Trench feet Acute
[2018-09-03] MEDS: oxyCODONE IR 5 MG TAB PO PRN (20:07)
--- NOTE | 2018-09-03 20:50 | ASMTCMCOM ---
CM Note CM Note Notes: 09/03/2018 Case Management Note Pt completed financial POA paperwork this morning naming [facility]. Confirmed [facility] Medicaid application is underway. Pt completed Cog Eval. Pt met w/pt Ethics. Please see their note for details. Pt met w/pt Kevin from [facility]. Kevin asking administrators at to accept patient. Phone call from Gómez Lafleur. Danisha to come tomorrow to complete assessment for Level 2 Pas[place]. Provided hard copies of notes from Dr. Rodriguez for eval. Informed pt. Gómez hoping to have approval from [facility] on Thursday. Pt has noticeably improved affect after ativan doses today. Pt was agreeable to participate in all meetings planned for him today. Updated leadership in case management department. Case Management d/c poc: [facility] pending acceptance Case Management to follow. Date Signed: 09/03/2018 04:50 PM Electronically Signed By:Xochitl Oakley RN
[2018-09-04 04:31] LABS: PLATELET COUNT 738 10^3/uL (150-400)
[2018-09-04] MEDS: LORazepam 1 MG TAB PO SCH ×4 (06:03→21:21)
[2018-09-04] MEDS: oxyCODONE IR 5 MG TAB PO PRN ×2 (06:07→10:24)
[2018-09-04] MEDS: CYANO/VITAMIN B12 1000 MCG TAB PO SCH (09:56)
[2018-09-04] MEDS: AMOXICILLIN/CLAVULANATE POT 875/125 MG TAB PO SCH ×2 (09:56→21:21)
[2018-09-04] MEDS: DOXYCYCLINE HYCLATE 100 MG CAP/TAB PO SCH ×2 (09:56→21:21)
[2018-09-04] MEDS: CHOLECALCIFEROL VIT D3 2,000 UNITS TAB/CAP PO SCH (09:56)
[2018-09-04] MEDS: SILVER SULFADIAZINE 50 GM JAR TP SCH ×2 (11:00→21:22)
[2018-09-04] MEDS: ENOXAPARIN 60 MG/0.6 ML SYR SC SCH ×2 (12:08→21:21)
--- NOTE | 2018-09-04 13:54 | PCMIDPN ---
Assessment/Plan: Assessment/Plan: * Bilateral foot frostbite with superimposed gangrenous changes and skin and soft tissue infection: Right foot significantly improved versus initial exam with left foot still showing evidence of skin and soft tissue infection with loss of skin over 2nd toe in particular. Patient tolerating Augmentin and doxycycline well. Discussed with him use of IV antibiotics which he remains opposed to; will therefore continue Augmentin and doxycycline with continued wound care and clinical observation. 09/04/18 13:47 Subjective: Patient taking Augmentin and doxycycline without difficulty. Notes that he had some bleeding from his left foot. 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 ICD10 Worksheet Patient Problems: Problems Problem Status Onset Failure to thrive in adult Acute Rapid atrial fibrillation Acute Weakness Acute Altered mental status Acute Atrial fibrillation Acute Hypotension Acute Hypothermia Acute Major depressive disorder, recurrent, severe with psychotic features Acute Noncompliance with medications Acute Schizophrenia Acute Trench feet Acute
--- NOTE | 2018-09-04 14:03 | HOSPPROG ---
Hospitalist Progress Note Assessment/Plan: 63 year old homeless male with pmh of afib, PE, and frostbite of feet, homelessness and possible bipolar, admitted with sepsis 2/2 to gangrene of feet. Initially refusing care, but now slowly allowing some intervention. bilateral foot infection-of toes- debrided superficially earlier in course. Patient initially refusing antibiotics and any wound care but patient now on amenable to antibiotics. Infectious Disease consulted who recommends doxycycline and Augmentin if patient will not allow intravenous antibiotics. Labs reassuring and vital signs with no suggestion of sepsis. -monitor cultures -wound care if able -doxycycline 100 mg twice daily with Augmentin Possible bipolar d/o with psychotic features- patient was initially very resistant to any treatment, and we had very limited interaction with him. Psych consulted on patient and recommended low-dose Ativan which seems to have substantially helped. He is starting to open up and allowing more treatment. -psych eval with recommendation to start Ativan -ethics consult determined the patient is decisional -MRI ordered but patient refusing Afib with RVR- was suppposed to be taking lopressor 50mg bid and asa but when he is discharged from hospital he stops all meds. -rate controlled currently. monitor -lovenox if he will allow it. Abnormal CTA of the chest: loculated pleural effusion without clear e/o pna at this time, doubt this is cause of sepsis diaphragmatic cyst versus pericardial cyst versus loculated pleural effusion: doubt this is not predominant issue currently right subclavian and likely right carotid artery stenosis: of uncertain significance -given his rapid decline brain MRI is planned, if e/o CVA, will pursue carotid imaging and neuro consult, no neurodeficits currently metabolic encephalopathy: likely related to infection, mental illness full code dvt pplx: lovenox dispo: inpatient. Continue current treatment for feet infection. Will eventually need permanent placement to avoid readmission Subjective: Patient does admit that he has pain in his feet but that the medications are helping. No other complaints Objective: Vital Signs Temp Pulse Resp BP Pulse Ox 36.8 C 107 H 18 102/79 93 09/04/18 12:00 09/04/18 12:00 09/04/18 12:00 09/04/18 12:00 09/04/18 12:00 Laboratory Results 09/04/18 03:30 08/31/18 03:48 09/03/18 09/04/18 09/05/18 05:59 05:59 05:59 Intake Total 1460 670 Output Total 950 675 Balance 510 -5 PT 14.2 SEC (12.0-15.0) 08/30/18 14:05 INR 1.08 (0.83-1.16) 08/30/18 14:05 - Physical Exam Constitutional: no apparent distress, unkempt Eyes: PERRL, anicteric sclera, EOMI Ears, Nose, Mouth, Throat: moist mucous membranes, hearing normal, ears appear normal, no oral mucosal ulcers Cardiovascular: irregularly irregular Respiratory: no respiratory distress, no rales or rhonchi, clear to auscultation Gastrointestinal: normoactive bowel sounds, soft, non-tender abdomen, no palpable masses Genitourinary: no bladder fullness, no bladder tenderness, no renal bruits Skin: other (Bilateral wounds to the feet with black and evidence of necrosis on the toes) Musculoskeletal: full muscle strength Neurologic: other (Unable to assess as patient is not participatory) Psychiatric: interacting appropriately Lymph, Heme, Immunologic: no cervical LAD, no supraclavicular LAD ICD10 Worksheet Patient Problems: Problems Problem Status Onset Failure to thrive in adult Acute Rapid atrial fibrillation Acute Weakness Acute Altered mental status Acute Atrial fibrillation Acute Hypotension Acute Hypothermia Acute Major depressive disorder, recurrent, severe with psychotic features Acute Noncompliance with medications Acute Schizophrenia Acute Trench feet Acute
[2018-09-05] MEDS: DOXYCYCLINE HYCLATE 100 MG CAP/TAB PO SCH (08:56)
[2018-09-05] MEDS: LORazepam 1 MG TAB PO SCH (08:56)
[2018-09-05] MEDS: AMOXICILLIN/CLAVULANATE POT 875/125 MG TAB PO SCH (08:56)
[2018-09-05] MEDS: CYANO/VITAMIN B12 1000 MCG TAB PO SCH (08:56)
[2018-09-05] MEDS: CHOLECALCIFEROL VIT D3 2,000 UNITS TAB/CAP PO SCH (08:57)
[2018-09-05] MEDS: oxyCODONE IR 5 MG TAB PO PRN ×2 (09:02→14:04)
[2018-09-05] MEDS: ACETAMINOPHEN 325 MG TAB PO PRN ×2 (09:02→14:03)
[2018-09-05] MEDS: ENOXAPARIN 60 MG/0.6 ML SYR SC SCH ×2 (09:36→23:24)
[2018-09-05] MEDS: SILVER SULFADIAZINE 50 GM JAR TP SCH (10:15)
--- NOTE | 2018-09-05 13:49 | PCMIDPN ---
Assessment/Plan: Assessment/Plan: * Bilateral foot frostbite with superimposed gangrenous changes and skin and soft tissue infection: Continue Augmentin and doxycycline. Patient did not want his dressings taken down today but is agreeable to this tomorrow. Will try to coordinate with nursing staff at time of dressing change. Pictures reviewed that his MD POA had on his phone which do not show significant interval change. Patient continues to want treatment with oral antibiotics rather than IV antibiotics which was discussed with him today. 09/05/18 13:47 Subjective: Patient with some residual foot pain. Patient does not want dressings removed today. Images on MD POA phone reviewed. Objective: Vital Signs Temp Pulse Resp BP Pulse Ox 36.7 C 95 18 107/79 97 09/05/18 11:01 09/05/18 11:01 09/05/18 11:01 09/05/18 11:01 09/05/18 11:01 Laboratory Results 09/04/18 03:30 08/31/18 03:48 09/04/18 09/05/18 09/06/18 05:59 05:59 05:59 Intake Total 670 670 Output Total 675 475 Balance -5 195 Augmentin # 3 Doxycycline # 3 - Physical Exam General Appearance: alert, no apparent distress, non-toxic Extremities: other (Bilateral feet with intact dressing; images on MD POA phone reviewed as patient did not want dressings taken down; did not appear to have significant interval change although field of view limited on left) ICD10 Worksheet Patient Problems: Problems Problem Status Onset Failure to thrive in adult Acute Rapid atrial fibrillation Acute Weakness Acute Altered mental status Acute Atrial fibrillation Acute Hypotension Acute Hypothermia Acute Major depressive disorder, recurrent, severe with psychotic features Acute Noncompliance with medications Acute Schizophrenia Acute Trench feet Acute
[2018-09-05] MEDS ORDERED: LORazepam 1 MG TAB PO ONE (15:30)
--- NOTE | 2018-09-05 15:51 | HOSPPROG ---
Hospitalist Progress Note Assessment/Plan: 63 year old male with pmh of afib, PE, and frostbite of feet, homelessness and possible bipolar, admitted with sepsis 2/2 to gangrene of feet. Initially refusing care, but now slowly allowing some intervention. bilateral gangrenous foot infection-of toes- debrided superficially earlier in course. Patient initially refusing antibiotics and any wound care but patient now amenable to oral antibiotics. Infectious Disease consulted who recommends doxycycline and Augmentin if patient will not allow intravenous antibiotics. Labs reassuring and vital signs with no suggestion of sepsis. -monitor cultures -wound care if able -doxycycline 100 mg twice daily with Augmentin -pain control Possible bipolar d/o with psychotic features- patient was initially very resistant to any treatment, and we had very limited interaction with him. Psych consulted on patient and recommended low-dose Ativan which seems to have substantially helped. He is starting to open up and allowing more treatment. -psych eval with recommendation to start Ativan -ethics consult determined the patient is decisional -MRI ordered but patient refusing Afib with RVR- was suppposed to be taking lopressor 50mg bid and asa but when he is discharged from hospital he stops all meds. -rate controlled currently. monitor -lovenox if he will allow it. Abnormal CTA of the chest: loculated pleural effusion without clear e/o pna at this time, doubt this is cause of sepsis diaphragmatic cyst versus pericardial cyst versus loculated pleural effusion: doubt this is not predominant issue currently right subclavian and likely right carotid artery stenosis: of uncertain significance -given his rapid decline brain MRI is planned, if e/o CVA, will pursue carotid imaging and neuro consult, no neurodeficits currently metabolic encephalopathy: likely related to infection, mental illness. MRI ordered but patient refused. full code dvt pplx: lovenox which patient is refusing dispo: inpatient. Continue current treatment for feet infection. Will eventually need permanent placement to avoid readmissio. Patient's friend has been assigned MD LEVY. Subjective: Pain well controlled on medications. He is much more interactive today and cooperative. Still has not showered since being here. Objective: Vital Signs Temp Pulse Resp BP Pulse Ox 36.7 C 95 18 107/79 97 09/05/18 11:01 09/05/18 11:01 09/05/18 11:01 09/05/18 11:01 09/05/18 11:01 Laboratory Results 09/04/18 03:30 08/31/18 03:48 09/04/18 09/05/18 09/06/18 05:59 05:59 05:59 Intake Total 670 670 250 Output Total 674 123 450 Balance -5 195 -200 PT 14.2 SEC (12.0-15.0) 08/30/18 14:05 INR 1.08 (0.83-1.16) 08/30/18 14:05 - Physical Exam Constitutional: no apparent distress, appears nourished, not in pain Eyes: PERRL, anicteric sclera, EOMI Ears, Nose, Mouth, Throat: moist mucous membranes, hearing normal, ears appear normal, no oral mucosal ulcers Cardiovascular: regular rate and rhythym, no murmur, rub, or gallop Respiratory: no respiratory distress, no rales or rhonchi, clear to auscultation Gastrointestinal: normoactive bowel sounds, soft, non-tender abdomen, no palpable masses Genitourinary: no bladder fullness, no bladder tenderness, no renal bruits Skin: other (Patient refused to allow me to examine his feet under the bandage today) Musculoskeletal: full muscle strength, no muscle tenderness, normal joint ROM Neurologic: AAOx3, sensation intact bilaterally Psychiatric: interacting appropriately, not anxious, not encephalopathic, thought process linear, poor insight, poor judgement Lymph, Heme, Immunologic: no cervical LAD, no supraclavicular LAD ICD10 Worksheet Patient Problems: Problems Problem Status Onset Failure to thrive in adult Acute Rapid atrial fibrillation Acute Weakness Acute Altered mental status Acute Atrial fibrillation Acute Hypotension Acute Hypothermia Acute Major depressive disorder, recurrent, severe with psychotic features Acute Noncompliance with medications Acute Schizophrenia Acute Trench feet Acute
--- NOTE | 2018-09-05 15:53 | ASMTCMCOM ---
CM Note CM Note Notes: Plan of care reviewed . 63 year old homeless make with significant mental health issues. Awaiting level II PASSR. See previous case management note for history and details.Patient is being considered by [facility] for admission. CM to follow. Plan: Hopefully to SNF when medically cleared for discharge. Date Signed: 09/05/2018 03:52 PM Electronically Signed By:Mel Singleton RN
[2018-09-06] MEDS: SILVER SULFADIAZINE 50 GM JAR TP SCH ×3 (00:08→21:09)
[2018-09-06] MEDS: DOXYCYCLINE HYCLATE 100 MG CAP/TAB PO SCH ×4 (00:38→19:32)
[2018-09-06] MEDS: AMOXICILLIN/CLAVULANATE POT 875/125 MG TAB PO SCH ×4 (00:38→19:32)
[2018-09-06] MEDS: LORazepam 1 MG TAB PO SCH ×5 (00:39→19:33)
[2018-09-06] MEDS: oxyCODONE IR 5 MG TAB PO PRN ×4 (01:41→19:32)
[2018-09-06 04:19] LABS: PLATELET COUNT 756 10^3/uL (150-400)
[2018-09-06] MEDS: CYANO/VITAMIN B12 1000 MCG TAB PO SCH (09:49)
[2018-09-06] MEDS: CHOLECALCIFEROL VIT D3 2,000 UNITS TAB/CAP PO SCH (09:51)
--- NOTE | 2018-09-06 11:59 | HOSPPROG ---
Hospitalist Progress Note Assessment/Plan: 63yo M with psychiatric disorder, homelessness, frostbite of his toes presents with suspected overlying bacterial infection and sepsis. He was initially refusing all therapies, now agreeable to PO antibiotics and some dressing changes. 1. Bilateral foot gangrenous infectious: Left with wet gangrene, right toes dry gangrene. - ID following - Continue doxycycline 100mg BID, augmentin 875/125 BID day 4/7 - BID dressing changes - He has refused surgical intervention - PT/OT if agreeable 2. Sepsis: Present on arrival, now resolved. 3. Atrial fibrillation with RVR: Rates remain elevated. - He is agreeable to metoprolol 25mg BID, will order - [id number]. Will discontinue therapeutic lovenox. Have ordered aspirin 81mg daily 4. Psychiatric disorder NOS: Query catatonic depression with psychotic features - Psychiatry following, discussed with Estephania Rodriguez - Increase ativan 1mg from TID to QID - MRI brain ordered, refusing 5. H/o PE: Diagnosed 08/2017, supposed to complete3 months of OAC as outpatient. No indication to continue now. 6. Loculated R pleural effusion: Noted on CT. Had h/o bilateral pleural effusions after PE, suspect related to this. 7. Right subclavian artery stenosis: Asymptomatic. VTE ppx: LMWH which he is refusing Code: full Diet: regular Dispo: Remain inpatient, unsafe to discharge Subjective: No complaints. Met with his 2 friends and psych earlier. Denies pain , nausea. Objective: Vital Signs Temp Pulse Resp BP Pulse Ox 36.6 C 94 18 120/73 94 09/06/18 08:00 09/06/18 08:00 09/06/18 08:00 09/06/18 08:00 09/06/18 08:00 Laboratory Results 09/06/18 03:48 09/06/18 03:48 09/05/18 09/06/18 09/07/18 05:59 05:59 05:59 Intake Total 670 760 Output Total 475 675 500 Balance 195 85 -500 PT 14.2 SEC (12.0-15.0) 08/30/18 14:05 INR 1.08 (0.83-1.16) 08/30/18 14:05 - Physical Exam Constitutional: no apparent distress, not in pain, other (thin, disheveled) Eyes: PERRL, anicteric sclera, EOMI Ears, Nose, Mouth, Throat: moist mucous membranes, hearing normal, ears appear normal, no oral mucosal ulcers Cardiovascular: no murmur, rub, or gallop, irregularly irregular, tachycardia, No edema Respiratory: no respiratory distress, no rales or rhonchi, clear to auscultation Gastrointestinal: normoactive bowel sounds, soft, non-tender abdomen, no palpable masses Genitourinary: no bladder fullness, no bladder tenderness, no renal bruits Skin: other (bilateral feet wrapped, no erythema spreading up legs) Musculoskeletal: full muscle strength, no muscle tenderness, normal joint ROM Neurologic: AAOx3 Psychiatric: interacting appropriately ICD10 Worksheet Patient Problems: Problems Problem Status Onset Failure to thrive in adult Acute Rapid atrial fibrillation Acute Weakness Acute Altered mental status Acute Atrial fibrillation Acute Hypotension Acute Hypothermia Acute Major depressive disorder, recurrent, severe with psychotic features Acute Noncompliance with medications Acute Schizophrenia Acute Trench feet Acute
--- NOTE | 2018-09-06 12:25 | PCMIDPN ---
Assessment/Plan: Assessment: 63-year-old man with bilateral frostbite of his toes with possible concomitant bacterial infection. Wet green green of the toes on the left foot patient agreeable to oral antibiotics, refuses IV medications. 1. Left foot wet gangrene, dressing change debrided at skin today; improving 2. Right toes with dry gangrene; not examined today 3. Thrombocytosis, likely reflecting ongoing inflammation related to frostbite toes demarcating non-viable versus viable tissue Plan: 1. Continue doxycycline 100 mg p.o. Twice daily and Augmentin 875/125 twice daily; plan to stop after 7 days of therapy if no due objective signs of infection, or progression of necrotic tissue occurs 2. Continue daily dressing changes if patient allows 3. Discussed with patient the risk of not treating infection of his left foot, and potential side effects of doxycycline and Augmentin Isaiah Alcala MD Infectious Diseases Subjective: Patient continues to state that he has both fevers and chills overnight, although no documented fevers since admission. He notes no abdominal pain or diarrhea, and no rash. He is tolerating the oral antibiotics fine. He is allowing for the left lower extremity dressing to be changed while with the wounds to be examined, but refuses heart and lung and abdominal exam. Objective: Vital Signs Temp Pulse Resp BP Pulse Ox 36.6 C 94 18 120/73 94 09/06/18 08:00 09/06/18 08:00 09/06/18 08:00 09/06/18 08:00 09/06/18 08:00 Laboratory Results 09/06/18 03:48 09/06/18 03:48 09/05/18 09/06/18 09/07/18 05:59 05:59 05:59 Intake Total 670 760 Output Total 475 675 500 Balance 195 85 -500 Medications Generic Name Dose Route Start Last Admin Trade Name Freq PRN Reason Stop Dose Admin Amoxicillin/Clavulanate Potassium 875 mg 09/03/18 12:45 09/06/18 09:49 Augmentin 875mg PO 10/03/18 12:44 875 mg BID [facility] Protocol Doxycycline Hyclate 100 mg 09/03/18 12:45 09/06/18 09:49 Doxycycline Hyclate PO 10/03/18 12:44 100 mg BID [facility] Protocol Laboratory Tests 09/04/18 09/06/18 03:30 03:48 WBC 7.79 7.38 Hgb 10.2 L 11.2 L Plt Count 738 H 756 H - Physical Exam General Appearance: alert, no apparent distress, non-toxic EENT: No scleral icterus Neck: full range of motion, supple Extremities: other (Left great toe black in appearance throughout, left 2nd toe with necrotic skin debrided revealing largely viable pink underlying dermis, left 3rd 4th and 5th toes largely necrotic) Skin: other (C extremities exam) Neuro/Psych: alert, normal mood/affect, oriented x 3, No confused - Time Spent With Patient Time Spent with Patient: greater than 35 minutes Time Spent with Patient: Greater than 35 minutes spent on this patients care, greater than 50% of time spent counseling, educating, and coordinating care regarding the above mentioned plan. ICD10 Worksheet Patient Problems: Problems Problem Status Onset Failure to thrive in adult Acute Rapid atrial fibrillation Acute Weakness Acute Altered mental status Acute Atrial fibrillation Acute Hypotension Acute Hypothermia Acute Major depressive disorder, recurrent, severe with psychotic features Acute Noncompliance with medications Acute Schizophrenia Acute Trench feet Acute
--- NOTE | 2018-09-06 14:24 | ASMTCMCOM ---
CM Note CM Note Notes: 09/06/2018 Case Management Note Pt met w/Dr. Rodriguez today. Please see her note. Kevin from [facility] visited pt. Pt is accepted at [facility] pending financial approval. [employer] Medicaid application completed by [employer] with Financial POA in the room. Updated Gómez Lafleur by email. Waiting for Level 2 Pasrr. Updated MDPOA's in person. Financial POA is working on obtaining replacement ID for patient. Case Management d/c poc: [facility] pending financial approval. Case Management to follow. Date Signed: 09/06/2018 02:23 PM Electronically Signed By:Xochitl Oakley RN
[2018-09-06] MEDS: ENOXAPARIN 60 MG/0.6 ML SYR SC SCH (17:49)
[2018-09-06] MEDS: METOPROLOL TARTRATE 25 MG TAB PO SCH (19:32)
[2018-09-07] MEDS: LORazepam 1 MG TAB PO SCH ×4 (07:08→21:59)
[2018-09-07] MEDS: CHOLECALCIFEROL VIT D3 2,000 UNITS TAB/CAP PO SCH (09:05)
[2018-09-07] MEDS: METOPROLOL TARTRATE 25 MG TAB PO SCH ×2 (09:05→21:59)
[2018-09-07] MEDS: AMOXICILLIN/CLAVULANATE POT 875/125 MG TAB PO SCH ×2 (09:05→21:58)
[2018-09-07] MEDS: ASPIRIN 81 MG CHEWABLE TAB PO SCH (09:06)
[2018-09-07] MEDS: CYANO/VITAMIN B12 1000 MCG TAB PO SCH (09:06)
[2018-09-07] MEDS: DOXYCYCLINE HYCLATE 100 MG CAP/TAB PO SCH ×2 (09:06→21:59)
[2018-09-07] MEDS: ENOXAPARIN 40 MG/0.4 ML SYR SC SCH (09:16)
--- NOTE | 2018-09-07 11:27 | HOSPPROG ---
Hospitalist Progress Note Assessment/Plan: 63yo M with psychiatric disorder, homelessness, frostbite of his toes presents with suspected overlying bacterial infection and sepsis. He was initially refusing all therapies, now agreeable to PO antibiotics and some dressing changes. 1. Bilateral foot gangrene: Left with wet gangrene, right toes dry gangrene. - ID following - Continue doxycycline 100mg BID, augmentin 875/125 BID day 5/7 - BID dressing changes - He has refused surgical intervention - PT/OT if agreeable 2. Sepsis: Present on arrival, now resolved. 3. Atrial fibrillation with RVR: Rates improved. BP ok. Driven by infection. - Continue metoprolol 25mg BID (started 09/05) - [id number]=0. Continue aspirin 81mg daily 4. Psychiatric disorder NOS: Query catatonic depression with psychotic features - Psychiatry following, discussed with Estephania Rodriguez - Cont ativan 1mg from TID to QID (increased 09/05) - Refusing brain MRI 5. H/o PE: Diagnosed 08/2017, supposed to complete 3 months of OAC as outpatient. No indication to continue now. 6. Loculated R pleural effusion: Noted on CT. Had h/o bilateral pleural effusions after PE, suspect related to this. 7. Right subclavian artery stenosis: Asymptomatic. VTE ppx: LMWH which he is refusing Code: full Diet: regular Dispo: Remain inpatient, unsafe to discharge. Case management working on placement at [facility]. Possible discharge late this week (thurs/fri) pending clinical course and acceptance at facility. Subjective: Resting comfortably in bed, denies complaints this AM. Bandages changed twice yesterday without issue. No fevers. Objective: Vital Signs Temp Pulse Resp BP Pulse Ox 36.6 C 92 18 136/67 H 92 09/07/18 08:00 09/07/18 08:00 09/07/18 08:00 09/07/18 08:00 09/07/18 08:00 Laboratory Results 09/06/18 03:48 09/06/18 03:48 09/06/18 09/07/18 09/08/18 05:59 05:59 05:59 Intake Total 760 220 Output Total 675 650 200 Balance 85 -430 -200 PT 14.2 SEC (12.0-15.0) 08/30/18 14:05 INR 1.08 (0.83-1.16) 08/30/18 14:05 - Physical Exam Constitutional: no apparent distress, unkempt Eyes: PERRL, anicteric sclera, EOMI Ears, Nose, Mouth, Throat: moist mucous membranes, hearing normal, ears appear normal, no oral mucosal ulcers Cardiovascular: no murmur, rub, or gallop, tachycardia, No edema Respiratory: no respiratory distress, no rales or rhonchi, clear to auscultation Gastrointestinal: normoactive bowel sounds, soft, non-tender abdomen, no palpable masses Genitourinary: no bladder fullness, no bladder tenderness, no renal bruits Skin: other (both feet wrapped, no spreading erythema) Musculoskeletal: full muscle strength, no muscle tenderness, normal joint ROM Neurologic: AAOx3, sensation intact bilaterally Psychiatric: interacting appropriately ICD10 Worksheet Patient Problems: Problems Problem Status Onset Failure to thrive in adult Acute Rapid atrial fibrillation Acute Weakness Acute Altered mental status Acute Atrial fibrillation Acute Hypotension Acute Hypothermia Acute Major depressive disorder, recurrent, severe with psychotic features Acute Noncompliance with medications Acute Schizophrenia Acute Trench feet Acute
[2018-09-07] MEDS: SILVER SULFADIAZINE 50 GM JAR TP SCH ×2 (14:00→23:52)
[2018-09-07] MEDS: oxyCODONE IR 5 MG TAB PO PRN (15:46)
--- NOTE | 2018-09-07 17:19 | ASMTCMCOM ---
CM Note CM Note Notes: Received a call from Kevin at [facility] - patient has been officially accepted. Kevin on site today to obtain patietnt's signature on some admission forms - patient's MDPOA/Friend, Torey, at bedside to witness. feels like patient will likely be medically ready to d/c by this upcoming /Thursday. Gómez Lafleur, OBRA Coordinator, notified of placement and vm also left for [facility]. Per Gómez, Level 2 PASRR will be sent to [facility] by today or tomorrow. Will need to f/u/w [facility] to confirm all paperwork has been sent to [facility]. Spoke with Torey IBRAHIM. Torey wanted to relay some important information to this team for future reference if needed. Torey spoke with patient's cousin, Georgi Aguiar #[phone] or #[phone]. Georgi wanted [facility] to know that with Dhruv's permission, he'd be happy to speak to anyone on the treatment team if further history needed. Per Georgi, patient left [place], where he'd be living, about 8-10 years ago. He did see a Psychiatrist in [place] and was treated for Depression. Georgi stated that patient has always responded very well to medications. [facility]'s [facility] and plan to visit [place] in the near future to move his belongings out of storage. It sounds like patient also has some property here in the area. MDPOAs/friends highly involved in the case and willing to support the treatment team in any way possible. Patient continues to show improvement, was able to draw some pictures with supplies brought in by friend, Torey. CM will continue to follow. Plan: [facility] Date Signed: 09/07/2018 05:18 PM Electronically Signed By:Chelsie Bermudez RN
[2018-09-08] MEDS: LORazepam 1 MG TAB PO SCH ×4 (05:46→18:12)
[2018-09-08] MEDS: CHOLECALCIFEROL VIT D3 2,000 UNITS TAB/CAP PO SCH (09:30)
[2018-09-08] MEDS: DOXYCYCLINE HYCLATE 100 MG CAP/TAB PO SCH ×2 (09:30→20:32)
[2018-09-08] MEDS: METOPROLOL TARTRATE 25 MG TAB PO SCH ×2 (09:30→20:33)
[2018-09-08] MEDS: CYANO/VITAMIN B12 1000 MCG TAB PO SCH (09:30)
[2018-09-08] MEDS: ASPIRIN 81 MG CHEWABLE TAB PO SCH (09:30)
[2018-09-08] MEDS: AMOXICILLIN/CLAVULANATE POT 875/125 MG TAB PO SCH ×2 (09:30→20:32)
[2018-09-08] MEDS: ENOXAPARIN 40 MG/0.4 ML SYR SC SCH (09:36)
[2018-09-08] MEDS: LORazepam 1 MG TAB PO PRN (13:12)
[2018-09-08] MEDS: oxyCODONE IR 5 MG TAB PO PRN ×3 (13:12→23:20)
--- NOTE | 2018-09-08 13:57 | SOAPPROG ---
SOAP Progress Note Assessment/Plan: 63yo CM, homeless, with hx of Afib, and bipolar disorder, over past 2 years with multiple presentations to ER and several admissions to medical unit for FTT , last month for hypothermia, and now with frostbite to toes. Consultation requested for behavioral health recommendations for management of his resistance to treatment (ie/refusing IV ABXs, aadc plans staff officer care), and also for psychiatric medication recommendations if any could be helpful. GERIATRIC DEPRESSION SCALE: score 12= mild depression range MSE: lying in hosp bed, in hosp gowns, with bandaged feet, +decr psychom activity ( only slightly shifted body once during hour of interview), nml speech rate/vol and articulate, good eye contact, denied racing thoughts, engaging, mood "better ", affect full and appropriate range to content of conversation. denied AH/VH or any SI/HI. expressed some somatic delusions including around fears of disintegrating with expenditure of any extra energy, did state he was surprised when tests done earlier during admission did not reveal any missing organs. states "it's reassuring" when informed that production of urine indicates kidneys are present and functioning, but he still hesitates to eat some more solid foods b/c not sure his stomach is completely intact/working. also states he doesn't want to get up b/c feels he will fall and never be able to get up again. besides somatic delusional thoughts, conversation was without delusions or psychosis, and was linear, goal-directed, reality-based. i/j both impaired. A& Ox 3 altho initially thought it was the 23rd. pt did allow passive mvmt of his arms/wrists with only very minimal resistance. does c/o pain in feet/toes primarily pins/needles sensation, and in BLE of same but less with additional achey quality, no pain in arms/hands. no h/a. reports sleeping well. declined offer to watch TV. has not been asking for any books/tv or other activities and apparently lying in bed without other distractions besides engaging with providers/visitors. explained need to breathe in deeply to avoid atelectasis (pt did so when asked) , and need to avoid prolonged position in one place to avoid skin breakdown/ decubitus formation. IMP: catatonia, retarded type- r/o due to medical vs psychiatric etiology or combination r/o neurocognitive d/o unspecified r/o BMD depr with psychosis vs depr d/o with psychosis underlying Cluster C personality d/o REC: -incr ativan to 2mg TID -would schedule pain meds perhaps 5mg tid at mealtimes, which may help with his engaging in dressing changes and participation in OT/PT and getting up for restroom. consider bedside commode instead of urinal. -cont to monitor po intake, encourage out of bed, dressing changes. -pt agreeable to start zyprexa zydis 5mg qhs, but possibly wait until tomorrow to start to monitor for effect of incr ativan, and cont with conservative approach regarding generally avoiding use of dopamine-blocking medications in catatonia. will offer 2nd ativan dose for 2mg total around 1pm today. -cont to monitor po intake, encourage fluids. consider formally following I/O b/ c pt refusing weights. -note pt reports no BM in a few days. monitor, offer prune juice or laxative. also on opiates. -not sure pt quite ready for d/c to [facility] in next day or 2, with concern presently that he is still refusing to sit up or stand, not engaging with PT or OT, nor engaging in any personal hygiene. Concern for weakness/ atrophy also at risk for atelectasis and PE, as with hx of PE in past (08/2017) when essentially remained immobile and refusing lovenox also would like to monitor response to increase of ativan, as well as perhaps start zyprexa for his psychosis and will need to monitor on this if started to ensure no worsening of catatonia sxs or NMS (neuroleptic malignant syndrome). If worsening or not engaging in treatment causing detriment to his physical health, would try further incr of Ativan, and pt may need to be considered for ECT. However, he has been improving steadily. Friends and patient would prefer patient continue with being managed in medical setting with plan to transfer to [facility] from here, and avoid inpatient psychiatric treatment at this time. This is completely reasonable as pt has been showing steady, gradual improvement with current medication management. Would like to ensure pt is as stable as possible before discharge from medical unit. Friends' involvement/ support has also been instrumental in pt improvement, and imagine they will facilitate return to higher level of care either medical or psych, if pt not improving or decompensating in outpatient setting. 09/08/18 21:30 Addendum phone call to RN Bernie taking care of patient tonight- notes pt did brush teeth and wash face today, also took pain med and later allowed dressing change and was engaging in this process including directing RN on where to place gauze. pt refused offer of zyprexa 5mg hs prn Objective: Vital Signs Temp Pulse Resp BP Pulse Ox 36.5 C 85 17 128/95 H 90 L 09/08/18 08:00 09/08/18 08:00 09/08/18 08:00 09/08/18 08:00 09/08/18 08:00 Laboratory Results 09/08/18 03:32 09/08/18 03:32 09/07/18 09/08/18 09/09/18 05:59 05:59 05:59 Intake Total 220 950 Output Total 650 750 300 Balance -430 200 -300 PT 14.2 SEC (12.0-15.0) 08/30/18 14:05 INR 1.08 (0.83-1.16) 08/30/18 14:05 - Time Spent With Patient Time Spent With Patient: 60min - Pending Discharge Pending Discharge Within 24 Hours: No Pending Discharge Within 48 Hours: No ICD10 Worksheet Patient Problems: Problems Problem Status Onset Failure to thrive in adult Acute Rapid atrial fibrillation Acute Weakness Acute Altered mental status Acute Atrial fibrillation Acute Hypotension Acute Hypothermia Acute Major depressive disorder, recurrent, severe with psychotic features Acute Noncompliance with medications Acute Schizophrenia Acute Trench feet Acute
--- NOTE | 2018-09-08 14:19 | ASMTCMCOM ---
CM Note CM Note Notes: Pts case discussed in treatment rounds. CM left a msg for Arely w/ [facility] and Gómez Lafleur w/ [facility]. CM awaiting from documentation on level 2 for pt to discharge to [facility]. CM spoke to Torey. CM provided Torey w/ a list of psych retail business development manager that take medicaid. Estephania Rodriguez will be stopping by to see pt and Torey today. CM to follow. Plan: [facility] Date Signed: 09/08/2018 02:18 PM Electronically Signed By:PRAKASH Madrigal
--- NOTE | 2018-09-08 14:46 | SOAPPROG ---
SOAP Progress Note Assessment/Plan: 63yo CM, homeless, with hx of Afib, and bipolar disorder, over past 2 years with multiple presentations to ER and several admissions to medical unit for FTT , last month for hypothermia, and now with frostbite to toes. Consultation requested for behavioral health recommendations for management of his resistance to treatment (ie/refusing IV ABXs, set staff fitter care), and also for psychiatric medication recommendations if any could be helpful. Late entry for 09/06/18 14:00: Interviewed patient for almost 2 hrs on 09/06/18, with both friends/POAs Torey and Johnie present who also provided support to patient. At this time, pt was noted resting in bed, fully bearded with amaya hair, wearing hosp gowns, good eye contact, and engaging verbally, with articulate speech, nml volume, not pressured. did state he recalled my visit from last week. mood depressed but hopeful now that he feels unconditional support from his friends who found him after 2 yrs. was easily engaged in interview. affect initially flat but then it seemed as he continued to feel supported, he was able to occasionally smile and even laughed a few times as he shared life experiences and stories from over the years. thoughts linear, organized, and reality-based except for somatic delusions expressed regarding his body- notably believes he will go blind by end of the day, and believes his bones and organs are either gone or actively disintegrating, which is why he does not want to participate in anything that will expend extra energy b/c he does not want the rate of this inevitable process to increase. yes, also b/c of pain in his feet and other parts of his body. also feels a part of his mind has been "scooped out" which is why he feels his thinking/memory has not been at baseline. denied AH/VH or any SI or thoughts to harm others. admitted to having passive SI and having "given up" prior to admission and now hopeful b/c of friends and promise of housing. altho expresses being convinced of his physical deterioration, he does not want this to happen. does express insight into this thinking not being reality-based to others but does believe it to be true at this time. jdgmt impaired. A&Ox3. 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 He has some storage units with valuables in [place], [place], and [place], and friends are helping with this and financial matters since he already lost a storage unit to auction during homeless period. Friends will also help secure housing for him (and, as it was later determined, help him reconnect with his 98yo mother who reportedly is initiating this). Still refusing some interventions medically and refusing to get up/ambulate or use restroom (altho appropriately requested urinal during interview, and given some privacy- noted with very concentrated urine). Also has been intermittently refusing dressing changes for his feet, and has been refusing OT or PT interventions. Psychotic reasoning, as well as pain, playing role in this refusal, as noted above. Does feel pain meds have helped more than ativan, but ativan definitely contributing to improvement as noted clinically including by staff and friends as compared to functioning last week. IMP: catatonia, retarded type- r/o due to medical vs psychiatric etiology or combination r/o neurocognitive d/o unspecified r/o BMD depr with psychosis vs depr d/o with psychosis underlying Cluster C personality d/o REC: -briefly had decreased ativan 1mg qid to 1mg tid on 09/05, but recommend increase again to 1mg qid as it seems pt has been responding positively with regards to decr retarded catatonia symptoms since ativan initiated. has been more interactive, engaging, but still with occasional refusals. evidence of underlying thought d/o/psychotic reasoning behind his refusal as noted, but also with c/o pain, and does report still feeling depressed altho more hopeful. in building and maintaining therapeutic alliance, will continue with ativan 1mg qid for now, as pt declines offer of any other medications including low dose of zyprexa, which may or may not be helpful since could worsen catatonia and place pt at risk of NMS, but may also be helpful for psychotic thoughts/mood/ appetite and weight. friends would like to see how he responds to their continued support and interventions including being present for dressing changes , meals etc, and they will cont to encourage pt to get out of bed and participate more consistently with treatment recommendations. has been more consistently compliant with medications since starting ativan. -has been determined to be decisional by ethics -cont with B12, vit D supplementation and monitor I&O and weight and labs as indicated. Pt has hx of refusing Lovenox and not getting out of bed and had PE in past (08/2018). monitor for atelectasis, and constipation as well. . -will f/u this week and consider further incr of Ativan for catatonia or perhaps addition of low dose zyprexa -Behavioral Health will cont to follow. Please do not hesitate to call with any questions. Objective: Vital Signs Temp Pulse Resp BP Pulse Ox 36.5 C 85 17 128/95 H 90 L 09/08/18 08:00 09/08/18 08:00 09/08/18 08:00 09/08/18 08:00 09/08/18 08:00 Laboratory Results 09/08/18 03:32 09/08/18 03:32 09/07/18 09/08/18 09/09/18 05:59 05:59 05:59 Intake Total 220 950 Output Total 650 750 300 Balance -430 200 -300 PT 14.2 SEC (12.0-15.0) 08/30/18 14:05 INR 1.08 (0.83-1.16) 08/30/18 14:05 - Time Spent With Patient Time Spent With Patient: 120min - Pending Discharge Pending Discharge Within 24 Hours: No Pending Discharge Within 48 Hours: No ICD10 Worksheet Patient Problems: Problems Problem Status Onset Failure to thrive in adult Acute Rapid atrial fibrillation Acute Weakness Acute Altered mental status Acute Atrial fibrillation Acute Hypotension Acute Hypothermia Acute Major depressive disorder, recurrent, severe with psychotic features Acute Noncompliance with medications Acute Schizophrenia Acute Trench feet Acute
--- NOTE | 2018-09-08 15:12 | PCMIDPN ---
Assessment/Plan: Assessment: 63-year-old man with bilateral frostbite of his toes with possible concomitant bacterial infection. Wet green green of the toes on the left foot patient agreeable to oral antibiotics, refuses IV medications. Overall improved appearance of toes on the left foot, with no systemic signs of infection. Dressing changes with debridement of nonviable skin care to preventing superimposed infection. 1. Left foot wet gangrene, dressing change debrided at skin today; improving 2. Right toes with dry gangrene; not examined today 3. Thrombocytosis, likely reflecting ongoing inflammation related to frostbite toes demarcating non-viable versus viable tissue; improved Plan: 1. Continue doxycycline 100 mg p.o. Twice daily and Augmentin 875/125 twice daily; both of these medications to stop after doses on 09/09 2. Continue daily dressing changes 3. Discussed with patient potential side effects of doxycycline and Augmentin Isaiah Alcala MD Infectious Diseases 09/08/18 15:10 09/08/18 15:12 Subjective: No fever or chills. Denies diarrhea, nausea, rash. Appetite improving. No new concerns today. Dressing change this morning. Objective: Vital Signs Temp Pulse Resp BP Pulse Ox 36.5 C 85 17 128/95 H 90 L 09/08/18 08:00 09/08/18 08:00 09/08/18 08:00 09/08/18 08:00 09/08/18 08:00 Laboratory Results 09/08/18 03:32 09/08/18 03:32 09/07/18 09/08/18 09/09/18 05:59 05:59 05:59 Intake Total 220 950 Output Total 650 750 300 Balance -430 200 -300 Laboratory Tests 09/06/18 09/06/18 09/08/18 03:48 03:48 03:32 WBC 7.38 6.18 Hgb 11.2 L 11.4 L Plt Count 756 H 699 H Creatinine 0.7 09/08/18 03:32 WBC Hgb Plt Count Creatinine 0.8 Medications Generic Name Dose Route Start Last Admin Trade Name Freq PRN Reason Stop Dose Admin Amoxicillin/Clavulanate Potassium 875 mg 09/03/18 12:45 09/08/18 09:30 Augmentin 875mg PO 01/31/19 21:01 875 mg BID [facility] Protocol Doxycycline Hyclate 100 mg 09/03/18 12:45 09/08/18 09:30 Doxycycline Hyclate PO 09/09/18 21:01 100 mg BID [facility] Protocol - Physical Exam General Appearance: alert, no apparent distress, non-toxic Extremities: No erythema (Did not take down dressings today, they were changed earlier this morning by nursing) ICD10 Worksheet Patient Problems: Problems Problem Status Onset Failure to thrive in adult Acute Rapid atrial fibrillation Acute Weakness Acute Altered mental status Acute Atrial fibrillation Acute Hypotension Acute Hypothermia Acute Major depressive disorder, recurrent, severe with psychotic features Acute Noncompliance with medications Acute Schizophrenia Acute Trench feet Acute
--- NOTE | 2018-09-08 15:49 | HOSPPROG ---
Hospitalist Progress Note Assessment/Plan: 63yo M with psychiatric disorder, homelessness, frostbite of his toes presents with suspected overlying bacterial infection and sepsis. He was initially refusing all therapies, now agreeable to PO antibiotics and some dressing changes. 1. Bilateral foot gangrene: Left with wet gangrene, right toes dry gangrene. - ID following - Continue doxycycline 100mg BID, augmentin 875/125 BID day 6/7 - BID dressing changes - He has refused surgical intervention/debridement - PT/OT (has been refusing) 2. Sepsis: Present on arrival, now resolved. 3. Atrial fibrillation with RVR: Rates controlled. Driven by infection. - Continue metoprolol 25mg BID (started 09/05) - [id number]=9. Continue aspirin 81mg daily 4. Psychiatric disorder NOS: Query catatonic depression with psychotic features - Psychiatry following, discussed with Estephania Rodriguez - Plan to increase ativan today, considering adding anti-psychotic - Refusing brain MRI 5. H/o PE: Diagnosed 08/2017, supposed to complete 3 months of OAC as outpatient. No indication to continue now. 6. Loculated R pleural effusion: Noted on CT. Had h/o bilateral pleural effusions after PE, suspect related to this. 7. Right subclavian artery stenosis: Asymptomatic. VTE ppx: LMWH Code: full Diet: regular Dispo: Remain inpatient, unsafe to discharge. Case management working on placement at [facility]. Subjective: Chatting with 2 friends. No complaints. Objective: Vital Signs Temp Pulse Resp BP Pulse Ox 36.5 C 85 17 128/95 H 90 L 09/08/18 08:00 09/08/18 08:00 09/08/18 08:00 09/08/18 08:00 09/08/18 08:00 Laboratory Results 09/08/18 03:32 09/08/18 03:32 09/07/18 09/08/18 09/09/18 05:59 05:59 05:59 Intake Total 220 950 Output Total 650 750 300 Balance -430 200 -300 PT 14.2 SEC (12.0-15.0) 08/30/18 14:05 INR 1.08 (0.83-1.16) 08/30/18 14:05 - Physical Exam Constitutional: no apparent distress, not in pain, unkempt Eyes: PERRL, anicteric sclera, EOMI Ears, Nose, Mouth, Throat: moist mucous membranes, hearing normal, ears appear normal, no oral mucosal ulcers Cardiovascular: regular rate and rhythym, no murmur, rub, or gallop Respiratory: no respiratory distress, no rales or rhonchi, clear to auscultation Gastrointestinal: normoactive bowel sounds, soft, non-tender abdomen, no palpable masses Genitourinary: no bladder fullness, no bladder tenderness, no renal bruits Skin: other (both feet wrapped) Musculoskeletal: full muscle strength, no muscle tenderness, normal joint ROM Neurologic: AAOx3 Psychiatric: interacting appropriately ICD10 Worksheet Patient Problems: Problems Problem Status Onset Failure to thrive in adult Acute Rapid atrial fibrillation Acute Weakness Acute Altered mental status Acute Atrial fibrillation Acute Hypotension Acute Hypothermia Acute Major depressive disorder, recurrent, severe with psychotic features Acute Noncompliance with medications Acute Schizophrenia Acute Trench feet Acute
[2018-09-08] MEDS: SILVER SULFADIAZINE 50 GM JAR TP SCH ×2 (18:06→22:36)
[2018-09-08] MEDS ORDERED: OLANZapine DISINTEGR 5 MG TAB PO PRN (21:50)
[2018-09-09] MEDS: LORazepam 1 MG TAB PO SCH ×3 (08:00→18:04)
[2018-09-09] MEDS: oxyCODONE IR 5 MG TAB PO PRN ×4 (08:01→21:17)
[2018-09-09] MEDS: METOPROLOL TARTRATE 25 MG TAB PO SCH ×2 (10:07→20:52)
[2018-09-09] MEDS: DOXYCYCLINE HYCLATE 100 MG CAP/TAB PO SCH ×2 (10:07→20:50)
[2018-09-09] MEDS: CYANO/VITAMIN B12 1000 MCG TAB PO SCH (10:07)
[2018-09-09] MEDS: AMOXICILLIN/CLAVULANATE POT 875/125 MG TAB PO SCH ×2 (10:07→20:50)
[2018-09-09] MEDS: CHOLECALCIFEROL VIT D3 2,000 UNITS TAB/CAP PO SCH (10:07)
[2018-09-09] MEDS: ASPIRIN 81 MG CHEWABLE TAB PO SCH (10:07)
[2018-09-09] MEDS: ENOXAPARIN 40 MG/0.4 ML SYR SC SCH (10:09)
--- NOTE | 2018-09-09 11:46 | ASMTCMCOM ---
CM Note CM Note Notes: Pts case discussed in tx rounds. Pt will most likely d/c on thursday. CM spoke w/ Kevin with [facility]. CM notified BRIA and Kevin with [facility] this. [facility] will be sending over Level II PAS[facility] to [facility] with start of date when it is identified. CM to follow. Plan: [facility] Date Signed: 09/09/2018 11:40 AM Electronically Signed By:PRAKASH Madrigal
--- NOTE | 2018-09-09 13:09 | HOSPPROG ---
Hospitalist Progress Note Assessment/Plan: 63yo M with psychiatric disorder, homelessness, frostbite of his toes presents with suspected overlying bacterial infection and sepsis. He was initially refusing all therapies, now agreeable to PO antibiotics and some dressing changes. 1. Bilateral foot gangrene: Left with wet gangrene, right toes dry gangrene. - Today is last day of doxycycline 100mg BID, augmentin 875/125 BID per ID recs - BID dressing changes (ok to get oxy with these) - He has refused surgical intervention/debridement - PT/OT (has been mostly refusing) 2. Sepsis: Present on arrival, now resolved. 3. Atrial fibrillation with RVR: Rates controlled. Driven by infection. - Continue metoprolol 25mg BID (started 09/05) - [id number]. Continue aspirin 81mg daily 4. Psychiatric disorder NOS: Query catatonic depression with psychotic features - Psychiatry following, discussed with Estephania Rodriguez - Increased ativan to 2mg TID and added olanzapine 5mg 09/08 - Refusing brain MRI 5. H/o PE: Diagnosed 08/2017, supposed to complete 3 months of OAC as outpatient. No indication to continue now. 6. Loculated R pleural effusion: Noted on CT. Had h/o bilateral pleural effusions after PE, suspect related to this. 7. Right subclavian artery stenosis: Asymptomatic. VTE ppx: LMWH Code: full Diet: regular Dispo: Remain inpatient, unsafe to discharge. If working with PT/OT, reasonable to discharge to [facility] (has been accepted) tomorrow 09/10. If requiring ongoing psychiatric med titration and refusing therapy services due to his underlying psychiatric disorder, then more suitable for inpatient psych admission at [facility]. Will continue to discuss with Estephania Rodriguez who has been following Subjective: No complaints. Only did one dressing change yesterday. Sat at side of bed with PT but refused additional therapies Objective: Vital Signs Temp Pulse Resp BP Pulse Ox 36.6 C 87 10 L 110/75 93 09/09/18 07:13 09/09/18 07:13 09/09/18 07:13 09/09/18 07:13 09/09/18 07:13 Laboratory Results 09/08/18 03:32 09/08/18 03:32 09/08/18 09/09/18 09/10/18 05:59 05:59 05:59 Intake Total 950 150 Output Total 750 675 Balance 200 -525 PT 14.2 SEC (12.0-15.0) 08/30/18 14:05 INR 1.08 (0.83-1.16) 08/30/18 14:05 - Physical Exam Constitutional: no apparent distress, unkempt Eyes: PERRL, anicteric sclera, EOMI Ears, Nose, Mouth, Throat: moist mucous membranes, hearing normal, ears appear normal, no oral mucosal ulcers Cardiovascular: regular rate and rhythym, no murmur, rub, or gallop, No edema Respiratory: no respiratory distress, no rales or rhonchi, clear to auscultation Gastrointestinal: normoactive bowel sounds, soft, non-tender abdomen, no palpable masses Genitourinary: no bladder fullness, no bladder tenderness, no renal bruits Skin: other (bilateral feet wrapped) Musculoskeletal: full muscle strength Neurologic: AAOx3 Psychiatric: other (flat affect) ICD10 Worksheet Patient Problems: Problems Problem Status Onset Failure to thrive in adult Acute Rapid atrial fibrillation Acute Weakness Acute Altered mental status Acute Atrial fibrillation Acute Hypotension Acute Hypothermia Acute Major depressive disorder, recurrent, severe with psychotic features Acute Noncompliance with medications Acute Schizophrenia Acute Trench feet Acute
[2018-09-09] MEDS: SILVER SULFADIAZINE 50 GM JAR TP SCH ×2 (20:26→21:13)
[2018-09-09] MEDS: OLANZapine 5 MG TAB PO SCH (21:18)
[2018-09-10] MEDS: oxyCODONE IR 5 MG TAB PO PRN ×4 (05:41→20:05)
[2018-09-10] MEDS: METOPROLOL TARTRATE 25 MG TAB PO SCH ×2 (08:10→20:05)
[2018-09-10] MEDS: LORazepam 1 MG TAB PO SCH ×3 (08:10→17:36)
[2018-09-10] MEDS: SENNOSIDES 1 TAB PO SCH ×2 (08:10→21:43)
[2018-09-10] MEDS: CHOLECALCIFEROL VIT D3 2,000 UNITS TAB/CAP PO SCH (08:11)
[2018-09-10] MEDS: ENOXAPARIN 40 MG/0.4 ML SYR SC SCH (08:12)
[2018-09-10] MEDS: ASPIRIN 81 MG CHEWABLE TAB PO SCH (08:12)
[2018-09-10] MEDS: CYANO/VITAMIN B12 1000 MCG TAB PO SCH (08:12)
--- NOTE | 2018-09-10 08:30 | HOSPPROG ---
Hospitalist Progress Note Assessment/Plan: 1. Bilateral foot gangrene: Left with wet gangrene, right toes dry gangrene. - completed course doxycycline/Augmentin - BID dressing changes (ok to get oxy with these) - He has refused surgical intervention/debridement - PT/OT (has been mostly refusing) 2. Sepsis: Present on arrival, now resolved. 3. Atrial fibrillation with RVR: Rates controlled. CHADS 0. Metoprolol 25mg BID (started 09/05) - [id number]=6. Continue aspirin 81mg daily 4. Bipolar d/o with severe depression and catatonia -Dr. Rodrgiuez following. Symptoms improved with scheduled Ativan and Zyprexa 5. H/o PE: Diagnosed 08/2017, completed 3 months AC. No indication to continue now. 6. Loculated R pleural effusion: Noted on CT. Had h/o bilateral pleural effusions after PE, suspect related to this. 7. Right subclavian artery stenosis: Asymptomatic. 8. Thrombocytosis: due to acute infection 9. DVT ppx: Lovenox #Disp: cont titration of psych meds, if clinically improved, DC to [facility] Thursday Subjective: showered and shaved today. No complaints Objective: Vital Signs Temp Pulse Resp BP Pulse Ox 36.7 C 94 16 107/86 H 92 09/10/18 08:15 09/10/18 08:15 09/10/18 08:15 09/10/18 08:15 09/10/18 08:15 Laboratory Results 09/08/18 03:32 09/08/18 03:32 09/09/18 09/10/18 09/11/18 05:59 05:59 05:59 Intake Total 150 700 600 Output Total 675 750 Balance -525 -50 600 PT 14.2 SEC (12.0-15.0) 08/30/18 14:05 INR 1.08 (0.83-1.16) 08/30/18 14:05 - Time Spent With Patient Time Spent with Patient: greater than 35 minutes Time Spent with Patient: Greater than 35 minutes spent on this patients care, greater than 50% of time spent counseling, educating, and coordinating care regarding the above mentioned plan. - Physical Exam Constitutional: no apparent distress Eyes: PERRL Ears, Nose, Mouth, Throat: moist mucous membranes Cardiovascular: irregularly irregular, tachycardia Respiratory: no respiratory distress Gastrointestinal: normoactive bowel sounds Genitourinary: No guerrero in urethra Neurologic: CN II-XII Intact Psychiatric: flat affect, poor insight ICD10 Worksheet Patient Problems: Problems Problem Status Onset Failure to thrive in adult Acute Rapid atrial fibrillation Acute Weakness Acute Altered mental status Acute Atrial fibrillation Acute Hypotension Acute Hypothermia Acute Major depressive disorder, recurrent, severe with psychotic features Acute Noncompliance with medications Acute Schizophrenia Acute Trench feet Acute
[2018-09-10] MEDS: SILVER SULFADIAZINE 50 GM JAR TP SCH ×2 (09:09→20:11)
--- NOTE | 2018-09-10 13:26 | SOAPPROG ---
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 Consultation requested for behavioral health recommendations for management of his resistance to treatment (ie/refusing IV ABXs, waitstaff care), and also for psychiatric medication recommendations if any could be helpful. Had no prior mental health treatment history except remotely with Lexapro for depression, with no past psychiatric hospitalizations until 3 after he became homeless 2 yrs ago. Psychiatrically, with depression symptoms, severe with catatonic features. Has been diagnosed with bipolar mood d/o during prior psych admissions, but no hx of schizophrenia. Has been improving since start of Ativan for apparent retarded type catatonia symptoms, pain medications for his frostbite to toes/feet, regular visits by supportive friends who tracked him down and found him after 2 yrs of his homelessness, consistent support and care by hospital staff, concrete plans for resolution of homelessness, and last night addition of zyprexa. 09/10/18 12:29 Phone call to RN Bernie last night to check on pt and order scheduled Zyprexa 5mg hs, also since no BM reported since 09/02, ordered Senna. RN reports pt did take medication as ordered. Had allowed dressing change following pain medications earlier in evening. Also taking ativan 2mg tid as ordered for catatonia sxs. RN called this AM to report that pt awakened at 4:30am, reported feeling very well rested, finally sleeping well, got up into wheelchair to shave, shower and engage in personal hygiene. Was bright, engaging and interactive. On interview today, pt with good eye contact, nml speech rate/vol/articulation, nml psychom activity, lying in bed but allowed head of bed to be raised so he could reach for and eat brownie and drink chocolate shake which was brought in. Observed with nml fluid mvmts, and no problems swallowing. Readily engaging in conversation. Volunteers that "this is the best morning I've had in years." Attributes this to "friends being consistently there" for him, also cousins visiting, finally getting restful sleep (altho had been reporting sleeping well previously), and "being on the right combination of medications for sleep". Also clinical case manager noted he wrote a letter to his mother yesterday which he wanted friends to deliver to her. Of note, pt has had contentious relationship with mother since childhood. Reports depression is "better", he is hopeful for the future. Denies any SI or thoughts to harm others. denies any AH/VH and did not verbalize any psychosis or delusional statements, although when asked about his expressed concerns/ beliefs earlier during hospitalization about his going blind and about his body and internal organs disintegrating, he admits still believing this to be happening, although such thoughts consume him perhaps "20%" now instead of what seemed clinically to be a more persistent obsession resulting in his lack of engaging in any physical expenditure to avoid speeding up of this process. Thoughts linear/goal-directed, future-oriented. A&Ox3. States he plans to engage with OT and PT today, and try to have a BM, and continue eating well. Did feel Ativan helped him get un-"stuck" and zyprexa last night helped him sleep very well. Plans to continue current meds. IMP: Bipolar mood disorder, recent episode depressed, severe with catatonic features , improving. Cluster C personality d/o traits (avoidant, dependent, obsessive/compulsive features) r/o neurocognitive d/o unspecified vit D deficiency, vit B12 deficiency REC: -responding well to addition of zyprexa 5mg hs which he had declined to start previously when offered until last night. Also with clear steady improvement in retarded catatonia sxs over past week since starting scheduled ativan 1mg qid, which was increased to 2mg tid 2 days ago. Monitor for consistency of response. Since starting ativan, he has been increasingly conversant, more regularly allowing assessments, dressing changes, and with some improved po intake. Monitor VS regularly for any sxs of NMS since this is a risk with catatonia. Follow PO intake (zyprexa will also help improve appetite), resolution of constipation, and for increased physical activity to work with PT/OT (has been refusing this since admission) to avoid atrophy, atelectasis, PE etc as complications of immobility improvements also attributable to consistent medical care and psychosocial support. now off ABXs. Anticipate plan for d/c to [facility] on 09/13 if continuing with improvement. 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 -consider repeat ST for cog eval for new baseline, anticipate improved scores with his improved mental status recently -Behavioral Health will cont to follow. Please do not hesitate to call with any questions. Objective: Vital Signs Temp Pulse Resp BP Pulse Ox 36.7 C 94 16 107/86 H 92 09/10/18 08:15 09/10/18 08:15 09/10/18 08:15 09/10/18 08:15 09/10/18 08:15 Laboratory Results 09/08/18 03:32 09/08/18 03:32 09/09/18 09/10/18 09/11/18 05:59 05:59 05:59 Intake Total 150 700 600 Output Total 675 750 Balance -525 -50 600 PT 14.2 SEC (12.0-15.0) 08/30/18 14:05 INR 1.08 (0.83-1.16) 08/30/18 14:05 - Time Spent With Patient Time Spent With Patient: 30min - Pending Discharge Pending Discharge Within 24 Hours: No Pending Discharge Within 48 Hours: No ICD10 Worksheet Patient Problems: Problems Problem Status Onset Altered mental status Acute Atrial fibrillation Acute Failure to thrive in adult Acute Hypotension Acute Hypothermia Acute Major depressive disorder, recurrent, severe with psychotic features Acute Noncompliance with medications Acute Rapid atrial fibrillation Acute Schizophrenia Acute Trench feet Acute Weakness Acute
[2018-09-10] MEDS ORDERED: LACTULOSE 20 GM/30 ML UDCUP PO PRN (17:34)
[2018-09-10] MEDS ORDERED: MAGNESIUM HYDROXIDE 30 ML UDCUP PO PRN (17:34)
[2018-09-10] MEDS ORDERED: BISACODYL 10 MG SUPP PR PRN (17:34)
[2018-09-10] MEDS ORDERED: POLYETHYLENE GLYCOL 3350 17 GM PKT PO PRN (17:34)
[2018-09-10] MEDS: OLANZapine 5 MG TAB PO SCH (20:05)
[2018-09-10] MEDS: SENNOSIDES/DOCUSATE SODIUM TAB PO SCH (21:43)
[2018-09-11] MEDS: ASPIRIN 81 MG CHEWABLE TAB PO SCH (09:26)
[2018-09-11] MEDS: CHOLECALCIFEROL VIT D3 2,000 UNITS TAB/CAP PO SCH (09:26)
[2018-09-11] MEDS: METOPROLOL TARTRATE 25 MG TAB PO SCH ×2 (09:26→20:59)
[2018-09-11] MEDS: LORazepam 1 MG TAB PO SCH ×3 (09:27→17:42)
[2018-09-11] MEDS: ENOXAPARIN 40 MG/0.4 ML SYR SC SCH (09:27)
[2018-09-11] MEDS: CYANO/VITAMIN B12 1000 MCG TAB PO SCH (09:27)
[2018-09-11] MEDS: SENNOSIDES 1 TAB PO SCH ×2 (09:27→21:00)
[2018-09-11] MEDS: SENNOSIDES/DOCUSATE SODIUM TAB PO SCH ×2 (09:30→21:00)
--- NOTE | 2018-09-11 10:53 | HOSPPROG ---
Hospitalist Progress Note Assessment/Plan: 1. Bilateral foot gangrene: Left with wet gangrene, right toes dry gangrene. - completed course doxycycline/Augmentin - BID dressing changes (ok to get oxy with these) - He has refused surgical intervention/debridement - PT/OT (has been mostly refusing) 2. Sepsis: Present on arrival, now resolved. 3. Atrial fibrillation with RVR: Rates controlled. CHADS 0. Metoprolol 25mg BID (started 09/05) - [id number]=2. Continue aspirin 81mg daily 4. Bipolar d/o with severe depression and catatonia: improving everday -Dr. Rodriguez following. Symptoms improved with scheduled Ativan and Zyprexa 5. H/o PE: Diagnosed 08/2017, completed 3 months AC. No indication to continue now. 6. Loculated R pleural effusion: Noted on CT. Had h/o bilateral pleural effusions after PE, suspect related to this. 7. Right subclavian artery stenosis: Asymptomatic. 8. Thrombocytosis: due to acute infection 9. Cough: afebrile, nonproductive. Monitor . DVT ppx: Lovenox #Disp: cont titration of psych meds, if clinically improved, DC to [facility] Thursday Subjective: "this is the best I have felt in years" Objective: Vital Signs Temp Pulse Resp BP Pulse Ox 37.1 C 102 H 18 100/75 92 09/11/18 07:19 09/11/18 09:26 09/11/18 07:19 09/11/18 09:26 09/11/18 07:19 Laboratory Results 09/08/18 03:32 09/08/18 03:32 09/10/18 09/11/18 09/12/18 05:59 05:59 05:59 Intake Total 700 1200 Output Total 750 750 Balance -50 450 PT 14.2 SEC (12.0-15.0) 08/30/18 14:05 INR 1.08 (0.83-1.16) 08/30/18 14:05 - Physical Exam Constitutional: no apparent distress Eyes: PERRL Ears, Nose, Mouth, Throat: moist mucous membranes Cardiovascular: irregularly irregular Respiratory: no respiratory distress, No expiratory wheeze, No inspiratory crackles, No aegophony Gastrointestinal: normoactive bowel sounds Genitourinary: no bladder fullness Skin: warm Musculoskeletal: full muscle strength Neurologic: AAOx3 Psychiatric: flat affect ICD10 Worksheet Patient Problems: Problems Problem Status Onset Failure to thrive in adult Acute Rapid atrial fibrillation Acute Weakness Acute Altered mental status Acute Atrial fibrillation Acute Hypotension Acute Hypothermia Acute Major depressive disorder, recurrent, severe with psychotic features Acute Noncompliance with medications Acute Schizophrenia Acute Trench feet Acute
[2018-09-11] MEDS: oxyCODONE IR 5 MG TAB PO PRN ×3 (11:00→20:59)
[2018-09-11] MEDS: SILVER SULFADIAZINE 50 GM JAR TP SCH ×2 (12:24→21:00)
--- NOTE | 2018-09-11 14:10 | ASMTCMCOM ---
CM Note CM Note Notes: CM spoke with pt's hospitalist. [facility]/C [facility] anticipated this Thursday. D/C Plan: [facility] Date Signed: 09/11/2018 02:09 PM Electronically Signed By:Lisette Armas
[2018-09-11] MEDS: OLANZapine 5 MG TAB PO SCH (21:00)
--- NOTE | 2018-09-12 09:46 | HOSPPROG ---
Hospitalist Progress Note Assessment/Plan: 1. Bilateral foot gangrene: Left with wet gangrene, right toes dry gangrene. - completed course doxycycline/Augmentin - BID dressing changes (ok to get oxy with these) - He has refused surgical intervention/debridement - PT/OT (has been mostly refusing) 2. Sepsis: Present on arrival, now resolved. 3. Atrial fibrillation with RVR: Rates controlled. CHADS 0. Metoprolol 25mg BID , ASA 4. Bipolar d/o with severe depression and catatonia: improving everday -Dr. Rodriguez following. Symptoms improved with scheduled Ativan and Zyprexa 5. H/o PE: Diagnosed 08/2017, completed 3 months AC. No indication to continue now. 6. Loculated R pleural effusion: Noted on CT. Had h/o bilateral pleural effusions after PE, suspect related to this. 7. Right subclavian artery stenosis: Asymptomatic. 8. Thrombocytosis: due to acute infection 9. Cough: afebrile, nonproductive. Monitor 10 DVT ppx: Lovenox #Disp: cont titration of psych meds, if clinically improved, DC to [facility] tomorrow Subjective: no acute events Objective: Vital Signs Temp Pulse Resp BP Pulse Ox 36.6 C 94 12 111/75 93 09/12/18 00:00 09/12/18 00:00 09/12/18 00:00 09/12/18 00:00 09/12/18 00:00 Laboratory Results 09/08/18 03:32 09/08/18 03:32 09/11/18 09/12/18 09/13/18 05:59 05:59 05:59 Intake Total 1200 750 Output Total 750 1000 Balance 450 -250 PT 14.2 SEC (12.0-15.0) 08/30/18 14:05 INR 1.08 (0.83-1.16) 08/30/18 14:05 - Time Spent With Patient Time Spent with Patient: greater than 25 minutes Time Spent with Patient: Greater than 25 minutes spent on this patients care, greater than 50% of time spent counseling, educating, and coordinating care regarding the above mentioned plan. - Physical Exam Constitutional: no apparent distress Eyes: PERRL Ears, Nose, Mouth, Throat: moist mucous membranes Cardiovascular: regular rate and rhythym Respiratory: no respiratory distress Gastrointestinal: normoactive bowel sounds Genitourinary: no bladder fullness Musculoskeletal: other (bilateral foot wounds dressed, C/D/I. No surrounding cellulitis) Neurologic: CN II-XII Intact Psychiatric: interacting appropriately, depressed, flat affect ICD10 Worksheet Patient Problems: Problems Problem Status Onset Failure to thrive in adult Acute Rapid atrial fibrillation Acute Weakness Acute Altered mental status Acute Atrial fibrillation Acute Hypotension Acute Hypothermia Acute Major depressive disorder, recurrent, severe with psychotic features Acute Noncompliance with medications Acute Schizophrenia Acute Trench feet Acute
[2018-09-12] MEDS: oxyCODONE IR 5 MG TAB PO PRN ×3 (09:57→18:36)
[2018-09-12] MEDS: LORazepam 1 MG TAB PO SCH ×3 (09:58→18:36)
[2018-09-12] MEDS: ENOXAPARIN 40 MG/0.4 ML SYR SC SCH (09:58)
[2018-09-12] MEDS: CHOLECALCIFEROL VIT D3 2,000 UNITS TAB/CAP PO SCH (09:59)
[2018-09-12] MEDS: CYANO/VITAMIN B12 1000 MCG TAB PO SCH (10:01)
[2018-09-12] MEDS: METOPROLOL TARTRATE 25 MG TAB PO SCH ×2 (10:01→20:18)
[2018-09-12] MEDS: SENNOSIDES 1 TAB PO SCH ×2 (10:01→20:18)
[2018-09-12] MEDS: ASPIRIN 81 MG CHEWABLE TAB PO SCH (10:02)
[2018-09-12] MEDS: SILVER SULFADIAZINE 50 GM JAR TP SCH ×2 (14:11→22:46)
[2018-09-12] MEDS: SENNOSIDES/DOCUSATE SODIUM TAB PO SCH ×2 (17:36→20:18)
[2018-09-12] MEDS: OLANZapine 5 MG TAB PO SCH (20:18)
[2018-09-13] MEDS: ENOXAPARIN 40 MG/0.4 ML SYR SC SCH (09:13)
[2018-09-13] MEDS: oxyCODONE IR 5 MG TAB PO PRN ×2 (09:14→12:07)
[2018-09-13] MEDS: LORazepam 1 MG TAB PO SCH ×2 (09:14→13:04)
[2018-09-13] MEDS: CHOLECALCIFEROL VIT D3 2,000 UNITS TAB/CAP PO SCH (09:14)
[2018-09-13] MEDS: SENNOSIDES/DOCUSATE SODIUM TAB PO SCH (09:19)
[2018-09-13] MEDS: SENNOSIDES 1 TAB PO SCH (09:19)
[2018-09-13] MEDS: ASPIRIN 81 MG CHEWABLE TAB PO SCH (09:19)
[2018-09-13] MEDS: CYANO/VITAMIN B12 1000 MCG TAB PO SCH (09:19)
[2018-09-13] MEDS: METOPROLOL TARTRATE 25 MG TAB PO SCH (09:19)
--- NOTE | 2018-09-13 09:44 | PDIAF ---
- Diagnosis Diagnosis: Catatonia, feet gangrene Code Status: Full Code - Medication Management Discharge Medications: electronically signed and located in the Home Medication List. - Orders Services needed: Registered Nurse, Certified Pigment Weigher, Physical Therapy, Occupational Therapy Isolation Type: None Diet Recommendation: no restrictions on diet Diet Texture: Regular Texture Diet Additional Instructions: Wash feet with soap and water with each dressing change BID. [place] Betadine to blackened areas of toes. Need to follow up with Outpatient [facility] Clinic this week. - Follow Up Care Current Providers and Referrals: [facility],. [Clinic] - As per Instructions Estephania Rodriguez MD [Medical Doctor] -
--- NOTE | 2018-09-13 09:50 | PDIAF ---
- Diagnosis Diagnosis: Catatonia, feet gangrene Code Status: Full Code - Medication Management Discharge Medications: electronically signed and located in the Home Medication List. - Orders Services needed: Registered Nurse, Certified Width Stripper, Physical Therapy, Occupational Therapy Isolation Type: None Diet Recommendation: no restrictions on diet Diet Texture: Regular Texture Diet Additional Instructions: Wash feet with soap and water with each dressing change BID. [place] Betadine to blackened areas of toes. Wrap loosley in Kerlix, including between all toes. Need to follow up with Outpatient [facility]ound Care Clinic this week. - Follow Up Care Current Providers and Referrals: Estephania Rodriguez MD [Medical Doctor] - [facility],. [Clinic] - As per Instructions
--- NOTE | 2018-09-13 10:16 | GDS ---
[f rep st] DISCHARGE SUMMARY DISCHARGE DIAGNOSES: 1. Bilateral foot gangrene. 2. Sepsis. 3. Atrial fibrillation with rapid ventricular rate. 4. Bipolar disorder with severe depression and catatonia. 5. History of pulmonary embolism. 6. Loculated right pleural effusion. 7. Right subclavian artery stenosis. 8. Thrombocytosis. 9. Cough. CONSULTATIONS: 1. Infectious Disease. 2. Surgery. 3. Psychiatry. HISTORY OF PRESENT ILLNESS: A 63-year-old male with history of atrial fibrillation, pulmonary emboli sm, and homelessness, had recently been admitted for hypothermia and frostbite. He states he is very weak and health is deteriorating. Says his feet were still black and crumbling away. Endorsed arina re sadness and depression. HOSPITAL COURSE BY PROBLEM: 1. Frostbite of bilateral feet with gangrene: Surgery did debridements. He completed a course of A ugmentin and doxycycline. He is receiving b.i.d. dressing changes, to be continued along with painti ng affected areas with Betadine. Will have close followup with outpatient wound clinic tomorrow or W . 2. Sepsis: Present on arrival. This is now resolved. 3. Atrial fibrillation with RVR: Currently rate controlled on metoprolol 25 mg b.i.d. so CHADS scor e is zero. Continue baby aspirin. 4. Bipolar disorder with severe depression and catatonia: Dr. Rodriguez with Psychiatry evaluated. Sy mptoms are significantly improved with scheduled Ativan and Zyprexa. We will continue this for now. Needs psychiatric followup. 5. History of pulmonary embolism diagnosed 08/2017: Completed 3 months of AC. No indication for fu rther treatment. 6. Loculated right pleural effusion noted on CT: He is asymptomatic. Had a history of bilateral pl eural effusions after PE. 7. Right subclavian artery stenosis: Asymptomatic. 8. Thrombocytosis due to acute infection. DISPOSITION: Patient is stable for discharge to [facility]. FOLLOWUP: 1. Outpatient wound clinic for b.i.d. dressings. 2. Dr. Rodriguez with Psychiatry for medication titration. 3. [facility]. PHYSICAL EXAMINATION: VITAL SIGNS: Today, temperature 36.7, blood pressure 121/82, heart rate 80s t o 90s, respirations 14, 91% on room air. GENERAL: Lying in bed, no acute distress. HEENT: PERRLA. Moist mucous membranes. HEART: Irregularly irregular. LUNGS: Clear anteriorly. ABDOMEN: Soft, nontender, nondistended. Positive bowel sounds. MUSCULOSKELETAL: Bilateral feet are dressed in Ker lix. Clean, dry, and intact. PSYCH: Interactive, answering questions appropriately. Time spent on discharge greater than 30 minutes coordinating with case management for discharge. /[id number]/MODL
[2018-09-13] MEDS ORDERED: METOPROLOL TARTRATE 25 MG TAB PO ONE (10:42)
[2018-09-13] MEDS: SILVER SULFADIAZINE 50 GM JAR TP SCH (11:15)
[2018-09-13 12:12] VITALS: BP 122/81
--- NOTE | 2018-09-13 14:24 | ASMTLACE ---
MARIA ELENAE Length of stay for Answers: 14 days or more current admission Acuity / Level of Answers: Yes Care: Did the patient have an inpatient admission? Comorbidities - select Answers: Other Notes: AFib; HTN all that apply # of Emergency department Answers: 9-12 visits in the last 6 months Social determinants Answers: Homelessness (street, correction) Mental health diagnosis (anxiety, depression, pers onality disorders, etc.) Score: 22 Date Signed: 09/13/2018 02:23 PM Electronically Signed By:Neena Godinez RN
--- NOTE | 2018-09-13 14:38 | ASMTDCNOTE ---
Case Management Discharge Discharge Order Complete? Answers: Yes Patient to Obtain Answers: Other Notes: [facility] Medications Transportation Arranged Answers: Family/Friends Faxed Final Orders Answers: Yes Discharge Comments Notes: Patient discharged to [facility]. All orders sent to and report called by ROJELIO Fuentes. [facility] @ 0900 and included this in the d/c notes. I also composed a letter to the [facility] courts regarding patient's court date at the request of patient's friend/POA Torey. Torey will deliver the letter. Torey will transport to [facility]. [facility] homeless outreach RN to follow as outpatient. Date Signed: 09/13/2018 02:38 PM Electronically Signed By:Neena Godinez RN
--- NOTE | 2018-09-14 14:51 | ASDISCHSUM ---
Discharge Information Plan Status:SNF Medically Cleared to Leave:09/12/2018 Discharge Date:09/13/2018 03:42 PM CM D/C Disposition: ADT D/C Disposition[facility] Projected Discharge Date:09/13/2018 11:00 AM Transportation at D/C: Discharge Delay Reason: Follow-Up Date:09/13/2018 11:00 AM Discharge Slot: Final Diagnosis: Placement Information Referral Type:*Mcfp/SNF Referral ID:[id number] Provider Name:[facility]GELIQUE Address 1:[address] Address 2: Fax Number: [facility]:[place] Selection Factors: State:[place] Referral Type:Assisted Living Residence Referral ID:[id number] Provider Name: Address 1: Phone Number: Address 2: Fax Number: City: Selection Factors: State: Patient Contact Information Contact Name:CARLEE Relationship:Friend Address: City: Alternate Phone: State/Zip Code: Email: Financial Information Financial Class:Medicaid Primary Plan Desc:[place] Primary Plan Number:[id number] Secondary Plan Desc: Secondary Plan Number: Assessment Information [facility] CM Progress Note CM Note CM Note Notes: Pt presented to the ED via EMS for weakness x 3 years and a cough. Per EMS pt was lying on the sidewalk and bystanders called 911 because pt said he could not move/walk. Pt is well known to the ED and [facility] Inpatient setting. Please review various past CM Reports, Behavioral Health RN Notes (01/14/17, 08/31 & 09/30/17), Psychiatric consultations (August and February 2018), [facility] Behavioral Health Wheat Washer Notes, TLC evaluations, etc. Pt admitted for A-fib w/RVR, FTT, AMS and overall further care coordination / possible placement. Pt refused brain MRI at this time. Spoke w/pt and he states " I am disintegrating. I have their unique condition where I never get better, I only get worse." Pt states he hasn't followed up with the wound care clinic (for his frostbite to his toes), [facility], [facility], [facility] CM because "I can't even make it to the waiting area. I'm not able to walk, I'll fall on my face." Again, this CM discussed w/pt that he can indeed walk and he has been able to demonstrate this recently. Pt said "but not very far." This CM talked about setting pt up with walker that would have a seat so he could take frequent breaks and pt said "no that wouldn't work either," but was unable to explain why not. Pt is wearing his running shoes again; this CM asked what happened to the winter boots he used to have "they didn't fit. they were too big." When asked what size of shoe he wears, pt states "6 or 7;" this CM questioned this due to pt's height and that it appears his feet are larger than a Men's 6 or 7, and pt said "it is what it is." This CM asked pt if he would wear a pair of winter boots if they fit and pt said "no. its too late. it won't help. I'm disintegrating." This CM relayed that medical collections representative believe that it would still help for him to keep his feet warm and dry, and the pt still said he would not wear winter boots. This is definitely peculiar and this CM feels it is even more supportive of pt's delusions and inability to make appropriate decisions re:his well being. Pt's friend Torey Whitney (H: [phone], c:[phone]) arrived to the ED. 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 This CM spoke w/Torey extensively. Torey would like to help pt out however he can and would be willing to apply for Emergency Guardianship if necessary. This CM spoke w/pt privately about signing an TASHIA for Torey and his other friend/former co-worker, Johnie Bran (c:[phone]) and pt states he would like Torey and Johnie to be able to be updated, involved and have access to his records. This CM assisted pt w/completing the TASHIA. Copy provided to Torey. Original scanned into pt's e-chart. Pt also gave permission for Torey and Johnie to be listed as his Emergency Contacts. Spoke w/hospitalist and discussed a Behavioral Health RN Consult again? Psychiatric consult again? Decisional capacity eval again? Hopefully a meeting can be scheduled to involve the interdisciplinary team, CM, Ethics, and pt's friends. PT/OT evals ordered. Wound Care consult ordered. CM to follow. Date Signed: 08/30/2018 08:30 PM Electronically Signed By:Tonya Hope RN LACE LACE Length of stay for Answers: 14 days or more current admission Acuity / Level of Answers: Yes Care: Did the patient have an inpatient admission? Comorbidities - select Answers: Other Notes: AFib; HTN all that apply # of Emergency department Answers: 9-12 visits in the last 6 months Social determinants Answers: Homelessness (street, longterm) Mental health diagnosis (anxiety, depression, pers onality disorders, etc.) Score: 22 Date Signed: 09/13/2018 02:23 PM Electronically Signed By:Neena Godinez RN [facility] CM Progress Note CM Note CM Note Notes: See detailed ED CM note from 08/30/18. Pt admitted for sepsis 2/2 gangrene. Pt receiving brain MRI today. Pt homeless and mentally ill with frequent admissions to hospital, ED and behavioral health inpatient. Pt non compliant with all follow up. Pt requesting placement at this time. Referral sent to various medicaid facilities with LTC units. PASSR faxed to [facility], [id number] [facility] for eval. Pt has been declined from SNF in the past, likely due to lack of medical qualification. Pt has two friends Torey and Johnie - numbers in the chart - who have been given HIPPA release by patient and are requesting a "family meeting" as they are concerned for pt's life and would like to participate in solution finding and are willing to be emergency proxies. CM is also coordinating interdisciplinary team meeting to identify pt's goals of care, that is, is patient decisional, is pt eligible for palliative, etc. CM tax accounting manager to arrange interdisciplinary team meeting. D/C Plan: TBD Date Signed: 08/31/2018 02:55 PM Electronically Signed By:Sruthi Diamond [facility] Progress Note CM Note CM Note Notes: CARLOS EDUARDO met with pt, his friends Torey ([phone]) and Johnie ([phone]) , who are willing to be health care decision makers for Dhruv. Torey reports that he is in regular contact with pt's mother, who is 98 and lives at [facility]. During Rounds, MD/RN/CARLOS EDUARDO discussed getting cog eval to determine if pt is decisional. Pt refused eval today. Dr. Rodriguez with psychiatry is involved today, Sarah Cortes also is involved. CARLOS EDUARDO and RN discussed plan with pt's friends Torey and Johnie. They want him to get into a facility and are willing to do whatever it takes to help get him somewhere. Once cognitive eval is done, they are willing to collaborate with CM to make the appropriate steps to become HCP, as pt's mother may not be able to serve as proxy. Torey and Johnie requested assistance in obtaining an Identfication card for pt. CM spoke with Torey and instructed him to go to [facility] and identify which forms they need and to speak with CM to see if we can help them. CARLOS EDUARDO spoke with Gómez Lafleur ([phone]) from [facility] and she said it is too early for her to make a determination on a level 2 and needs to be updated as pt progresses before she will be able to make a decision. CARLOS EDUARDO discussed plan with Chelsie. Plan: cognitive eval and then determine if healthcare proxy needs to be completed. registered nurse behavioral health plan: assisted living/ LTC. Date Signed: 09/01/2018 03:19 PM Electronically Signed By:PRAKASH Rai [facility] CARLOS EDUARDO Progress Note CM Note CM Note Notes: 09/02/2018 Case Management Note Met w/pt several times today. Friends Torey and Ojhnie met w/pt several times today. Dhruv completed MDPOA papwork naming Sriram and Torey as equal MDPOAs with decision making abilities starting upon signature. Phone call from Marcia Vallejo [facility] indicating that pt was approved for 30 day stay. [facility] Kevin from [facility] to meet w/pt tomorrow morning at 9:30 am. Speech therapy to meet w/pt tomorrow morning as well. Ethics eval to happen tomorrow per Dr. Rodriguez. Case Management d/c poc: 30 day SNF stay pending acceptance. Case Management to follow. Date Signed: 09/02/2018 05:37 PM Electronically Signed By:Xochitl Oakley RN [facility] CARLOS EDUARDO Progress Note CM Note CM Note Notes: 09/03/2018 Case Management Note Pt completed financial POA paperwork this morning naming [place]. Confirmed [employer] Medicaid application is underway. Pt completed Cog Eval. Pt met w/pt Ethics. Please see their note for details. Pt met w/pt Kevin from [facility]. Kevin asking administrators at to accept patient. Phone call from Gómez Lafleur. Danisha to come tomorrow to complete assessment for Level 2 Pasrr. Provided hard copies of notes from Dr. Rodriguez for eval. Informed pt. Gómez hoping to have approval from [facility] on Thursday. Pt has noticeably improved affect after ativan doses today. Pt was agreeable to participate in all meetings planned for him today. Updated leadership in case management department. Case Management d/c poc: [facility] pending acceptance Case Management to follow. Date Signed: 09/03/2018 04:50 PM Electronically Signed By:Xochitl Oakley RN [facility] CM Progress Note CM Note CM Note Notes: Plan of care reviewed . 63 year old homeless make with significant mental health issues. Awaiting level II PASSR. See previous case management note for history and details.Patient is being considered by [facility] for admission. CM to follow. Plan: Hopefully to SNF when medically cleared for discharge. Date Signed: 09/05/2018 03:52 PM Electronically Signed By:Mel Singleton RN [facility] CM Progress Note CM Note CM Note Notes: 09/06/2018 Case Management Note Pt met w/Dr. Rodriguez today. Please see her note. Kevin from [facility] visited pt. Pt is accepted at [facility] pending financial approval. [employer] Medicaid application completed by [employer] with Financial POA in the room. Updated Gómez Lafleur by email. Waiting for Level 2 Pasrr. Updated MDPOA's in person. Financial POA is working on obtaining replacement ID for patient. Case Management d/c poc: [facility] pending financial approval. Case Management to follow. Date Signed: 09/06/2018 02:23 PM Electronically Signed By:Xochitl Oakley RN [facility] CM Progress Note CM Note CM Note Notes: Received a call from Kevin at [facility] - patient has been officially accepted. Kevin on site today to obtain patietnt's signature on some admission forms - patient's MDPOA/Friend, Torey, at bedside to witness. MD feels like patient will likely be medically ready to d/c by this upcoming /Thursday. Gómez Lafleur, [facility] Coordinator, notified of placement and vm also left for [facility]. Per Gómez, Level 2 PASRR will be sent to [facility] by today or tomorrow. Will need to f/u/w [facility] to confirm all paperwork has been sent to [facility]. Spoke with Torey IBRAHIM. Torey wanted to relay some important information to this team for future reference if needed. Torey spoke with patient's cousin, Georgi Elizondor #[phone] or #[phone]. Georgi wanted [facility] to know that with Dhruv's permission, he'd be happy to speak to anyone on the treatment team if further history needed. Per Georgi, patient left [place], where he'd be living, about 8-10 years ago. He did see a Psychiatrist in [place] and was treated for Depression. Georgi stated that patient has always responded very well to medications. [facility] and plan to visit [place] in the near future to move his belongings out of storage. It sounds like patient also has some property here in the area. MDPOAs/friends highly involved in the case and willing to support the treatment team in any way possible. Patient continues to show improvement, was able to draw some pictures with supplies brought in by friend, Torey. CM will continue to follow. Plan: [facility] Date Signed: 09/07/2018 05:18 PM Electronically Signed By:Chelsie Bermudez RN [facility] CARLOS EDUARDO Progress Note CM Note CM Note Notes: Pts case discussed in treatment rounds. CM left a msg for Arely snyder/ BRIA and Gómez Lafleur w/ RAMIRO. CM awaiting from documentation on level 2 for pt to discharge to [facility]. CM spoke to [facility]. CM provided [facility] w/ a list of psych advertising editor that take medicaid. Estephania Rodriguez will be stopping by to see pt and [facility] today. CM to follow. Plan: [facility] Date Signed: 09/08/2018 02:18 PM Electronically Signed By:PRAKASH Madrigal [facility] CARLOS EDUARDO Progress Note CM Note CM Note Notes: Pts case discussed in tx rounds. Pt will most likely d/c on thursday. CM spoke w/ Kevin with [facility]. CM notified BRIA and Kevin with [facility] this. [facility] will be sending over Level II PASRR to [facility] with start of date when it is identified. CM to follow. Plan: [facility] Date Signed: 09/09/2018 11:40 AM Electronically Signed By:PRAKASH Madrigal [facility] CM Progress Note CM Note CM Note Notes: CM spoke with pt's hospitalist. D/C to Located within [facility] anticipated this Thursday. D/C Plan: [facility] Date Signed: 09/11/2018 02:09 PM Electronically Signed By:Lisette Armas Case Management Discharge Plan Note Case Management Discharge Discharge Order Complete? Answers: Yes Patient to Obtain Answers: Other Notes: [facility] Medications Transportation Arranged Answers: Family/Friends Faxed Final Orders Answers: Yes Discharge Comments Notes: Patient discharged to [facility]. All orders sent to and report called by ROJELIO Fuentes. [facility] 09/15 @ 0900 and included this in the d/c notes. I also composed a letter to the [place] [employer] regarding patient's court date at the request of patient's friend/PONaila Lema. Torey will deliver the letter. Torey will transport to [facility]. [facility] homeless outreach RN to follow as outpatient. Date Signed: 09/13/2018 02:38 PM Electronically Signed By:Neena Godinez RN Intervention Information Intervention Type:*Incorrect Registration Date of Service:08/30/2018 10:14 AM Patient Type:Observation Staff Member:Mera Means Hours: Discipline: Severity: Comment:
== END 2018-09-13 15:42 | DRG 720 ==
LOC: EDUNIT# → OBSVTOIN 18:33 → F2W 18:43
PROVIDERS: ADMIT Internal Medicine; ATTEND Internal Medicine
DX: A41.9 Sepsis, unspecified organism (principal); I96 Gangrene, not elsewhere classified; J90 Pleural effusion, not elsewhere classified; I48.91 Unspecified atrial fibrillation; F06.1 Catatonic disorder due to known physiological condition; T33.822A Superficial frostbite of left foot, initial encounter; T33.821A Superficial frostbite of right foot, initial encounter; R62.7 Adult failure to thrive; E86.9 Volume depletion, unspecified; F31.4 Bipolar disorder, current episode depressed, severe, without psychotic features; I70.8 Atherosclerosis of other arteries; D47.3 Essential (hemorrhagic) thrombocythemia; T43.506A Underdosing of unspecified antipsychotics and neuroleptics, initial encounter; X31.XXXA Exposure to excessive natural cold, initial encounter; Z59.0 Homelessness; Z86.711 Personal history of pulmonary embolism
CPT/HCPCS: 82607-90; 84484-ER; 92523-GN; 96374; 97116-GP; 97163-GP; 97166-GO; 97530-GP; 97535-GO; J0692; J1650; J2543; J3370; J7613; Q9967

== ENCOUNTER 2018-10-25 09:34 | Day surgery (SDC) | payer MEDICAID ==
[2018-10-25] MEDS ORDERED: ceFAZolin 2 GM/DEXTROSE 100 ML IV ONE (09:46)
[2018-10-25] MEDS ORDERED: LR 1,000 ML IV ONE (09:47)
--- NOTE | 2018-10-25 10:46 | PDHPUP ---
History & Physical Update H&P update statement: This history and physical update is based on an assessment of the patient which was completed after admission or registration (within 24 hours), but prior to the surgery/procedure. H&P update: H&P reviewed & patient examined, no change in patient's condition since H&P completed
[2018-10-25] MEDS ORDERED: MIDAZOLAM 2 MG/2 ML VIAL ONE (11:09)
[2018-10-25] MEDS ORDERED: BUPIVACAINE 0.25% 30 ML SDV ONE (11:10)
[2018-10-25] MEDS ORDERED: LIDOCAINE 2% 100 MG/5 ML SYR ONE (11:23)
[2018-10-25] MEDS ORDERED: ROPIVACAINE HCL 100 MG/20 ML INJ ONE (11:23)
[2018-10-25] MEDS ORDERED: PROPOFOL 200 MG/20 ML VIAL ONE (11:24)
[2018-10-25] MEDS ORDERED: fentaNYL 100 MCG/2 ML INJ ONE (11:24)
[2018-10-25] MEDS ORDERED: MIDAZOLAM 2 MG/2 ML VIAL IVP ONE (11:30)
[2018-10-25] MEDS ORDERED: ONDANSETRON 4 MG/2 ML VIAL ONE (12:22)
[2018-10-25] MEDS ORDERED: ACETAMINOPHEN 500 MG TAB PO PRN (12:23)
[2018-10-25] MEDS ORDERED: HYDROmorphONE/DILAUDID 2 MG/ML INJ IVP PRN (12:23)
[2018-10-25] MEDS ORDERED: ONDANSETRON 4 MG/2 ML VIAL IVP PRN (12:23)
[2018-10-25] MEDS ORDERED: DEXAMETHASONE 4 MG/ML VIAL IVP PRN (12:23)
[2018-10-25] MEDS ORDERED: oxyCODONE IR 5 MG TAB PO PRN (12:23)
[2018-10-25] MEDS ORDERED: MEPERIDINE 25 MG/0.5 ML AMP IVP PRN (12:23)
[2018-10-25] MEDS ORDERED: LABETALOL HCL 5 MG/ML 20 ML MDV IVP PRN (12:23)
[2018-10-25] MEDS ORDERED: LR 500 ML IV PRN (12:23)
[2018-10-25] MEDS ORDERED: NALOXONE HCL 0.4 MG/ML INJ IVP PRN (12:23)
[2018-10-25] MEDS ORDERED: fentaNYL 100 MCG/2 ML INJ IVP PRN (12:23)
--- NOTE | 2018-10-25 12:24 | POSTOPPROG ---
Post Op Note Date of Operation: 10/25/18 Surgeon: Brad Treviño Anesthesiologist: Sheila Anesthesia: GET(General Endotracheal) Pre-op Diagnosis: L great toe infection Post-op Diagnosis: same Procedure: Amputation L great toe Findings: whole toe removed, met head biopsy Inf/Abcess present in the surg proc area at time of surgery?: Yes Depth: Superfical (Skin SQ) EBL: Minimal Total fluids administered: 500cc washout Specimen(s): L great toe L metatarsal head
--- NOTE | 2018-10-25 12:35 | POSTANESTH ---
Post Anesthetic Evaluation Cardiovascular Status: Normal, Stable Respiratory Status: Normal, Stable Level of Consciousness/Mental Status: Can Participate in Eval, Alert and Oriented Pain Control: Adequate, Prn Tx Ordered Nausea/Vomiting Control: Adequate, Prn Tx Ordered Complications Possibly Related to Anesthesia: None Noted
[2018-10-25 13:09] VITALS: BP 131/92
--- NOTE | 2018-10-26 03:21 | GOP ---
[f rep st] OPERATIVE REPORT DATE OF OPERATION: 10/25/2018 SURGEON: Brad Treviño MD ENVIRONMENTAL TECHNICIAN: None. ANESTHESIA: General endotracheal. ANESTHESIOLOGIST: Adriana Sosa DO. PREOPERATIVE DIAGNOSIS: Necrotic left great toe secondary to frostbite. POSTOPERATIVE DIAGNOSIS: Necrotic left great toe secondary to frostbite. PROCEDURE PERFORMED: Left great toe amputation. FINDINGS: Infection appeared to be superficial; however, the entire toe required amputation secondar y to inadequate skin coverage. SPECIMENS: 1. Left great toe. 1. Left 1st metatarsal head, rule out osteomyelitis. 2. ESTIMATED BLOOD LOSS: 10 cc. DESCRIPTION OF PROCEDURE: The patient was greeted in the preoperative suite and once again, risks, b enefits, and alternatives were discussed. Consent was signed. He was then brought back to the opera tive suite, placed on the OR table in the supine position. After all anesthesia machines including S CDs were on and functioning, World Health Organization time-out was performed. After the successful induction of general anesthesia, the patient's left foot was prepped and draped in typical sterile fa shion. I commenced the procedure by grasping the necrotic toe with a penetrating towel clamp and mad e a circumferential incision through the proximal skin, and carried this down. The toe was then succ essfully de-articulated from the proximal joint and passed off. Using the bone saw, I successfully t ook a biopsy of the 1st metatarsal head to rule out any infection in this site. Hemostasis was then achieved with electrocautery. I then cleaned the subcutaneous and surrounding tissue with electrocau napoleon, removing any excess fat and tendon. Once this was done, I then fashioned the skin appropriatel y. I then proceeded to irrigate the area with sterile saline. I closed the wound in layers, first w ith interrupted 3-0 Vicryl followed by interrupted 2-0 nylon, getting good tissue reapproximation. M arcaine was infiltrated into the area. A sterile dressing was placed after the wound was painted wit h Betadine. The patient was then extubated in the operative suite and taken to the PACU in satisfact ory condition. DRAINS: None. COUNTS: All counts were reported as correct x2. /[id number]/MODL
== END 2018-10-25 13:25 | disposition home or self-care (01) ==
LOC: FSGY 09:34
PROVIDERS: ATTEND Surgery
PROC: 0Y6Q0Z1 Detachment at Left 1st Toe, High, Open Approach (ICD-10-PCS; principal; 2018-10-25 10:45)
DX: T34.832A Frostbite with tissue necrosis of left toe(s), initial encounter (principal); X31.XXXA Exposure to excessive natural cold, initial encounter; Y99.9 Unspecified external cause status
CPT/HCPCS: J0690; J2001; J2250; J2405; J2704; J2795; J3010

== ENCOUNTER → 2018-11-05 | Outpatient (CLI) | payer MEDICAID ==
--- NOTE | 2018-10-25 10:55 | PDANEPAE ---
ANE History of Present Illness History is complex, here for amputation of the gangrenous toes ANE Past Medical History - Cardiovascular History Hx Hypertension: No Hx Arrhythmias: Yes Hx Chest Pain: No Cardiovascular History Comment: A-Fib - Pulmonary History Hx COPD: No Hx Asthma/Reactive Airway Disease: No Hx Oxygen in Use at Home: No Hx Sleep Apnea: No - Endocrine History Hx Diabetes: Yes - Neurological & Psychiatric Hx Hx Neurological and Psychiatric Disorders: Yes Neurological / Psychiatric History Comment: Bipolar, Schitsophrenia, Anxiety and Depression - Chronic Pain History Chronic Pain: No ANE Review of Systems Review of Systems: ANE Patient History - Allergies Allergies/Adverse Reactions: No Known Allergies Allergy (Verified 08/18/18 21:44) - Smoking Hx Smoking Status: Never smoked ANE Physical Exam - Airway Neck exam: FROM Mallampati Score: Class 2 Mouth exam: poor dentition - Pulmonary Pulmonary: no respiratory distress, no rales or rhonchi - Cardiovascular Cardiovascular: no murmur, rub, or gallop, irregularly irregular - ASA Status ASA Status: III ANE Anesthesia Plan Anesthesia Plan: GA w [facility] Anesthesia: single shot NB
== END ==
LOC: FIMAGING 07:48
PROVIDERS: ATTEND Nurse Practitioner Gerontology
DX: G31.9 Degenerative disease of nervous system, unspecified (principal); R90.82 White matter disease, unspecified
CPT/HCPCS: 70551-PN

== ENCOUNTER 2018-12-27 07:14 | Inpatient (IN) | payer MEDICAID ==
--- NOTE | 2018-12-27 06:38 | PDGENHP ---
History and Physical - Chief Complaint frostbite - History of Present Illness 63yoM well known to me from frostbite treatment. Briefly, he is followed at the [facility]. I removed his left great toe, the remainder of the toes on the L side have evolved and there is bone exposed History Information - Allergies/Home Medication List Allergies/Adverse Reactions: No Known Allergies Allergy (Verified 08/18/18 21:44) Home Medications: LORazepam [Lorazepam] 0.5 mg PO DAILY@1200 12/24/18 [Last Taken Unknown] LORazepam [Lorazepam] 1 mg PO HS 12/24/18 [Last Taken Unknown] OLANZapine [OLANZapine (*)] 10 mg PO HS 12/24/18 [Last Taken Unknown] oxyCODONE IR [Oxycodone Ir (*)] 5 mg PO BID 12/24/18 [Last Taken Unknown] I have personally reviewed and updated: family history, medical history, social history, surgical history Past Medical History: GERD, depression, anxiety - Past Medical History atrial fibrillation, GERD, pulmonary embolism, psychiatric history (depression and anxiety with psychotic features) Additional medical history: esophageal stricutre. low vitamin d. pericardial cyst - Surgical History Reports: appendectomy Additional surgical history: esophageal stricture dilation - Family History Positive for: non-pertinent - Social History Smoking Status: Never smoked Additional social history: unknown due to patients unwillingness/inability to talk Review of Systems Review of Systems: ROS: 10pt was reviewed & negative except for what was stated in HPI & below Physical Exam Physical Exam: Constitutional: no apparent distress, appears nourished, not in pain Eyes: PERRL, anicteric sclera, EOMI Ears, Nose, Mouth, Throat: moist mucous membranes, hearing normal, ears appear normal, no oral mucosal ulcers Cardiovascular: regular rate and rhythym, no murmur, rub, or gallop, No edema Respiratory: no respiratory distress, no rales or rhonchi, clear to auscultation Gastrointestinal: normoactive bowel sounds, soft, non-tender abdomen, no palpable masses Genitourinary: no bladder fullness, no bladder tenderness Skin: warm, normal color, no rashes or abrasions, no fluctuance, no induration, No mottled Musculoskeletal: full muscle strength, no muscle tenderness, normal joint ROM, no joint effusions, other (bone exposed 2,3rd toes on L ) Psychiatric: interacting appropriately, not anxious, not encephalopathic, thought process linear Lymph, Heme, Immunologic: no cervical LAD, no supraclavicular LAD Assessment & Plan Assessment: likely osteo 2/2 frostbite of the L foot Plan: to OR for completion amputation of toes 2/2 frostbite. RBA discussed
[2018-12-27] MEDS ORDERED: ceFAZolin 2 GM/DEXTROSE 100 ML IV ONE (07:25)
[2018-12-27] MEDS ORDERED: LR 1,000 ML IV ONE (07:26)
[2018-12-27 08:13] LABS: PLATELET COUNT 280 10^3/uL (150-400)
--- NOTE | 2018-12-27 08:44 | PDANEPAE ---
ANE History of Present Illness 2-5 L toe amp 2nd to frostbite ANE Past Medical History - Cardiovascular History Hx Hypertension: No Hx Arrhythmias: Yes Hx Chest Pain: No Hx Coronary Artery / Peripheral Vascular Disease: No Hx CHF / Valvular Disease: No Hx Palpitations: No Cardiovascular History Comment: A-Fib - Pulmonary History Hx COPD: No Hx Asthma/Reactive Airway Disease: No Hx Recent Upper Respiratory Infection: No Hx Oxygen in Use at Home: No Hx Sleep Apnea: No Sleep Apnea Screening Result - Last Documented: Positive - Neurologic History Hx Cerebrovascular Accident: No Hx Seizures: No Hx Dementia: No - Endocrine History Hx Diabetes: No - Renal History Hx Renal Disorders: No - Liver History Hx Hepatic Disorders: No - Neurological & Psychiatric Hx Hx Neurological and Psychiatric Disorders: Yes Neurological / Psychiatric History Comment: Anxiety, depression - Cancer History Hx Cancer: No - Congenital Disorder History Hx Congenital Disorders: No - GI History Hx Gastrointestinal Disorders: Yes Gastrointestinal History Comment: GERD - Other Health History Other Health History: [place]. anemia - Chronic Pain History Chronic Pain: Yes (Bilateral feet) - Surgical History Prior Surgeries: Portion of stomach remove. Appendectomy. L great toe amputated 10/26 ANE Review of Systems Review of Systems: - Exercise capacity METS (RN): 2 METS ANE Patient History - Allergies Allergies/Adverse Reactions: No Known Allergies Allergy (Verified 08/18/18 21:44) - Home Medications Home medications: home medication list seen and reviewed Home Medications: LORazepam [Lorazepam] 0.5 mg PO DAILY@1200 12/24/18 [Last Taken 12/26/18] LORazepam [Lorazepam] 1 mg PO HS 12/24/18 [Last Taken 12/26/18] OLANZapine [OLANZapine (*)] 10 mg PO HS 12/24/18 [Last Taken 12/26/18] oxyCODONE IR [Oxycodone Ir (*)] 5 mg PO BID 12/24/18 [Last Taken 12/26/18] - NPO status NPO Status: no food or drink >8 hours NPO Since - Liquids (Date): 12/26/18 NPO Since - Liquids (Time): 21:00 NPO Since - Solids (Date): 12/26/18 NPO Since - Solids (Time): 21:00 - Smoking Hx Smoking Status: Never smoked - Alcohol Use Alcohol Use: Rarely - Family Anes Hx Family Anes Hx: none Family Hx Anesthesia Complications: None. ANE Labs/Vital Signs - Labs Result Diagrams: 12/27/18 07:53 - Vital Signs Blood Pressure: 129/92 Heart Rate: 106 Respiratory Rate: 15 O2 Sat (%): 93 Height: 182.88 cm Weight: 88.451 kg ANE Physical Exam - Airway Neck exam: FROM Mallampati Score: Class 2 Mouth exam: poor dentition - Pulmonary Pulmonary: no respiratory distress - Cardiovascular Cardiovascular: regular rate and rhythym - ASA Status ASA Status: II ANE Anesthesia Plan Anesthesia Plan: GA w LMA
[2018-12-27] MEDS ORDERED: fentaNYL 100 MCG/2 ML INJ ONE ×3 (08:56→11:08)
[2018-12-27] MEDS ORDERED: PROPOFOL/EMULSION 500 MG/50 ML BOTTLE IV ONE (08:56)
[2018-12-27] MEDS ORDERED: ONDANSETRON 4 MG/2 ML VIAL ONE (08:57)
[2018-12-27] MEDS ORDERED: LIDOCAINE 2% 100 MG/5 ML SYR ONE (08:57)
[2018-12-27] MEDS ORDERED: DEXAMETHASONE 4 MG/ML VIAL ONE (08:57)
[2018-12-27] MEDS ORDERED: LIDOCAINE 2% JELLY 6 ML TOPICAL SYR ONE (09:03)
[2018-12-27] MEDS ORDERED: BUPIVACAINE 0.25% 30 ML SDV ONE (09:14)
[2018-12-27] MEDS ORDERED: HYDROmorphONE/DILAUDID 1 MG/ML INJ IVP PRN ×2 (10:28→10:30)
[2018-12-27] MEDS ORDERED: HYDROCODONE/APAP 5/325 TAB PO PRN ×2 (10:28→10:30)
[2018-12-27] MEDS ORDERED: ACETAMINOPHEN 325 MG TAB PO PRN (10:28)
[2018-12-27] MEDS ORDERED: ONDANSETRON 4 MG/2 ML VIAL IVP PRN ×2 (10:28→10:30)
[2018-12-27] MEDS ORDERED: D5W 1/2 NS W/ 20 KCl/L 1,000 ML IV SCH (10:30)
[2018-12-27] MEDS ORDERED: LR 500 ML IV PRN (10:30)
[2018-12-27] MEDS ORDERED: LABETALOL HCL 5 MG/ML 20 ML MDV IVP PRN (10:30)
[2018-12-27] MEDS ORDERED: DEXAMETHASONE 4 MG/ML VIAL IVP PRN (10:30)
[2018-12-27] MEDS ORDERED: PHENYLEPHRINE HCL 100 MCG/ML SYR IVP PRN (10:30)
[2018-12-27] MEDS ORDERED: ALBUTEROL 3 ML DEYVIAL IH PRN (10:30)
[2018-12-27] MEDS ORDERED: NALOXONE HCL 0.4 MG/ML INJ IVP PRN (10:30)
[2018-12-27] MEDS ORDERED: PROMETHAZINE HCL 25 MG/ML INJ IVP PRN (10:30)
[2018-12-27] MEDS ORDERED: oxyCODONE IR 5 MG TAB PO PRN (10:30)
[2018-12-27] MEDS ORDERED: METOCLOPRAMIDE 10 MG/2 ML VIAL IVP PRN (10:30)
[2018-12-27] MEDS ORDERED: ACETAMINOPHEN 500 MG TAB PO PRN (10:30)
[2018-12-27] MEDS ORDERED: MEPERIDINE 25 MG/0.5 ML AMP IVP PRN (10:30)
--- NOTE | 2018-12-27 10:35 | POSTOPPROG ---
Post Op Note Date of Operation: 12/27/18 Surgeon: Brad Treviño Anesthesiologist: Luis Anesthesia: GET(General Endotracheal) Pre-op Diagnosis: left foot frostbite with exposed bone Post-op Diagnosis: same Procedure: completion 2-5 L toe amputations Findings: proximal toes look viable, no visible osteo Inf/Abcess present in the surg proc area at time of surgery?: Yes Depth: Superfical (Skin SQ) EBL: Minimal Specimen(s): L 2-5 toes
--- NOTE | 2018-12-27 10:44 | POSTANESTH ---
Post Anesthetic Evaluation Cardiovascular Status: Normal, Stable, Similar to Pre-Op Cond Respiratory Status: Normal, Stable, Tx Decrease in SpO2 Level of Consciousness/Mental Status: Can Participate in Eval Pain Control: Adequate, Prn Tx Ordered Nausea/Vomiting Control: Adequate, Prn Tx Ordered Complications Possibly Related to Anesthesia: None Noted
[2018-12-27] MEDS ORDERED: HYDROmorphONE/DILAUDID 1 MG/ML INJ ONE (10:57)
[2018-12-27] MEDS: fentaNYL 100 MCG/2 ML INJ IVP PRN ×3 (11:00→11:26)
--- NOTE | 2018-12-27 11:59 | GOP ---
[f rep st] OPERATIVE REPORT DATE OF OPERATION: 12/27/2018 SURGEON: Brad Treviño MD PLANS EXAMINER: None. ANESTHESIA: General endotracheal. ANESTHESIOLOGIST: Erickson Smith MD. PREOPERATIVE DIAGNOSIS: Frostbite to the left lower extremity with necrotic toes. POSTOPERATIVE DIAGNOSIS: Frostbite to the left lower extremity with necrotic toes. PROCEDURE PERFORMED: Completion amputation of left toes numbering 2, 3, 4, 5. FINDINGS: All the metatarsal bases appeared healthy. No other significant findings. SPECIMENS: Left toes 2 through 5. ESTIMATED BLOOD LOSS: 20 mL. DESCRIPTION OF PROCEDURE: The patient was greeted in the preoperative suite. Once again, risks, aydee efits and alternatives were discussed. Consent was signed. He was then brought back to the operativ e suite, placed on the OR table in supine position. After all anesthesia machines including SCDs to the contralateral leg were on and functioning, World Health Organization time-out was performed, afte r which the patient was gently sedated and intubated. The left lower extremity was then prepped and draped in typical sterile fashion. I commenced the procedure by first working on the second toe. I sharply debrided this down to the phalange. I carried this proximally to the metatarsophalangeal roro nt and successfully the toe from this. Hemostasis was achieved with gentle pressure and el ectrocautery. I then removed the toe from the operative bed, leaving a significant skin flap for magdalena sure. In the same fashion, the 3rd, 4th and 5th toes were taken the same way. All of them sent to P athology for examination. Hemostasis was then assured. I irrigated the area with a liter of sterile saline, noting clear effluent. I then turned my attention toward closing, which was done with multi ple interrupted 2-0 nylon stitches, noting excellent skin reapproximation under minimal tension. Loc al anesthesia consisting of 0.25% Marcaine plain was then infiltrated into the operative site. A lolly rile dressing was placed. The patient was then extubated in the operative suite and taken to the PAC U in satisfactory condition. DRAINS: None. COUNTS: All counts were reported as correct x2. /[id number]/MODL
[2018-12-27] MEDS ORDERED: LORazepam 0.5 MG TAB PO SCH (12:00)
--- NOTE | 2018-12-27 14:46 | PDMN ---
Medical Necessity Medical necessity: [facility], A-2 days: 63 yo s/p complete amputation of L toes 2-5 for frostbite w/ necrotic toes/exposed bone. Pt cont to be tachycardic post op 110s. IP status for necrotic tissue and post op hemodynamic instability.
[2018-12-27] MEDS: IBUPROFEN 600 MG TAB PO SCH ×2 (15:40→21:26)
[2018-12-27] MEDS: oxyCODONE IR 5 MG TAB PO PRN ×2 (15:41→17:05)
--- NOTE | 2018-12-27 17:55 | ASMTLACE ---
AMIE Acuity / Level of Answers: Yes Care: Did the patient have an inpatient admission? Comorbidities - select Answers: Opioid dependence all that apply / Chronic pain Other Notes: AFib; PE # of Emergency department Answers: 5-8 visits in the last 6 months Social determinants Answers: Mental health diagnosis (anxiety, depression, pers onality disorders, etc.) Score: 15 Date Signed: 12/27/2018 03:20 PM Electronically Signed By:Jessica Leyva
[2018-12-27] MEDS ORDERED: LORazepam 1 MG TAB PO SCH (21:00)
[2018-12-27] MEDS ORDERED: OLANZapine 10 MG TAB PO SCH (21:00)
[2018-12-27] MEDS: METOPROLOL TARTRATE 25 MG TAB PO SCH (21:26)
[2018-12-28] MEDS: IBUPROFEN 600 MG TAB PO SCH (05:42)
[2018-12-28] MEDS ORDERED: CYANO/VITAMIN B12 1000 MCG TAB PO SCH (09:00)
[2018-12-28] MEDS ORDERED: ASPIRIN 81 MG CHEWABLE TAB PO SCH (09:00)
[2018-12-28] MEDS ORDERED: ENOXAPARIN 40 MG/0.4 ML SYR SC SCH (09:00)
[2018-12-28] MEDS: METOPROLOL TARTRATE 25 MG TAB PO SCH (10:22)
[2018-12-28] MEDS: oxyCODONE IR 5 MG TAB PO PRN (10:27)
--- NOTE | 2018-12-28 11:09 | PDIAF ---
- Diagnosis Diagnosis: osteo of L toes Code Status: Full Code - Medication Management Discharge Medications: electronically signed and located in the Home Medication List. - Orders Services needed: Registered Nurse, Physical Therapy, Occupational Therapy Isolation Type: None Diet Recommendation: no restrictions on diet Diet Texture: Regular Texture Diet Additional Instructions: DRESSING CHANGES TO BE DONE DAILY RIGHT foot: paint with betadine, wrap with kerlix gauze daily LEFT foot: cover incision with non-adherent TELFA, cover with gauze wrap with Kerlix. Ensure that the lateral foot at the 5th metatarsal base is protected, change daily ACTIVITY: minimal walking for the next week, can use the bathroom but keep the LLE elevated until I see him in clinic in 1 week. He needs to use the post-op walking shoe when ambulating at all times - Follow Up Care Current Providers and Referrals: [facility] [Clinic] - [facility]/19 ([facility] Jennifer Duncan [facility] [Primary Care Provider] -
--- NOTE | 2018-12-28 11:42 | ASDISCHSUM ---
Discharge Information Plan Status:SNF Medically Cleared to Leave: Discharge Date: D/C Disposition: ADT D/C Disposition:Retirement Facility Projected Discharge Date:12/28/2018 11:00 AM Transportation at D/C: Discharge Delay Reason: Follow-Up Date:12/28/2018 11:00 AM Discharge Slot: Final Diagnosis: Placement Information Referral Type:*[facility]/SNF Referral ID:[facility]-[id number] Provider Name:Phoebe Bell/Milana GameDuell Address 1:[address] Address 2: City:[place] Selection Factors: State:[place] Patient Contact Information Contact Name:CARLEE Relationship:Friend Address: City: [facility] Phone: [facility]/Zip Code: Email: Financial Information Financial Class:Medicaid Primary Plan Desc:[employer] [place] Primary Plan Number:[id number] Secondary Plan Desc: Secondary Plan Number: Assessment Information LACE LACE Acuity / Level of Answers: Yes Care: Did the patient have an inpatient admission? Comorbidities - select Answers: Opioid dependence all that apply / Chronic pain Other Notes: AFib; PE # of Emergency department Answers: 5-8 visits in the last 6 months Social determinants Answers: Mental health diagnosis (anxiety, depression, pers onality disorders, etc.) Score: 15 Date Signed: 12/27/2018 03:20 PM Electronically Signed By:Jessica Leyva [facility] CM Progress Note CM Note CM Note Notes: Pt is a 63 y/o man admitted for a planned left great toe amputation w/ Dr. Treviño. Pt is returning back to [facility] today. CM met w/ pt. Pt reports that his friend will be bringing him back in his own personal wheelchair. CM communicated this w/ the team. ROJELIO Moreira will call to give report. DC orders sent. CM available for changes. Plan: [facility] Date Signed: 12/28/2018 11:40 AM Electronically Signed By:PRAKASH Madrigal Intervention Information Intervention Type:*Incorrect Registration Date of Service:12/27/2018 01:55 PM Patient Type:Observation Staff Member:Lisa Car Hours: Discipline: Severity: Comment:
[2018-12-28 11:51] VITALS: BP 122/80
--- NOTE | 2019-01-05 07:02 | GDS ---
[f rep st] DISCHARGE SUMMARY DISCHARGE DIAGNOSIS: Exposed bone, status post frostbite of the left foot. HOSPITAL COURSE: The patient was taken to the operative suite for completion amputation as there was bone exposed in multiple remaining toes of the left foot. This went uneventfully. He had a 1 night hospital stay. He did well. He was ambulating. His pain was well controlled, and he was toleratin g a regular diet. DISPOSITION: Back to [facility]. FOLLOWUP: Follow up with me in 1 week for re-evaluation. He is to remain touchdown weightbearing as tolerated to that foot for the following week. /[id number]/MODL
== END 2018-12-28 13:50 | DRG 793 ==
LOC: F3N 07:14 → F3E 08:34 → OBSVTOIN 10:29 → F3E 11:49
PROVIDERS: ADMIT Surgery; ATTEND Surgery
DX: T34.832A Frostbite with tissue necrosis of left toe(s), initial encounter (principal); I48.91 Unspecified atrial fibrillation; K21.9 Gastro-esophageal reflux disease without esophagitis; F41.9 Anxiety disorder, unspecified; F32.9 Major depressive disorder, single episode, unspecified
CPT/HCPCS: 97161-GP; J0690; J1100; J1170; J1650; J2001; J2405; J2704; J3010